=== PATIENT | female | born 1955 | race Caucasian/White ===

== ENCOUNTER 2020-06-04 15:46 | Outpatient (REF) | payer MEDICARE, SELFPAY | END 2020-06-04 15:47 | disposition home or self-care (01) | LOC: HO.LABR 15:46 | PROVIDERS: PCP Internal Medicine Medical Oncology; Visit Provider Internal Medicine | DX: Z20.828 Contact with and (suspected) exposure to other viral communicable diseases (principal) | CPT/HCPCS: 36415; 87635 ==

== ENCOUNTER 2020-06-08 13:02 | Outpatient (REF) | payer MEDICARE, SELFPAY ==
--- NOTE | 2020-06-08 | US_ITS ---
EXAMINATION: MM DIAGNOSTIC DIGITAL BREAST TOMOSYNTHESIS, BILATERAL US DIAGNOSTIC ULTRASOUND BREAST, RIGHT CLINICAL INFORMATION: Due for yearly. Follow-up probable benign calcifications left breast mid upper outer quadrant. Also follow-up probable benign bilateral nodularity. The lifetime risk of breast cancer based on the Tyrer-Cuzick Model is 4%. COMPARISON: Mammography: 12/08/2019, 06/09/2019, 11/29/2018 (diagnostic, left calcs), 05/25/2018 (screen, bilat nodularity), 01/27/2017; bilateral targeted breast ultrasound 11/29/2018, 06/09/2019, 12/08/2019. TECHNIQUE: Digital breast tomosynthesis is performed in both the craniocaudal and mediolateral oblique views along with computer-aided detection (CAD). Synthesized 2D images are generated from the tomosynthesis. Additional views are obtained: Magnification left CC, magnification left ML, right MLO, rolled right CC x2, spot right CC, spot right ML. Ultrasound right breast is targeted to the anterior to mid outer quadrants using grayscale imaging and color Doppler without and with harmonics. FINDINGS: There are scattered areas of fibroglandular density (ACR BI-RADS breast composition Category b). There is a fibronodular parenchymal pattern with nodularity decreased since 2017. The left breast calcifications mid upper outer quadrant for follow-up are stable from prior diagnostic exams and will be reassessed again at next bilateral annual mammography, due in 12 months. The right breast has new parenchymal asymmetry anterior to mid upper outer quadrant measuring approximately 1.8 x 1.2 cm on CC view and residing just anterior to chronic benign coarse calcifications on both projections. On tomography and additional views, there is mixture of fatty and fibroglandular densities in this area. Patient has remote history of excisional biopsy this area 1994. There is no architectural abnormality or associated calcifications. No skin thickening or retraction. The bilateral axilla are stable. Ultrasound targeted to the outer right breast demonstrates no architectural abnormality or solid mass. There are some small simple cysts, the largest 0.7 x 0.5 cm. No focal duct ectasia. No skin thickening or edema. No ultrasound correlate for the mammographic finding. Results are discussed with the patient at time of visit. The changes lateral right breast are of uncertain significance. The admixture of fat attenuation suggests benign process, possibly fat necrosis. Management options discussed with patient. Patient prefers stereotactic sampling for tissue diagnosis and exclude lobular lesion. Results and recommendation called to esthetician and manager medical spa (Mary) for Dr. Porter on 06/08/2020. IMPRESSION: 1. Right: New parenchymal asymmetry upper outer right breast. 2. Left: Probable benign left breast calcifications stable. Nodularity stable to decreased. ASSESSMENT: BI-RADS 4: Suspicious (subcategory 4A: Low suspicion for malignancy) RECOMMENDATION: 1. Right: Stereotactic biopsy right breast parenchymal asymmetry. 2. Left: Magnification views left breast at next routine mammography to conclude long-term surveillance probable benign calcifications. This patient's information was entered into a reminder system with a target due date for their next mammogram.
== END 2020-06-08 13:03 | disposition home or self-care (01) ==
LOC: HO.MAMMO 13:02
PROVIDERS: PCP Internal Medicine Medical Oncology; Visit Provider Internal Medicine Medical Oncology
DX: R92.2 Inconclusive mammogram (principal)
CPT/HCPCS: 76642; 77062; 77066; 78013

== ENCOUNTER 2020-06-16 07:28 | Outpatient (REF) | payer MEDICARE, SELFPAY ==
--- NOTE | 2020-06-16 | MM_ITS ---
EXAMINATION: STEREOTACTIC TOMOSYNTHESIS-GUIDED VACUUM-ASSISTED BREAST BIOPSY, RIGHT SPECIMEN RADIOGRAPH, RIGHT POST PROCEDURE DIGITAL BREAST TOMOSYNTHESIS, RIGHT CLINICAL INFORMATION: New parenchymal asymmetry upper outer right breast with admixed fatty attenuation. Remote history right breast biopsy near this area approximately 1994. COMPARISON: Mammography 06/08/2020, targeted right breast ultrasound 06/08/2020. TECHNIQUE/PROCEDURE: Informed consent was obtained from the patient after discussion of the benefits, risks, and alternatives to biopsy today. Patient appeared to understand. Gave opportunity for questions. Patient signed consent form. BIOPSY TABLE: HeTexted Prone Biopsy System. LESION: Parenchymal asymmetry upper outer right breast. Differential considerations include focal fibrosis, fat necrosis, PASH, hamartoma, lobular neoplasia, other. LOCAL ANESTHESIA: 7 mL 1% lidocaine; 16 mL 1% lidocaine with epinephrine. DERMATOTOMY: Single skin jim dermatotomy performed. NEEDLE: SOAK ([employer])iva 9-gauge vacuum assisted core biopsy device. APPROACH: craniocaudal. TARGETING: Digital breast tomosynthesis used for targeting. CORES: 12. CLIP: [employer] T-shaped marker. SPECIMEN RADIOGRAPH: Specimen radiograph is taken in separate room using digital mammography. There are scattered fibroglandular densities confirm within the excised cores. POST PROCEDURE UNILATERAL DIGITAL BREAST TOMOSYNTHESIS, RIGHT: The post biopsy mammogram is performed in separate room using separate digital breast tomosynthesis equipment from the biopsy procedure. CC and ML views are obtained. Synthesized 2-D images are obtained from the tomography. There are scattered areas of fibroglandular density (breast composition category: b). The clip marker is in position corresponding to the area of recent described asymmetry. No gross hematoma. The patient tolerated the procedure well. No immediate complications. Home instructions reviewed with the patient. Final pathology results are pending. IMPRESSION: 1. Digital tomosynthesis-guided core biopsy right breast with clip placement. 2. Specimen radiograph taken and post procedure mammogram. There is satisfactory positioning of the biopsy clip. 3. Final pathology results pending. An addendum report will be issued.
[2020-06-16 08:06] LABS: MANUAL DIFF FLAG NO
[2020-06-16 08:13] LABS: Basophils Percent Auto 0.3 % (0-2); Eosinophils Absolute Auto 0.2 X10*3/uL (0.0-0.4); Eosinophils Percent Auto 1.8 % (0-4); Hemoglobin 12.1 g/dl (12.0-16.0); Imm Gran Abs Auto 0.04 X10*3/uL (0.00-0.03); Imm Gran Pct Auto 0.4 % (0.0-0.4); Lymphocytes Absolute Auto 1.9 X10*3/uL (1.2-4.9); Lymphocytes Percent Auto 20.3 % (20-40); Mean Corpuscular Volume 90.3 fL (80-98); Mean Platelet Volume 9.4 fL (9.4-12.3); Monocytes Absolute Auto 0.6 X10*3/uL (0.1-1.2); Monocytes Percent Auto 6.1 % (2-11); Neutrophils Absolute Auto 6.5 X10*3/uL (2.0-8.3); Neutrophils Percent Auto 71.1 % (45-73); Platelet Count 286 X10*3/uL (160-400); Red Blood Count 4.32 X10*6/uL (4.20-5.50); Red Cell Distribution Width 15.1 % (11.0-16.0); White Blood Count 9.1 X10*3/uL (4.8-10.8)
[2020-06-16 08:37] LABS: Alanine Aminotransferase 88 U/L (0-31); Albumin Level 3.9 g/dL (3.5-5.0); Alkaline Phosphatase 93 U/L (39-117); Anion Gap 13 (12-20); Aspartate Amino Transferase 67 U/L (5-31); Bilirubin Total 0.5 mg/dL (0.0-1.0); Blood Urea Nitrogen 17 mg/dL (9-16); Calcium 9.1 mg/dL (8.4-10.2); Carbon Dioxide 26 mmol/L (22-29); Chloride 104 mmol/L (96-108); Estimated Glomerular Filt Rate 48; Glucose Fasting 149 mg/dL (60-99); Potassium 4.3 mmol/l (3.3-5.1); Sodium 139 mmol/L (135-145); Total Protein 7.5 g/dL (6.5-8.0)
[2020-06-16 08:48] LABS: Estimated Average Glucose 160 mg/dL; Hemoglobin A1c % 7.2 %
== END 2020-06-16 07:29 | disposition home or self-care (01) ==
LOC: HO.MAMMO 07:28
PROVIDERS: PCP Internal Medicine Medical Oncology; Visit Provider Surgery
DX: R92.8 Other abnormal and inconclusive findings on diagnostic imaging of breast (principal); N60.91 Unspecified benign mammary dysplasia of right breast; E78.5 Hyperlipidemia, unspecified; E66.01 Morbid (severe) obesity due to excess calories; R73.03 Prediabetes
CPT/HCPCS: 19081; 19283; 36415; 80053; 83036; 85025; 88305; 88341; 88342; 99203; A4648

== ENCOUNTER → 2020-06-22 10:56 | Outpatient (BNVA) | payer MEDICARE, SELFPAY | PROVIDERS: PCP Internal Medicine Medical Oncology; Visit Provider Surgery | DX: N60.91 Unspecified benign mammary dysplasia of right breast (principal); N64.89 Other specified disorders of breast; Z98.890 Other specified postprocedural states | CPT/HCPCS: 99213 ==

== ENCOUNTER 2020-07-05 06:52 | Day surgery (SDC) | payer MEDICARE, SELFPAY ==
[2020-06-28 20:48] VITALS: BMI 39.8
--- NOTE | 2020-07-02 11:15 | HO.ANESPROP2 ---
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) Snoring Urinary tract infection Family History Family History Mother History of lung cancer Sister History of colon cancer History of liver cancer Surgical History Surgical History H/O right breast biopsy History of appendectomy History of hand surgery History of total hysterectomy (~12/2019) Hx of cholecystectomy Social History Social History Alcohol intake: current Alcohol intake frequency: holidays/special occasions only Smoking Status: Former smoker Tobacco Type: Cigarette Smoked in Last 30 Days: No Smoking Quit Date: 1999 Use of substances other than those prescribed or required for medical reasons: No Advance Directives: No Advance Directives Information Provided: No Advance Directives on File: No Recently lost weight without trying: No Meds Allergies Allergy/AdvReac Type Severity Reaction Status Date / Time codeine [Codeine] Allergy Mild Rash Verified 06/28/20 20:53 Home Medications Medication Instructions Recorded Confirmed Type citalopram 20 mg tablet 20 mg PO DAILY 06/16/20 06/28/20 History levothyroxine 100 mcg tablet 100 mcg PO DAILY 06/16/20 06/28/20 History nitrofurantoin macrocrystal 50 mg 50 mg PO DAILY 06/16/20 06/28/20 History capsule omeprazole 40 mg capsule,delayed 40 mg PO QAM 06/16/20 07/05/20 History release triamterene 75 1 tab PO DAILY 06/16/20 06/28/20 History mg-hydrochlorothiazide 50 mg tablet topiramate 25 mg PO DAILY 06/28/20 06/28/20 History Exam Exam Date and Time: July 02, 2020 1115 Height,Weight and Vital Signs: Height 5 ft Weight 92.533 kg Pertinent Lab Results Pertinent Lab Results: Laboratory Tests 06/16/20 06/16/20 07:36 07:36 WBC 9.1 Hgb 12.1 Hct 39.0 Plt Count 286 Sodium 139 Potassium 4.3 Chloride 104 Carbon Dioxide 26 BUN 17 H Creatinine 1.14 Assessment and Plan Assessment Anesthesia Assessment: Chart Reviewed Documented by User: Colleen Jamison 07/05/20 09:35 PMFSH Past Medical History Medical History (Updated 07/05/20 @ 09:31 by Colleen Jamison) Back pain Colonoscopy planned (2015) Complication of urinary electronic stimulator device (~11/2019) Depression GERD (gastroesophageal reflux disease) Hypertension Hypothyroid Increased BMI Pre-diabetes 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) Snoring Urinary tract infection Family History Family History Mother History of lung cancer Sister History of colon cancer History of liver cancer Family history of problems with anesthesia: No Surgical History Surgical History H/O right breast biopsy History of appendectomy History of hand surgery History of total hysterectomy (~12/2019) Hx of cholecystectomy History of Problems with Anesthesia: No Social History Social History Alcohol intake: current Alcohol intake frequency: holidays/special occasions only Smoking Status: Former smoker Tobacco Type: Cigarette Smoked in Last 30 Days: No Smoking Quit Date: 1999 Use of substances other than those prescribed or required for medical reasons: No Advance Directives: No Advance Directives Information Provided: No Advance Directives on File: No Recently lost weight without trying: No Meds Allergies Allergy/AdvReac Type Severity Reaction Status Date / Time codeine [Codeine] Allergy Mild Rash Verified 06/28/20 20:53 Home Medications Medication Instructions Recorded Confirmed Type citalopram 20 mg tablet 20 mg PO DAILY 06/16/20 06/28/20 History levothyroxine 100 mcg tablet 100 mcg PO DAILY 06/16/20 06/28/20 History nitrofurantoin macrocrystal 50 mg 50 mg PO DAILY 06/16/20 06/28/20 History capsule omeprazole 40 mg capsule,delayed 40 mg PO QAM 06/16/20 07/05/20 History release triamterene 75 1 tab PO DAILY 06/16/20 06/28/20 History mg-hydrochlorothiazide 50 mg tablet topiramate 25 mg PO DAILY 06/28/20 06/28/20 History Exam Height,Weight and Vital Signs: Vital Signs Temp Pulse Resp BP Pulse Ox 07/05/20 07:25 97.3 F 85 16 134/65 97 Airway Mallampati Class: II TM Dist: >3cm Neck ROM: Full Denture: Upper and Lower Heart: RRR Lungs: CTAB Assessment and Plan Assessment Anesthesia Assessment: Anesthesia Plan Discussed and Chart Reviewed Final Anesthetic Review NPO: Yes ASA Class: III Final Preanesthetic Review: No Changes in Pt Med Stat, Meds/Allgs Chart Reviewed, Consent Obtained/Reviewed and Anes Risks/Benef Reviewed Patient Risk: Intermediate Procedure Risk: Low Anesthetic Plan Anesthetic Plan: GA Disposition: Standard PACU
[2020-07-05] VITALS (8 sets, daily range): BP systolic 100–134; BP diastolic 45–69; PULSE 64–85; RESP 16–18; TEMP 36.3–36.7; O2SAT 96–98
[2020-07-05 07:27] LABS: Glucose, Whole Blood 149 mg/dL (60-115)
--- NOTE | 2020-07-05 07:28 | PC.NURSE ---
PATIENT IS ALLERGIC TO AMOXICILLIN BUT HAS HAD CEFAZOLIN LAST YEAR FOR HER RIGHT HIP. VERIFIED IN COMPUTER. CALLED PHARMACY WELL.
--- NOTE | 2020-07-05 07:53 | MM_ITS ---
EXAMINATION: MM MAMMOGRAM GUIDED NEEDLE LOCALIZATION BREAST, RIGHT MM NEEDLE LOCALIZATION SPECIMEN FROM THE RIGHT BREAST CLINICAL INFORMATION: Recent stereotactic biopsy showing stromal fibrosis, PASH, and focal ADH. COMPARISON: Mammography 06/08/2020, 06/16/2020, ultrasound right breast 06/08/2020 TECHNIQUE NEEDLE LOC: Proper informed consent is obtained from the patient after discussion of the procedure, potential risks and complications, and alternatives including declining the procedure today. Patient was given an opportunity for questions. The patient appeared to understand. The patient consented to the procedure and signed the consent form. GUIDANCE: Digital mammography. APPROACH: Lateral Medial. TARGET: T shaped biopsy clip marker. ANESTHESIA: lidocaine 1%: 6 mL. LOCALIZATION MARKER: [place] [employer]. 5 cm length. The skin is prepped and local anesthesia administered. The needle is positioned and position assessed with mammography. The wire is hooked into position. Makoti needle protector placed. The patient tolerated the procedure well and had no immediate complication. TECHNIQUE SPECIMEN RADIOGRAPH: Imaging of the excised specimen is performed using digital mammography in 1 view. FINDINGS SPECIMEN RADIOGRAPH: The specimen shows the needle and hookwire are delivered intact. The biopsy clip marker is identified in the specimen along with some benign coarse calcifications. Results were called to Dr. Israel Jones in the operating room at the time of imaging. MM/MM needle loc RT IMPRESSION: 1. Status post right breast needle localization with wire hooked into position. 2. Post operative specimen radiograph obtained.
[2020-07-05] MEDS: ceFAZolin Sodium/Dextrose,Iso 2 GM/50 ML PIGGYBACK IV (07:57)
--- NOTE | 2020-07-05 09:17 | MHC.SHP ---
Pre-Procedural Eval Section A The patient is an INPATIENT: No Changes since office visit: Yes Patient answered all questions; No Cold of Flu in the past 2 weeks, No New Medical Problems and No Changes in Medication The History & Physical has been completed within 30 days and I have reviewed it.: Yes Section B Chief Complaint: Pseudoangiomatous stormal hyperplasia of breast Allergies: Allergies Allergy/AdvReac Type Severity Reaction Status Date / Time codeine [Codeine] Allergy Mild Rash Verified 06/28/20 20:53 Plan Diagnosis/Plan: Unchanged Patient has been examined and remains a candidate for the planned procedure
[2020-07-05] MEDS: Lactated Ringers 1,000 ML 100 ML IVCONT (09:29)
--- NOTE | 2020-07-05 09:39 | PM.OP ---
Brief Operative Note Date of procedure: 07/05/20 Pre-op diagnosis: Focal Atypical ductal hyperplasia, PASH Post-op diagnosis: same Procedure: Right breast lumpectomy with needle localization Implants: none Surgeon: Israel Jones MD Anesthesia: GLMA Estimated blood loss (mL): 5 Pathology: other (right breast lump) Condition: stable Disposition: PACU
--- NOTE | 2020-07-05 10:33 | W.PM.OPN ---
Operative Note Operative Note Narrative: Date of procedure: 07/05/20 Pre-op diagnosis: Focal Atypical ductal hyperplasia, PASH Post-op diagnosis: same Procedure: Right breast lumpectomy with needle localization Indications for procedure: 64-year-old female with a recently identified density in the right breast the mid portion, status post core biopsy the revealing focal atypical ductal hyperplasia and PASH presenting today for needle localized lumpectomy right breast. Operative findings : Patient found to have area of marking clip and localizing needle within the specimen x-ray. Procedure details: Patient was brought to the OR placed in a supine position. After administering general anesthesia the patient's right breast was prepped with ChloraPrep and draped in a sterile fashion. A surgical time-out was called and the consent confirmed. Patient received preoperative antibiotics and Venodyne boots were in place. Local anesthesia consisting of 0.75% Sensorcaine with epinephrine was infiltrated in a curvilinear fashion adjacent to the localizing needle. Incision was then made with scalpel carried out through subcutaneous tissue. Superior and inferior skin flaps were then created. Sharp dissection was then used to excise a core of tissue surrounding the localizing needle extending down below the tip. The specimen was marked with a long suture the lateral margin a short suture at the superior margin and loop suture at the deep margin. Specimens sent to pathology for x-ray of the specimen which confirmed the localizing clip within the specimen. It was then sent to pathology for gross examination. Hollows of the breast excision was irrigated with saline solution and suctioned dry. Wounds were checked for hemostasis. Deep breast tissue was closed using interrupted 3-0 Polysorb sutures. Dermis was reapproximated using interrupted 3-0 Polysorb sutures. Skin was then closed using a running subcuticular 4-0 Polysorb suture. Steri-Strips 2 x 2 gauze and Tegaderm were then applied. The patient tolerated the procedure well. Sponge, instrument, and needle counts reported as correct. The patient was transferred to PACU in stable condition. Implants: none Surgeon: Israel Jones MD Anesthesia: GLMA Estimated blood loss (mL): 5 Pathology: other (right breast lump) Condition: stable Disposition: PACU
[2020-07-05] MEDS: oxyCODONE HCl Immed Release 5 MG TABLET 10 MG PO (11:14)
== END 2020-07-05 13:00 | disposition home or self-care (01) ==
PROVIDERS: PCP Internal Medicine Medical Oncology; Visit Provider Surgery
PROC: (CPT 19301; principal; 2020-07-05 09:00)
DX: D24.1 Benign neoplasm of right breast (principal); N60.91 Unspecified benign mammary dysplasia of right breast; N62 Hypertrophy of breast; I10 Essential (primary) hypertension; R73.03 Prediabetes; Z79.899 Other long term (current) drug therapy; Z90.710 Acquired absence of both cervix and uterus; Z90.49 Acquired absence of other specified parts of digestive tract; Z87.891 Personal history of nicotine dependence
CPT/HCPCS: 19301; 19281; 82947; 88307; 88329; A4648; J0131; J0690; J1100; J2250; J2405; J3010

== ENCOUNTER 2020-07-12 06:59 | Outpatient (REF) | payer MEDICARE, SELFPAY ==
[2020-07-12 08:49] LABS: MANUAL DIFF FLAG NO
[2020-07-12 08:53] LABS: Basophils Percent Auto 0.3 % (0-2); Eosinophils Absolute Auto 0.3 X10*3/uL (0.0-0.4); Eosinophils Percent Auto 3.8 % (0-4); Hemoglobin 11.9 g/dl (12.0-16.0); Imm Gran Abs Auto 0.04 X10*3/uL (0.00-0.03); Imm Gran Pct Auto 0.4 % (0.0-0.4); Lymphocytes Absolute Auto 1.7 X10*3/uL (1.2-4.9); Lymphocytes Percent Auto 18.6 % (20-40); Mean Corpuscular HGB Conc 30.5 g/dl (31.0-35.0); Mean Corpuscular Hemoglobin 27.7 pg (27.0-33.0); Mean Corpuscular Volume 90.9 fL (80-98); Mean Platelet Volume 10.1 fL (9.4-12.3); Monocytes Absolute Auto 0.5 X10*3/uL (0.1-1.2); Monocytes Percent Auto 5.9 % (2-11); Neutrophils Absolute Auto 6.4 X10*3/uL (2.0-8.3); Platelet Count 283 X10*3/uL (160-400); Red Blood Count 4.29 X10*6/uL (4.20-5.50); Red Cell Distribution Width 14.9 % (11.0-16.0)
[2020-07-12 09:07] LABS: Estimated Average Glucose 166 mg/dL; Hemoglobin A1c % 7.4 %
[2020-07-12 09:43] LABS: Alanine Aminotransferase 106 U/L (0-31); Albumin Level 3.8 g/dL (3.5-5.0); Alkaline Phosphatase 90 U/L (39-117); Anion Gap 13 (12-20); Aspartate Amino Transferase 89 U/L (5-31); Bilirubin Total 0.4 mg/dL (0.0-1.0); Blood Urea Nitrogen 23 mg/dL (9-16); Calcium 9.2 mg/dL (8.4-10.2); Carbon Dioxide 25 mmol/L (22-29); Chloride 106 mmol/L (96-108); Estimated Glomerular Filt Rate 45; Glucose Fasting 137 mg/dL (60-99); Potassium 3.8 mmol/l (3.3-5.1); Sodium 140 mmol/L (135-145); Total Protein 7.5 g/dL (6.5-8.0)
== END 2020-07-12 07:00 | disposition home or self-care (01) ==
LOC: HO.LAB 06:59
PROVIDERS: Visit Provider Internal Medicine Medical Oncology
DX: E78.5 Hyperlipidemia, unspecified (principal); E66.01 Morbid (severe) obesity due to excess calories
CPT/HCPCS: 36415; 80053; 83036; 85025

== ENCOUNTER → 2020-07-13 09:41 | Outpatient (BNVA) | payer MEDICARE, SELFPAY | PROVIDERS: PCP Internal Medicine Medical Oncology; Visit Provider Surgery | DX: N60.91 Unspecified benign mammary dysplasia of right breast (principal); N64.89 Other specified disorders of breast; Z98.890 Other specified postprocedural states | CPT/HCPCS: 99212 ==

== ENCOUNTER → 2020-08-12 15:11 | Outpatient (BNVA) | payer MEDICARE, SELFPAY | PROVIDERS: PCP Internal Medicine Medical Oncology; Visit Provider Internal Medicine | DX: J84.9 Interstitial pulmonary disease, unspecified (principal); R05 Cough; E66.9 Obesity, unspecified | CPT/HCPCS: 99202 ==

== ENCOUNTER 2020-08-16 08:56 | Outpatient (REF) | payer MEDICARE, SELFPAY ==
--- NOTE | 2020-08-16 14:52 | PFT_ITS ---
FLOWS: FEV1 97% of predicted at 1.95 L. FVC 86% of predicted at 2.26 L. FEV1 to FVC ratio of 0.86. No bronchodilator response. LUNG VOLUMES: Total lung capacity 95% of predicted at 4.26 L. Residual volume 95% of predicted at 1.84 L. Slow vital capacity 95% of predicted at 2.42 L. Expiratory reserve volume 55% of predicted at 0.33 L. Diffusion capacity is moderately decreased, diffusion capacity adjust to being mildly decreased after correction for alveolar ventilation. IMPRESSION: No obstructive or restrictive ventilatory defect. Decreased expiratory reserve volume suggests extrathoracic restriction likely secondary to abdominal obesity. Isolated defect in diffusion capacity suggests underlying pulmonary parenchymal disease. Clinical correlation is advised. MD EULOGIO Del Castillo/MODL / [id number]
== END 2020-08-16 08:57 | disposition home or self-care (01) ==
LOC: HO.RESP 08:56
PROVIDERS: PCP Internal Medicine Medical Oncology; Visit Provider Internal Medicine
DX: J84.9 Interstitial pulmonary disease, unspecified (principal); R05 Cough
CPT/HCPCS: 94060; 94727; 94729

== ENCOUNTER → 2020-09-07 10:06 | Outpatient (BNVA) | payer MEDICARE, SELFPAY | PROVIDERS: PCP Internal Medicine Medical Oncology; Visit Provider Internal Medicine | DX: J84.9 Interstitial pulmonary disease, unspecified (principal); E66.9 Obesity, unspecified; R05 Cough | CPT/HCPCS: 99212 ==

== ENCOUNTER 2020-10-06 | Outpatient (REF) | payer MEDICARE, SELFPAY | END 2020-10-06 00:01 | disposition home or self-care (01) | LOC: HO.VC | PROVIDERS: Visit Provider Internal Medicine | DX: Z23 Encounter for immunization (principal) | CPT/HCPCS: 0011A ==

== ENCOUNTER 2020-10-12 07:05 | Outpatient (REF) | payer MEDICARE, SELFPAY ==
[2020-10-12 07:47] LABS: MANUAL DIFF FLAG NO
[2020-10-12 07:58] LABS: Basophils Percent Auto 0.5 % (0-2); Eosinophils Absolute Auto 0.2 X10*3/uL (0.0-0.4); Eosinophils Percent Auto 2.6 % (0-4); Hematocrit 38.9 % (37-47); Imm Gran Abs Auto 0.02 X10*3/uL (0.00-0.03); Imm Gran Pct Auto 0.3 % (0.0-0.4); Lymphocytes Absolute Auto 2.1 X10*3/uL (1.2-4.9); Lymphocytes Percent Auto 26.5 % (20-40); Mean Corpuscular HGB Conc 30.8 g/dl (31.0-35.0); Mean Corpuscular Hemoglobin 28.1 pg (27.0-33.0); Mean Corpuscular Volume 91.1 fL (80-98); Mean Platelet Volume 9.9 fL (9.4-12.3); Monocytes Absolute Auto 0.6 X10*3/uL (0.1-1.2); Monocytes Percent Auto 7.9 % (2-11); Neutrophils Percent Auto 62.2 % (45-73); Platelet Count 280 X10*3/uL (160-400); Red Blood Count 4.27 X10*6/uL (4.20-5.50); Red Cell Distribution Width 14.5 % (11.0-16.0)
[2020-10-12 08:24] LABS: Alanine Aminotransferase 41 U/L (0-31); Alkaline Phosphatase 79 U/L (39-117); Anion Gap 14 (12-20); Aspartate Amino Transferase 38 U/L (5-31); Bilirubin Total 0.5 mg/dL (0.0-1.0); Blood Urea Nitrogen 24 mg/dL (9-16); Calcium 9.2 mg/dL (8.4-10.2); Carbon Dioxide 26 mmol/L (22-29); Chloride 105 mmol/L (96-108); Cholesterol 102 mg/dL; Estimated Glomerular Filt Rate 37; Glucose Fasting 134 mg/dL (60-99); HDL Cholesterol 34 mg/dL; LDL Cholesterol Calculated 40 mg/dl; Sodium 141 mmol/L (135-145); Total Protein 7.7 g/dL (6.5-8.0); Triglycerides 142 mg/dL
== END 2020-10-12 07:06 | disposition home or self-care (01) ==
LOC: HO.LAB 07:05
PROVIDERS: Visit Provider Internal Medicine Medical Oncology
DX: E66.01 Morbid (severe) obesity due to excess calories (principal); E78.5 Hyperlipidemia, unspecified
CPT/HCPCS: 36415; 80053; 80061; 85025

== ENCOUNTER 2020-11-02 | Outpatient (REF) | payer MEDICARE, SELFPAY | END 2020-11-02 00:01 | disposition home or self-care (01) | LOC: HO.VC | PROVIDERS: Visit Provider Internal Medicine | DX: Z23 Encounter for immunization (principal) | CPT/HCPCS: 0012A ==

== ENCOUNTER 2021-01-10 08:01 | Outpatient (REF) | payer MEDICARE, SELFPAY ==
[2021-01-10 09:10] LABS: MANUAL DIFF FLAG NO
[2021-01-10 09:16] LABS: Basophils Percent Auto 0.4 % (0-2); Eosinophils Absolute Auto 0.2 X10*3/uL (0.0-0.4); Eosinophils Percent Auto 2.1 % (0-4); Hematocrit 40.7 % (37-47); Hemoglobin 12.7 g/dl (12.0-16.0); Imm Gran Abs Auto 0.04 X10*3/uL (0.00-0.03); Imm Gran Pct Auto 0.4 % (0.0-0.4); Lymphocytes Absolute Auto 2.2 X10*3/uL (1.2-4.9); Lymphocytes Percent Auto 22.3 % (20-40); Mean Corpuscular HGB Conc 31.2 g/dl (31.0-35.0); Mean Corpuscular Hemoglobin 27.8 pg (27.0-33.0); Mean Corpuscular Volume 89.1 fL (80-98); Mean Platelet Volume 10.1 fL (9.4-12.3); Monocytes Absolute Auto 0.6 X10*3/uL (0.1-1.2); Monocytes Percent Auto 5.7 % (2-11); Neutrophils Absolute Auto 6.7 X10*3/uL (2.0-8.3); Neutrophils Percent Auto 69.1 % (45-73); Platelet Count 297 X10*3/uL (160-400); Red Blood Count 4.57 X10*6/uL (4.20-5.50); Red Cell Distribution Width 13.8 % (11.0-16.0); White Blood Count 9.7 X10*3/uL (4.8-10.8)
[2021-01-10 09:40] LABS: Alanine Aminotransferase 20 U/L (0-31); Albumin Level 4.2 g/dL (3.5-5.0); Alkaline Phosphatase 93 U/L (39-117); Anion Gap 13 (12-20); Aspartate Amino Transferase 18 U/L (5-31); Bilirubin Total 0.6 mg/dL (0.0-1.0); Blood Urea Nitrogen 23 mg/dL (9-16); Carbon Dioxide 28 mmol/L (22-29); Chloride 103 mmol/L (96-108); Cholesterol 104 mg/dL; Estimated Glomerular Filt Rate 36; Glucose Fasting 134 mg/dL (60-99); HDL Cholesterol 40 mg/dL; LDL Cholesterol Calculated 43 mg/dl; Sodium 140 mmol/L (135-145); Total Protein 7.6 g/dL (6.5-8.0); Triglycerides 106 mg/dL
[2021-01-10 10:02] LABS: Free T4 (Free Thyroxine) 1.16 ng/dL (0.71-1.85); Thyroid Stimulating Hormone 0.05 uIU/mL (0.32-4.0)
== END 2021-01-10 08:02 | disposition home or self-care (01) ==
LOC: HO.LAB 08:01
PROVIDERS: PCP Internal Medicine Medical Oncology; Visit Provider Internal Medicine Medical Oncology
DX: E78.5 Hyperlipidemia, unspecified (principal); E03.9 Hypothyroidism, unspecified; E66.09 Other obesity due to excess calories
CPT/HCPCS: 36415; 80053; 80061; 84439; 84443; 85025

== ENCOUNTER 2021-01-17 12:17 | Outpatient (REF) | payer MEDICARE, SELFPAY ==
--- NOTE | ~2021-01-17 | MM_ITS ---
EXAMINATION: MM DIAGNOSTIC DIGITAL BREAST TOMOSYNTHESIS, RIGHT CLINICAL INFORMATION: Short interval six-month follow-up right lumpectomy. Right stereotactic biopsy 06/16/2020 (focal ADH, fibrocystic change, PASH). Subsequent right excisional biopsy 07/05/2020 (focal flat epithelial atypia, not seen at examination margin; and, small intraductal papilloma). The lifetime risk of breast cancer based on the Tyrer-Cuzick Model is 22%. COMPARISON: Mammography: 07/05/2020, 06/16/2020, 07/09/2020, 12/08/2019, 06/09/2019 TECHNIQUE: Digital breast tomosynthesis is performed in both the craniocaudal and mediolateral oblique views along with computer-aided detection (CAD). Synthesized 2D images are generated from the tomosynthesis. Images are obtained with scar markers. FINDINGS: There are scattered areas of fibroglandular density (ACR BI-RADS breast composition Category b). There are minor postsurgical changes. No interval mass or architectural abnormality. Nodularity posterior 9:00 position decreased from 2019. No developing density. No abnormal calcifications. Axillary nodes and skin contours are unremarkable. Results are provided to the patient at time of visit by the technologist. MM/MM tomosynthesis diagnostic RT IMPRESSION: No mammographic evidence of malignancy. ASSESSMENT: BI-RADS 2: Benign RECOMMENDATION: 1. Routine annual mammography screening. 2. The lifetime risk of breast cancer based on the Tyrer-Cuzick Model is 22%. Additional annual adjunct screening with breast MRI may be of benefit in women with a risk score of 20% or greater. This patient's information was entered into a reminder system with a target due date for their next mammogram.
== END 2021-01-17 12:18 | disposition home or self-care (01) ==
LOC: HO.MAMMO 12:17
PROVIDERS: PCP Internal Medicine Medical Oncology; Visit Provider Surgery
DX: N60.91 Unspecified benign mammary dysplasia of right breast (principal); Z98.890 Other specified postprocedural states
CPT/HCPCS: 77061; 77065

== ENCOUNTER → 2021-03-15 14:18 | Outpatient (BNVA) | payer MEDICARE, SELFPAY | PROVIDERS: PCP Internal Medicine Medical Oncology; Visit Provider Internal Medicine | DX: J84.9 Interstitial pulmonary disease, unspecified (principal); R05 Cough; E66.9 Obesity, unspecified; R73.03 Prediabetes; Z68.34 Body mass index [BMI] 34.0-34.9, adult; Z88.6 Allergy status to analgesic agent; Z79.84 Long term (current) use of oral hypoglycemic drugs; Z79.899 Other long term (current) drug therapy; Z87.891 Personal history of nicotine dependence | CPT/HCPCS: 99212 ==

== ENCOUNTER 2021-05-13 07:32 | Outpatient (REF) | payer MEDICARE, SELFPAY ==
[2021-05-13 08:04] LABS: MANUAL DIFF FLAG NO
[2021-05-13 08:06] LABS: Basophils Percent Auto 0.3 % (0-2); Eosinophils Absolute Auto 0.2 X10*3/uL (0.0-0.4); Eosinophils Percent Auto 2.2 % (0-4); Hematocrit 37.2 % (37-47); Hemoglobin 11.5 g/dl (12.0-16.0); Imm Gran Abs Auto 0.05 X10*3/uL (0.00-0.03); Imm Gran Pct Auto 0.5 % (0.0-0.4); Lymphocytes Absolute Auto 1.5 X10*3/uL (1.2-4.9); Lymphocytes Percent Auto 14.7 % (20-40); Mean Corpuscular HGB Conc 30.9 g/dl (31.0-35.0); Mean Corpuscular Hemoglobin 27.8 pg (27.0-33.0); Mean Corpuscular Volume 90.1 fL (80-98); Mean Platelet Volume 9.5 fL (9.4-12.3); Monocytes Absolute Auto 0.6 X10*3/uL (0.1-1.2); Monocytes Percent Auto 5.4 % (2-11); Neutrophils Percent Auto 76.9 % (45-73); Platelet Count 260 X10*3/uL (160-400); Red Blood Count 4.13 X10*6/uL (4.20-5.50); Red Cell Distribution Width 15.2 % (11.0-16.0); White Blood Count 10.5 X10*3/uL (4.8-10.8)
[2021-05-13 08:29] LABS: Estimated Average Glucose 117 mg/dL; Hemoglobin A1c % 5.7 %
[2021-05-13 08:43] LABS: Alanine Aminotransferase 17 U/L (0-31); Albumin Level 3.9 g/dL (3.5-5.0); Alkaline Phosphatase 83 U/L (39-117); Anion Gap 12 (12-20); Aspartate Amino Transferase 18 U/L (5-31); Bilirubin Total 0.5 mg/dL (0.0-1.0); Blood Urea Nitrogen 23 mg/dL (9-16); Calcium 9.8 mg/dL (8.4-10.2); Carbon Dioxide 26 mmol/L (22-29); Chloride 110 mmol/L (96-108); Cholesterol 131 mg/dL; Estimated Glomerular Filt Rate 33; Glucose Fasting 126 mg/dL (60-99); HDL Cholesterol 48 mg/dL; LDL Cholesterol Calculated 62 mg/dl; Potassium 4.7 mmol/L (3.3-5.1); Sodium 143 mmol/L (135-145); Total Protein 7.1 g/dL (6.5-8.0); Triglycerides 108 mg/dL
[2021-05-13 09:04] LABS: Free T4 (Free Thyroxine) 0.87 ng/dL (0.71-1.85)
== END 2021-05-13 07:33 | disposition home or self-care (01) ==
LOC: HO.LAB 07:32
PROVIDERS: PCP Internal Medicine Medical Oncology; Visit Provider Internal Medicine Medical Oncology
DX: E78.5 Hyperlipidemia, unspecified (principal); K63.5 Polyp of colon; E03.9 Hypothyroidism, unspecified; J84.9 Interstitial pulmonary disease, unspecified; E11.9 Type 2 diabetes mellitus without complications
CPT/HCPCS: 36415; 80053; 80061; 83036; 84439; 84443; 85025

== ENCOUNTER 2021-05-20 11:09 | Outpatient (REF) | payer MEDICARE, SELFPAY ==
--- NOTE | ~2021-05-20 | XR_ITS ---
EXAMINATION: XR PELVIS XR SACRUM/COCCYX CLINICAL INFORMATION: Pain following fall. COMPARISON: CT abdomen/pelvis dated 10/22/2015. TECHNIQUE: AP view the pelvis. AP and lateral views of the sacrum and coccyx. FINDINGS: Pelvis: No acute fracture or dislocation. Right and left hip joint space narrowing with marginal osteophytes. No osseous erosion. Accessory ossicle versus unfused osteophyte at the right hip, unchanged. Sacrum/Coccyx: No acute fracture or subluxation. Loss of intervertebral disc height with endplate osteophytes within the visualized lower lumbar spine, most severe at L5-S1, progressed when compared to the prior CT. No lytic or blastic osseous lesion. No abnormal soft tissue calcification. XR/XR pelvis 1-2V IMPRESSION: PELVIS: Mild right and left hip osteoarthritis, slightly progressed. SACRUM/COCCYX: No acute osseous abnormality. Prominent degenerative disc disease within the lower lumbar spine, most severe at L5-S1 which has progressed when compared to the prior CT from 2015.
--- NOTE | ~2021-05-20 | XR_ITS ---
EXAMINATION: XR PELVIS XR SACRUM/COCCYX CLINICAL INFORMATION: Pain following fall. COMPARISON: CT abdomen/pelvis dated 10/22/2015. TECHNIQUE: AP view the pelvis. AP and lateral views of the sacrum and coccyx. FINDINGS: Pelvis: No acute fracture or dislocation. Right and left hip joint space narrowing with marginal osteophytes. No osseous erosion. Accessory ossicle versus unfused osteophyte at the right hip, unchanged. Sacrum/Coccyx: No acute fracture or subluxation. Loss of intervertebral disc height with endplate osteophytes within the visualized lower lumbar spine, most severe at L5-S1, progressed when compared to the prior CT. No lytic or blastic osseous lesion. No abnormal soft tissue calcification. XR/XR sacrum coccyx min 2V IMPRESSION: PELVIS: Mild right and left hip osteoarthritis, slightly progressed. SACRUM/COCCYX: No acute osseous abnormality. Prominent degenerative disc disease within the lower lumbar spine, most severe at L5-S1 which has progressed when compared to the prior CT from 2015.
== END 2021-05-20 11:10 | disposition home or self-care (01) ==
LOC: HO.XRAY 11:09
PROVIDERS: PCP Internal Medicine Medical Oncology; Visit Provider Internal Medicine Medical Oncology
DX: Z91.81 History of falling (principal)
CPT/HCPCS: 72170; 72220

== ENCOUNTER → 2021-05-25 13:09 | Outpatient (BNVA) | payer OTHER, SELFPAY | PROVIDERS: PCP Internal Medicine Medical Oncology; Visit Provider Physician Assistant | DX: S05.01XA Injury of conjunctiva and corneal abrasion without foreign body, right eye, initial encounter (principal); X58.XXXA Exposure to other specified factors, initial encounter | CPT/HCPCS: 99203 ==

== ENCOUNTER → 2021-05-27 13:53 | Outpatient (BNVA) | payer OTHER, SELFPAY | PROVIDERS: PCP Internal Medicine Medical Oncology; Visit Provider Physician Assistant | DX: S05.01XA Injury of conjunctiva and corneal abrasion without foreign body, right eye, initial encounter (principal); X58.XXXA Exposure to other specified factors, initial encounter | CPT/HCPCS: 99213 ==

== ENCOUNTER 2021-06-08 09:47 | Day surgery (SDC) | payer OTHER, SELFPAY ==
--- NOTE | 2021-06-07 08:59 | P.CONAN_ITS ---
Documented by User: Archana Gutierrez NP 06/07/21 09:01 HPI - Anesthesia Eval Consult details Narrative: 65yo F for Upper Endoscopy and Colonoscopy PMFSH Active Problems Active Problems: All Active Problems (Updated 06/02/21 @ 16:18 by Ely Younger, SANG) Atypical ductal hyperplasia of right breast (Acute 06/22/20) Obesity (Acute) Interstitial lung disease (Acute) Cough (Acute) Pseudoangiomatous stromal hyperplasia of breast (Acute 06/22/20) Past Medical History Medical History Abnormal mammogram of right breast Back pain Complication of urinary electronic stimulator device Cough Depression GERD (gastroesophageal reflux disease) Hypertension Hypothyroid Increased BMI Interstitial lung disease Obesity Pre-diabetes 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) Snoring Urinary tract infection Family History Family History Mother History of lung cancer Sister History of colon cancer History of liver cancer Family history of problems with anesthesia: No Surgical History Surgical History H/O right breast biopsy History of appendectomy History of hand surgery History of lumpectomy of right breast History of total hysterectomy Hx of cholecystectomy Hx of colonoscopy History of Problems with Anesthesia: No Social History Social History Alcohol intake: current Alcohol intake frequency: holidays/special occasions only Patient Tobacco Use Status: Former Tobacco user Years Smoked: 52 Use of substances other than those prescribed or required for medical reasons: No Have you been hit, kicked, punched, or otherwise hurt by someone within the past year? If so, by whom?: No Are you DNR?: No Advance Directives: No Advance Directives Information Provided: Yes Advance Directives on File: No Recently lost weight without trying: No Nutrition Risks: No Nutritional Risk Patient : No Meds Allergies Allergy/AdvReac Type Severity Reaction Status Date / Time codeine [Codeine] Allergy Mild Rash Verified 03/15/21 14:57 Home Medications Medication Instructions Recorded Confirmed Last Taken Type citalopram 20 mg tablet 20 mg PO DAILY 06/16/20 06/02/21 07/05/20 06:15 History levothyroxine 100 mcg tablet 100 mcg PO DAILY 06/16/20 06/02/21 07/05/20 06:15 History triamterene 75 1 tab PO DAILY 06/16/20 06/02/21 Unknown History mg-hydrochlorothiazide 50 mg tablet omeprazole 40 mg capsule,delayed 20 mg PO BID cap 08/12/20 06/02/21 Unknown History release atorvastatin 10 mg tablet 10 mg PO DAILY 09/07/20 06/02/21 Unknown History flu vacc [id number](65yr up)-PF 240 ml IM 09/07/20 Unknown History mcg/0.7 mL intramuscular syringe metformin 500 mg tablet 500 mg PO DAILY 09/07/20 06/02/21 Unknown History topiramate 25 mg capsule,extended 50 mg PO DAILY cap 09/07/20 06/02/21 Unknown History release 24 hr Exam Exam Date and Time: June 07, 2021 0859 Pertinent Lab Results Pertinent Lab Results: Laboratory Tests 05/13/21 05/13/21 07:45 07:45 WBC 10.5 Hgb 11.5 L Hct 37.2 Plt Count 260 Sodium 143 Potassium 4.7 Chloride 110 H Carbon Dioxide 26 BUN 23 H Creatinine 1.56 H Assessment and Plan Assessment Anesthesia Assessment: Chart Reviewed Final Anesthetic Review Family History of Problems with Anesthesia: No History of Problems with Anesthesia: No Documented by User: Colleen Jamison MD 06/08/21 10:45 [facility] Past Medical History Medical History Abnormal mammogram of right breast Back pain Complication of urinary electronic stimulator device Cough Depression GERD (gastroesophageal reflux disease) Hypertension Hypothyroid Increased BMI Interstitial lung disease Obesity Pre-diabetes 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) Snoring Urinary tract infection Family History Family History Mother History of lung cancer Sister History of colon cancer History of liver cancer Surgical History Surgical History H/O right breast biopsy History of appendectomy History of hand surgery History of lumpectomy of right breast History of total hysterectomy Hx of cholecystectomy Hx of colonoscopy Social History Social History Alcohol intake: current Alcohol intake frequency: holidays/special occasions only Patient Tobacco Use Status: Former Tobacco user Years Smoked: 52 Use of substances other than those prescribed or required for medical reasons: No Have you been hit, kicked, punched, or otherwise hurt by someone within the past year? If so, by whom?: No Are you DNR?: No Advance Directives: No Advance Directives Information Provided: Yes Advance Directives on File: No Recently lost weight without trying: No Nutrition Risks: No Nutritional Risk Patient : No Meds Allergies Allergy/AdvReac Type Severity Reaction Status Date / Time codeine [Codeine] Allergy Mild Rash Verified 03/15/21 14:57 Home Medications Medication Instructions Recorded Confirmed Last Taken Type citalopram 20 mg tablet 20 mg PO DAILY 06/16/20 06/02/21 07/05/20 06:15 History levothyroxine 100 mcg tablet 100 mcg PO DAILY 06/16/20 06/02/21 07/05/20 06:15 History triamterene 75 1 tab PO DAILY 06/16/20 06/02/21 Unknown History mg-hydrochlorothiazide 50 mg tablet omeprazole 40 mg capsule,delayed 20 mg PO BID cap 08/12/20 06/02/21 Unknown History release atorvastatin 10 mg tablet 10 mg PO DAILY 09/07/20 06/02/21 Unknown History flu vacc [id number](65yr up)-PF 240 ml IM 09/07/20 Unknown History mcg/0.7 mL intramuscular syringe metformin 500 mg tablet 500 mg PO DAILY 09/07/20 06/02/21 Unknown History topiramate 25 mg capsule,extended 50 mg PO DAILY cap 09/07/20 06/02/21 Unknown History release 24 hr Exam Height,Weight and Vital Signs: Height 5 ft Weight 83.915 kg Vital Signs Temp Pulse Resp BP Pulse Ox 06/08/21 09:52 97 F 91 18 120/65 97 Pertinent Lab Results Pertinent Lab Results: Laboratory Tests 05/13/21 05/13/21 07:45 07:45 WBC 10.5 Hgb 11.5 L Hct 37.2 Plt Count 260 Sodium 143 Potassium 4.7 Chloride 110 H Carbon Dioxide 26 BUN 23 H Creatinine 1.56 H Lab Results 06/08/21 Range/Units 09:58 POC Glucose 119 H (60-115) mg/dL Airway Mallampati Class: II TM Dist: >3cm Neck ROM: Full Denture: Upper and Lower Heart: RRR Lungs: CTAB Assessment and Plan Assessment Anesthesia Assessment: Anesthesia Plan Discussed Final Anesthetic Review NPO: Yes ASA Class: III Final Preanesthetic Review: No Changes in Pt Med Stat, Meds/Allgs Chart Reviewed, Consent Obtained/Reviewed and Anes Risks/Benef Reviewed Patient Risk: Intermediate Procedure Risk: Low Assessment/Block/Sedation in SS: Assess/Block/Sedation-SS Anesthetic Plan Anesthetic Plan: MAC: Disposition: Standard PACU
[2021-06-08 06:53] VITALS: BMI 36.1
[2021-06-08 09:52] VITALS: BP 120/65; PULSE 91; RESP 18; TEMP 36.1; O2SAT 97
[2021-06-08 10:01] LABS: Glucose, Whole Blood 119 mg/dL (60-115)
[2021-06-08] MEDS: Lactated Ringers 1,000 ML 100 ML IVCONT (10:14)
[2021-06-08 12:20] VITALS: BP 114/55; PULSE 73; RESP 16; TEMP 36.1; O2SAT 97
--- NOTE | 2021-06-08 12:22 | P.BOP_ITS ---
Brief Operative Note Date of Service: 06/08/21 Pre-op diagnosis: GERD, Screening Post-op diagnosis: other (Hiatal hernia, Diverticulosis) Procedure: EGD, Colonoscopy to the cecum Surgeon: Christopher Flood Anesthesia: MAC Was an Bottom Liner used for this Procedure?: No Estimated blood loss (mL): 0 Pathology: none sent Condition: stable Disposition: PACU
[2021-06-08 12:43] VITALS: BP 113/33; PULSE 60; RESP 16; TEMP 36.1; O2SAT 96
[2021-06-08] MEDS: Acetaminophen 325 MG TABLET 650 MG PO (13:02)
--- NOTE | 2021-06-08 19:12 | OP_ITS ---
SURGEON: Christopher Flood MD INDICATIONS: The patient presents for evaluation of gastroesophageal reflux, family history of colon cancer, and colorectal cancer screening. Full consent has been obtained from her for this, including risks of bleeding and perforation. PREOPERATIVE DIAGNOSIS: POSTOPERATIVE DIAGNOSIS: PROCEDURE PERFORMED: Esophagogastroduodenoscopy and colonoscopy to cecum. ESTIMATED BLOOD LOSS: COMPLICATIONS: ANESTHESIA: Monitored anesthesia care. ASSISTANTS: SPECIMENS: PREOPERATIVE DIAGNOSES: Colorectal cancer screening, family history of colon cancer, gastroesophageal reflux. POSTOPERATIVE DIAGNOSES: Colorectal cancer screening, family history of colon cancer, gastroesophageal reflux, small hiatal hernia, diverticulosis, internal hemorrhoids. DESCRIPTION OF PROCEDURE: The patient was placed in the left lateral decubitus position. The Olympus video gastroscope was passed in the posterior oropharynx and upper esophagus under direct vision. The scope was passed slowly into the distal esophagus. The gastroesophageal junction appeared normal at 36 cm. There was no sign of any esophagitis nor Mayfield's esophagus. The scope entered into the stomach. There was a small hiatal hernia. The scope was advanced to pylorus and the duodenum was cannulated to the descending portion. The duodenum including the bulb appeared normal without mass or ulceration. The scope was withdrawn back into the stomach. The gastric antrum and body appeared normal with good peristalsis. The scope was retroflexed visualizing the proximal stomach carefully, which appeared normal, without any sign of mass or ulceration. The scope was straightened out and withdrawn back into the esophagus. The esophageal mucosa appeared normal. The scope was withdrawn from the patient. She was turned around for colonoscopy. The digital rectal exam revealed no abnormalities. The Olympus video pediatric colonoscope was entered into the rectum and advanced easily to the cecum. Once in the cecum, I did identify normal-appearing cecal pouch with appendiceal orifice and a normal-appearing ileocecal valve. The entire cecum and ileocecal valve appeared normal. The scope was slowly withdrawn assessing all mucosal surfaces carefully. Preparation was excellent. I did not visualize any sign of polyps, colitis, nor angiodysplasia. There was a mild amount of sigmoid diverticulosis. In the rectum, scope was retroflexed visualizing internal hemorrhoids, but no other pathology. The rectal mucosa appeared normal. The scope was straightened out and withdrawn from the patient. She tolerated the procedure well and was returned to the recovery area in stable condition. IMPRESSION: 1. Small hiatal hernia, otherwise normal upper endoscopy. 2. Diverticulosis. 3. Internal hemorrhoids. PLAN: The patient will continue her omeprazole for symptomatic relief of reflux. I would recommend a repeat colonoscopy in 5 years for further screening given the family history of colon cancer in her sister in her 40s. She will otherwise see me on a p.r.n. basis. MD DINA Erickson/HE / [phone]
== END 2021-06-08 13:36 | disposition home or self-care (01) ==
PROVIDERS: PCP Internal Medicine Medical Oncology; Visit Provider Internal Medicine
PROC: (CPT 45378; principal; 2021-06-08 11:00)
DX: Z12.11 Encounter for screening for malignant neoplasm of colon (principal); Z80.0 Family history of malignant neoplasm of digestive organs; K57.30 Diverticulosis of large intestine without perforation or abscess without bleeding; K64.8 Other hemorrhoids; K21.9 Gastro-esophageal reflux disease without esophagitis; K44.9 Diaphragmatic hernia without obstruction or gangrene; E11.9 Type 2 diabetes mellitus without complications; Z79.84 Long term (current) use of oral hypoglycemic drugs; Z79.899 Other long term (current) drug therapy; Z87.891 Personal history of nicotine dependence
CPT/HCPCS: 45378; 43235; 82947; J3010

== ENCOUNTER 2021-06-10 09:51 | Outpatient (REF) | payer MEDICARE, SELFPAY ==
--- NOTE | ~2021-06-10 | MM_ITS ---
EXAMINATION: MM DIAGNOSTIC DIGITAL BREAST TOMOSYNTHESIS, BILATERAL CLINICAL INFORMATION: History right focal ADH with fibrocystic change and PASH on stereo biopsy 06/16/2020. Right excisional biopsy 07/05/2020 (focal flat epithelial atypia, not seen at examination margin; and, small intraductal papilloma). Due for yearly. Also follow-up probable benign left calcifications mid upper outer quadrant. The lifetime risk of breast cancer based on the Tyrer-Cuzick Model is 22%. COMPARISON: Right mammography 01/17/2021, needle localization right 07/05/2020, stereotactic right06/16/2020; bilateral mammography 06/08/2020, 12/08/2019, 06/09/2019, 11/29/2018 (BI-RADS 3 for left calcifications), 05/25/2018, 01/27/2017, 12/24/2015. TECHNIQUE: Digital breast tomosynthesis is performed in both the craniocaudal and mediolateral oblique views along with computer-aided detection (CAD). Synthesized 2D images are generated from the tomosynthesis. Additional views are obtained: Magnification left CC x2, magnification left ML x2. Patient imaged while radiologist at procedure at hospital location. FINDINGS: There are scattered areas of fibroglandular density (ACR BI-RADS breast composition Category b). Left breast parenchymal pattern is similar to prior studies. There is no developing density or interval mass or architectural abnormality. The calcifications for follow-up central mid upper outer quadrant are decreased since 2019 and are benign. There are no increasing calcifications or pleomorphic types. The axilla and skin contours are unremarkable. Right breast has subtle irregular developing focal asymmetric density posterior 1:00 position approximately 11 cm from nipple measuring under 1 cm. This represents change from prior exams. The right CC view also demonstrates a 6 mm smooth macrolobulated asymmetric density posterior 4:30 o'clock position approximately 9 cm from nipple. This resides close to the inframammary fold include be related to dermal lesion. No abnormal right breast calcifications. Right axillary nodes and skin contours are stable. MM/MM tomosynthesis diagnostic BI IMPRESSION: 1. Right: Irregular focal asymmetric density posterior 1:00 position under 1 cm. Macrolobulated nodule near inframammary fold 4:30 o'clock position, possibly dermal. 2. Left: No mammographic evidence of malignancy. Left breast calcifications for follow-up decreased in now considered to be benign. ASSESSMENT: BI-RADS 0: Incomplete - Need Additional Imaging Evaluation RECOMMENDATION: 1. Additional imaging right breast: Spot CC and spot MLO for lesion posterior 1:00 position. Assess for dermal lesion and obtain images with dermal marker if applicable for palpable lesion near inframammary fold. Otherwise Spot CC and spot ML views for other finding. 2. Targeted ultrasound if warranted after review of the additional views. 2. The lifetime risk of breast cancer based on the Tyrer-Cuzick Model is 22%. Additional annual adjunct screening with breast MRI may be of benefit in women with a risk score of 20% or greater. This patient's information was entered into a reminder system with a target due date for their next mammogram.
== END 2021-06-10 09:52 | disposition home or self-care (01) ==
LOC: HO.MAMMO 09:51
PROVIDERS: Visit Provider Internal Medicine Medical Oncology
DX: R92.1 Mammographic calcification found on diagnostic imaging of breast (principal)
CPT/HCPCS: 77062; 77066

== ENCOUNTER 2021-06-17 08:46 | Outpatient (REF) | payer MEDICARE, SELFPAY ==
--- NOTE | ~2021-06-17 | MM_ITS ---
EXAMINATION: MM DIAGNOSTIC DIGITAL BREAST TOMOSYNTHESIS, RIGHT US DIAGNOSTIC ULTRASOUND BREAST, RIGHT CLINICAL INFORMATION: Recall from screening for 2 findings, irregular asymmetric density posterior 1:00 position and macrolobulated nodule posterior 4:30 o'clock position. History focal right ADH with fibrocystic change and PASH on stereo biopsy 06/16/2020. Right excisional biopsy 07/05/2020 (focal flat epithelial atypia, not seen at examination margin; and, small intraductal papilloma). COMPARISON: Mammography: 06/10/2021 TECHNIQUE: Digital breast tomosynthesis is performed. 2D images are generated from the tomosynthesis. The following views are obtained: Spot CC, standard CC with dermal marker, spot MLO x2. Ultrasound right breast is targeted to the posterior upper breast and posterior inferior medial breast. Additional imaging right axilla also performed. Grayscale imaging and color Doppler are performed without and with harmonics. FINDINGS: There are scattered areas of fibroglandular density (ACR BI-RADS breast composition Category b). The additional views confirm subtle irregular focal asymmetric density posterior 1:00 position. There is also a macrolobulated nodule posterior inferior medial breast as noted on recent screening. A dermal lesion is present in the inferomedial right breast but not corresponding to either finding. Ultrasound demonstrates focal 0.4 cm hypoechoic lesion with ill-defined margins and posterior shadowing posterior 1:00 position 9 cm from nipple. This is believed to correspond to the finding on mammography posterior 1:00 position. Ultrasound inferior medial right breast demonstrates a macrolobulated somewhat irregular nearly anechoic lesion 4:00 position 8 cm from nipple but without increased through-transmission of sound. There is no posterior shadowing. No associated color flow. This likely corresponds to the nodule on mammography in this area. Additional ultrasound right axilla demonstrates no lymphadenopathy. Results are discussed with the patient at time of visit. Ultrasound-guided biopsy of both findings posterior 1:00 position and posterior 4:00 position are recommended. Results are called to medical director/head team physician (Hailee) for Dr. Porter on 06/17/2021. MM/MM tomosynthesis added views R IMPRESSION: 1. Small irregular focal asymmetric density posterior 1:00 position with probable ultrasound correlate. 2. Small small macrolobulated nodule posterior 4:00 position with probable ultrasound correlate. 3. No gross lymphadenopathy right axilla on ultrasound. ASSESSMENT: BI-RADS 4: Suspicious RECOMMENDATION: Ultrasound-guided core biopsy (2 sites), posterior 1:00 position and posterior 4:00 position. This patient's information was entered into a reminder system with a target due date for their next mammogram.
== END 2021-06-17 08:47 | disposition home or self-care (01) ==
LOC: HO.MAMMO 08:46
PROVIDERS: Visit Provider Internal Medicine Medical Oncology
DX: R92.2 Inconclusive mammogram (principal)
CPT/HCPCS: 76642; 77061; 77065

== ENCOUNTER 2021-06-23 10:51 | Outpatient (REF) | payer MEDICARE, SELFPAY ==
--- NOTE | ~2021-06-23 | US_ITS ---
EXAMINATION: US VENOUS WITH DOPPLER UPPER EXTREMITY, RIGHT CLINICAL INFORMATION: Right arm pain COMPARISON: None TECHNIQUE: Ultrasound of the upper extremity is performed using compression sonography and color and pulse Doppler flow with assessment of augmentation of flow. There is also imaging and Doppler assessment of the jugular and subclavian veins. Spectral analysis with color-flow imaging is performed. FINDINGS: Respiratory variation, normal compression, and augmented flow are noted throughout the upper extremity including the axillary, brachial, cubital, and radial and ulnar veins. There is normal flow in the internal jugular and subclavian veins. There is no visible deep or superficial thrombophlebitis. If the patient's symptoms progress, a followup ultrasound in 5 -7 days might be of value to exclude proximal propagation from a nonvisualized distal arm vein. US/US venous duplex UE RT IMPRESSION: No DVT demonstrated in the right upper extremity.
== END 2021-06-23 10:52 | disposition home or self-care (01) ==
LOC: HO.US 10:51
PROVIDERS: PCP Internal Medicine Medical Oncology; Visit Provider Internal Medicine Medical Oncology
DX: M79.601 Pain in right arm (principal); I82.621 Acute embolism and thrombosis of deep veins of right upper extremity
CPT/HCPCS: 93971

== ENCOUNTER 2021-06-30 09:33 | Outpatient (REF) | payer MEDICARE, SELFPAY ==
--- NOTE | ~2021-06-30 | MM_ITS ---
EXAMINATION: ULTRASOUND GUIDED CORE BIOPSY BREAST (TWO SITES), RIGHT POST PROCEDURE DIGITAL MAMMOGRAM, RIGHT CLINICAL INFORMATION: Irregular asymmetric density posterior 1:00 position with shadowing on ultrasound. Also nodule posterior 4:00 o'clock position possibly apocrine metaplasia/microcysts. Prior history focal right ADH with fibrocystic change in past (stereotactic biopsy 06/16/2020). Right excisional biopsy 07/05/2020 (focal flat epithelial atypia, not seen at examination margin; and, small intraductal papilloma). COMPARISON: Mammography 06/17/2021, 06/10/2021, targeted right breast ultrasound 06/17/2021. FINDINGS: Proper informed consent is obtained from the patient after discussion of the procedure, potential risks and complications, and alternatives. Patient was given an opportunity for questions. The patient appeared to understand. The patient consented to the procedure and signed the consent form. SPECIMEN A: LOCATION: Posterior 1:00 position. GUIDANCE: Ultrasound-guided; aseptic technique. LESION: Irregular hypoechoic lesion with ill-defined margins and posterior shadowing, approximately 0.4 cm.. APPROACH: Oblique mediolateral. ANESTHESIA: 15 mL carbonated 1% lidocaine. DERMATOTOMY: Single skin jim dermatotomy performed. NEEDLE: 14-gauge Achieve core biopsy device with 13.5-gauge co-axial guide needle. CORES: 6. CLIP: HydroMARK; shape: butterfly. SPECIMEN B: New anesthesia and biopsy supplies are used. LOCATION: Posterior 4:00 o'clock. GUIDANCE: Ultrasound-guided; aseptic technique. LESION: Grouped microcyst or cyst with apocrine metaplasia under 1 cm. APPROACH: Medial lateral. ANESTHESIA: 8 mL carbonated 1% lidocaine. DERMATOTOMY: A new skin jim dermatotomy is performed to allow for the second site of biopsy. . NEEDLE: 14-gauge Achieve core biopsy device with 13.5-gauge co-axial guide needle. CORES: 4. CLIP: HydroMARK; shape: open coil. The nodule is not clearly seen posterior sampling and clip placed in the vicinity of biopsy site. POST PROCEDURE DIGITAL MAMMOGRAM: The post biopsy mammogram is performed in separate room using separate digital mammography equipment from the biopsy procedure. CC x2 and ML views are obtained. There are scattered areas of fibroglandular density (breast composition category: b). The 2 biopsy clip markers are in position. No gross hematoma. The patient tolerated the procedure well. No immediate complications. Home instructions reviewed with the patient. Final pathology results are pending. MM/MM diagnostic mammo unilat RT IMPRESSION: 1. Status post ultrasound-guided core biopsy right breast, 2 specimens. 2. Clips placed: HydroMARK; shape: butterfly (posterior 1:00) and HydroMARK; shape: open coil (posterior 4:00). 3. Pathology pending. An addendum report will be issued.
[2021-06-30] MEDS: Lidocaine HCl 1 % 20 ML VIAL SUBCUT (12:10)
[2021-06-30] MEDS: Sodium Bicarbonate 8.4% 50 MEQ/50 ML VIAL SUBCUT (12:11)
== END 2021-06-30 09:34 | disposition home or self-care (01) ==
LOC: HO.MAMMO 09:33
PROVIDERS: PCP Internal Medicine Medical Oncology; Visit Provider Surgery
DX: R92.8 Other abnormal and inconclusive findings on diagnostic imaging of breast (principal)
CPT/HCPCS: 19083; 77065; 88305; 88342; 88360; 99212; A4648

== ENCOUNTER → 2021-07-07 15:29 | Outpatient (BNVA) | payer MEDICARE, SELFPAY | PROVIDERS: PCP Internal Medicine Medical Oncology; Visit Provider Surgery | DX: C50.911 Malignant neoplasm of unspecified site of right female breast (principal) | CPT/HCPCS: 99212 ==

== ENCOUNTER → 2021-07-13 13:59 | Outpatient (BNV) | payer MEDICARE, SELFPAY | PROVIDERS: Visit Provider Internal Medicine | DX: C50.911 Malignant neoplasm of unspecified site of right female breast (principal); Z79.811 Long term (current) use of aromatase inhibitors; Z92.3 Personal history of irradiation | CPT/HCPCS: 99204; 99213; 99214; G2211 ==

== ENCOUNTER 2021-07-19 06:48 | Day surgery (SDC) | payer MEDICARE, SELFPAY ==
[2021-07-13 15:42] VITALS: BMI 37.0
--- NOTE | 2021-07-18 10:18 | HO.ANESPROP2 ---
Documented by User: Archana Gutierrez NP 07/18/21 10:21 HPI - Anesthesia Eval Consult details Narrative: 65yo F for Right [place]z Node Biopsy, Breast Biopsy Needle Localization, Breast Lumpectomy s/p breast bx, needle loc 07/2020 with GA-LMA 4 PMFSH Active Problems Active Problems: All Active Problems (Updated 07/13/21 @ 14:29 by Delphine Allen MD) Invasive ductal carcinoma of right breast (Acute) Abnormal mammogram of right breast (Acute) Atypical ductal hyperplasia of right breast (Acute 06/22/20) Obesity (Acute) Interstitial lung disease (Acute) Cough (Acute) Pseudoangiomatous stromal hyperplasia of breast (Acute 06/22/20) Past Medical History Medical History Abnormal mammogram of right breast Back pain Complication of urinary electronic stimulator device Cough Depression GERD (gastroesophageal reflux disease) Hypertension Hypothyroid Increased BMI Interstitial lung disease Invasive ductal carcinoma of right breast Obesity Pre-diabetes 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) Snoring Urinary tract infection Family History Family History Mother History of lung cancer CHF (congestive heart failure) Sister History of colon cancer History of liver cancer Maternal Aunt Breast cancer Family/Other Breast cancer Father Heart attack Family history of problems with anesthesia: No Surgical History Surgical History H/O right breast biopsy History of appendectomy History of hand surgery History of lumpectomy of right breast History of total hysterectomy Hx of cholecystectomy Hx of colonoscopy History of Problems with Anesthesia: No Social History Social History Household Members: Spouse Housing: House Are you a primary acute care clinical nurse specialist to a significant other at home: No (PT does take care of her sister.) Do you presently have visiting nurse or other home services: No Alcohol intake: current Alcohol intake frequency: does not drink Patient Tobacco Use Status: Former Tobacco user Quit Date: 1999 Tobacco use type: Cigarette Cigarette Packs Per Day: 2 Years Smoked: 52 Are you DNR?: No Advance Directives: No Advance Directives Information Provided: Yes Advance Directives on File: No Meds Allergies Allergy/AdvReac Type Severity Reaction Status Date / Time codeine [Codeine] Allergy Mild Rash, Verified 07/19/21 06:58 nausea Home Medications Medication Instructions Recorded Confirmed Last Taken Type citalopram 20 mg tablet 20 mg PO DAILY 06/16/20 07/13/21 07/19/21 06:20 History levothyroxine 100 mcg tablet 100 mcg PO DAILY 06/16/20 07/13/21 07/19/21 06:20 History triamterene 75 1 tab PO DAILY 06/16/20 07/13/21 Unknown History mg-hydrochlorothiazide 50 mg tablet atorvastatin 10 mg tablet 10 mg PO DAILY 09/07/20 07/13/21 Unknown History metformin 500 mg tablet 500 mg PO DAILY 09/07/20 07/13/21 Unknown History multivit with 1 tab PO DAILY 07/13/21 07/13/21 Unknown History lnjlrbvm-uchq-JV-lutein 8 mg iron-400 mcg-300 mcg tablet (Centrum Silver Women) omeprazole 20 mg capsule,delayed 1 cap PO BID 07/13/21 07/13/21 07/19/21 06:20 History release Exam Exam Date and Time: July 18, 2021 1018 Height,Weight and Vital Signs: Height 5 ft Weight 86.183 kg Pertinent Lab Results Pertinent Lab Results: Laboratory Tests 05/13/21 05/13/21 07:45 07:45 WBC 10.5 Hgb 11.5 L Hct 37.2 Plt Count 260 Sodium 143 Potassium 4.7 Chloride 110 H Carbon Dioxide 26 BUN 23 H Creatinine 1.56 H Assessment and Plan Assessment Anesthesia Assessment: Chart Reviewed Final Anesthetic Review Family History of Problems with Anesthesia: No History of Problems with Anesthesia: No Documented by User: Kathy Guerrero MD 07/19/21 11:56 [facility] Past Medical History Medical History Abnormal mammogram of right breast Back pain Complication of urinary electronic stimulator device Cough Depression GERD (gastroesophageal reflux disease) Hypertension Hypothyroid Increased BMI Interstitial lung disease Invasive ductal carcinoma of right breast Obesity Pre-diabetes 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) Snoring Urinary tract infection Family History Family History Mother History of lung cancer CHF (congestive heart failure) Sister History of colon cancer History of liver cancer Maternal Aunt Breast cancer Family/Other Breast cancer Father Heart attack Surgical History Surgical History H/O right breast biopsy History of appendectomy History of hand surgery History of lumpectomy of right breast History of total hysterectomy Hx of cholecystectomy Hx of colonoscopy Social History Social History Household Members: Spouse Housing: House Are you a primary acute care clinical nurse specialist to a significant other at home: No (PT does take care of her sister.) Do you presently have visiting nurse or other home services: No Alcohol intake: current Alcohol intake frequency: does not drink Patient Tobacco Use Status: Former Tobacco user Quit Date: 1999 Tobacco use type: Cigarette Cigarette Packs Per Day: 2 Years Smoked: 52 Are you DNR?: No Advance Directives: No Advance Directives Information Provided: Yes Advance Directives on File: No Meds Allergies Allergy/AdvReac Type Severity Reaction Status Date / Time codeine [Codeine] Allergy Mild Rash, Verified 07/19/21 06:58 nausea Home Medications Medication Instructions Recorded Confirmed Last Taken Type citalopram 20 mg tablet 20 mg PO DAILY 06/16/20 07/13/21 07/19/21 06:20 History levothyroxine 100 mcg tablet 100 mcg PO DAILY 06/16/20 07/13/21 07/19/21 06:20 History triamterene 75 1 tab PO DAILY 06/16/20 07/13/21 Unknown History mg-hydrochlorothiazide 50 mg tablet atorvastatin 10 mg tablet 10 mg PO DAILY 09/07/20 07/13/21 Unknown History metformin 500 mg tablet 500 mg PO DAILY 09/07/20 07/13/21 Unknown History multivit with 1 tab PO DAILY 07/13/21 07/13/21 Unknown History rwgnuenv-urtc-VC-lutein 8 mg iron-400 mcg-300 mcg tablet (Centrum Silver Women) omeprazole 20 mg capsule,delayed 1 cap PO BID 07/13/21 07/13/2107/19/21 06:20 History release Exam Airway Mallampati Class: II (Edentulous) TM Dist: >3cm Neck ROM: Full Denture: Upper and Lower Loose/Missing/Broken Teeth: Yes, Upper and Lower Heart: RRR Lungs: CTA Assessment and Plan Assessment Anesthesia Assessment: Anesthesia Plan Discussed Final Anesthetic Review NPO: Yes ASA Class: III Final Preanesthetic Review: Meds/Allgs Chart Reviewed, Consent Obtained/Reviewed and Anes Risks/Benef Reviewed Patient Risk: Intermediate Procedure Risk: Low Anesthetic Plan Anesthetic Plan: GA Disposition: Standard PACU
[2021-07-19] VITALS (14 sets, daily range): BP systolic 128–155; BP diastolic 49–77; PULSE 66–79; RESP 16–18; TEMP 36.6–36.7; O2SAT 95–99
--- NOTE | ~2021-07-19 | NM_ITS ---
EXAMINATION: NM LYMPH SCINTIGRAPHY CLINICAL INFORMATION: Right breast invasive ductal carcinoma. COMPARISON: None TECHNIQUE: Following explaining right breast lymphoscintigraphy procedure, benefits and risk, a written consent was obtained. 4% lidocaine was applied along the right breast areola approximately half an hour prior to the procedure. The area around the right breast areola was then cleaned in an aseptic manner. 0.5 mCi of 99m technetium tilmanocept divided in 4 equal doses was injected in 4 quadrants around the right breast areola. Imaging was obtained approximately 30 minutes later. Patient tolerated procedure extremely well. FINDINGS: On imaging, there is symmetric activity seen in the 4 quadrants around the right breast areola. There is a solitary sentinel node seen in the right anterior axilla. There are smaller areas of activity in the right axilla, as well, likely smaller lymph nodes. NM/NM sentinel node w imaging IMPRESSION: Right breast lymphoscintigraphy reveals a solitary sentinel node with dominant activity. There are other areas of decreased activity in the right axilla, likely smaller lymph nodes.
--- NOTE | ~2021-07-19 | US_ITS ---
EXAMINATION: US ULTRASOUND-GUIDED NEEDLE LOCALIZATION BREAST (TWO SITES), RIGHT MM DIGITAL MAMMOGRAPHY BREAST POST LOCALIZATION, RIGHT NEEDLE LOCALIZATION SPECIMEN RADIOGRAPH FROM THE RIGHT BREAST CLINICAL INFORMATION: Recent diagnosis invasive ductal cancer posterior 1:00 right breast. Also recent biopsy posterior 4:00 right breast with benign tissue and extravasated mucin. Excision recommended. COMPARISON: Mammography 06/10/2021, 06/17/2021, 06/30/2021, ultrasound right breast 06/17/2021, ultrasound-guided biopsies right breast 06/30/2021. TECHNIQUE NEEDLE LOC: Proper informed consent is obtained from the patient after discussion of the procedure, potential risks and complications, and alternatives including declining the procedure today. Patient was given an opportunity for questions. The patient appeared to understand. The patient consented to the procedure and signed the consent form. INITIAL LOCALIZATION: GUIDANCE: Real time ultrasound guidance APPROACH: Medial Lateral TARGET: HydroMARK Butterfly shaped clip marker ANESTHESIA: 8 cc carbonated lidocaine 1% LOCALIZATION MARKER: [place] MammaLok 7.5 cm length. The skin is prepped for both locations and sterile drapes placed. Local anesthesia administered. The needle is positioned and position assessed with real time ultrasound. The wire is hooked into position. SECOND LOCALIZATION: GUIDANCE: Real time ultrasound guidance APPROACH: Medial Lateral TARGET: HydroMARK Open coil shaped clip marker ANESTHESIA: Fresh syringe and needle using 5 cc carbonated lidocaine 1% LOCALIZATION MARKER: [place] MammaLok 7.5 cm length The needle is positioned and position assessed with real time ultrasound. The wire is hooked into position. POSTPROCEDURE UNILATERAL DIGITAL MAMMOGRAM: Mammography is performed using digital mammography in a single CC view. There are scattered areas of fibroglandular density (ACR BI-RADS breast composition Category b). The localization needles are in position. No gross hematoma. [place] needle protectors placed for each localization needle. The patient tolerated the two procedures well and had no immediate complication. Procedure findings discussed with surgeon prior to surgery. Following the procedure, 1% lidocaine ointment was administered to the left areola and covered with Tegaderm in anticipation of nuclear lymphoscintigraphy injection for sentinel lymph node mapping comment to be described in a separate report. TECHNIQUE SPECIMEN RADIOGRAPH (Lesion at 1:00 - IDC): Single radiograph of the excised breast tissue is performed. FINDINGS SPECIMEN RADIOGRAPH: The specimen shows the needle and hookwire are delivered intact. The HydroMARK butterfly shaped biopsy clip marker is identified in the specimen adjacent to the localization needle. Results were called to Dr. Terrell Ty in the operating room at the time of imaging. TECHNIQUE SPECIMEN RADIOGRAPH (4:00 - Benign with mucin): 4 radiographs of the excised breast tissue is performed. FINDINGS SPECIMEN RADIOGRAPH: The specimen shows the needle and hookwire are delivered intact. The localization needle extends beyond the specimen. The open coil biopsy clip marker is not demonstrated. Results were called to Dr. Terrell Ty in the operating room at the time of imaging. US/US breast needle loc RT IMPRESSION: Status post ultrasound-guided right breast needle localization, 2 separate lesions, with wires hooked into position. Postoperative specimen radiographs obtained.
--- NOTE | ~2021-07-19 | US_ITS ---
EXAMINATION: US ULTRASOUND-GUIDED NEEDLE LOCALIZATION BREAST (TWO SITES), RIGHT MM DIGITAL MAMMOGRAPHY BREAST POST LOCALIZATION, RIGHT NEEDLE LOCALIZATION SPECIMEN RADIOGRAPH FROM THE RIGHT BREAST CLINICAL INFORMATION: Recent diagnosis invasive ductal cancer posterior 1:00 right breast. Also recent biopsy posterior 4:00 right breast with benign tissue and extravasated mucin. Excision recommended. COMPARISON: Mammography 06/10/2021, 06/17/2021, 06/30/2021, ultrasound right breast 06/17/2021, ultrasound-guided biopsies right breast 06/30/2021. TECHNIQUE NEEDLE LOC: Proper informed consent is obtained from the patient after discussion of the procedure, potential risks and complications, and alternatives including declining the procedure today. Patient was given an opportunity for questions. The patient appeared to understand. The patient consented to the procedure and signed the consent form. INITIAL LOCALIZATION: GUIDANCE: Real time ultrasound guidance APPROACH: Medial Lateral TARGET: HydroMARK Butterfly shaped clip marker ANESTHESIA: 8 cc carbonated lidocaine 1% LOCALIZATION MARKER: [place] MammaLok 7.5 cm length. The skin is prepped for both locations and sterile drapes placed. Local anesthesia administered. The needle is positioned and position assessed with real time ultrasound. The wire is hooked into position. SECOND LOCALIZATION: GUIDANCE: Real time ultrasound guidance APPROACH: Medial Lateral TARGET: HydroMARK Open coil shaped clip marker ANESTHESIA: Fresh syringe and needle using 5 cc carbonated lidocaine 1% LOCALIZATION MARKER: [place] MammaLok 7.5 cm length The needle is positioned and position assessed with real time ultrasound. The wire is hooked into position. POSTPROCEDURE UNILATERAL DIGITAL MAMMOGRAM: Mammography is performed using digital mammography in a single CC view. There are scattered areas of fibroglandular density (ACR BI-RADS breast composition Category b). The localization needles are in position. No gross hematoma. [place] needle protectors placed for each localization needle. The patient tolerated the two procedures well and had no immediate complication. Procedure findings discussed with surgeon prior to surgery. Following the procedure, 1% lidocaine ointment was administered to the left areola and covered with Tegaderm in anticipation of nuclear lymphoscintigraphy injection for sentinel lymph node mapping comment to be described in a separate report. TECHNIQUE SPECIMEN RADIOGRAPH (Lesion at 1:00 - IDC): Single radiograph of the excised breast tissue is performed. FINDINGS SPECIMEN RADIOGRAPH: The specimen shows the needle and hookwire are delivered intact. The HydroMARK butterfly shaped biopsy clip marker is identified in the specimen adjacent to the localization needle. Results were called to Dr. Terrell Ty in the operating room at the time of imaging. TECHNIQUE SPECIMEN RADIOGRAPH (4:00 - Benign with mucin): 4 radiographs of the excised breast tissue is performed. FINDINGS SPECIMEN RADIOGRAPH: The specimen shows the needle and hookwire are delivered intact. The localization needle extends beyond the specimen. The open coil biopsy clip marker is not demonstrated. Results were called to Dr. Terrell Ty in the operating room at the time of imaging. US/US breast needle loc ea add IMPRESSION: Status post ultrasound-guided right breast needle localization, 2 separate lesions, with wires hooked into position. Postoperative specimen radiographs obtained.
[2021-07-19 07:14] LABS: Glucose, Whole Blood 114 mg/dL (60-115)
--- NOTE | 2021-07-19 10:34 | MHC.SHP ---
Pre-Procedural Eval Section A Date of Service: 07/19/21 Section B Chief Complaint: Invasive ductal carcinoma of right breast Allergies: Allergies Allergy/AdvReac Type Severity Reaction Status Date / Time codeine [Codeine] Allergy Mild Rash, Verified 07/19/21 06:58 nausea Plan I have reviewed the history and physical and performed a pertinent physical examination on my patient. No changes have occurred unless specified.
[2021-07-19] MEDS: Lidocaine HCl 1 % 20 ML VIAL SUBCUT (10:50)
[2021-07-19] MEDS: Sodium Bicarbonate 8.4% 50 MEQ/50 ML VIAL SUBCUT (10:52)
[2021-07-19] MEDS: Lactated Ringers 1,000 ML 100 ML IVCONT (10:53)
--- NOTE | 2021-07-19 12:53 | P.OP_ITS ---
Operative Note Operative Note Date of Service: 07/19/21 Narrative: Preop diagnosis: Invasive ductal carcinoma right breast, with a 2nd lesion on the right breast, benign on biopsy but with extravasated mucin Postop diagnosis: The same Procedure: Lumpectomy, with needle localization x2 on the right breast, with sentinel node biopsy Surgeon: Terrell Ty MD Publications Sales Representative: AUBRIE Lee The patient is a 65-year-old female who had a recent biopsy of 2 areas of the right breast for an abnormal mammogram. There was a lesion at the 1 o'clock position which was an invasive ductal carcinoma. There was a 2nd lesion at the 4 o'clock position which was benign breast tissue but there was note of extravasated mucin so excision was also recommended for this area. I explained to her the technique of lumpectomy with needle localization and sentinel node biopsy for the invasive adenocarcinoma. Also, I explained to her that it was recommended to excise the area of the lesion as well at the 4 o'clock position even if this was benign. She was aware of the risks, benefits, and alternatives, including mastectomy. She had given consent She was brought to the operating room and placed supine on the table under general anesthesia via laryngeal mask airway. She had undergone needle localization earlier. The 2 needles were seen coming from medial aspect of the right breast, going laterally. One was at the 1 o'clock position misty a 2nd one was at the 4 o'clock position. I reviewed films for needle localization with the radiologist Dr. Khan. She had also undergone scintigraphy as well and the films which showed predominant lymph node in the axilla. The right breast and axilla wereprepped and draped in the usual sterile fashion. A surgical site much was done. The patient received cefazolin 2 g IV preoperatively. Since the lesion the 4 o'clock position was benign, may decided to do this lumpectomy 1st. I infiltrated the planned line incision. I made the incision using blade 15 and this was tangential to the localizing needle. This was carried down through the full-thickness skin and subcutaneous fat. I then used a curved Cortez to divide breast tissue surrounding this needle. I followed the needle distally, with care being taken so as to make sure that we had wide margins around the needle. It was noted however that the needle was actually flopping around as soon as we made the incision even before we had started to divide the breast tissue. However, I followed the direction the needle based on the needle localizing images. I continued to dissect distally surrounding the approximate area of the lesion based on the mammogram. We continued to attempt to keep this needle in place during the dissection. I therefore continued to dissect more distal to the needle to make sure that we had adequate margins. I even went past the nipple line laterally to do this. We continued to dissect sharply until we were able to deliver this lumpectomy specimen. The superior and medial margins were marked with the stitch. was sent for immediate re-ray and immediate gross. We then proceeded to do the lumpectomy for the lesion position which was an invasive ductal carcinoma on biopsy. I made a transverse incision tangential to the entry point of the needle using blade 15. I carried down this incision through the full-thickness skin subcutaneous fat with electrocautery. I then used the curved Cortez to divide breast tissue surrounding the needle with care being taken so as to make sure that we were including wide margins of breast around this. We retracted the specimen with an Allis clamp as we dissected more distally towards the tip of the needle. We continued to dissect circumferentially all the way past the palpable part of the needle tip. This was then sent as a specimen. The superior and medial margins of the specimen was marked with a stitch as well. I observed for hemostasis. I cauterized oozing areas. Once hemostasis was observed, I proceeded to apply gauze packing into both lumpectomy sites. I covered this with Tegaderm We then proceeded to do the sentinel node biopsy. We had changed gloves and setup for this. I used the probe to localize the maximal counts in the axilla. I made the incision using blade 15. After marking this area. I carried down this incision with electrocautery through the full-thickness skin and subcutaneous fat. I then proceeded to divide across the fascia with Metzenbaum scissors. I bluntly dissected with my fingertips and periodically checked with the nuclear probe to identify him elevated counts in the axilla. I continued follow this orientation. I was able to identify count with 1106 and a lymph node was seen in this area. This was sharply dissected using electrocautery as well as Metzenbaum scissors. I cauterized oozing areas from the biopsy site. This lymph node was sent as sentinel node 1. I continued to scan the axilla for other elevated counts. There was another area just under the pectoralis with a count of 197. I was able to visualize the lymph node and this was grasped with an Allis clamp. This was excised and sent as specimen as sentinel 2. I repeatedly scanned the rest of the axilla for other elevated counts. Despite this, we could not identify any additional lymph node so we proceeded to make sure that we had good hemostasis. We irrigated copiously. We closed the subcutaneous layer with Dexon 3-0 interrupted sutures and skin closure was achieved with Dexon 4-0 subcuticular running stitch. We then received phone calls from both the radiologist and the pathologist. The biopsy clip could not be seen with the specimen at the 4 o'clock position which was a benign lesion. On the 2nd specimen which was the lesion at the 1 o'clock position which was an invasive cancer, the clip was in position and the margins appeared to be close anteriorly. I therefore decided to excise more margins anteriorly from the lumpectomy site at the 1 o'clock position. This was done using Cortez scissors and this was sent as additional margins I also re-examined the initial lumpectomy site at the 4 o'clock position. We went sometime looking for any clip that may have fallen in the field. Despite this were unable to see any evidence of a clip. Furthermore, I could visualize that the lumpectomy extended way past the length of the localizing needle. It was possible that he may have suctioned out the biopsy clip. Since this was jean marie ign on biopsy, we will probably plan on repeating her mammogram within 6 months for this. After ensuring hemostasis in both him back to ky sites, proceeded to reapposed the subcutaneous layer. Skin closure was achieved on both incisions using Dexon 4-0 subcuticular stitch. All incisions were infiltrated with Marcaine 0.5% for postop analgesia. Steri-Strips and dressings were applied. The procedure was then completed. The patient tolerated procedure well. There were no complications noted. Initial and final counts of sponges and instruments were correct. Estimated blood loss was about 75 cc. The patient was extubated without difficulty and transferred to recovery room with stable vital signs.
[2021-07-19] MEDS: oxyCODONE HCl Immed Release 5 MG TABLET 10 MG PO (13:23)
[2021-07-19] MEDS: fentaNYL citrate/PF 100 MCG/2 ML VIAL 50 MCG IVPUSH (13:23)
[2021-07-19] MEDS: fentaNYL citrate/PF 100 MCG/2 ML VIAL 25 MCG IVPUSH ×2 (13:58→14:10)
== END 2021-07-19 15:29 | disposition home or self-care (01) ==
PROVIDERS: PCP Internal Medicine Medical Oncology; Visit Provider Surgery
PROC: (CPT 19301; principal; 2021-07-19 11:00)
PROC: (CPT 19301; 2021-07-19 11:00)
PROC: (CPT 19301; 2021-07-19 11:00)
DX: C50.211 Malignant neoplasm of upper-inner quadrant of right female breast (principal); Z17.0 Estrogen receptor positive status [ER+]; I10 Essential (primary) hypertension; J84.9 Interstitial pulmonary disease, unspecified; Z87.891 Personal history of nicotine dependence; E03.9 Hypothyroidism, unspecified; R73.03 Prediabetes; E66.9 Obesity, unspecified; Z68.37 Body mass index [BMI] 37.0-37.9, adult; Z79.84 Long term (current) use of oral hypoglycemic drugs; Z79.899 Other long term (current) drug therapy; Z88.8 Allergy status to other drugs, medicaments and biological substances; Z90.49 Acquired absence of other specified parts of digestive tract
CPT/HCPCS: 19301; 38525; 19285; 19286; 77065; 78195; 82947; 88307; 88329; 88341; 88342; 88360; A4648; A9520; J0690; J1100; J2405; J3010

== ENCOUNTER → 2021-08-01 11:05 | Outpatient (BNVA) | payer MEDICARE, SELFPAY | PROVIDERS: PCP Internal Medicine Medical Oncology; Visit Provider Surgery | DX: C50.911 Malignant neoplasm of unspecified site of right female breast (principal) | CPT/HCPCS: 99212 ==

== ENCOUNTER → 2021-09-26 13:09 | Outpatient (BNVA) | payer MEDICARE, SELFPAY | PROVIDERS: PCP Internal Medicine Medical Oncology; Visit Provider Surgery | DX: Z48.3 Aftercare following surgery for neoplasm (principal); C50.911 Malignant neoplasm of unspecified site of right female breast | CPT/HCPCS: 99212 ==

== ENCOUNTER 2021-11-17 08:54 | Outpatient (REF) | payer MEDICARE, SELFPAY ==
--- NOTE | ~2021-11-17 | MM_ITS ---
EXAMINATION: BONE DENSITOMETRY CLINICAL INDICATION: Postmenopausal bone loss. COMPARISON: Previous BD dated 04/08/2019 and baseline BD dated 07/04/2007. TECHNIQUE: Using a Icarus DXA System (software version: 13.1) manufactured by [employer], dual-energy x-ray absorptiometry was performed of the lumbar spine and left hip. The images are of good technical quality. Summary results are attached. FINDINGS: AP SPINE L1-L3 (excluding L4): The data of L1-L4 has been changed to exclude the L4 vertebral body, because degenerative changes at this level may cause overestimation of lumbar spine density. Current: BMD 1.227 g/cm2, Z-score 1.3, T-score 0.5, normal, 0.3% decrease from previous, 5.8% increase from baseline (<5% change is not significant). Prior: BMD 1.231 g/cm2. Baseline: BMD 1.160 g/cm2. LEFT FEMUR, NECK: Current: BMD 0.760 g/cm2, Z-score -1.0, T-score -2.0, osteopenia. Prior: BMD 0.907 g/cm2. Baseline: BMD 0.836 g/cm2. LEFT FEMUR, TOTAL: Current: BMD 0.881 g/cm2, Z-score -0.3, T-score -1.0, normal, 5.3% decrease from previous, 0.0% change from baseline (<5% change is not significant). Prior: BMD 0.930 g/cm2. Baseline: BMD 0.881 g/cm2. IDENTIFIED RISK FACTORS: Menopause, hysterectomy, history of fracture (adult), bilateral oophorectomy. HISTORY OF FRACTURE: Ankle. MEDICATIONS: Multivitamin, aromatase inhibitor. MM/XR DEXA axial skeleton IMPRESSION: 1. DIAGNOSIS: Osteopenia based on the lowest T-score value of -2.0 in the femoral neck applying World Health Organization criteria. 2. 10-YEAR FRACTURE RISK PREDICTION, FRAX: Major osteoporotic fracture (clinical spine, forearm, hip or shoulder) 16.6%. Hip fracture 2.7%. 3. Treatment Recommendations: NOF guidelines recommend consideration for treatment in postmenopausal women and men age 50 and older presenting with the following: -A hip or vertebral (clinical or morphometric) fracture. -T-score less than or equal to -2.5 at the femoral neck or spine after appropriate evaluation to exclude secondary causes. -Low bone mass at the hip or spine and a 10-year fracture probability by FRAX of greater than or equal to 3% for hip fracture or greater than or equal to 20% for major osteoporotic fracture based on the [place] adapted WHO algorithm. 4. Other Recommendations: All treatment decisions require clinical judgment and consideration of individual patient factors, including patient preferences, comorbidities, previous drug use, risk factors not captured in the FRAX model (e.g. frailty, falls, vitamin D deficiency, increased bone turnover, interval significant decline in bone density) and possible under or overestimation of fracture risk by FRAX. Additional medical evaluation for secondary cause of low bone mineral density may be appropriate. FUTURE SCAN RECOMMENDATION: People with diagnosed cases of osteoporosis or at high risk for fracture should have regular bone mineral density tests. For patients eligible for Medicare, routine testing is allowed once every 2 years. The testing frequency can be increased to one year for patients who have rapidly progressing disease, those who are receiving or discontinuing medical therapy to restore bone mass, or have additional risk factors.
== END 2021-11-17 08:55 | disposition home or self-care (01) ==
LOC: HO.MAMMO 08:54
PROVIDERS: Visit Provider Internal Medicine
DX: M81.8 Other osteoporosis without current pathological fracture (principal)
CPT/HCPCS: 77080

== ENCOUNTER 2021-12-24 08:25 | Outpatient (REF) | payer MEDICARE, SELFPAY ==
--- NOTE | ~2021-12-24 | XR_ITS ---
EXAMINATION: XR SHOULDER, RIGHT CLINICAL INFORMATION: Right shoulder pain COMPARISON: None TECHNIQUE: AP external rotation, Grashey, scapular Y, and axillary views of the right shoulder. FINDINGS: The bones and soft tissues are normal. No fracture. Glenohumeral and acromioclavicular alignment is anatomic with normal joint space. No abnormal soft tissue calcifications. XR/XR shoulder RT min 2V IMPRESSION: There is no visible acute fracture, dislocation or subluxation. No bony erosive changes.
== END 2021-12-24 08:26 | disposition home or self-care (01) ==
LOC: HO.XRAY 08:25
PROVIDERS: PCP Internal Medicine Medical Oncology; Visit Provider Internal Medicine Medical Oncology
DX: M25.511 Pain in right shoulder (principal)
CPT/HCPCS: 73030

== ENCOUNTER 2022-01-24 16:13 | Outpatient (REF) | payer MEDICARE, SELFPAY ==
[2022-01-24 16:27] LABS: MANUAL DIFF FLAG NO
[2022-01-24 17:44] LABS: Basophils Percent Auto 0.5 % (0-2); Eosinophils Absolute Auto 0.2 X10*3/uL (0.0-0.4); Eosinophils Percent Auto 2.1 % (0-4); Hematocrit 36.4 % (37.0-47.0); Hemoglobin 11.4 g/dl (12.0-16.0); Imm Gran Abs Auto 0.03 X10*3/uL (0.00-0.03); Imm Gran Pct Auto 0.4 % (0.0-0.4); Lymphocytes Absolute Auto 1.5 X10*3/uL (1.2-4.9); Lymphocytes Percent Auto 19.2 % (20-40); Mean Corpuscular HGB Conc 31.3 g/dl (31.0-35.0); Mean Corpuscular Hemoglobin 27.5 pg (27.0-33.0); Mean Corpuscular Volume 87.7 fL (80.0-98.0); Mean Platelet Volume 9.7 fL (9.4-12.3); Monocytes Absolute Auto 0.5 X10*3/uL (0.1-1.2); Neutrophils Absolute Auto 5.5 x10*3/uL (2.0-8.3); Neutrophils Percent Auto 70.8 % (45-73); Platelet Count 321 X10*3/uL (160-400); Red Blood Count 4.15 X10*6/uL (4.20-5.50); Red Cell Distribution Width 14.9 % (11.0-16.0); White Blood Count 7.7 X10*3/uL (4.8-10.8)
[2022-01-24 18:07] LABS: Alanine Aminotransferase 22 U/L (0-31); Albumin Level 4.2 g/dL (3.5-5.0); Alkaline Phosphatase 80 U/L (39-117); Anion Gap 14 (12-20); Aspartate Amino Transferase 18 U/L (5-31); Bilirubin Total 0.4 mg/dL (0.0-1.0); Blood Urea Nitrogen 21 mg/dL (9-16); Calcium 9.8 mg/dL (8.4-10.2); Carbon Dioxide 27 mmol/L (22-29); Chloride 104 mmol/L (96-108); Estimated Glomerular Filt Rate 38; Glucose Random 164 mg/dL (60-115); Lactate Dehydrogenase 263 U/L (122-220); Potassium 4.1 mmol/L (3.3-5.1); Sodium 141 mmol/L (135-145); Total Protein 7.1 g/dL (6.5-8.0)
[2022-01-24 18:21] LABS: Erythrocyte Sedimentation Rate 62 MM/HR (0-20)
[2022-01-26 08:57] LABS: CA 27.29 15 U/mL (<38)
== END 2022-01-24 16:14 | disposition home or self-care (01) ==
LOC: HO.LAB 16:13
PROVIDERS: PCP Internal Medicine Medical Oncology; Visit Provider Internal Medicine Medical Oncology
DX: E78.5 Hyperlipidemia, unspecified (principal); N60.99 Unspecified benign mammary dysplasia of unspecified breast; E03.9 Hypothyroidism, unspecified; E66.9 Obesity, unspecified; E11.9 Type 2 diabetes mellitus without complications
CPT/HCPCS: 36415; 80053; 82550; 83615; 85025; 85652; 86300

== ENCOUNTER → 2022-02-22 15:03 | Outpatient (BNVA) | payer MEDICARE, SELFPAY | PROVIDERS: PCP Internal Medicine Medical Oncology; Visit Provider Surgery | DX: C50.911 Malignant neoplasm of unspecified site of right female breast (principal); Z92.3 Personal history of irradiation | CPT/HCPCS: 99212 ==

== ENCOUNTER 2022-04-06 07:22 | Outpatient (REF) | payer MEDICARE, SELFPAY ==
[2022-04-06 07:45] LABS: MANUAL DIFF FLAG NO
[2022-04-06 08:06] LABS: Basophils Percent Auto 0.6 % (0-2); Eosinophils Absolute Auto 0.2 X10*3/uL (0.0-0.4); Hematocrit 37.8 % (37.0-47.0); Imm Gran Abs Auto 0.03 X10*3/uL (0.00-0.03); Imm Gran Pct Auto 0.4 % (0.0-0.4); Lymphocytes Absolute Auto 1.5 X10*3/uL (1.2-4.9); Lymphocytes Percent Auto 21.1 % (20-40); Mean Corpuscular HGB Conc 31.7 g/dl (31.0-35.0); Mean Corpuscular Volume 88.1 fL (80.0-98.0); Mean Platelet Volume 9.6 fL (9.4-12.3); Monocytes Absolute Auto 0.5 X10*3/uL (0.1-1.2); Monocytes Percent Auto 6.5 % (2-11); Neutrophils Absolute Auto 4.9 x10*3/uL (2.0-8.3); Neutrophils Percent Auto 68.4 % (45-73); Platelet Count 299 X10*3/uL (160-400); Red Blood Count 4.29 X10*6/uL (4.20-5.50); Red Cell Distribution Width 15.3 % (11.0-16.0); White Blood Count 7.2 X10*3/uL (4.8-10.8)
[2022-04-06 08:32] LABS: Alanine Aminotransferase 22 U/L (0-31); Albumin Level 4.3 g/dL (3.5-5.0); Alkaline Phosphatase 81 U/L (39-117); Anion Gap 15 (12-20); Aspartate Amino Transferase 23 U/L (5-31); Bilirubin Total 0.4 mg/dL (0.0-1.0); Blood Urea Nitrogen 24 mg/dL (9-16); Carbon Dioxide 26 mmol/L (22-29); Chloride 105 mmol/L (96-108); Cholesterol 132 mg/dL; Estimated Glomerular Filt Rate 40; Glucose Random 146 mg/dL (60-115); HDL Cholesterol 44 mg/dL; LDL Cholesterol Calculated 59 mg/dl; Potassium 4.2 mmol/L (3.3-5.1); Sodium 142 mmol/L (135-145); Total Protein 7.1 g/dL (6.5-8.0); Triglycerides 147 mg/dL
[2022-04-06 08:56] LABS: Free T4 (Free Thyroxine) 0.89 ng/dL (0.71-1.85); Thyroid Stimulating Hormone 2.73 uIU/mL (0.32-4.0)
== END 2022-04-06 07:23 | disposition home or self-care (01) ==
LOC: HO.LAB 07:22
PROVIDERS: PCP Internal Medicine Medical Oncology; Visit Provider Internal Medicine Medical Oncology
DX: E78.5 Hyperlipidemia, unspecified (principal); E03.9 Hypothyroidism, unspecified; E66.09 Other obesity due to excess calories; E11.9 Type 2 diabetes mellitus without complications
CPT/HCPCS: 36415; 80053; 80061; 84439; 84443; 85025

== ENCOUNTER 2022-04-19 14:00 | Outpatient (RCR) | payer MEDICARE, SELFPAY | END 2022-05-10 14:20 | disposition home or self-care (01) | LOC: HO.PT 14:00 | PROVIDERS: PCP Internal Medicine Medical Oncology; Visit Provider Internal Medicine Medical Oncology | DX: R07.89 Other chest pain (principal) | CPT/HCPCS: 97110; 97162 ==

== ENCOUNTER 2022-05-22 11:15 | Outpatient (REF) | payer MEDICARE, SELFPAY ==
--- NOTE | ~2022-05-22 | XR_ITS ---
EXAMINATION: XR CHEST CLINICAL INFORMATION: Shortness of breath COMPARISON: None TECHNIQUE: 2 views of the chest were obtained. FINDINGS: No significant abnormality is noted involving the heart, lungs, mediastinum, bony thorax or soft tissues. XR/XR chest 2V IMPRESSION: Unremarkable chest exam
[2022-05-22 11:27] LABS: MANUAL DIFF FLAG NO
[2022-05-22 11:45] LABS: Basophils Percent Auto 0.5 % (0-2); Eosinophils Absolute Auto 0.3 X10*3/uL (0.0-0.4); Eosinophils Percent Auto 3.1 % (0-4); Hematocrit 38.4 % (37.0-47.0); Hemoglobin 12.1 g/dl (12.0-16.0); Imm Gran Abs Auto 0.03 X10*3/uL (0.00-0.03); Imm Gran Pct Auto 0.4 % (0.0-0.4); Lymphocytes Absolute Auto 1.7 X10*3/uL (1.2-4.9); Lymphocytes Percent Auto 21.5 % (20-40); Mean Corpuscular HGB Conc 31.5 g/dl (31.0-35.0); Mean Corpuscular Hemoglobin 27.4 pg (27.0-33.0); Mean Corpuscular Volume 86.9 fL (80.0-98.0); Mean Platelet Volume 9.4 fL (9.4-12.3); Monocytes Absolute Auto 0.5 X10*3/uL (0.1-1.2); Neutrophils Absolute Auto 5.5 x10*3/uL (2.0-8.3); Neutrophils Percent Auto 68.5 % (45-73); Platelet Count 278 X10*3/uL (160-400); Red Blood Count 4.42 X10*6/uL (4.20-5.50); Red Cell Distribution Width 14.8 % (11.0-16.0)
[2022-05-22 12:08] LABS: B Type Natriuretic Peptide 34 pg/mL (<100)
[2022-05-22 12:15] LABS: Alanine Aminotransferase 26 U/L (0-31); Albumin Level 4.3 g/dL (3.5-5.0); Alkaline Phosphatase 88 U/L (39-117); Anion Gap 15 (12-20); Aspartate Amino Transferase 21 U/L (5-31); Bilirubin Total 0.5 mg/dL (0.0-1.0); Blood Urea Nitrogen 18 mg/dL (9-16); Carbon Dioxide 28 mmol/L (22-29); Chloride 102 mmol/L (96-108); Estimated Glomerular Filt Rate 45; Glucose Random 126 mg/dL (60-115); Potassium 4.5 mmol/L (3.3-5.1); Sodium 140 mmol/L (135-145); Total Protein 7.1 g/dL (6.5-8.0)
[2022-05-22 12:39] LABS: Erythrocyte Sedimentation Rate 42 MM/HR (0-20)
== END 2022-05-22 11:16 | disposition home or self-care (01) ==
LOC: HO.XRAY 11:15
PROVIDERS: PCP Internal Medicine Medical Oncology; Visit Provider Internal Medicine Medical Oncology
DX: Z00.00 Encounter for general adult medical examination without abnormal findings (principal); R06.02 Shortness of breath
CPT/HCPCS: 36415; 71046; 80053; 83880; 85025; 85652

== ENCOUNTER → 2022-05-24 08:16 | Outpatient (REF) | payer MEDICARE, SELFPAY ==
--- NOTE | 2022-05-24 08:18 | CA_ITS ---
Transthoracic Echocardiogram Patient (Last, First, Middle): Laura Nieves M Gender: Female Date of : 1955 Age: 66 Procedure Date: 05/24/2022 Procedure Type: Transthoracic Echocardiogram Location: OP Height: 152.4 cm Weight: 92.99 kg BSA: 1.89 m2 Heart Rate: 66 bpm BP: 132 / 63 mmHg Hadoop Architect: SB Referring MD: Christopher Porter MD Symptoms: SOB Study Quality: Adequate ECG Rhythm: Sinus Conclusions: - The left ventricular systolic function is normal. The calculated ejection fraction is 67% by biplane method. - No obvious valvular pathology seen on this study. Findings Left Ventricle Normal left ventricular cavity size. The left ventricular systolic function is normal. The calculated ejection fraction is 67% by biplane method. There is no evidence of regional wall motion abnormalities. E/E prime ratio is between 8 and 15 consistent with indeterminate filling pressures. Evidence suggests grade I (mild) diastolic dysfunction. Normal left ventricular peak global longitudinal strain at -19.3%. Right Ventricle Normal right ventricular cavity size and systolic function. Atria Both atria are normal in size. Aortic Valve There is a normal trileaflet aortic valve. There is no aortic valve stenosis. There is no aortic valve regurgitation. Mitral Valve The mitral valve appears normal. There is trace mitral valve regurgitation. There is no mitral valve stenosis. Pulmonic Valve The pulmonic valve is likely normal. Tricuspid Valve There is mild tricuspid valve regurgitation. There is no evidence of pulmonary hypertension. Great Vessels The asc aorta is normal in size. Venous The inferior vena cava is normal in size and collapses greater than 50% with inspiration. Pericardium/Pleural There is a trivial pericardial effusion. Prior Study Comparison No prior study available for comparison. Recommendations, Care & Conclusions No obvious valvular pathology seen on this study. Measurements 2D Linear Measurements IVSd: 0.81 0.6-0.9/0.6-1.0 cm LVIDd: 4.56 3.9-5.3/4.2-5.9 cm LVIDd Index: 2.41 2.4-3.2/2.2-3.1 cm/m2 LVIDs: 2.82 2.0-3.6 cm LVPWd: 0.92 0.7-1.1 cm LA Diam: 3.40 2.7-3.8/3.0-4.0 cm LAIDs Index: 1.80 1.5-2.3 cm/m2 LV Mass: 159.95 67-162/88-224 g LV Mass Index: 84.63 43-95/49-115 g/m2 LVOT Diam: 1.80 3.0+(-)1.3 cm 2D Systolic Function EF 4C: 64.20 >55% EF 2C: 70.70 >55% EF BiP: 67.10 >55% Mitral Valve MV Pk E: 1.04 MV PK A: 0.81 MV Decel Time: 184.00 E/A: 1.30 E'Lateral: 7.94 E'Medial: 6.64 E/E' Med: 15.70 E/E' Lat: 13.10 PHT: 54.00 MVA PHT: 4.07 Decel Schoolcraft: 5.66 Aortic Valve AoV Pk Alvin: 1.97 AoV Mn Alvin: 1.23 AoV VTI: 0.40 AoV Pk Grad: 16.00 Aov Mn Grad: 7.00 SALLIE Cont.VTI: 1.72 LVOT LVOT Pk Alvin: 1.35 LVOT Mn Alvin: 0.84 LVOT VTI: 0.27 LVOT Pk Grad: 7.00 LVOT Mn Grad: 3.00 LVOT Diam: 1.80 LVOT Area: 2.54 Diastolic Function MV Pk E: 1.04 MV Pk A: 0.81 E/A: 1.30 E'Medial: 6.64 E/E' Med: 15.70 E' Laterial: 7.94 E/E' Lat: 13.10 Right Ventricle TAPSE (mm): 24.40 TVS' Alvin: 9.00 Tricuspid Valve TR Pk Alvin: 2.42 TR Pk Grad: 23.00 RA Press: 3.00 RVSP: 26.00 Great Vessels Aorta Sinus of Valsalva: 2.40 2.0-3.5 cm Ao Asc: 2.50 2.1-3.4 cm Pulmonary Veins Pulm Vein S/D 1.30 Pulmonary Valve PV Pk Alvin: 1.13 Peak PV Grad: 5.00 Updated in Other Vendor System with Status of Final Damian Martínez MD electronically signed on 05/25/2022 10:35:39 AM with status of Final
== END ==
LOC: HO.CARD 08:16
PROVIDERS: PCP Internal Medicine Medical Oncology; Visit Provider Internal Medicine Medical Oncology
DX: R06.02 Shortness of breath (principal)
CPT/HCPCS: 93306

== ENCOUNTER → 2022-05-30 10:21 | Outpatient (REF) | payer MEDICARE, SELFPAY ==
--- NOTE | 2022-05-30 10:35 | CA_ITS ---
Acquisition Time: 2022-05-30 10:51:54 Total Exercise Time: 00:05:01 Test Indications: SOB Medications: Protocol: MARTIN Max HR: 139 BPM 91% of Pred: 152 BPM Max BP: 160/070 mmHG Max Work Load: 7.0 METS Exercise stress test with exercise 5 min 1 sec of martin protocol, achieving 91% MPHR, with moderate sob and fatigue and request to stop, no chest discomfort, without arrythmia, with normotensive response to exercise, without EKG changes meeting criteria for ischemia. In recovery her breathing normalized. Test reviewed with Dr Paiz. Referred By: Christopher Porter Overread By: JANET JHA
== END ==
LOC: HO.CARD 10:21
PROVIDERS: PCP Internal Medicine Medical Oncology; Visit Provider Internal Medicine Medical Oncology
DX: R06.02 Shortness of breath (principal); R06.09 Other forms of dyspnea; U09.9 Post COVID-19 condition, unspecified
CPT/HCPCS: 93017; 99212

== ENCOUNTER 2022-06-08 08:20 | Outpatient (REF) | payer MEDICARE, SELFPAY ==
--- NOTE | ~2022-06-08 | CT_ITS ---
EXAMINATION: CT CHEST WITHOUT CONTRAST CLINICAL INFORMATION: Dyspnea. COMPARISON: None TECHNIQUE: Multidetector volumetric CT imaging of the chest was done. Axial MIP volume rendering provided. Sagittal and coronal reformatted images were obtained. This CT examination was performed using dose optimization techniques as appropriate, variously including the following: *Automated exposure control *Adjustment of mA and/or kV according to patient size (this includes techniques or standardized protocols for targeted exams where dose is matched to indication/reason for exam; i.e. extremities or head) *Use of iterative reconstruction technique DLP: 187 mGy-cm FINDINGS: INCIDENT COORDINATOR: Unremarkable training and development director exam. LUNGS: The lungs are well expanded but clear. Left lun mm nodule upper lobe axial image 34/6, 3 mm nodule lung apex image 28/6 and band-like atelectasis in the lingula. Right lun mm nodule right upper lobe laterally axial image 40/6, plate-like atelectasis right middle lobe, 3 mm nodule lateral to the right middle lobe atelectasis, axial image 102/6. MEDIASTINUM: The thyroid lobes are small but symmetrical. Central trachea and the bronchi appear widely patent. There are small shotty lymph nodes in the mediastinum. The heart size and the great vessels are normal caliber. No pericardial effusion seen. CORONARY ARTERY CALCIFICATION: None visualized on this study. PLEURA: There is no pleural effusion. No pleural mass or thickening. AXILLA: Small shotty lymph nodes are seen in bilateral axilla. There is a scar seen in the right anterior chest wall. Otherwise rest of the chest wall is unremarkable. There is mild skin thickening of the right anterior breast with right breast dense soft tissue. UPPER ABDOMEN: Visualized liver, spleen, pancreas and bilateral adrenal glands are unremarkable. The gallbladder has been surgically removed. OSSEOUS STRUCTURES: No aggressive lytic or sclerotic process seen. CT/CT chest wo IV con IMPRESSION: Scattered pulmonary nodules nonsuspicious. Dense atelectatic changes in the lingula and right middle lobe. No acute cardiopulmonary process seen. Fleischner guidelines were followed.
== END 2022-06-08 08:21 | disposition home or self-care (01) ==
LOC: HO.CT 08:20
PROVIDERS: Visit Provider Hospitalist
DX: J84.9 Interstitial pulmonary disease, unspecified (principal); R06.09 Other forms of dyspnea; U09.9 Post COVID-19 condition, unspecified; R05.9 Cough, unspecified
CPT/HCPCS: 71250

== ENCOUNTER 2022-06-29 10:55 | Outpatient (REF) | payer MEDICARE, SELFPAY | END 2022-06-29 10:56 | disposition home or self-care (01) | LOC: HO.RESP 10:55 | PROVIDERS: PCP Internal Medicine Medical Oncology; Visit Provider Internal Medicine | DX: J84.9 Interstitial pulmonary disease, unspecified (principal); R05.9 Cough, unspecified; R06.09 Other forms of dyspnea; U09.9 Post COVID-19 condition, unspecified | CPT/HCPCS: 94060; 94727; 94729 ==

== ENCOUNTER 2022-06-30 13:55 | Outpatient (REF) | payer MEDICARE, SELFPAY ==
--- NOTE | ~2022-06-30 | MM_ITS ---
EXAMINATION: MM DIAGNOSTIC DIGITAL BREAST TOMOSYNTHESIS, BILATERAL CLINICAL INFORMATION: Status post right lumpectomy and radiation therapy ending October 2021. COMPARISON: Mammography: 07/19/2021 and studies dating back to 12/24/2015. TECHNIQUE: Digital breast tomosynthesis is performed in both the craniocaudal and mediolateral oblique views along with computer-aided detection (CAD). Synthesized 2D images are generated from the tomosynthesis. Additional spot magnification views performed of each breast. FINDINGS: There are scattered areas of fibroglandular density (ACR BI-RADS breast composition Category b). Postsurgical and radiation change is seen within the right breast. There are some small developing calcifications about the surgical sites likely related to dystrophic calcifications. Six-month follow-up spot magnification views of the right breast recommended. No new abnormal mass or region of architectural distortion is seen within the left breast. There are a few loosely grouped and scattered calcifications present with a grouping being seen about the deep lateral aspect for which spot magnification views in 6 months is recommended. Results are provided to the patient at time of visit by the technologist. MM/MM tomosynthesis diagnostic BI IMPRESSION: Status post right breast lumpectomy with probable developing dystrophic calcifications. Loosely grouped calcifications about the deep lateral aspect of the left breast for which 6 month follow-up study is recommended. ASSESSMENT: BI-RADS 3: Probably Benign RECOMMENDATION: Diagnostic mammography in 6 months. This patient's information was entered into a reminder system with a target due date for their next mammogram.
== END 2022-06-30 13:56 | disposition home or self-care (01) ==
LOC: HO.MAMMO 13:55
PROVIDERS: PCP Internal Medicine Medical Oncology; Visit Provider Internal Medicine Medical Oncology
DX: Z98.890 Other specified postprocedural states (principal); Z85.3 Personal history of malignant neoplasm of breast
CPT/HCPCS: 77062; 77066

== ENCOUNTER → 2022-07-13 13:55 | Outpatient (BNVA) | payer MEDICARE, SELFPAY | PROVIDERS: PCP Internal Medicine Medical Oncology; Visit Provider Internal Medicine | DX: J84.9 Interstitial pulmonary disease, unspecified (principal); R05.9 Cough, unspecified; R06.09 Other forms of dyspnea; U09.9 Post COVID-19 condition, unspecified | CPT/HCPCS: 99212 ==

== ENCOUNTER → 2022-10-12 14:05 | Outpatient (BNVA) | payer MEDICARE, SELFPAY | PROVIDERS: PCP Internal Medicine Medical Oncology; Visit Provider Internal Medicine | DX: J84.9 Interstitial pulmonary disease, unspecified (principal); R05.9 Cough, unspecified; R06.09 Other forms of dyspnea; E66.9 Obesity, unspecified; Z68.39 Body mass index [BMI] 39.0-39.9, adult | CPT/HCPCS: 99212 ==

== ENCOUNTER 2022-12-07 07:54 | Outpatient (REF) | payer MEDICARE, SELFPAY ==
[2022-12-07 08:05] LABS: MANUAL DIFF FLAG NO
[2022-12-07 08:24] LABS: Basophils Percent Auto 0.3 % (0-2); Eosinophils Absolute Auto 0.1 X10*3/uL (0.0-0.4); Hematocrit 38.7 % (37.0-47.0); Hemoglobin 12.3 g/dl (12.0-16.0); Imm Gran Abs Auto 0.14 X10*3/uL (0.00-0.03); Lymphocytes Percent Auto 28.8 % (20-40); Mean Corpuscular HGB Conc 31.8 g/dl (31.0-35.0); Mean Platelet Volume 10.1 fL (9.4-12.3); Monocytes Absolute Auto 0.7 X10*3/uL (0.1-1.2); Monocytes Percent Auto 5.3 % (2-11); Neutrophils Absolute Auto 8.8 x10*3/uL (2.0-8.3); Neutrophils Percent Auto 63.6 % (45-73); Platelet Count 318 X10*3/uL (160-400); Red Cell Distribution Width 15.4 % (11.0-16.0); White Blood Count 13.9 X10*3/uL (4.8-10.8)
[2022-12-07 08:50] LABS: Alanine Aminotransferase 21 U/L (0-31); Albumin Level 4.1 g/dL (3.5-5.0); Alkaline Phosphatase 78 U/L (39-117); Anion Gap 17 (12-20); Aspartate Amino Transferase 17 U/L (5-31); Bilirubin Total 0.5 mg/dL (0.0-1.0); Blood Urea Nitrogen 32 mg/dL (9-16); Calcium 9.7 mg/dL (8.4-10.2); Carbon Dioxide 25 mmol/L (22-29); Chloride 105 mmol/L (96-108); Cholesterol 135 mg/dL; Estimated Glomerular Filt Rate 37; Glucose Random 98 mg/dL (60-115); HDL Cholesterol 58 mg/dL; LDL Cholesterol Calculated 50 mg/dl; Potassium 4.6 mmol/L (3.3-5.1); Sodium 142 mmol/L (135-145); Total Protein 6.8 g/dL (6.5-8.0); Triglycerides 139 mg/dL
[2022-12-07 08:51] LABS: Creatinine Urine 86.72 mg/dL; Microalbum/Creatinine Ratio Ur 6.9 ug/mg cr
[2022-12-07 09:38] LABS: Estimated Average Glucose 146 mg/dL; Hemoglobin A1c % 6.7 %
== END 2022-12-07 07:55 | disposition home or self-care (01) ==
LOC: HO.LAB 07:54
PROVIDERS: PCP Internal Medicine Medical Oncology; Visit Provider Internal Medicine Medical Oncology
DX: E78.5 Hyperlipidemia, unspecified (principal); E11.9 Type 2 diabetes mellitus without complications; E66.9 Obesity, unspecified
CPT/HCPCS: 36415; 80053; 80061; 82043; 83036; 85025

== ENCOUNTER 2022-12-19 15:58 | Outpatient (REF) | payer MEDICARE, SELFPAY ==
--- NOTE | ~2022-12-19 | XR_ITS ---
EXAMINATION: XR SHOULDER, RIGHT CLINICAL INFORMATION: Right shoulder pain COMPARISON: None available. TECHNIQUE: AP external rotation, Grashey, scapular Y, and axillary views of the right shoulder. FINDINGS: There is mild loss of glenohumeral and AC joint space with periarticular spurring. No fracture, dislocation or subluxation seen. No bony erosive changes. The soft tissues are normal. XR/XR shoulder RT min 2V IMPRESSION: Mild degenerative changes right shoulder joint. No visible acute fracture or dislocation seen.
== END 2022-12-19 15:59 | disposition home or self-care (01) ==
LOC: HO.XRAY 15:58
PROVIDERS: PCP Internal Medicine Medical Oncology; Visit Provider Internal Medicine Medical Oncology
DX: M25.511 Pain in right shoulder (principal)
CPT/HCPCS: 73030

== ENCOUNTER 2022-12-29 13:17 | Outpatient (REF) | payer MEDICARE, SELFPAY ==
--- NOTE | ~2022-12-29 | MM_ITS ---
EXAMINATION: MM DIAGNOSTIC DIGITAL BREAST TOMOSYNTHESIS, BILATERAL CLINICAL INFORMATION: History of right breast cancer in 2020. Six-month follow-up bilateral breast calcifications. COMPARISON: Mammography: 06/30/2022 and studies dating back to 12/2015. TECHNIQUE: Digital breast tomosynthesis is performed in both the craniocaudal and mediolateral oblique views along with computer-aided detection (CAD). Synthesized 2D images are generated from the tomosynthesis. Additional bilateral spot medication views in craniocaudal and 90 degree mediolateral views performed. Left breast exaggerated craniocaudal view was also performed. FINDINGS: There are scattered areas of fibroglandular density (ACR BI-RADS breast composition Category b). Post-surgical change is again seen within the right breast as well as skin thickening likely related to radiation therapy. There are some stable calcifications present. No new abnormal dominant mass or more suspicious grouping of calcifications is seen within the right breast. No new abnormal dominant mass is seen within the left breast. The grouping of calcifications about the inferior lateral aspect deep left breast are similar to study of 06/30/2022 with some loosely grouped rounded calcifications without linear or branching forms. Recommend 6 month follow-up left breast mammogram with spot magnification views. Results are provided to the patient at time of visit by the technologist. MM/MM tomosynthesis diagnostic BI IMPRESSION: Left breast calcifications for six-month follow up as described. ASSESSMENT: BI-RADS 3: Probably Benign. RECOMMENDATION: Diagnostic mammography in 6 months. This patient's information was entered into a reminder system with a target due date for their next mammogram.
== END 2022-12-29 13:18 | disposition home or self-care (01) ==
LOC: HO.MAMMO 13:17
PROVIDERS: PCP Internal Medicine Medical Oncology; Visit Provider Internal Medicine Medical Oncology
DX: R92.1 Mammographic calcification found on diagnostic imaging of breast (principal)
CPT/HCPCS: 77062; 77066

== ENCOUNTER → 2023-02-09 10:51 | Outpatient (BNVA) | payer MEDICARE, SELFPAY | PROVIDERS: PCP Internal Medicine Medical Oncology; Referring Provider Internal Medicine Medical Oncology; Visit Provider Physician Assistant Surgical ==

== ENCOUNTER 2023-04-12 14:10 | Outpatient (AMB) | payer MEDICARE, SELFPAY ==
[2023-04-12 14:14] VITALS: BP 128/72; PULSE 75; O2SAT 97; BMI 37.9
--- NOTE | 2023-04-12 14:14 | A.OFFVIS_ITS ---
Intake Vital Signs 04/12/23 14:14 Height 5 ft Weight 194 lb 0.108 oz BMI 37.9 BP 128/72 Blood Pressure Location Lt brachial Position Sitting Pulse 75 Pulse Source Pulse Oximeter Pulse Oximetry (%) 97 Oxygen Delivery Method Room Air Intake Visit Reasons: COPD Intake Note: Pt reports having breathing problems and that in the middle of the night she s ometimes feels like she has mucus stuck in her throat and cannot always bring it up. When she is able to cough it up it is clear. Allergies codeine [Codeine] Allergy (Mild, Verified 04/12/23 14:47) Rash, nausea Medication List - Last Reconciled 04/12/23 by Letitia Gonzalez MD albuterol sulfate 90 mcg/actuation (ProAir HFA) 2 puffs inhalation Q4-6H PRN 30 days anastrozole 1 mg PO DAILY atorvastatin 10 mg PO DAILY citalopram 20 mg PO DAILY levothyroxine 100 mcg PO DAILY lisinopril 10 mg PO DAILY metformin 500 mg PO DAILY sunhizxw-sjw-fyce-FA-vit K-lut 8 mg iron-400 mcg-50 mcg (Centrum Silver Women) 1 tab PO DAILY omeprazole 1 cap PO BID Do you need a note to return to daycare/school/sports/work: No HPI COPD HPI Details KATHY IS 67 YEARS OLD FEMALE GROSSLY OBESE, COMES FOR FOLLOW-UP AFTER 6 MONTHS. SHE HAD EARLY INTERSTITIAL LUNG DISEASE DUE TO MACRODANTIN AND IT HAD RESOLVED AFTER SHE STOPPED TAKING MACRODANTIN. SHE WAS LEFT WITH INTERMITTENT COUGH WHICH WAS FELT TO BE DUE TO REACTIVE AIRWAYS. SHE WAS ADVISED TO USE ALBUTEROL 1 OR 2 PUFFS ONLY P.R.N.. IN THE LAST 6 MONTHS SHE IS DOING WELL, NO SUSTAINED BOUTS OF COUGH., . AND NO SIGNIFICANT SHORTNESS OF BREATH SHE DESCRIBES THAT SOMETIME SHE FEELS THAT SOME MUCUS IS STOCK DEEP IN HER THROAT, AND. HAS HARD TIME TO COUGH IT UP FINALLY SHE DOES BRING SMALL AMOUNT OF MUCUS UP AND FEELS BETTER. THIS HAPPENS MORE IN THE EARLY HOURS OF THE DAY. SHE IS A GOOD CANDIDATE FOR SLEEP APNEA BUT DENIES ANY EXTRA SNORING OR FREQUENT AWAKENING. SHE REMAINS, OVERWEIGHT BUT IN THE LAST FEW MONTHS HAS LOST ABOUT 8 LB OF WEIGHT. SHE STILL SMOKES BUT ONLY 1 OR 2 CIGARETTES A DAY . 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) Snoring Urinary tract infection Surgical History H/O right breast biopsy History of appendectomy History of hand surgery History of lumpectomy of right breast History of total hysterectomy Hx of cholecystectomy Hx of colonoscopy Family History Mother History of lung cancer CHF (congestive heart failure) Sister History of colon cancer History of liver cancer Maternal Aunt Breast cancer Family/Other Breast cancer Father Heart attack Social History Household Members: Spouse Housing: House Are you a primary healthcare architect to a significant other at home: Yes (PT does take care of her sister.) Do you presently have visiting nurse or other home services: No Alcohol intake: current Alcohol intake frequency: does not drink Patient Tobacco Use Status: Former Tobacco user Quit Date: 1999 Tobacco use type: Cigarette Cigarette Packs Per Day: 2 Years Smoked: 52 service: No Current occupational status: employed Female Reproductive History Menstrual Age of Menarche: 11 Review of Systems Const All systems reviewed & are unremarkable except as noted in HPI and below Eyes Reports no additional complaints ENT Reports no additional complaints Card Denies chest pain at rest, Denies irregular heart rhythm, Denies leg edema and Reports dyspnea on exertion (Mild) Resp Reports cough, Reports dyspnea on exertion (Mild) and Denies wheezing GI Reports no additional complaints Reports no additional complaints Musc Reports no additional complaints Skin/Breast Reports system reviewed and no additional complaints, except as documented Neuro Reports no additional complaints Psych Reports no additional complaints Endo Reports no additional complaints Aller/Immun Denies wheezing Physical Exam Vital Signs: Last Vital Signs Pulse 75 04/12/23 14:14 BP 128/72 04/12/23 14:14 Pulse Ox 97 04/12/23 14:14 Oxygen Delivery Method Room Air 04/12/23 14:14 BMI result Body Mass Index 37.9 Const General: healthy appearing, comfortable, no acute distress, alert and awake Orientation/consciousness: patient oriented x3 HEENT Head: Yes normal to inspection General nose exam: No nasal polyps present and No nasal discharge present Face and sinus: Yes sinuses nontender Mouth: oropharynx normal Throat: Yes posterior oropharynx normal Eyes General: appearance normal, both eyes and all related structures Neck Neck: Yes normal visual inspection, Yes no lymphadenopathy, Yes trachea midline and Yes no JVD Thyroid: Thyroid normal Chest Chest palpation & inspection: normal inspection of the chest, normal palpation of entire chest wall and no tenderness Resp Auscultation: clear to auscultation bilaterally, no crackles and no wheezes Cardio Palpation: normal PMI Rate: regular rate Rhythm: regular rhythm Heart sounds: no gallops and no murmurs GI Palpation (GI): Soft to palpation, nontender, No hepatosplenomegaly present and no masses Auscultation: normal bowel sounds Back/Spine/Pelvis Thoracic/Lumbar Spine: thoracic and lumbar spine normal to inspection Skin General skin exam: no rashes or lesions noted Neuro General: patient oriented x3 and no focal motor deficits Cranial nerves: Yes CN's II-XII intact bilaterally Extrem General: Yes normal to inspection, Yes no clubbing, cyanosis or edema and Yes no calf tenderness Psych Appearance: grossly normal and well kempt Speech and movement: Normal speech and movement present Assessment & Plan Assessment & Plan (1) Obesity: Comment: PATIENT IS AT THE VERGE OF MORBID OBESITY. ADVISED TO LOOSE WT . ALERTED THAT SHE MAY DEVELOP OBSTRUCTIVE SLEEP APNEA IF THE WEIGHT REMAINS UP. HAS LOST ABOUT 8 LB OF WEIGHT IN THE LAST FEW MONTHS, AND REMAINS MOTIVATED TO LOSE MORE WEIGHT. Code(s): E66.9 - Obesity, unspecified (2) Interstitial lung disease: Comment: SHE DID HAVE EVIDENCE OF EARLY ONSET OF INTERSTITIAL LUNG DISEASE IN THE LOWER LOBES, AN EARLY MANIFESTATION OF MACRODANTIN CAUSED INTERSTITIAL LUNG DISEASE. MUCH IMPROVED SINCE STOPPING OF MACRODANTIN . AT PRESENT DOES NOT SEEM TO HAVE ANY RESIDUAL PROCESS OF INTERSTITIAL LUNG DISEASE. BUT BECAUSE OF HER OBESITY SHE MAY HAVE MILD RESTRICTIVE LUNG DISEASE . Code(s): J84.9 - Interstitial pulmonary disease, unspecified (3) Cough: Comment: POST COVID COUGH REACTIVE AIRWAYS , ALMOST RESOLVED. NOW SHE GETS COUGH WHEN SHE INHALES COLD AIR. ADVISED TO AVOID EXPOSURE TO THE COLD AIR. ALSO HAS EPISODES OF MUCUS STICKING IN THE THROAT, TX : MAY USE ALBUTEROL 2 PUFFS Q 4-6 HOURS ONLY P.R.N. FOR SUSTAINED COUGH OR WHEEZING. ON WAKING UP IN THE MORNING SHE SHOULD THE RINSE HER MOUTH AND NOSE, AND DO STEAM INHALATION. Code(s): R05 - Cough (4) Dyspnea on exertion: Comment: SHE GETS SHORT OF BREATH ON WALKING AROUND DUE TO COMBINATION OF FACTORS, INCLUDING OBESITY, MILD REACTIVE AIRWAYS, AND SOME DECONDITIONING. IT HAS GRADUALLY IMPROVED IN THE LAST 6 MONTHS. ADVISE THAT HAS SHE LOSES MORE WEIGHT HER DYSPNEA ON EXERTION WOULD PROBABLY GO AWAY COMPLETELY. Code(s): R06.09 - Other forms of dyspnea Medications: Discontinued anastrozole 1 mg PO DAILY 30 tabs 6RF Coding Level of Care Code Est Pt Level 3 (00988) Diagnoses Obesity E66.9 Interstitial lung disease J84.9 Cough R05 Dyspnea on exertion R06.09
== END 2023-04-12 14:49 | disposition home or self-care (01) ==
PROVIDERS: PCP Internal Medicine Medical Oncology; Visit Provider Internal Medicine
DX: E66.9 Obesity, unspecified (principal); J84.9 Interstitial pulmonary disease, unspecified; R05.9 Cough, unspecified; R06.09 Other forms of dyspnea
CPT/HCPCS: 99213

== ENCOUNTER → 2023-04-12 14:10 | Outpatient (BNVA) | payer MEDICARE, SELFPAY | PROVIDERS: PCP Internal Medicine Medical Oncology; Visit Provider Internal Medicine | DX: J84.9 Interstitial pulmonary disease, unspecified (principal); R06.09 Other forms of dyspnea; R05.9 Cough, unspecified; U09.9 Post COVID-19 condition, unspecified; E66.9 Obesity, unspecified; F17.210 Nicotine dependence, cigarettes, uncomplicated; Z68.37 Body mass index [BMI] 37.0-37.9, adult | CPT/HCPCS: 99212 ==

== ENCOUNTER 2023-04-13 07:25 | Outpatient (REF) | payer MEDICARE, SELFPAY ==
[2023-04-13 07:39] LABS: MANUAL DIFF FLAG NO
[2023-04-13 08:14] LABS: Basophils Percent Auto 0.3 % (0-2); Eosinophils Absolute Auto 0.2 X10*3/uL (0.0-0.4); Hematocrit 39.8 % (37.0-47.0); Hemoglobin 12.1 g/dl (12.0-16.0); Imm Gran Abs Auto 0.04 X10*3/uL (0.00-0.03); Imm Gran Pct Auto 0.5 % (0.0-0.4); Lymphocytes Absolute Auto 1.7 X10*3/uL (1.2-4.9); Lymphocytes Percent Auto 21.4 % (20-40); Mean Corpuscular HGB Conc 30.4 g/dl (31.0-35.0); Mean Corpuscular Hemoglobin 27.4 pg (27.0-33.0); Mean Platelet Volume 9.7 fL (9.4-12.3); Monocytes Absolute Auto 0.5 X10*3/uL (0.1-1.2); Monocytes Percent Auto 6.7 % (2-11); Neutrophils Absolute Auto 5.5 x10*3/uL (2.0-8.3); Neutrophils Percent Auto 69.1 % (45-73); Platelet Count 261 X10*3/uL (160-400); Red Blood Count 4.42 X10*6/uL (4.20-5.50); Red Cell Distribution Width 15.2 % (11.0-16.0)
[2023-04-13 08:49] LABS: Alanine Aminotransferase 19 U/L (0-31); Albumin Level 4.1 g/dL (3.5-5.0); Alkaline Phosphatase 73 U/L (39-117); Anion Gap 13 (12-20); Aspartate Amino Transferase 16 U/L (5-31); Bilirubin Total 0.3 mg/dL (0.0-1.0); Blood Urea Nitrogen 18 mg/dL (9-16); Calcium 10.5 mg/dL (8.4-10.2); Carbon Dioxide 27 mmol/L (22-29); Chloride 108 mmol/L (96-108); Cholesterol 117 mg/dL; Estimated Glomerular Filt Rate 40; Glucose Fasting 110 mg/dL (60-99); HDL Cholesterol 50 mg/dL; LDL Cholesterol Calculated 48 mg/dl; Potassium 4.6 mmol/L (3.3-5.1); Sodium 143 mmol/L (135-145); Total Protein 7.2 g/dL (6.5-8.0); Triglycerides 99 mg/dL
[2023-04-13 08:53] LABS: Estimated Average Glucose 123 mg/dL; Hemoglobin A1c % 5.9 %
[2023-04-13 12:20] LABS: Creatinine Urine 110.34 mg/dL; Microalbum/Creatinine Ratio Ur 11.7 ug/mg cr
== END 2023-04-13 07:26 | disposition home or self-care (01) ==
LOC: HO.LAB 07:25
PROVIDERS: PCP Internal Medicine Medical Oncology; Visit Provider Internal Medicine Medical Oncology
DX: M54.16 Radiculopathy, lumbar region (principal); E78.5 Hyperlipidemia, unspecified; E11.9 Type 2 diabetes mellitus without complications
CPT/HCPCS: 36415; 80053; 80061; 82043; 83036; 85025

== ENCOUNTER 2023-07-13 07:42 | Outpatient (REF) | payer MEDICARE, SELFPAY ==
[2023-07-13 08:15] LABS: MANUAL DIFF FLAG NO
[2023-07-13 09:14] LABS: Basophils Percent Auto 0.5 % (0-2); Eosinophils Absolute Auto 0.1 X10*3/uL (0.0-0.4); Eosinophils Percent Auto 1.3 % (0-4); Hematocrit 39.4 % (37.0-47.0); Hemoglobin 12.1 g/dl (12.0-16.0); Imm Gran Abs Auto 0.03 X10*3/uL (0.00-0.03); Imm Gran Pct Auto 0.4 % (0.0-0.4); Lymphocytes Absolute Auto 1.6 X10*3/uL (1.2-4.9); Lymphocytes Percent Auto 21.3 % (20-40); Mean Corpuscular HGB Conc 30.7 g/dl (31.0-35.0); Mean Corpuscular Hemoglobin 27.6 pg (27.0-33.0); Mean Corpuscular Volume 89.7 fL (80.0-98.0); Mean Platelet Volume 9.5 fL (9.4-12.3); Monocytes Absolute Auto 0.6 X10*3/uL (0.1-1.2); Monocytes Percent Auto 7.2 % (2-11); Neutrophils Absolute Auto 5.3 x10*3/uL (2.0-8.3); Neutrophils Percent Auto 69.3 % (45-73); Platelet Count 297 X10*3/uL (160-400); Red Blood Count 4.39 X10*6/uL (4.20-5.50); Red Cell Distribution Width 15.5 % (11.0-16.0); White Blood Count 7.7 X10*3/uL (4.8-10.8)
[2023-07-13 09:25] LABS: Estimated Average Glucose 117 mg/dL; Hemoglobin A1c % 5.7 % (<6.0)
[2023-07-13 10:08] LABS: Alanine Aminotransferase 14 U/L (0-31); Albumin Level 4.1 g/dL (3.5-5.0); Alkaline Phosphatase 70 U/L (39-117); Anion Gap 10 (12-20); Aspartate Amino Transferase 15 U/L (5-31); Bilirubin Total 0.4 mg/dL (0.0-1.0); Blood Urea Nitrogen 17 mg/dL (9-16); Calcium 9.9 mg/dL (8.4-10.2); Carbon Dioxide 28 mmol/L (22-29); Chloride 109 mmol/L (96-108); Cholesterol 155 mg/dL (<200); Estimated Glomerular Filt Rate 48; Glucose Fasting 114 mg/dL (60-99); HDL Cholesterol 51 mg/dL (>40); Potassium 4.4 mmol/L (3.3-5.1); Sodium 143 mmol/L (135-145); Total Protein 7.3 g/dL (6.5-8.0)
[2023-07-13 10:14] LABS: LDL Cholesterol Calculated 76 mg/dL (<100); Triglycerides 144 mg/dL (<150)
== END 2023-07-13 07:43 | disposition home or self-care (01) ==
LOC: HO.LAB 07:42
PROVIDERS: PCP Internal Medicine Medical Oncology; Visit Provider Internal Medicine Medical Oncology
DX: M54.16 Radiculopathy, lumbar region (principal); E78.5 Hyperlipidemia, unspecified; E11.9 Type 2 diabetes mellitus without complications; E66.9 Obesity, unspecified
CPT/HCPCS: 36415; 80053; 80061; 83036; 85025

== ENCOUNTER 2023-08-02 13:49 | Outpatient (REF) | payer MEDICARE, SELFPAY ==
--- NOTE | ~2023-08-02 | MM_ITS ---
EXAMINATION: MM DIAGNOSTIC DIGITAL BREAST TOMOSYNTHESIS, LEFT CLINICAL INFORMATION: 6 month Follow-up left breast calcifications. COMPARISON: Mammography: 12/21/2022, 06/30/2022, TECHNIQUE: Digital breast tomosynthesis is performed in both the craniocaudal and mediolateral oblique views along with computer-aided detection (CAD). Synthesized 2D images are generated from the tomosynthesis. In addition, spot magnification left CC views, and left ML views x3 were also performed. FINDINGS: There are scattered areas of fibroglandular density (ACR BI-RADS breast composition Category b). Loosely grouped punctate rounded calcifications in the inferior lateral left breast, posterior one third, are benign and require no further follow-up. Otherwise, there are are no suspicious masses, suspicious grouped calcifications, or areas of architectural distortion in either breast. The parenchymal pattern is stable from prior exams. MM/MM tomosynthesis diagnostic LT IMPRESSION: No findings suspicious for malignancy in the left breast. Previously investigated loosely grouped punctate calcifications are benign and require no further follow-up. Recommend the patient resume routine screening involving the left breast. ASSESSMENT: BI-RADS BI-RADS 2 - Benign Findings RECOMMENDATION: 1 year F/U Results were provided to the patient at time of visit by the technologist. This patient's information was entered into a reminder system with a target due date for their next mammogram.
== END 2023-08-02 13:50 | disposition home or self-care (01) ==
LOC: HO.MAMMO 13:49
PROVIDERS: PCP Internal Medicine Medical Oncology; Visit Provider Internal Medicine Medical Oncology
DX: R92.1 Mammographic calcification found on diagnostic imaging of breast (principal)
CPT/HCPCS: 77061; 77065

== ENCOUNTER → 2023-08-02 14:00 | Outpatient (BNV) | payer MEDICARE, SELFPAY | PROVIDERS: PCP Internal Medicine Medical Oncology; Visit Provider Radiology Diagnostic Radiology | DX: R92.1 Mammographic calcification found on diagnostic imaging of breast (principal) | CPT/HCPCS: 77061; 77065; G0279 ==

== ENCOUNTER 2023-08-04 22:12 | Emergency (ER) | payer MEDICARE, SELFPAY ==
[2023-08-04 22:21] VITALS: BP 144/70; PULSE 76; RESP 20; TEMP 37; O2SAT 96; BMI 37.7
--- NOTE | 2023-08-04 22:24 | ED_ITS ---
HPI - General Adult General Chief complaint: Allergic Reaction Stated complaint: allergic reaction, facial swelling Time Seen by Provider: 08/04/23 22:19 History of Present Illness HPI narrative: Patient is a 67-year-old female who presents to the emergency room for swelling of the upper lip this started around 04:00 o'clock this afternoon. She has never had this before. She is on lisinopril. She has been on lisinopril for several years. She has a history of interstitial lung disease. She has had cough for the last few days but no definite fever. No signs of tongue swelling or difficulty swallowing Related Data Home Medications Medication Instructions Recorded Confirmed citalopram 20 mg tablet 20 mg PO DAILY 06/16/20 03/14/23 levothyroxine 100 mcg tablet 100 mcg PO DAILY 06/16/20 03/14/23 atorvastatin 10 mg tablet 10 mg PO DAILY 09/07/20 03/14/23 metformin 500 mg tablet 500 mg PO DAILY 09/07/20 03/14/23 [id number]-[id number] 8 mg-folic 400 1 tab PO DAILY 07/13/21 03/14/23 mcg-K 50 mcg-lutein 300 mcg tablet ([facility]) omeprazole 20 mg capsule,delayed 1 cap PO BID 07/13/21 03/14/23 release lisinopril 10 mg tablet 10 mg PO DAILY 03/14/23 03/14/23 Previous Rx's Medication Instructions Recorded albuterol sulfate 90 mcg/actuation 2 puff inhalation Q4-6H PRN 05/30/22 aerosol inhaler (ProAir HFA) shortness of breath or wheezing 30 days #8.5 grams anastrozole 1 mg tablet 1 mg PO DAILY #30 tabs 03/14/23 Allergies Allergy/AdvReac Type Severity Reaction Status Date / Time codeine [Codeine] Allergy Mild Rash, Verified 08/04/23 22:21 nausea PMFSH Past Medical History Medical History Abnormal mammogram of right breast Back pain Complication of urinary electronic stimulator device Cough Depression Dyspnea on exertion GERD (gastroesophageal reflux disease) Hypertension Hypothyroid Increased BMI Interstitial lung disease Invasive ductal carcinoma of right breast Obesity Post covid-19 condition, unspecified Post-COVID chronic dyspnea Pre-diabetes 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) Snoring Urinary tract infection Surgical History H/O right breast biopsy History of appendectomy History of hand surgery History of lumpectomy of right breast History of total hysterectomy Hx of cholecystectomy Hx of colonoscopy Family History Family History Mother History of lung cancer CHF (congestive heart failure) Sister History of colon cancer History of liver cancer Maternal Aunt Breast cancer Family/Other Breast cancer Father Heart attack Social History Social History Household Members: Spouse Housing: House Are you a primary healthcare insurance sales agent to a significant other at home: Yes (PT does take care of her sister.) Do you presently have visiting nurse or other home services: No Alcohol intake: current Alcohol intake frequency: does not drink Patient Tobacco Use Status: Former Tobacco user Quit Date: 1999 Tobacco use type: Cigarette Cigarette Packs Per Day: 2 Years Smoked: 52 Advance Directives: No Advance Directives Information Provided: No service: No Current occupational status: employed Physical Exam ED Vital Signs: Vital Signs - 24 hr 08/04/23 22:21 08/04/23 23:59 Temperature 98.6 F 98.4 F Pulse Rate 76 65 Respiratory Rate 20 17 Blood Pressure 144/70 H 124/46 L Pulse Oximetry 96 96 Oxygen Delivery Method Room Air Room Air BMI result Body Mass Index 37.7 Const Other: The patient is awake and alert. She has the appearance of a somewhat chronically ill 67-year-old. However she does not appear acutely ill although she has a swollen upper lip. HENMT Other: The upper lip is swollen in a manner consistent with angioedema. No erythema. No other abnormalities to the head or the face. No intraoral swelling. Eyes Other: Pupils are round equal, conjunctivae are clear, eyelids are nonswollen. Neck Other: No JVD. The neck is benign. No neck swelling. Resp Other: Lungs are clear bilaterally. Cardio Other: Regular rate and rhythm with no murmur Skin Other: Aside from the swelling of the upper lip and the skin just above the upper lip the skin is unremarkable. Neuro Other: The patient is awake, alert, appropriate. Speech is clear. Face is symmetrical. Moving her extremities symmetrically. Grossly neurologically intact. Extrem Other: No peripheral edema Medications Administered Discontinued Medications Generic Name Dose Route Start Last Admin Trade Name Lilibeth PRN Reason Stop Dose Admin Famotidine 20 mg 08/04/23 22:25 08/04/23 22:27 Famotidine/Pf 20 Mg/2 Ml Vial IVPUSH 08/04/23 22:26 20 mg ONCE ONE Administration Methylprednisolone Sodium Succinate 125 mg 08/04/23 22:45 08/04/23 22:30 Methylprednisolone Sod Succ 125 Mg/2 Ml Vial IV 08/04/23 22:46 125 mg ONCE ONE Administration Medical Decision Making Medical Decision Making [facility] Narrative: Patient presents with relatively acute upper lip swelling. She is on lisinopril. The appearance of the swollen lip is suggestive of angioedema. 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 She was given a dose of IV methylprednisolone and famotidine. She was observed for several hours during which time she felt better. I think she may be discharged to home with her . She is advised to never use lisinopril again. She should contact her regular doctor on Sunday. Should return if worse. Discharge Plan Discharge Clinical Impression: Angioedema of lips Patient Disposition: Home, Self-Care Instructions: Angioedema (ED) Additional Instructions: Your swollen lip is most likely result of your use of the blood pressure medicine lisinopril. Lisinopril can occasionally cause lip swelling like this. Unfortunately once a person experiences lip swelling on lisinopril they have to stop lisinopril altogether and for ever. Therefore do not take anymore lisinopril. I think your swelling will get better over the next day or two. Please contact your regular doctors office on Sunday to discuss this and to plan on getting a new medication for blood pressure control. Return to the emergency room if you are significantly worse. Prescriptions: No Action Centrum Silver Women 8 mg iron-400 mcg-300 mcg Tablet 1 tab PO DAILY lisinopril 10 mg Tablet 10 mg PO DAILY anastrozole 1 mg Tablet 1 mg PO DAILY Qty: 30 6RF omeprazole 20 mg capsule,delayed release(DR/EC) 1 cap PO BID citalopram 20 mg tablet 20 mg PO DAILY levothyroxine 100 mcg tablet 100 mcg PO DAILY atorvastatin 10 mg tablet 10 mg PO DAILY metformin 500 mg tablet 500 mg PO DAILY albuterol sulfate [ProAir HFA] 90 mcg/actuation HFA aerosol inhaler 2 puff inhalation Q4-6H PRN (Reason: shortness of breath or wheezing) 30 Days Qty: 8.5 2RF Referrals: Christopher Porter MD [Primary Care Provider] - (Follow-up for angioedema secondary to lisinopril) Interventions: ED Discharge Assessment Last Done: 08/05/23 01:13 Discharge Date/Time: 08/05/23 01:22
[2023-08-04] MEDS: Famotidine/PF 20 MG/2 ML VIAL IVPUSH (22:27)
[2023-08-04] MEDS: methylPREDNISolone Sod Succ 125 MG/2 ML VIAL IV (22:30)
[2023-08-04 23:59] VITALS: BP 124/46; PULSE 65; RESP 17; TEMP 36.9; O2SAT 96
--- NOTE | 2023-08-05 01:13 | PC.NURSE ---
Pt ca&ox4, no signs of distress. Pts at bedside. Pt denies pain. Plan of care ongoing.
== END 2023-08-05 01:22 | disposition home or self-care (01) ==
PROVIDERS: Emergency Provider Emergency Medicine; PCP Internal Medicine Medical Oncology
DX: T78.3XXA Angioneurotic edema, initial encounter (principal); T78.40XA Allergy, unspecified, initial encounter; X58.XXXA Exposure to other specified factors, initial encounter; I10 Essential (primary) hypertension; R73.03 Prediabetes; E66.9 Obesity, unspecified; Z68.37 Body mass index [BMI] 37.0-37.9, adult; Z87.891 Personal history of nicotine dependence; Z79.02 Long term (current) use of antithrombotics/antiplatelets; Z79.84 Long term (current) use of oral hypoglycemic drugs; Z79.899 Other long term (current) drug therapy
CPT/HCPCS: 96374; 96375; 99284; J2930

== ENCOUNTER 2023-10-18 14:17 | Outpatient (AMB) | payer MEDICARE, SELFPAY ==
--- NOTE | 2023-10-18 14:23 | MHC.OFFVIS ---
Intake Vital Signs 10/18/23 14:24 Height 5 ft Weight 195 lb 1.745 oz BMI 38.1 BP 130/70 Blood Pressure Location Lt brachial Position Sitting Pulse 75 Pulse Source Pulse Oximeter Pulse Oximetry (%) 98 Oxygen Delivery Method Room Air Intake Visit Reasons: COPD Intake Note: pt is here for follow up and feel okay no issues going on. Family Practice Nurse Practitioner Required: No Allergies codeine [Codeine] Allergy (Mild, Verified 10/18/23 14:34) Rash, nausea Medication List - Last Reconciled 10/18/23 by Letitia Gonzalez MD albuterol sulfate 90 mcg/actuation (ProAir HFA) 2 puffs inhalation Q4-6H PRN 30 days anastrozole 1 mg PO DAILY atorvastatin 10 mg PO DAILY calcium carbonate-vitamin D3 600 mg-5 mcg (200 unit) 1 tab PO DAILY citalopram 20 mg PO DAILY levothyroxine 100 mcg PO DAILY metformin 500 mg PO DAILY ndyjecal-jjy-gnbd-FA-vit K-lut 8 mg iron-400 mcg-50 mcg (Centrum Silver Women) 1 tab PO DAILY omeprazole 1 cap PO BID valsartan 40 mg PO DAILY Do you need a note to return to daycare/school/sports/work: No HPI COPD HPI Details KATHY IS 68 YEA RS OLD FEMALE WHO HAD EARLY INTERSTI TIAL LUNG DISEASE DUE TO MACRODANTIN AND IT RESOLVED AFTER SHE STOPPED TAKING MACRODANTI N. SHE WAS LEFT WITH INTERMITTENT COUGH WHICH WAS F ELT TO BE DUE TO R EACTIVE AIRWAYS. S HE WAS ADVISED TO USE ALBUTEROL 1 OR 2 PUFFS ONLY P.R. N.. SLOWLY ON GRA DUALLY EVEN HER CO UGH IS NOT BOTHERI NG, EXCEPT WHEN SH E SMOKES CIGARETTE . SHE IS STILL SM OKING 1-2 CIGARETT ES A DAY, SHE RCIHIE ES ANY WHEEZING OR SHORTNESS OF [place] TH . SHE HARDLY NE EDS TO USE ALBUTER OL . PER HER P HYSICAL FEATURES, SHE IS A HIGH RISK CASE FOR SLEEP AP PAIGE ,BUT DENIES MADERA VING ANY SYMPTOMS OF INDER. SHE REMAIN S, OVERWEIGHT , BU T SHE TRIES TO RES TRICT CALORIES INT CORTEZ. 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) GERD (gastroesophageal reflux disease) Urinary tract infection Hypothyroid Pre-diabetes Hypertension Abnormal mammogram of right breast Surgical History Hx of colonoscopy History of lumpectomy of right breast History of hand surgery Hx of cholecystectomy History of appendectomy H/O right breast biopsy History of total hysterectomy Family History Mother History of lung cancer CHF (congestive heart failure) Sister History of colon cancer History of liver cancer Maternal Aunt Breast cancer Family/Other Breast cancer Father Heart attack Social History Household Members: Spouse Housing: House Are you a primary md do resident urgent care to a significant other at home: Yes (PT does take care of her sister.) Do you presently have visiting nurse or other home services: No Alcohol intake: current Alcohol intake frequency: does not drink Patient Tobacco Use Status: Former Tobacco user Quit Date: 1999 Tobacco use type: Cigarette Cigarette Packs Per Day: 2 Years Smoked: 52 service: No Current occupational status: employed Female Reproductive History Menstrual Age of Menarche: 11 Review of Systems Const All systems reviewed & are unremarkable except as noted in HPI and below Eyes Reports no additional complaints ENT Reports no additional complaints Card Denies chest pain at rest, Denies irregular heart rhythm, Denies leg edema and Reports dyspnea on exertion (Mild) Resp Reports cough, Reports dyspnea on exertion (Mild) and Denies wheezing GI Reports no additional complaints Reports no additional complaints Musc Reports no additional complaints Skin/Breast Reports system reviewed and no additional complaints, except as documented Neuro Reports no additional complaints Psych Reports no additional complaints Endo Reports no additional complaints Aller/Immun Denies wheezing Physical Exam Vital Signs: Last Vital Signs Pulse 75 10/18/23 14:24 BP 130/70 10/18/23 14:24 Pulse Ox 98 10/18/23 14:24 Oxygen Delivery Method Room Air 10/18/23 14:24 BMI result Body Mass Index 38.1 Const General: healthy appearing, comfortable, no acute distress, alert and awake Orientation/consciousness: patient oriented x3 HEENT Head: Yes normal to inspection General nose exam: No nasal polyps present and No nasal discharge present Face and sinus: Yes sinuses nontender Mouth: oropharynx normal Throat: Yes posterior oropharynx normal Eyes General: appearance normal, both eyes and all related structures Neck Neck: Yes normal visual inspection, Yes no lymphadenopathy, Yes trachea midline and Yes no JVD Thyroid: Thyroid normal Chest Chest palpation & inspection: normal inspection of the chest, normal palpation of entire chest wall and no tenderness Resp Auscultation: clear to auscultation bilaterally, no crackles and no wheezes Cardio Palpation: normal PMI Rate: regular rate Rhythm: regular rhythm Heart sounds: no gallops and no murmurs GI Palpation (GI): Soft to palpation, nontender, No hepatosplenomegaly present and no masses Auscultation: normal bowel sounds Back/Spine/Pelvis Thoracic/Lumbar Spine: thoracic and lumbar spine normal to inspection Skin General skin exam: no rashes or lesions noted Neuro General: patient oriented x3 and no focal motor deficits Cranial nerves: Yes CN's II-XII intact bilaterally Extrem General: Yes normal to inspection, Yes no clubbing, cyanosis or edema and Yes no calf tenderness Psych Appearance: grossly normal and well kempt Speech and movement: Normal speech and movement present Assessment & Plan Assessment & Plan (1) Interstitial lung disease: Comment: SHE DID HAVE EVIDENCE OF EARLY ONSET OF INTERSTITIAL LUNG DISEASE IN THE LOWER LOBES, AN EARLY MANIFESTATION OF MACRODANTIN CAUSED INTERSTITIAL LUNG DISEASE, WHICH RESOLVED AFTER STOPPING MACRODANTIN. AT PRESENT DOES NOT SEEM TO HAVE ANY RESIDUAL PROCESS OF INTERSTITIAL LUNG DISEASE. BUT BECAUSE OF HER OBESITY SHE MAY HAVE MILD RESTRICTIVE LUNG DISEASE . Code(s): J84.9 - Interstitial pulmonary disease, unspecified Plan: NO TREATMENT NEEDED (2) Cough: Comment: POST COVID COUGH REACTIVE AIRWAYS , NOW RESOLVED COMPLETELY . SHE DOES HAVE HISTORY OF COUGH ON INHALING COLD AIR. Code(s): R05 - Cough Plan: MAY USE ALBUTEROL 2 PUFFS Q 4-6 HOURS ONLY P.R.N. FOR SUSTAINED COUGH OR WHEEZING. ON WAKING UP IN THE MORNING SHE SHOULD RINSE HER MOUTH AND NOSE, AND DO STEAM INHALATION. (3) Obesity: Comment: PATIENT IS AT THE VERGE OF MORBID OBESITY. ADVISED TO LOOSE WT . ALERTED THAT SHE MAY DEVELOP OBSTRUCTIVE SLEEP APNEA IF THE WEIGHT REMAINS UP. Code(s): E66.9 - Obesity, unspecified Plan: DISCUSSED ABOUT REDUCING THE DIET TO ESPECIALLY CARBS AND DO SOME WALKING EVERY DAY. Coding Level of Care Code Est Pt Level 3 (82801) Diagnoses Interstitial lung disease J84.9 Cough R05 Obesity E66.9
[2023-10-18 14:24] VITALS: BP 130/70; PULSE 75; O2SAT 98; BMI 38.1
== END 2023-10-18 14:53 | disposition home or self-care (01) ==
PROVIDERS: PCP Internal Medicine Medical Oncology; Visit Provider Internal Medicine
DX: J84.9 Interstitial pulmonary disease, unspecified (principal); R05.9 Cough, unspecified; E66.9 Obesity, unspecified
CPT/HCPCS: 99213

== ENCOUNTER → 2023-10-18 14:17 | Outpatient (BNVA) | payer MEDICARE, SELFPAY | PROVIDERS: PCP Internal Medicine Medical Oncology; Visit Provider Internal Medicine | DX: J84.9 Interstitial pulmonary disease, unspecified (principal); R05.9 Cough, unspecified; E66.9 Obesity, unspecified; Z68.38 Body mass index [BMI] 38.0-38.9, adult | CPT/HCPCS: 99212 ==

== ENCOUNTER 2023-11-12 07:46 | Outpatient (REF) | payer MEDICARE, SELFPAY ==
[2023-11-12 08:10] LABS: MANUAL DIFF FLAG NO
[2023-11-12 08:37] LABS: Basophils Percent Auto 0.4 % (0-2); Eosinophils Absolute Auto 0.2 X10*3/uL (0.0-0.4); Eosinophils Percent Auto 2.3 % (0-4); Hemoglobin 12.1 g/dl (12.0-16.0); Imm Gran Abs Auto 0.03 X10*3/uL (0.00-0.03); Imm Gran Pct Auto 0.4 % (0.0-0.4); Lymphocytes Absolute Auto 1.7 X10*3/uL (1.2-4.9); Lymphocytes Percent Auto 20.6 % (20-40); Mean Corpuscular Hemoglobin 27.6 pg (27.0-33.0); Mean Corpuscular Volume 88.8 fL (80.0-98.0); Mean Platelet Volume 9.5 fL (9.4-12.3); Monocytes Absolute Auto 0.5 X10*3/uL (0.1-1.2); Monocytes Percent Auto 5.8 % (2-11); Neutrophils Absolute Auto 5.8 x10*3/uL (2.0-8.3); Neutrophils Percent Auto 70.5 % (45-73); Platelet Count 288 X10*3/uL (160-400); Red Blood Count 4.39 X10*6/uL (4.20-5.50); Red Cell Distribution Width 15.2 % (11.0-16.0); White Blood Count 8.2 X10*3/uL (4.8-10.8)
[2023-11-12 09:12] LABS: Alanine Aminotransferase 13 U/L (0-31); Alkaline Phosphatase 80 U/L (39-117); Anion Gap 12 (12-20); Aspartate Amino Transferase 14 U/L (5-31); Bilirubin Total 0.4 mg/dL (0.0-1.0); Blood Urea Nitrogen 18 mg/dL (9-16); Carbon Dioxide 27 mmol/L (22-29); Chloride 109 mmol/L (96-108); Cholesterol 142 mg/dL (<200); Estimated Glomerular Filt Rate 40; Glucose Fasting 139 mg/dL (60-99); HDL Cholesterol 44 mg/dL (>40); LDL Cholesterol Calculated 59 mg/dL (<100); Potassium 4.6 mmol/L (3.3-5.1); Sodium 143 mmol/L (135-145); Total Protein 7.2 g/dL (6.5-8.0); Triglycerides 197 mg/dL (<150)
[2023-11-12 09:18] LABS: Free T4 (Free Thyroxine) 0.94 ng/dL (0.71-1.85); Thyroid Stimulating Hormone 1.26 uIU/mL (0.32-4.0)
== END 2023-11-12 07:47 | disposition home or self-care (01) ==
LOC: HO.LAB 07:46
PROVIDERS: PCP Internal Medicine Medical Oncology; Visit Provider Internal Medicine Medical Oncology
DX: Z00.00 Encounter for general adult medical examination without abnormal findings (principal); E03.9 Hypothyroidism, unspecified; E66.9 Obesity, unspecified
CPT/HCPCS: 36415; 80053; 80061; 84439; 84443; 85025

== ENCOUNTER 2024-01-07 14:17 | Outpatient (REF) | payer MEDICARE, SELFPAY ==
--- NOTE | ~2024-01-07 | MM_ITS ---
EXAMINATION: MM DIAGNOSTIC DIGITAL BREAST TOMOSYNTHESIS, BILATERAL CLINICAL INFORMATION: Year 3 status post right breast medial invasive ductal carcinoma, diagnosed in 2020. Also follow-up right breast lateral lumpectomy site from 2019, with diagnosis of ADH with fibrocystic change in past (stereotactic biopsy 06/16/2020). Right excisional biopsy 07/05/2020 (focal flat epithelial atypia, not seen at examination margin; and, small intraductal papilloma).Patient also due for bilateral screening. COMPARISON: Mammography 08/02/2023, 12/29/2022, 06/22/2022, 06/10/2021, 06/17/2021, 06/30/2021, ultrasound right breast 06/17/2021, ultrasound-guided biopsies right breast 06/30/2021. Stereotactic right breast biopsy 06/16/2020. TECHNIQUE: Digital breast tomosynthesis is performed in both the craniocaudal and mediolateral oblique views along with computer-aided detection (CAD). Synthesized 2D images are generated from the tomosynthesis. In addition to standard views, spot 2-D magnification views of the lumpectomy sites of the right breast were also obtained. FINDINGS: There are scattered areas of fibroglandular density (ACR BI-RADS breast composition Category b). Stable post treatment related scarring in the medial and lateral right breast, with mild trabecular thickening from radiation, improving. There are stable dystrophic calcifications in the lateral lumpectomy scar. There are no developing suspicious calcifications. The medial lumpectomy scar is unchanged. Left breast is stable in appearance with loosely grouped punctate calcifications in the inferior lateral aspect, posterior one third, unchanged. No suspicious masses, suspicious grouped calcifications, or developing areas of architectural distortion in either breast. No axillary abnormalities. MM/MM tomosynthesis diagnostic BI IMPRESSION: -There are no findings suspicious for malignancy in either breast. -There are benign evolving post treatment changes in the medial and lateral right breast. -Recommend the patient return to routine screening mammography in one year. ASSESSMENT: BI-RADS BI-RADS 2 - Benign Findings RECOMMENDATION: 1 year F/U Results were provided to the patient at time of visit by the technologist. This patient's information was entered into a reminder system with a target due date for their next mammogram.
== END 2024-01-07 14:18 | disposition home or self-care (01) ==
LOC: HO.MAMMO 14:17
PROVIDERS: PCP Internal Medicine Medical Oncology; Visit Provider Internal Medicine Medical Oncology
DX: Z85.3 Personal history of malignant neoplasm of breast (principal)
CPT/HCPCS: 77062; 77066

== ENCOUNTER → 2024-01-07 14:30 | Outpatient (BNV) | payer MEDICARE, SELFPAY | PROVIDERS: PCP Internal Medicine Medical Oncology; Visit Provider Radiology Diagnostic Radiology | DX: C50.811 Malignant neoplasm of overlapping sites of right female breast (principal) | CPT/HCPCS: 77066; G0279 ==

== ENCOUNTER 2024-02-22 06:42 | Outpatient (REF) | payer MEDICARE, SELFPAY ==
[2024-02-22 06:59] LABS: MANUAL DIFF FLAG NO
[2024-02-22 07:44] LABS: Basophils Percent Auto 0.4 % (0-2); Eosinophils Absolute Auto 0.4 X10*3/uL (0.0-0.4); Eosinophils Percent Auto 3.7 % (0-4); Hematocrit 35.6 % (37.0-47.0); Hemoglobin 11.1 g/dl (12.0-16.0); Imm Gran Abs Auto 0.04 X10*3/uL (0.00-0.03); Imm Gran Pct Auto 0.4 % (0.0-0.4); Lymphocytes Absolute Auto 1.8 X10*3/uL (1.2-4.9); Lymphocytes Percent Auto 18.4 % (20-40); Mean Corpuscular HGB Conc 31.2 g/dl (31.0-35.0); Mean Corpuscular Hemoglobin 27.1 pg (27.0-33.0); Monocytes Absolute Auto 0.5 X10*3/uL (0.1-1.2); Monocytes Percent Auto 5.6 % (2-11); Neutrophils Percent Auto 71.5 % (45-73); Platelet Count 319 X10*3/uL (160-400); Red Blood Count 4.09 X10*6/uL (4.20-5.50); Red Cell Distribution Width 15.9 % (11.0-16.0); White Blood Count 9.7 X10*3/uL (4.8-10.8)
[2024-02-22 08:30] LABS: Alanine Aminotransferase 15 U/L (0-31); Alkaline Phosphatase 102 U/L (39-117); Anion Gap 14 (12-20); Aspartate Amino Transferase 15 U/L (5-31); Bilirubin Total 0.3 mg/dL (0.0-1.0); Blood Urea Nitrogen 19 mg/dL (9-16); Calcium 10.1 mg/dL (8.4-10.2); Carbon Dioxide 25 mmol/L (22-29); Chloride 108 mmol/L (96-108); Cholesterol 134 mg/dL (<200); Estimated Glomerular Filt Rate 52; Glucose Fasting 132 mg/dL (60-99); HDL Cholesterol 43 mg/dL (>40); LDL Cholesterol Calculated 63 mg/dL (<100); Potassium 4.5 mmol/L (3.3-5.1); Sodium 142 mmol/L (135-145); Total Protein 7.2 g/dL (6.5-8.0); Triglycerides 142 mg/dL (<150)
[2024-02-22 08:50] LABS: Free T4 (Free Thyroxine) 0.83 ng/dL (0.71-1.85); Thyroid Stimulating Hormone 6.84 uIU/mL (0.32-4.0)
== END 2024-02-22 06:43 | disposition home or self-care (01) ==
LOC: HO.LAB 06:42
PROVIDERS: PCP Internal Medicine Medical Oncology; Visit Provider Internal Medicine Medical Oncology
DX: C50.911 Malignant neoplasm of unspecified site of right female breast (principal)
CPT/HCPCS: 36415; 80053; 80061; 84439; 84443; 85025

== ENCOUNTER 2024-03-28 13:19 | Outpatient (REF) | payer MEDICARE, SELFPAY ==
--- NOTE | ~2024-03-28 | MM_ITS ---
EXAMINATION: BONE DENSITOMETRY CLINICAL INDICATION: Postmenopausal bone loss. On aromatase inhibitor therapy COMPARISON: Previous BD dated 11/17/2021 and baseline BD dated 07/04/2007. TECHNIQUE: Using a [employer] DXA System (software version: 13.1) manufactured by [employer], dual-energy x-ray absorptiometry was performed of the lumbar spine and left hip. The images are of good technical quality. Summary results are attached. FINDINGS: AP SPINE L1-L2 (excluding L3 and L4): The data of L1-L4 has been changed to exclude the L3 and L4 vertebral bodies, because degenerative sclerosis at these levels may cause overestimation of lumbar spine density. Current: BMD 1.085 g/cm2, Z-score 0.2, T-score -0.7, normal, 7.2% decrease from previous, 2.3% decrease from baseline (<5% change is not significant). Prior: BMD 1.169 g/cm2. Baseline: BMD 1.111 g/cm2. LEFT FEMUR, NECK: Current: BMD 0.847 g/cm2, Z-score -0.2, T-score -1.4, osteopenia. Prior: BMD 0.764 g/cm2. Baseline: BMD 0.836 g/cm2. LEFT FEMUR, TOTAL: Current: BMD 0.917 g/cm2, Z-score 0.2, T-score -0.7, normal, 4.1% increase from previous, 4.1% increase from baseline (<5% change is not significant). Prior: BMD 0.881 g/cm2. Baseline: BMD 0.881 g/cm2. IDENTIFIED RISK FACTORS: Early menopause, hysterectomy, bilateral oophorectomy, secondary osteoporosis. HISTORY OF FRACTURE: None listed. MEDICATIONS: Calcium or multivitamin. Vitamin D, ERT/SERMS. MM/XR DEXA axial skeleton IMPRESSION: 1. DIAGNOSIS: Osteopenia based on the lowest T-score value of -1.4 in the femoral neck applying World Health Organization criteria. 2. 10-YEAR FRACTURE RISK PREDICTION, FRAX: Not performed in this patient on estrogen or bone building treatments. 3. Treatment Recommendations: NOF guidelines recommend consideration for treatment in postmenopausal women and men age 50 and older presenting with the following: -A hip or vertebral (clinical or morphometric) fracture. -T-score less than or equal to -2.5 at the femoral neck or spine after appropriate evaluation to exclude secondary causes. -Low bone mass at the hip or spine and a 10-year fracture probability by FRAX of greater than or equal to 3% for hip fracture or greater than or equal to 20% for major osteoporotic fracture based on the [place] adapted WHO algorithm. 4. Other Recommendations: All treatment decisions require clinical judgment and consideration of individual patient factors, including patient preferences, comorbidities, previous drug use, risk factors not captured in the FRAX model (e.g. frailty, falls, vitamin D deficiency, increased bone turnover, interval significant decline in bone density) and possible under or overestimation of fracture risk by FRAX. Additional medical evaluation for secondary cause of low bone mineral density may be appropriate. FUTURE SCAN RECOMMENDATION: People with diagnosed cases of osteoporosis or at high risk for fracture should have regular bone mineral density tests. For patients eligible for Medicare, routine testing is allowed once every 2 years. The testing frequency can be increased to one year for patients who have rapidly progressing disease, those who are receiving or discontinuing medical therapy to restore bone mass, or have additional risk factors.
== END 2024-03-28 13:20 | disposition home or self-care (01) ==
LOC: HO.MAMMO 13:19
PROVIDERS: PCP Internal Medicine Medical Oncology; Visit Provider Internal Medicine
DX: Z13.820 Encounter for screening for osteoporosis (principal); M85.80 Other specified disorders of bone density and structure, unspecified site; Z78.0 Asymptomatic menopausal state
CPT/HCPCS: 77080

== ENCOUNTER 2024-05-07 16:01 | Outpatient (AMB) | payer MEDICARE, SELFPAY ==
--- NOTE | 2024-05-07 16:03 | AM.OFFWIN_ITS ---
Intake Vital Signs 05/07/24 16:04 Height 5 ft BMI Reason not done Patient refused/unable BP 118/76 Blood Pressure Location Lt radial Position Sitting Pulse 80 Pulse Source Pulse Oximeter Temp 98.5 F Temp Source Oral Pulse Oximetry (%) 98 Oxygen Delivery Method Room Air Intake Visit Reasons: COMMUNITY AMBASSADOR Fall Rt knee injury Intake Note: pt c/o RT knee pain due to fall. Happened this afternoon at home on flat floor Patient Tobacco Use Status: Former Tobacco user Allergies codeine [Codeine] Allergy (Mild, Verified 05/07/24 16:03) Rash, nausea Do you need a note to return to daycare/school/sports/work: No HPI COMMUNITY AMBASSADOR Fall Rt knee injury HPI Details This note is constructed using voice recognition software. While every effort has been made to ensure accuracy, elementary assistant principal errors may have been included. The patient is a 68 year old female who presents to the clinic today with right knee pain after a fall with twisting motion landing on the kneecap. She reports pain to the medial joint line. She denies difficulty with range of motion or strength or ambulation although she is walking slower. She typically uses a cane. 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) GERD (gastroesophageal reflux disease) Urinary tract infection Hypothyroid Pre-diabetes Hypertension Abnormal mammogram of right breast Surgical History (Updated 03/18/24 @ 13:52 by Delphine Allen MD) H/O shoulder surgery Hx of colonoscopy History of lumpectomy of right breast History of hand surgery Hx of cholecystectomy History of appendectomy H/O right breast biopsy History of total hysterectomy Family History Mother History of lung cancer CHF (congestive heart failure) Sister History of colon cancer History of liver cancer Maternal Aunt Breast cancer Family/Other Breast cancer Father Heart attack Social History Household Members: Spouse Housing: House Are you a primary pet care worker to a significant other at home: Yes (PT does take care of her sister.) Do you presently have visiting nurse or other home services: No Alcohol intake: current Alcohol intake frequency: does not drink Patient Tobacco Use Status: Former Tobacco user Tobacco use type: Cigarette Cigarette Packs Per Day: 2 Years Smoked: 52 service: No Current occupational status: employed Female Reproductive History Menstrual Age of Menarche: 11 Review of Systems Const All systems reviewed & are unremarkable except as noted in HPI and below Physical Exam Vital Signs: Last Vital Signs Temp 98.5 F 05/07/24 16:04 Pulse 80 05/07/24 16:04 BP 118/76 05/07/24 16:04 Pulse Ox 98 05/07/24 16:04 Oxygen Delivery Method Room Air 05/07/24 16:04 Const General: cooperative, healthy appearing, comfortable, no acute distress and alert Orientation/consciousness: patient oriented x3 Limitations: no limitations Skin General skin exam: no rashes or lesions noted, elasticity normal and turgor normal Neuro General: patient oriented x3 Extrem Other: Tender along medial joint line of right knee, full range of motion. Intact distal neurovascular exam. No ecchymosis, erythema, warmth, or edema. General: Yes normal to inspection, Yes full ROM, Yes capillary refill normal and Yes normal exam except as noted Psych Appearance: grossly normal Mental Status: mental status grossly normal Speech and movement: Normal speech and movement present Affect: normal affect Assessment & Plan Assessment & Plan (1) Right knee pain: Code(s): M25.561 - Pain in right knee Qualifiers: Chronicity: acute Qualified Code(s): M25.561 - Pain in right knee Plan: X-ray ordered to evaluate for any fracture. We will await radiology input as physical exam does not appear consistent with likely fracture. Mateus wrap provided the patient, she reports that she will apply this when she gets home, and declined prior to x-ray. Advised NSAIDs [id number], ice, rest, compression, elevation. Discussed how this is likely consistent with a strain, and she should follow up if the symptoms persist beyond 1-2 weeks. Plan See above for full details and plan. Orders: Orders XR knee RT 3V Today M25.561 - Pain in right knee Coding Level of Care Code Est Pt Level 4 (85617) Diagnoses Acute pain of right knee M25.561 Chronicity: acute
[2024-05-07 16:04] VITALS: BP 118/76; PULSE 80; TEMP 36.9; O2SAT 98
== END 2024-05-07 16:43 | disposition home or self-care (01) ==
PROVIDERS: PCP Internal Medicine Medical Oncology; Visit Provider Registered Nurse
DX: M25.561 Pain in right knee (principal)
CPT/HCPCS: 99214

== ENCOUNTER 2024-05-07 16:24 | Outpatient (REF) | payer MEDICARE, SELFPAY ==
--- NOTE | ~2024-05-07 | XR_ITS ---
EXAMINATION: XR KNEE, RIGHT CLINICAL INFORMATION: Right knee pain COMPARISON: None available. TECHNIQUE: Four views of the right knee. FINDINGS: Mild degenerative changes are present in the knee with narrowing of the patellofemoral compartment and some posterior patellar osteophytes. There is minimal narrowing of the medial compartment. No chondrocalcinosis, fractures or dislocations. No joint effusion detected. XR/XR knee RT 4V IMPRESSION: Mild bicompartmental degenerative changes. No acute finding. Electronically signed by: George Raymond MD 05/08/2024 08:45 AM EDT
== END 2024-05-07 16:25 | disposition home or self-care (01) ==
LOC: HO.HMGCX 16:24
PROVIDERS: PCP Internal Medicine Medical Oncology; Visit Provider Registered Nurse
DX: M25.561 Pain in right knee (principal)
CPT/HCPCS: 73564

== ENCOUNTER 2024-10-16 07:29 | Outpatient (REF) | payer MEDICARE, SELFPAY ==
--- NOTE | ~2024-10-16 | MM_ITS ---
EXAMINATION: MM SCREENING DIGITAL BREAST TOMOSYNTHESIS, BILATERAL CLINICAL INFORMATION: Screening. Asymptomatic. COMPARISON: Mammography: Comparison is made with available priors TECHNIQUE: Digital breast mammography with tomosynthesis is performed in both the craniocaudal and mediolateral oblique views along with computer-aided detection (CAD). FINDINGS: There are scattered areas of fibroglandular density (ACR BI-RADS breast composition Category b). Post right lumpectomy changes are stable. There are no significant masses, abnormal calcifications, or other abnormalities. MM/MM tomosynthesis screening BI IMPRESSION: No mammographic evidence of malignancy. ASSESSMENT: BI-RADS BI-RADS 2 - Benign Findings RECOMMENDATION: Routine annual mammography screening. 1 year F/U This examination should not preclude the clinical evaluation of a suspicious palpable abnormality. This patient's information was entered into a reminder system with a target due date for their next mammogram. Electronically signed by: Unique Sandra DO 10/24/2024 04:53 PM EST
[2024-10-16 07:46] LABS: MANUAL DIFF FLAG NO
[2024-10-16 08:17] LABS: Basophils Percent Auto 0.3 % (0-2); Eosinophils Absolute Auto 0.1 X10*3/uL (0.0-0.4); Eosinophils Percent Auto 1.5 % (0-4); Hematocrit 39.1 % (37.0-47.0); Imm Gran Abs Auto 0.04 X10*3/uL (0.00-0.03); Imm Gran Pct Auto 0.4 % (0.0-0.4); Lymphocytes Absolute Auto 1.7 X10*3/uL (1.2-4.9); Lymphocytes Percent Auto 17.5 % (20-40); Mean Corpuscular HGB Conc 30.7 g/dl (31.0-35.0); Mean Corpuscular Hemoglobin 27.5 pg (27.0-33.0); Mean Corpuscular Volume 89.7 fL (80.0-98.0); Mean Platelet Volume 9.7 fL (9.4-12.3); Monocytes Absolute Auto 0.5 X10*3/uL (0.1-1.2); Monocytes Percent Auto 4.9 % (2-11); Neutrophils Absolute Auto 7.2 x10*3/uL (2.0-8.3); Neutrophils Percent Auto 75.4 % (45-73); Platelet Count 322 X10*3/uL (160-400); Red Blood Count 4.36 X10*6/uL (4.20-5.50); Red Cell Distribution Width 15.4 % (11.0-16.0); White Blood Count 9.5 X10*3/uL (4.8-10.8)
[2024-10-16 08:27] LABS: Estimated Average Glucose 120 mg/dL; Hemoglobin A1C 126.2648 umol/L; Hemoglobin A1c % 5.8 % (<6.0); Total Hemoglobin (HGBA1C) 3156.7425 umol/L
[2024-10-16 08:39] LABS: Alanine Aminotransferase 14 U/L (0-31); Albumin Level 4.1 g/dL (3.5-5.0); Alkaline Phosphatase 81 U/L (39-117); Anion Gap 13 (12-20); Aspartate Amino Transferase 17 U/L (5-31); Bilirubin Total 0.3 mg/dL (0.0-1.0); Blood Urea Nitrogen 17 mg/dL (9-16); Calcium 10.2 mg/dL (8.4-10.2); Carbon Dioxide 25 mmol/L (22-29); Chloride 108 mmol/L (96-108); Cholesterol 124 mg/dL (<200); Estimated Glomerular Filt Rate 48; Glucose Fasting 121 mg/dL (60-99); HDL Cholesterol 53 mg/dL (>40); LDL Cholesterol Calculated 50 mg/dL (<100); Potassium 4.3 mmol/L (3.3-5.1); Sodium 142 mmol/L (135-145); Total Protein 7.8 g/dL (6.5-8.0); Triglycerides 107 mg/dL (<150)
[2024-10-16 09:38] LABS: Creatinine Urine 237.62 mg/dL; Microalbum/Creatinine Ratio Ur 7.5 ug/mg cr (<30)
== END 2024-10-16 07:30 | disposition home or self-care (01) ==
LOC: HO.MAMMO 07:29
PROVIDERS: PCP Internal Medicine Medical Oncology; Visit Provider Internal Medicine Medical Oncology
DX: Z12.31 Encounter for screening mammogram for malignant neoplasm of breast (principal); M54.16 Radiculopathy, lumbar region; E78.5 Hyperlipidemia, unspecified; E66.9 Obesity, unspecified; E11.9 Type 2 diabetes mellitus without complications
CPT/HCPCS: 36415; 77063; 77067; 80053; 80061; 82043; 82570; 83036; 85025

== ENCOUNTER → 2024-10-16 08:45 | Outpatient (BNV) | payer MEDICARE, SELFPAY | PROVIDERS: PCP Internal Medicine Medical Oncology; Visit Provider Internal Medicine | DX: Z12.31 Encounter for screening mammogram for malignant neoplasm of breast (principal) | CPT/HCPCS: 77063; 77067 ==

== ENCOUNTER 2025-02-12 08:42 | Outpatient (REF) | payer MEDICARE, SELFPAY ==
[2025-02-12 08:52] LABS: MANUAL DIFF FLAG NO
[2025-02-12 09:01] LABS: Basophils Percent Auto 0.6 % (0-2); Eosinophils Absolute Auto 0.2 X10*3/uL (0.0-0.4); Eosinophils Percent Auto 2.5 % (0-4); Hematocrit 35.2 % (37.0-47.0); Imm Gran Abs Auto 0.03 X10*3/uL (0.00-0.03); Imm Gran Pct Auto 0.4 % (0.0-0.4); Lymphocytes Absolute Auto 1.6 X10*3/uL (1.2-4.9); Lymphocytes Percent Auto 22.8 % (20-40); Mean Corpuscular HGB Conc 31.3 g/dl (31.0-35.0); Mean Corpuscular Hemoglobin 27.6 pg (27.0-33.0); Mean Corpuscular Volume 88.2 fL (80.0-98.0); Mean Platelet Volume 9.1 fL (9.4-12.3); Monocytes Absolute Auto 0.5 X10*3/uL (0.1-1.2); Monocytes Percent Auto 7.4 % (2-11); Neutrophils Absolute Auto 4.5 x10*3/uL (2.0-8.3); Neutrophils Percent Auto 66.3 % (45-73); Platelet Count 277 X10*3/uL (160-400); Red Blood Count 3.99 X10*6/uL (4.20-5.50); Red Cell Distribution Width 15.6 % (11.0-16.0); White Blood Count 6.8 X10*3/uL (4.8-10.8)
--- OUTSIDE RECORDS SUMMARY | 2025-02-12 09:05 | XMS_ITS ---
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 Name Role Phone Christopher Porter Primary Care Provider [phone] Allergies Allergen (clinical drug ingredient) Drug/Non Drug [...] HCl 500 MG TAKE 1 TABLET BY [facility] ONCE DAILY WITH A MEAL Active Valsartan [...] Date Provider Diagnosis Christopher Porter III, MD [address] [place] [address] [place] [address] 12/03/2024 Christopher Porter Lumbar radiculopathy M54.16 ; [...] MO UT ONCE DAILY WITH A MEAL Valsartan 40 MG 1 tablet Orally Once a day 08/06/2023 Next Appt Details Follow Up: As Scheduled, Ragini son: OV Provider Name:Christopher Porter, 02/23/2025 02:30:00 PM, [address] [place] [address] [place], [address], Provider Name:Christopher Porter, 10/26/2025 02:00:00 PM, [address] [place] [address] [place], [address], Progress Notes * Shan NIEVESeDOB:[birth year] (69 yo F)Acc No.[id number]:12/03/2024 Patient:?Laura NIEVES Provider:?Christopher Porter MD :1955???Age:69 Y???Sex:Female D ate:12/03/2024 Phone: Address: [facility] , [place], [id number] Subjective: * Chief Complaints: * ???Right sided sciaticaDiabe tesRight breast cancerObesityHypothyroidismCervical radiculopaathy * HPI: ???:? This telehealth visit took place over 15 min. with the patient at home and me in my office.? She gave consent for billing.? She reports that her right-sided sciatica has begun to get better.? The pain is clearly less but still present.? She has an appointment with rehabilitation medicine tomorrow..? ?She denies any lower extremity muscle weakness.? Her breast self-examination has been unremarkable.? Aside from the pain down her back and flank she feels well.? She has a followup appointment.? We made plans for her to telephone me after she sees the rehabilitation Provider and we will discuss the recommendations. ?Telehealth?Location of provider rendering services:?{...} [address] [facility] [address] ?Location of patient:?address listed in demographics for today's visit ?Patient identification confirmed using:?Name, ?Telehealth method:?Telephone only. Patient not visible to care provider. ?Consent:?Patient verbally consented to treatment, Patient verbally consented to billing insurance company, Patient informed of any privacy concerns related to method of visit ?Total time spent with patient (mins)?15 * ROS:?General/Constitutional:?pain?Right sciatica, otherwise only normal aches and pains.?Chills?denies.?Fatigue?admits.?Fever?denies.?ENT:?Decreased hearing?denies.?Respiratory:?Cough?denies.?Cardiovascular:?Chest pain with exertion?denies.?Dyspnea on exertion?denies.?Shortness of breath?denies.?Gastrointestinal:?Constipation?occasional.?Decreased appetite?denies.?Diarrhea?denies.?Heartburn?denies.?Nausea?denies.?Rectal bleeding?denies.?Vomiting?denies.?Hematology:?bruising?denies.?petechiae?denies.?Swollen glands?none have been noted.?Genitourinary:?Frequent urination?denies.?Musculoskeletal:?Muscle aches?denies.?Painful joints?denies.?Sciatica?affecting the lower right side of the body.?Weakness?denies.?Skin:?Itching?denies.?Rash?denies.?Skin lesion(s)?denies.?Neurologic:?Difficulty speaking?denies.?Dizziness?denies.?Headache?denies.?Low back pain?that is chronic.?Psychiatric:?Depressed mood?which is mild.? * Medical History:? * Surgical History:?right cedric st biopsy 2002colonoscopy [id number], oophorectomy, cyst, Dr. Galo 12/2019right breast lumpectomy 07/24No history * Hospitalization/Major Diagno stic Procedure:?No history * Family History:?Father: dece ased 60 yrs, myocardial infarction, hypertension, diabetes mellitus, diagnosed with HTN, DM.?Mother: 66 yrs, kidney failure, type II diabetes.?Spouse: alive 58 yrs.?2 brother(s) , 3 sister(s) . 2 son(s) , 1 daughter(s) - healthy. .? A sister had colon cancer. She is not aware of any family history of inherited cancer syndromes. She is not aware of any history of mental illness other than a sister's dementia. There is no family history of substance abuse or addiction. The patient has no history of substance abuse or addiction or mental illness other than depression. * Social History:?Tobacco Use:?Tobacco Control (Standard)?Tobacco use:?Former smoker ?How long has it been since you last smoked??Greater than 10 years ?Additional Findings: Tobacco non-user?Ex-cigarette smoker ???She was born in [place]. She has been to [place] for 40 years and has 3 children. 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 * Medications:?TakingOmeprazol e 20 MG Capsule Delayed Release Take 1 [...] reviewed and reconciled with the patient * Allergies:?Codeine Phosphate no[Allergies Verified] Objective: * Vitals:?Ht: 60, Wt:201, BMI: 39.25, Ht-cm: 152.4, Wt-k.17. Assessment: * Assessment: 1.?Lumbar radiculopathy - M5 4.16 (Primary)???Notes :She is beginning to improve and will continue on current medications.? She will see the rehabilitation physician tomorrow.???2.?Depression - F32.9???Notes :Her depression is stable and mild and no change in her regimen is necessary. She is discouraged that she is gaining weight and feels powerless to reverse the process. She wants to continue her antidepressant as she perceives a significant benefit, even if it makes it harder to lose weight.???3.?Former smoker - Z87.891???Notes :She is highly motivated not to smoke. She has a plan for prevention of relapse and maintenance of abstinence in times of stress or illness.???4.?Hypothyroidism - E03.9???Notes :Her thyroid function tests have been adequate. She is compliant with her medication which was continued.???5.?Cervical nerve root impingement - G54.2???Notes :This pain has resolved for the time being. I have advised her against heavy exertion.???6.?Type 2 diabetes mellitus without complication, without long-term current use of insulin - E11.9???Notes :The most recent A1c is 5.7. She is compliant with medications. She is trying to lose weight and consume a diabetic diet. Blood work with a hemogloobin A1c fasting lipids and microalbumin has been ordered.???7.?Obesity - E66.9???Notes :Her weight has been stable at 301 pounds. ?We discussed diet and nutrition. We reviewed her weight loss strategy.??? Plan: * Treatment: 2.?Others? Continue Omeprazole Capsule Delayed Release, 20 MG, Take 1 capsule by mouth twice daily;?Continue Levothyroxine Sodium Tablet, 100 MCG, TAKE 1 TABLET BY MOUTH ONCE DAILY IN THE MORNING ON AN EMPTY STOMACH;?Continue Atorvastatin Calcium Tablet, 10 MG, Take 1 tablet by mouth once daily;?Continue metFORMIN HCl Tablet, 500 MG, TAKE 1 TABLET BY MOUTH ONCE DAILY WITH A MEAL;?Continue Valsartan Tablet, 40 MG, 1 tablet, Orally, Once a day;?Continue predniSONE.?? * Procedure Codes:?58517 SYNCH AUDIO-ONLY EST SF 10 * Preventive Medicine:? ??Counseling:?Care goal follow-up plan:?Counseling for abnormal BMI given?Yes ?Above Normal BMI Follow-up?Dietary management education, guidance, and counseling, Dietary needs education, Exercise promotion: strength training, Exercise promotion: stretching, Feeding regime, Giving encouragement to exercise, Lifestyle education regarding diet, Nutrition / feeding management, Nutrition therapy, Prescribed activity/exercise education, Prescribed diet education, Prescribed dietary intake, Special diet education, Weight monitoring , Intervention, Order not done: Medical or Other reason not done ?Smoking/Tobacco Use?Patient counseled on the dangers of tobacco use and urged to quit.?12/03/2024 * Follow Up:?As Scheduled (Engel[place] son: OV) * Images: * Sign off status: Completed true * Provider:?Christopher Porter MD Date:?10/2024 Generated for Fatou costa/Malik/Reeitting on:?02/12/2025 09:04 AM EDT History and Physical Notes * HPI (History of Present Illness) Category Sub-Category Detail Notes Telehealth Location of [facility] rendering services:: {...} [address] [facility] [address] Location of patient:: address listed in demographics [...]
[2025-02-12 09:27] LABS: Alanine Aminotransferase 16 U/L (0-31); Alkaline Phosphatase 83 U/L (39-117); Anion Gap 10 (12-20); Aspartate Amino Transferase 20 U/L (5-31); Bilirubin Total 0.4 mg/dL (0.0-1.0); Blood Urea Nitrogen 14 mg/dL (9-16); Calcium 9.6 mg/dL (8.4-10.2); Carbon Dioxide 27 mmol/L (22-29); Chloride 109 mmol/L (96-108); Cholesterol 117 mg/dL (<200); Estimated Glomerular Filt Rate 47; Glucose Fasting 129 mg/dL (60-99); HDL Cholesterol 39 mg/dL (>40); LDL Cholesterol Calculated 49 mg/dL (<100); Potassium 4.4 mmol/L (3.3-5.1); Sodium 142 mmol/L (135-145); Total Protein 6.6 g/dL (6.5-8.0); Triglycerides 147 mg/dL (<150)
== END 2025-02-12 08:43 | disposition home or self-care (01) ==
LOC: HO.LAB 08:42
PROVIDERS: PCP Internal Medicine Medical Oncology; Visit Provider Internal Medicine Medical Oncology
DX: E11.9 Type 2 diabetes mellitus without complications (principal); E78.5 Hyperlipidemia, unspecified; F32.9 Major depressive disorder, single episode, unspecified
CPT/HCPCS: 36415; 80053; 80061; 85025

== ENCOUNTER 2025-03-24 15:40 | Outpatient (AMB) | payer MEDICARE, SELFPAY ==
--- OUTSIDE RECORDS SUMMARY | 2025-02-23 10:30 | XMS_ITS ---
Author Organization Christopher Porter III, MD Address [address] [place] [address] [place] [address] Care Team Providers Care Associate Scientist Name Role Phone Christopher Porter Primary Care Provider [phone] Allergies Allergen (clinical drug ingredient) Drug/Non Drug [...] Problem Status W/U Status Risk Notes Problem [id number] Chronic cough (R05.3) Active confirmed She says [...] Date Provider Diagnosis Christopher Porter III, MD [address] [place] [address] [address] [place], [place] [address] 02/23/2025 Christopher Porter Other and unspecifie d [...] HCl 500 MG TAKE 1 TABLET BY [facility] ONCE DAILY WITH A MEAL Valsartan 40 MG 1 tablet Orally Once a day 08/06/2023 Triamterene-HCTZ 75-50 MG TAKE 1 TABLET BY MOUTH IN THE MORNING Atorvastatin Calcium 10 MG Take 1 tablet by mouth once daily Omeprazole 20 MG Take 1 capsule by [facility] twice daily Levothyroxine Sodium 100 MCG TAKE [...] Up: 3 Months, Reason: ov Provider Name:Christopher Porter, 05/27/2025 11:00:00 AM, [address] [facility] [address], [place], [address], Provider Name:Christopher Porter, 10/26/2025 02:00:00 PM, [address] [place] [address] [place], [address], Progress Notes * Shan LOVEeDOB:[birth year] (69 yo F)Acc No.[id number]:02/23/2025 Progress Notes Patient: Laura KWON Provider: Pat Porter MD :1955 A ge:69 Y S ex:Female Date:02/23/2025 Phone: Address:[address] [place] [address] , [facility], [id number] Subjective: * Chief Complaints: * D yspnea on exertionLumbar pain radiating down both legsChronic fatigueConstant chronic cough * HPI: C OVID-19 Screening: S he returns for a scheduled visit for comprehensive medical management. 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 [...] leg pain . She has been to [facility] spine and sports rehabilitation. They would [...] Surgical History: r ight breast biopsy 2002colonoscopy [id number], oophorectomy, cyst, Dr. Galo 12/2019right breast lumpectomy [...] x-cigarette smoker S he was born in [place]. She has been to [place] for 40 years and has 3 children. 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 * Medications: T akingOmeprazole 20 MG [...] 02/23/2025 Generated for Fatou costa/Malik/eTransmitting on: 0 03/24/2025 04:28 PM EDT History and Physical Notes * [...] RECTAL EXAM: not examined PSYCH: alert, oriented, clinical trials data coordinator perative with exam, cognitive function intact, thought process logical, goal directed, speech clear ORAL CAVITY: normal, unremarkable
[2025-03-24 15:56] VITALS: BP 142/67; PULSE 83; O2SAT 94; BMI 39.4
--- NOTE | 2025-03-24 15:56 | A.OFFVIS_ITS ---
Vital Signs 03/24/25 15:56 Height 5 ft Weight 201 lb 11.567 oz BMI 39.4 BP 142/67 H Blood Pressure Location Lt brachial Position Sitting Pulse 83 Pulse Source Pulse Oximeter Pulse Oximetry (%) 94 Oxygen Delivery Method Room Air Intake Visit Reasons: COPD Intake Note: pt is here for follow up and states she does fatigued easy when doing things and has to sit, and she does not sleep very well either. gasping for air at times, states she snores,daytime somnolence. Blurb Writer Required: No Allergies codeine (Codeine) Allergy (Mild, Verified 03/24/25 16:18) Rash, nausea Medication List - Last Reconciled 03/24/25 by Letitia Gonzalez MD albuterol sulfate 90 mcg/actuation (ProAir HFA) 2 puffs inhalation Q4-6H PRN 30 days anastrozole 1 mg PO DAILY atorvastatin 10 mg PO DAILY calcium carbonate-vitamin D3 600 mg-5 mcg (200 unit) 1 tab PO DAILY citalopram 40 mg PO DAILY levothyroxine 100 mcg PO DAILY metformin 500 mg PO DAILY gwezeidi-bcq-amqb-FA-vit K-lut 8 mg iron-400 mcg-50 mcg (Centrum Silver Women) 1 tab PO DAILY naproxen 500 mg PO BID omeprazole 1 cap PO BID valsartan 40 mg PO DAILY Do you need a note to return to daycare/school/sports/work: No HPI HPI COPD: Details: THIS 69 YEARS OLD VERY PLEASANT FEMALE IS HERE FOR FOLLOW-UP AFTER 1 YEAR. SHE HAS BEEN FOLLOWED UP SINCE 2019, WHEN SHE DEVELOPED EARLY INTERSTITIAL LUNG DISEASE SECONDARY TO TAKING MACRODANTIN. MACRODANTIN WAS STOPPED AND SLOWLY AND GRADUALLY HER INTERSTITIAL LUNG DISEASE DISAPPEAR. HER MAIN COMPLAINT WAS COUGH WHICH RESOLVED. SHE HAS BEEN FOLLOWED UP ON A YEARLY BASIS. ALL THESE YEARS SHE HAS BEEN NOTICED TO BE OVERWEIGHT BUT SHE ALWAYS DENIED SYMPTOMS OF SLEEP APNEA. TODAY SHE COMES WITH THE COMPLAINT OF : 1: HAS INCREASED SHORTNESS OF BREATH ON EXERTION AND GETS TIRED VERY EASILY. 2: HAS DIFFICULTY IN GETTING GOOD SLEEP AT NIGHT BECAUSE SHE WAKES UP FREQUENTLY GASPING FOR AIR DURING THE DAYTIME SHE REMAINS TIRED AND SOMEWHAT SLEEPY. SHE KNOWS THAT SHE IS NOT GETTING SUFFICIENT SLEEP AT NIGHT. AND NOW SHE WANTS TO BE CHECKED FOR SLEEP APNEA. 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) GERD (gastroesophageal reflux disease) Urinary tract infection Hypothyroid Pre-diabetes Hypertension Abnormal mammogram of right breast Surgical History H/O shoulder surgery Hx of colonoscopy History of lumpectomy of right breast History of hand surgery Hx of cholecystectomy History of appendectomy H/O right breast biopsy History of total hysterectomy Family History Mother History of lung cancer CHF (congestive heart failure) Sister History of colon cancer History of liver cancer Maternal Aunt Breast cancer Family/Other Breast cancer Father Heart attack Social History Household Members: Spouse Housing: House Are you a primary resident care manager rn to a significant other at home: Yes (PT does take care of her sister.) Do you presently have visiting nurse or other home services: No Alcohol intake: current Alcohol intake frequency: does not drink Patient Tobacco Use Status: Former Tobacco user Tobacco use type: Cigarette Cigarette Packs Per Day: 2 Years Smoked: 52 service: No Current occupational status: employed Female Reproductive History Menstrual Age of Menarche: 11 Review of Systems Const All systems reviewed & are unremarkable except as noted in HPI and below Eyes Reports no additional complaints ENT Reports no additional complaints Card Denies chest pain at rest, Denies irregular heart rhythm, Denies leg edema and Reports dyspnea on exertion (USED TO BE MILD BUT NOW IT IS INCREASED FROM BEFORE.) Resp Reports cough, Reports dyspnea on exertion (USED TO BE MILD BUT NOW IT IS INCREASED FROM BEFORE.) and Denies wheezing GI Reports no additional complaints Reports no additional complaints Musc Reports no additional complaints Skin/Breast Reports system reviewed and no additional complaints, except as documented Neuro Reports no additional complaints Psych Reports no additional complaints Endo Reports no additional complaints Aller/Immun Denies wheezing Physical Exam Vital Signs: Last Vital Signs Pulse 83 03/24/25 15:56 BP 142/67 H 03/24/25 15:56 Pulse Ox 94 03/24/25 15:56 Oxygen Delivery Method Room Air 03/24/25 15:56 BMI result Body Mass Index 39.4 Const General: healthy appearing, comfortable, no acute distress, alert and awake Orientation/consciousness: patient oriented x3 HEENT Head: Yes normal to inspection General nose exam: No nasal polyps present and No nasal discharge present Face and sinus: Yes sinuses nontender Mouth: oropharynx normal Throat: Yes posterior oropharynx normal Eyes General: appearance normal, both eyes and all related structures Neck Neck: Yes normal visual inspection, Yes no lymphadenopathy, Yes trachea midline and Yes no JVD Thyroid: Thyroid normal Chest Chest palpation & inspection: normal inspection of the chest, normal palpation of entire chest wall and no tenderness Resp Auscultation: clear to auscultation bilaterally, no crackles and no wheezes Cardio Palpation: normal PMI Rate: regular rate Rhythm: regular rhythm Heart sounds: no gallops and no murmurs GI Palpation (GI): Soft to palpation, nontender, No hepatosplenomegaly present and no masses Auscultation: normal bowel sounds Back/Spine/Pelvis Thoracic/Lumbar Spine: thoracic and lumbar spine normal to inspection Skin General skin exam: no rashes or lesions noted Neuro General: patient oriented x3 and no focal motor deficits Cranial nerves: Yes CN's II-XII intact bilaterally Extrem General: Yes normal to inspection, Yes no clubbing, cyanosis or edema and Yes no calf tenderness Psych Appearance: grossly normal and well kempt Speech and movement: Normal speech and movement present Assessment & Plan Assessment & Plan (1) Interstitial lung disease: Comment: BACK IN 2019 SHE DID HAVE EVIDENCE OF EARLY ONSET OF INTERSTITIAL LUNG DISEASE IN THE LOWER LOBES, AN EARLY MANIFESTATION OF MACRODANTIN CAUSED INTERSTITIAL LUNG DISEASE, WHICH RESOLVED AFTER STOPPING MACRODANTIN. HAS HAD NO RECURRENCE OF COUGH OR WHEEZING. Code(s): J84.9 - Interstitial pulmonary disease, unspecified Category: Medical Plan: I DO NOT THINK SHE HAS ANY RESIDUAL INTERSTITIAL LUNG DISEASE AT PRESENT, . NO NEED TO DO CT SCAN (2) Dyspnea on exertion: Comment: SHE GETS SHORT OF BREATH ON WALKING AROUND DUE TO COMBINATION OF FACTORS, HER MAIN COMPLAINT IS THAT SHE IS GETTING MORE SHORT OF BREATH ON EXERTION. I THINK THIS COINCIDES WITH WEIGHT GAIN, RESULTING IN RESTRICTIVE LUNG DISEASE. Code(s): R06.09 - Other forms of dyspnea Category: Medical Plan: COMPLETE PULMONARY FUNCTION TEST IS ORDERED (3) Somnolence, daytime: Comment: PATIENT HAS BEEN EXTRA OBESE FOR MANY YEARS BUT NOW LATELY SHE IS HAVING SYMPTOMS OF SLEEP APNEA. SHE WAKES UP MANY TIMES DURING THE NIGHT WITH GASPING LIKE FEELING. SHE COMPLAINS THAT SHE IS NOT GETTING GOOD SLEEP AT ALL. COMPLAINS OF DAYTIME FATIGUE AND SLEEPINESS Code(s): R40.0 - Somnolence Category: Medical Plan: PATIENT NEEDS TO BE EVALUATED FOR SLEEP APNEA AND WILL ORDER A HOME-BASED SLEEP STUDY. SHE IS ALSO IN ADVISE THAT SHE NEEDS TO REDUCE HER WEIGHT BY CUTTING DOWN THE CALORIES INTAKE AND BY BEING MORE ACTIVE. Orders: Orders RT home sleep study Today E66.9 - Obesity, unspecified, R40.0 - Somnolence PFT pulmonary function test Today E66.9 - Obesity, unspecified, R05 - Cough, R06.09 - Other forms of dyspnea Coding Level of Care Code Est Pt Level 3 (76259) Diagnoses Interstitial lung disease J84.9 Dyspnea on exertion R06.09 Somnolence, daytime R40.0
--- OUTSIDE RECORDS SUMMARY | 2025-03-24 16:28 | XMS_ITS | Patient Health Record ---
Author Organization [facility] Address [address] [place] [address] Care Team Providers Care Siebel Administrator Name Role Phone Christopher Porter MD Primary Care Provider Christopher Cat Unavailable [phone] Allergies Allergen (clinical drug ingredient) Drug/Non Drug Allergy documented on EMR Reaction Allergy Type Onset Date Status Codeine Phosphate Unknown Drug Allergy Active Reason For Referral No Information Medications Medication SIG (Take, Route, Frequency, Duration) Notes Start Date End Date Status Citalopram Hydrobromide 20 MG 0.5 tablet Orally Once a day Active Centrum Silver - as directed Orally Active Omeprazole 20 MG 1 capsule Orally Q A M for 30 day(s) 05/24/2016 Active Euthyrox 100 MCG TAKE 1 TABLET BY DAYSI TH ONCE DAILY ON AN EMPTY STOMACH IN THE MORNING Oral for 30 Active Triamterene-HCTZ 75-50 MG TAKE 1 TABLET BY MOUTH ONCE DAILY IN THE MORNING FOR 30 DAYS Oral for 30 Active Atorvastatin Calcium 10 MG TAKE 1 TABLET BY MOUTH ONCE DAILY FOR 30 DAYS Oral for 90 Active metFORMIN HCl 500 MG Oral for 90 Active Immunizations Vaccine Route Administration Date Status Comme nts Influenza Unknown 05/04/2020 Administered Problems Problem Type SNOMED Code ICD Code Onset Dates Problem Status W/U Status Risk Notes Problem [id number] Encounter for screening for malignant neoplasm of colon (Z12.11) Active confirmed Problem Screening for malignant neoplasm of rectum (529282540) Encounter for screening for malignant neoplasm of rectum (Z12.12) Active confirmed Problem 01308347 Abdominal pain, epigastric (R10.13) Active confirmed Problem 922399191 Family history o f colon cancer (Z80.0) Active confirmed Problem Gastroesophageal reflux (K21.9) Active confirmed Problem Diverticulosis of colon (109213983) Diverticulosis of colon (K57.30) Active confirmed Problem 150810964 Gastroesophageal reflux disease, unspecified whether esophagitis present (K21.9) Active confirmed Plan Of Treatment Future Test Test Name Order Date COLONOSCOPY 05/24/2016 UPPER GI ENDOSCOPY 05/10/2021 COLONOSCOPY 05/10/2021 Insurance Providers Payer Name Payer Address Payer Phone Subscriber Number Group Number Insured Name Patient Relationship to Insured Coverage Start Date Coverage End Date [facility] [address] [place] [phone] [id number] KATHY LOVE Self - patient is the insured Medical (General) History Medical History History ICD Code Colonoscopies 12-28-2010 and 2000 were negative except for hyperplastic polyps Denies NC,CVA,Lung disease,renal disease UTI's Depression Hypothyroidism NIDDM Colonoscopy 06/2016 was negative except for a hyperplastic polyp Resolved interstitial lung disease due t o Macrodantin--sees Dr. Gonzalez GERD Surgical History Surgery Date(Month/Year) Cholecystectomy Appendectomy Benign breast cyst Carpal tunnel-right Hand surgery on the left for arthritis TIBURCIO
--- OUTSIDE RECORDS SUMMARY | 2025-03-24 16:28 | XMS_ITS | Patient Health Record ---
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 . . due to cortisone injection patient should have limited standing or walking until 03/25/18 03/20/2018 Active Walking Boot/Pneumatic As directed Wear Daily; Duration: Until further notice Active Work Note . . . pt must wear lora t boot to work until further notice Active AFO-fixed . 1 . Wear daily; Duration: . 06/13/2018 Active Citalopram Hydrobromide 20 MG Oral; Duration: 30 Active Ciprofloxacin HCl 250 MG Oral; Duration: 30 Not-Taking Carisoprodol 350 MG Oral; Duration: 30 Active Premarin 1.25 MG 1 tablet Orally Alireza y for Three Weeks, 1 Week off 01/14/2014 Not-Taking Naproxen 500 MG Oral; Duration: 30 PRN Active AFO-fixed fixed 1 DX: stress fractur e left heel RX: PTB AFO brace with soft heel padding left leg 01/29/2014 Not-Taking Cranberry 500 MG Orally 01/14/2014 Ac tive Ibuprofen 600 600 MG 1 tablet as needed Orally Three times a day; Duration: 30 DAYS 07/18/2017 Active Night Splint AFO - L1930 as directed 03/20/2018 Active Physical Therapy . . . 2-3x/week; Duration: 3-4 weeks 03/20/2018 Active Social History Tobacco Use: Social History Observation Description Date Details (start date - stop date) Former Smoker NA - NA Tobacco Use/Smoking Question Answer Notes Are you a: former smoker When did you start smoking? 1968 When did you stop smoking? 1999 Additional Findings: Tobacco Non-User Current no n-smoker Alcohol Screen Question Answer Notes Did you have a drink containing alcohol in the p ast year? No Points 0 Interpretation Negative Tobacco use other than smoking: Question Answer Notes Are you an other tobacco user? No Problems Problem Type SNOMED Code ICD Code Onset Dates Problem Status W/U Status Risk Notes Problem Localized, primary osteoarthritis of the ankle and/or foot (071038501) Primary osteoarthritis of right foot (M19.071) Active confirmed Plan Of Treatment Pending Test Test Name Order Date X ray : Foot, right 2V 03/20/2018 X ray : Foot, left 3V 04/21/2015 [id number] TENDON SHEATH/LIGAMENT 0 04/21/2015 [id number] TENDON SHEATH/LIGAMENT 0 03/20/2018 Insurance Providers Payer Name Payer Address Payer Phone Subscriber Number Group Number Insured Name Patient Relationship to Insured Coverage Start Date Coverage End Date [employer] [place] [employer] [facility] [address] [place] [address] [id number] Laura Nivees Self - patient is the insured Medical (General) History Medical History History ICD Code Headaches/Migraines Chicken pox Measles Surgical History Surgery Date(Month/Year) hand gall bladder appendectomy carpal tunel 02/08/2015 Hospitalization History Reason Date(Month/Year[place] [facility] [place] chest [place]
== END 2025-03-24 16:20 | disposition home or self-care (01) ==
LOC: HO.HPS 15:41
PROVIDERS: PCP Internal Medicine Medical Oncology; Visit Provider Internal Medicine
DX: J84.9 Interstitial pulmonary disease, unspecified (principal); R06.09 Other forms of dyspnea; R40.0 Somnolence
CPT/HCPCS: 99213

== ENCOUNTER → 2025-03-24 15:40 | Outpatient (BNVA) | payer MEDICARE, SELFPAY | PROVIDERS: PCP Internal Medicine Medical Oncology; Visit Provider Internal Medicine | DX: R40.0 Somnolence (principal); E66.9 Obesity, unspecified; R06.09 Other forms of dyspnea; J84.9 Interstitial pulmonary disease, unspecified | CPT/HCPCS: 99212 ==

== ENCOUNTER 2025-05-29 09:52 | Outpatient (REF) | payer MEDICARE, SELFPAY ==
--- OUTSIDE RECORDS SUMMARY | 2024-12-03 06:30 | XMS_ITS ---
Author Organization Christopher Porter III, MD Address [address] [place] [address] [place] [address] Care Team Providers Care Dance Director Name Role Phone Dr. Christopher Porter III Primary Care Provider Allergies Allergen (clinical drug ingredient) Drug/Non Drug Allergy documented on EMR Reaction Allergy Type Onset Date Status Codeine Phosphate Unknown Drug Allergy Active REASON FOR VISIT Right sided sciatica, Diabetes, Right breast cancer, Obesity, Hypothyroidism, Cervical radiculopaathy Medications Medication SIG (Take, Route, Frequency, Duration) Notes Start Date End Date Status Gabapentin 300 MG 1 capsule Orally thr ees times a day 11/24/2024 Active Omeprazole 20 MG Take 1 capsule by mo uth twice daily Active dexAMETHasone 2 MG 1 tablet Orally twic e a day 11/24/2024 Active Levothyroxine Sodium 100 MCG TAKE 1 TABL ET BY MOUTH ONCE DAILY IN THE MORNING ON AN EMPTY STOMACH Active Atorvastatin Calcium 10 MG Take 1 tablet by mouth once daily Active predniSONE Active Citalopram Hydrobromide 40 MG 1 tablet Orally Once a day Active Triamterene-HCTZ 75-50 MG TAKE 1 TABLET BY MOUTH IN THE MORNING Active Anastrozole 1 MG 1 tablet Orally Once a day Active Lisinopril 10 MG 1 tablet Orally Once a day 02/15/2023 Active metFORMIN HCl 500 MG TAKE 1 TABLET BY [facility] ONCE DAILY WITH A MEAL Active Valsartan 40 MG 1 tablet Orally Once a day 08/06/2023 Active Social History Tobacco Use: Social History Observation Description Date Details (start date - stop date) Former Smoker NA - NA Sex Assigned At : Social History Observation Description Sex Assigned At Female Tobacco Control (Standard) Question Answer Notes Tobacco use: Former smoker How long has it been since you last smoked? Mel[address] ter than 10 years Additional Findings: Tobacco non-user Ex-cigaret te smoker Vital Signs Height 60 in 12/03/2024 Weight 201 lbs 12/03/2024 BMI 39.25 kg/m2 12/03/2024 Encounters Encounter Location Date Provider Diagnosis Christopher Porter III, MD [address] [place] [address] [place] [address] 12/03/2024 Christopher Porter Lumbar radiculopathy M54.16 ; Depression F32.9 ; Former smoker Z87.891 ; Hypothyroidism E03.9 ; Cervical nerve root impingement G54.2 ; Type 2 diabetes mellitus without complication, without long-term current use of insulin E11.9 and Obesity E66.9 Assessments Encounter Date Diagnosis (ICD Code) Assessment Notes Treat ment Notes Treatment Clinical Notes 12/03/2024 Lumbar radiculopathy (ICD-10 - M54.16) She is beginning to improve and will continue on current medications. She will see the rehabilitation physician tomorrow. 12/03/2024 Depression (ICD-10 - F32.9) Her depression is stable and mild and no change in her regimen is necessary. She is discouraged that she is gaining weight and feels powerless to reverse the process. She wants to continue her antidepressant as she perceives a significant benefit, even if it makes it harder to lose weight. 12/03/2024 Former smoker (ICD-10 - Z87.891) She is highly motivated not to smoke. She has a plan for prevention of relapse and maintenance of abstinence in times of stress or illness. 12/03/2024 Hypothyroidism (ICD-10 - E03.9) Her thyroid function tests have been adequate. She is compliant with her medication which was continued. 12/03/2024 Cervical nerve root impingement (ICD-10 - G54.2) This pain has resolved for the time being. I have advised her against heavy exertion. 12/03/2024 Type 2 diabetes mellitus without complication, without long-term current use of insulin (ICD-10 - E11.9) The most recent A1c is 5.7. She is compliant with medications. She is trying to lose weight and consume a diabetic diet. Blood work with a hemogloobin A1c fasting lipids and microalbumin has been ordered. 12/03/2024 Obesity (ICD-10 - E66.9) Her weight has been stable at 301 pounds. We discussed diet and nutrition. We reviewed her weight loss strategy. Plan Of Treatment Medication Medication Name Sig Start Date Stop Date Notes Gabapentin 300 MG 1 capsule Orally thr ees times a day 11/24/2024 Omeprazole 20 MG Take 1 capsule by mo uth twice daily dexAMETHasone 2 MG 1 tablet Orally twice a day 11/24/2024 Levothyroxine Sodium 100 MCG TAKE 1 TABL ET BY MOUTH ONCE DAILY IN THE MORNING ON AN EMPTY STOMACH Atorvastatin Calcium 10 MG Take 1 tablet by mouth once daily predniSONE Citalopram Hydrobromide 40 MG 1 tablet Orally Once a day Triamterene-HCTZ 75-50 MG TAKE 1 TABLET BY MOUTH IN THE MORNING Anastrozole 1 MG 1 tablet Orally Once a day Lisinopril 10 MG 1 tablet Orally Once a day 02/15/2023 metFORMIN HCl 500 MG TAKE 1 TABLET BY MO UTH ONCE DAILY WITH A MEAL Valsartan 40 MG 1 tablet Orally Once a day 08/06/2023 Next Appt Details Follow Up: As Scheduled, Ragini son: OV Provider Name:Christopher Porter , 09/01/2025 02:00:00 PM, [address] [facility] [place], [place], [address], Provider Name:Christopher Porter , 10/26/2025 02:00:00 PM, [address] [facility] [place], [address], Progress Notes * Shan LOVEeDOB:[birth year] (69 yo F)Acc No.[id number]:12/03/2024 Patient: Laura KWON Provider: Pat Porter MD :1955 A ge:69 Y S ex:Female Date:12/03/2024 Phone: Address:[address] [place] [address] , [place], [id number] Subjective: * Chief Complaints: * R ight sided sciaticaDiabetesRight breast cancerObesityHypothyroidismCervical radiculopaathy * HPI: * : This telehealth visit took place over 15 min. with the patient at home and me in my office. She gave consent for billing. She reports that her right-sided sciatica has begun to get better. The pain is clearly less but still present. She has an appointment with rehabilitation medicine tomorrow.. S he denies any lower extremity muscle weakness. Her breast self-examination has been unremarkable. Aside from the pain down her back and flank she feels well. She has a followup appointment. We made plans for her to telephone me after she sees the rehabilitation Provider and we will discuss the recommendations. Telehealth L ocation of provider rendering services: { ...} [address] [facility] [address] L ocation of patient: a ddress listed in demographics for today's visit P atient identification confirmed using: BRIAN Hinkle ame T elehealth method: T elephone only. Patient not visible to care provider. C onsent: P atient verbally consented to treatment, Patient verbally consented to billing insurance company, Patient informed of any privacy concerns related to method of visit T otal time spent with patient (mins) 1 5 * ROS: G eneral/Constitutional: pain R ight sciatica, otherwise only normal aches and pains. C hills d enies. F atigue a dmits. F ever d enies. E NT: Decreased hearing d enies. R espiratory: Cough d enies. C ardiovascular: Chest pain with exertion d enies. D yspnea on exertion?denies. S hortness of breath d enies. G astrointestinal: Constipation o ccasional. D ecreased appetite d enies. D iarrhea d enies. H eartburn d enies. N ausea d enies. R ectal bleeding d enies. V omiting d enies. H ematology: bruising d enies. p etechiae d enies. S wollen glands n one have been noted. G enitourinary: Frequent urination d enies. M usculoskeletal: Muscle aches d enies. P ainful joints d enies. S ciatica a ffecting the lower right side of the body. W eakness d enies. ? S kin: Itching d enies. R elia d enies. S kin lesion(s)?denies. N eurologic: Difficulty speaking d enies. D izziness d enies.?Headache d enies. L ow back pain t hat is chronic. P sychiatric: Depressed mood w hich is mild. * Medical History: * Surgical History: r ight breast biopsy 2002colonoscopy [id number], oophorectomy, cyst, Dr. Galo 12/2019right breast lumpectomy 07/24No history * Hospitalization/Major Diagno stic Procedure: N o history * Family History: F ather: 60 yrs, myocardial infarction, hypertension, diabetes mellitus, diagnosed with HTN, DM. M other: 66 yrs, kidney failure, type II diabetes. S pouse: alive 58 yrs. 2 brother(s) , 3 sister(s) . 2 son(s) , 1 daughter(s) - healthy. . A sister had colon cancer. She is not aware of any family history of inherited cancer syndromes. She is not aware of any history of mental illness other than a sister's dementia. There is no family history of substance abuse or addiction. The patient has no history of substance abuse or addiction or mental illness other than depression. * Social History: T obacco Use: T obacco Control (Standard) T obacco use: F ormer smoker H ow long has it been since you last smoked??Greater than 10 years A dditional Findings: Tobacco non-user E x-cigarette smoker S he was born in [place]. She has been to [place] for 40 years and has 3 children. 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 * Medications: T akingOmeprazole 20 MG Capsule Delayed Release Take 1 capsule by mouth twice daily Levothyroxine Sodium 100 MCG Tablet TAKE 1 TABLET BY MOUTH ONCE DAILY IN THE MORNING ON AN EMPTY STOMACH Atorvastatin Calcium 10 MG Tablet Take 1 tablet by mouth once daily metFORMIN HCl 500 MG Tablet TAKE 1 TABLET BY MOUTH ONCE DAILY WITH A MEAL Valsartan 40 MG Tablet 1 tablet Orally Once a day Triamterene-HCTZ 75-50 MG Tablet TAKE 1 TABLET BY MOUTH IN THE MORNING Anastrozole 1 MG Tablet 1 tablet Orally Once a day Lisinopril 10 MG Tablet 1 tablet Orally Once a day predniSONE Citalopram Hydrobromide 40 MG Tablet 1 tablet Orally Once a day Gabapentin 300 MG Capsule 1 capsule Orally threes times a day dexAMETHasone 2 MG Tablet 1 tablet Orally twice a day Medication List reviewed and reconciled with the patientTaking Omeprazole 20 MG Capsule Delayed Release Take 1 capsule by mouth twice daily Taking Levothyroxine Sodium 100 MCG Tablet TAKE 1 TABLET BY MOUTH ONCE DAILY IN THE MORNING ON AN EMPTY STOMACH Taking Atorvastatin Calcium 10 MG Tablet Take 1 tablet by mouth once daily Taking metFORMIN HCl 500 MG Tablet TAKE 1 TABLET BY MOUTH ONCE DAILY WITH A MEAL Taking Valsartan 40 MG Tablet 1 tablet Orally Once a day Taking Triamterene-HCTZ 75-50 MG Tablet TAKE 1 TABLET BY MOUTH IN THE MORNING Taking Anastrozole 1 MG Tablet 1 tablet Orally Once a day Taking Lisinopril 10 MG Tablet 1 tablet Orally Once a day Taking predniSONE Taking Citalopram Hydrobromide 40 MG Tablet 1 tablet Orally Once a day Taking Gabapentin 300 MG Capsule 1 capsule Orally threes times a day Taking dexAMETHasone 2 MG Tablet 1 tablet Orally twice a day Medication List reviewed and reconciled with the patient * Allergies: C bruce Corral[Allergies Verified] Objective: * Vitals: H t: 60, Wt:201, BMI:39.25, Ht-cm: 152.4, Wt-k.17. Assessment: * Assessment: 1. L umbar radiculopathy - M54.16 (Primary) N otes :She is beginning to improve and will continue on current medications. She will see the rehabilitation physician tomorrow. 2 . D epression - F32.9 N otes :Her depression is stable and mild and no change in her regimen is necessary. She is discouraged that she is gaining weight and feels powerless to reverse the process. She wants to continue her antidepressant as she perceives a significant benefit, even if it makes it harder to lose weight. 3 . F ormer smoker - Z87.891 N otes :She is highly motivated not to smoke. She has a plan for prevention of relapse and maintenance of abstinence in times of stress or illness. 4 . H ypothyroidism - E03.9 N otes :Her thyroid function tests have been adequate. She is compliant with her medication which was continued. 5 . C ervical nerve root impingement - G54.2 N otes :This pain has resolved for the time being. I have advised her against heavy exertion. 6 . T ype 2 diabetes mellitus without complication, without long-term current use of insulin - E11.9 N otes :The most recent A1c is 5.7. She is compliant with medications. She is trying to lose weight and consume a diabetic diet. Blood work with a hemogloobin A1c fasting lipids and microalbumin has been ordered. 7 . O besity - E66.9 N otes :Her weight has been stable at 301 pounds. W steff discussed diet and nutrition. We reviewed her weight loss strategy. Plan: * Treatment: 2. O thers Continue Omeprazole Capsule Delayed Release, 20 MG, Take 1 capsule by mouth twice daily; C ontinue Levothyroxine Sodium Tablet, 100 MCG, TAKE 1 TABLET BY MOUTH ONCE DAILY IN THE MORNING ON AN EMPTY STOMACH; C ontinue Atorvastatin Calcium Tablet, 10 MG, Take 1 tablet by mouth once daily;?Continue metFORMIN HCl Tablet, 500 MG, TAKE 1 TABLET BY MOUTH ONCE DAILY WITH A MEAL; C ontinue Valsartan Tablet, 40 MG, 1 tablet, Orally, Once a day; C ontinue predniSONE. * Procedure Codes: 9 8012 SYNCH AUDIO-ONLY EST SF 10 * Preventive Medicine: Counseling: C are goal follow-up plan: Counseling for abnormal BMI given Y es Above Normal BMI Follow-up D ietary management education, guidance, and counseling, Dietary needs education, Exercise promotion: strength training, Exercise promotion: stretching, Feeding regime, Giving encouragement to exercise, Lifestyle education regarding diet, Nutrition / feeding management, Nutrition therapy, Prescribed activity/exercise education, Prescribed diet education, Prescribed dietary intake, Special diet education, Weight monitoring , Intervention, Order not done: Medical or Other reason not done S moking/Tobacco Use Patient counseled on the dangers of tobacco use and urged to quit. 0 12/03/2024 * Follow Up: A s Scheduled (Reason: OV) * Images: * Sign off status: Completed true * Provider: Pat Porter MD Date: 0 12/03/2024 Generated for Fatou costa/Malik/eTransmitting on: 0 05/29/2025 10:58 AM EDT History and Physical Notes * HPI (History of Present Illness) Category Sub-Category Detail Notes Telehealth Location of [facility] rendering services:: {...} [address] [place] [address] [place] [id number] Location of patient:: address listed in demographics for today's visit Patient identification confirmed using:: Name, Telehealth method:: Telephone only. Nicolle ent not visible to care provider. Consent:: Patient verbally c onsented to treatment, Patient verbally consented to billing insurance company, Patient informed of any privacy concerns related to method of visit Total time spent with patient (mins): 15
--- OUTSIDE RECORDS SUMMARY | 2025-01-19 10:00 | XMS_ITS ---
Author Organization Christopher Porter III, MD Address [address] [place] [address] [place] [address] Care Team Providers Care Technical Producer Name Role Phone Dr. Christopher Porter III [...] Date Provider Diagnosis Christopher Porter III, MD [address] [place] [address] [place] [address] 01/19/2025 Christopher Porter Other and unspecifie d [...] pending. She is being treated by her advanced clinical specialist for interstitial lung disease. 01/19/2025 Malignant [...] a referral to the weight-loss clinic at [facility]. 01/19/2025 Osteopenia, unspecified location (ICD-10 - [...] Omeprazole 20 MG Take 1 capsule by [facility] twice daily dexAMETHasone 2 MG 1 [...] HCl 500 MG TAKE 1 TABLET BY [facility] ONCE DAILY WITH A MEAL Next Appt Details Follow Up: As Scheduled, Ragini son: OV Provider Name:Christopher Porter , 09/01/2025 02:00:00 PM, [address] [place] [address] [address], [place], [phone], Provider Name:Christopher Schwartz German , 10/26/2025 02:00:00 PM, [address] [place] [address] [address], [place], [address], Progress Notes * IVANShaneDOB:[birth year] (69 yo F)Acc No.[id number]:01/19/2025 Progress Notes Patient: Laura KWON Provider: Pat Porter MD :1955 A ge:69 Y S ex:Female Date:01/19/2025 Phone: Address:[address] [place] [address] , [place], [phone] Subjective: * Chief Complaints: * D epressionCervical [...] Surgical History: r ight breast biopsy 2002colonoscopy [id number], oophorectomy, cyst, Dr. Galo 12/2019right breast lumpectomy [...] x-cigarette smoker S he was born in [place]. She has been to [place] for 40 years and has 3 children. 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 * Medications: T akingOmeprazole 20 MG [...] pending. She is being treated by her advanced clinical specialist for interstitial lung disease. 5 . [...] a referral to the weight-loss clinic at [facility]. 7 . O steopenia, unspecified location [...] 01/19/2025 Generated for Fatou costa/Malik/Zo on: 0 05/29/2025 10:58 AM EDT History and Physical Notes * Examination [...]
--- OUTSIDE RECORDS SUMMARY | 2025-02-23 10:30 | XMS_ITS ---
Author Organization Christopher Porter III, MD Address [address] [place] [address] [place] [address] Care Team Providers Care Cargo And Container Inspector Name Role Phone Dr. Christopher Porter III [...] Problem Status W/U Status Risk Notes Problem [id number] Chronic cough (R05.3) Active confirmed She says [...] Date Provider Diagnosis Christopher Porter III, MD [address] [place] [address] [address] [place], [place] [address] 02/23/2025 Christopher Porter Other and unspecifie d [...] 500 MG TAKE 1 TABLET BY [facility] ONCE DAILY WITH A MEAL Valsartan 40 MG 1 tablet Orally Once a day 08/06/2023 Triamterene-HCTZ 75-50 MG TAKE 1 TABLET BY MOUTH IN THE MORNING Atorvastatin Calcium 10 MG Take 1 tablet by mouth once daily Omeprazole 20 MG Take 1 capsule by [facility] twice daily Levothyroxine Sodium 100 MCG TAKE [...] Provider Name:Christopher Porter , 09/01/2025 02:00:00 PM, [address] [place] [address] [address], [place], [address], Provider Name:Christopher Porter , 10/26/2025 02:00:00 PM, [address] [place] [address] [address], [place], [address], Progress Notes * IVAN, CharleneDOB:[birth year] (69 yo F)Acc No.[id number]:02/23/2025 Progress Notes Patient: Laura KWON Provider: Pat Porter MD :1955 A ge:69 Y S ex:Female Date:02/23/2025 Phone: Address:[address] [place] [address] , [facility], [phone] Subjective: * Chief Complaints: * D yspnea on exertionLumbar pain radiating down both legsChronic fatigueConstant chronic cough * HPI: C OVID-19 Screening: S he returns for a scheduled visit for comprehensive medical management. 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 [...] leg pain . She has been to [facility] spine and sports rehabilitation. They would [...] Surgical History: r ight breast biopsy 2002colonoscopy [id number], oophorectomy, cyst, Dr. Galo 12/2019right breast lumpectomy [...] x-cigarette smoker S he was born in [place]. She has been to [place] for 40 years and has 3 children. 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 * Medications: T akingOmeprazole 20 MG [...] 02/23/2025 Generated for Fatou costa/Malik/eTransmitting on: 0 05/29/2025 [...] RECTAL EXAM: not examined PSYCH: alert, oriented, optometric coordinator perative with exam, cognitive function intact, thought process logical, goal directed, speech clear ORAL CAVITY: normal, unremarkable
--- OUTSIDE RECORDS SUMMARY | 2025-03-04 09:48 | XMS_ITS ---
Author Organization Christopher Porter III, MD Address [address] [place] [address] [place] [address] Care Team Providers Care Brine Maker Name Role Phone Dr. Christopher Porter III [...] AM > I called Dr Golden office [phone] spoke to Dori mixon patient appt on 03/24/2025 at 3:45pm . information called and mailed to patient . Referral Priority Routine Referral Appointment Date 03/24/2025 REASON FOR VISIT Zepbound denial from [facility] Social History Sex Assigned At : Social History Observation Description Sex Assigned At Female Encounters Encounter Location Date Provider Diagnosis Christopher Porter III, MD [address] [place] [address] [place] [address] 03/04/2025 Christopher Porter Plan Of Treatment Referrals Referral Date Details 03/04/2025 03/04/2025, evaluate for home sleep study obesity /daytime somnolence snoring/fatigue needs sleep study showing sleep apnea to qualify for GLP-1, ANDRAE GOLDEN Next Appt Details Provider Name:Christopher Porter , 09/01/2025 02:00:00 PM, [address] [place] [address] [place], [address], Provider Name:Christopher Porter , 10/26/2025 02:00:00 PM, [address] [place] [address] [address], [place], [address], Progress Notes * IVANJaxOB:[birth year] (69 yo F)Acc No.[id number]:03/04/2025 Patient: Laura KWON :1955 A ge:69 Y S ex:Female Phone: Address:[address] [place] [address] , [place] [address] Subjective: * Chief Complaints: * Z epbound denial from [facility] * Medical History: * Surgical History: * Hospitalization/Major Diagno stic Procedure: * Medications: Objective: * Vitals: * Physical Examination: Assessment: Plan: * Treatment: * Procedure Codes: * * Date: Consultation Request Notes Referral Date Referring Provider Referred Provider Not es 03/04/2025 Christopher Porter MOHAMMAD evaluate fo r home sleep study obesity /daytime somnolence snoring/fatigue needs sleep study showing sleep apnea to qualify for GLP-1
--- OUTSIDE RECORDS SUMMARY | 2025-05-27 07:00 | XMS_ITS ---
Author Organization Christopher Porter III, MD Address [address] [place] [address] [place] [address] Care Team Providers Care Classroom Instructional Aide Name Role Phone Dr. Christopher Porter III [...] Provider Speciality Internal M edicine Referred Provider [place], [facility] ([place]) Referred Provider Specialty Orthopedic S urgery Referral Priority Routine REASON FOR VISIT Hyperlipidemia, [...] Active dexAMETHasone 2 MG 1 tablet Orally tw a day 11/24/2024 Active Social History Tobacco [...] Date Provider Diagnosis Christopher Porter III, MD [address] [place] [address] [place] [address] 05/27/2025 Christopher Porter Other and unspecifie d [...] 20 MG Take 1 capsule by mo ut twice daily predniSONE Lisinopril 10 MG 1 [...] 40 MG TAKE 1 TABLET BY DAYSI ONCE DAILY Atorvastatin Calcium 10 MG TAKE [...] Treat Right hip Pain, [facility] Appt Details Follow Up: 3 Months, Reason: OV Provider Name:Christopher Porter , 09/01/2025 02:00:00 PM, [address] [place] [address] [address], [place], [address], Provider Name:Christopher Porter , 10/26/2025 02:00:00 PM, [address] [place] [address] [address], [place], [phone], Progress Notes * Jax LOVEOB:[birth year] (69 yo F)Acc No.[id number]:05/27/2025 Progress Notes Patient: Lupe Laura WHALEY Provider: Pat Porter MD :1955 A ge:69 Y S ex:Female Date:05/27/2025 Phone: Address:[address] [place], [place] [address] , [place], [id number] Subjective: * Chief Complaints: * H yperlipidemiaDepressionCervical radiculopathyHypothyroidismBilateral sciaticaDiabetesCarcinoma of the right breast * HPI: C OVID-19 Screening: She returns for a scheduled medical management. She says she is feeling terrible. She continues to have back pain despite treatment at [facility] spine [facility]. She has [...] Surgical History: r ight breast biopsy 2002colonoscopy [id number], oophorectomy, cyst, Dr. Galo 12/2019right breast lumpectomy [...] x-cigarette smoker S he was born in [place]. She has been to [place] for 40 years and has 3 children. 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 * Medications: T akingOmeprazole 20 MG [...] 0 05/27/2025 Generated for Fatou costa/Malik/Reeitting on: 0 05/29/2025 10:59 AM EDT History and Physical Notes * [...] Provider Not hola 05/27/2025 Christopher Porter Ort [facility] ([place]) Evaluate and Treat Right hip Pain
--- NOTE | 2025-05-29 09:57 | PFT_ITS ---
Flows: FEV1: 92 % of predicted at 1.74 L FVC: 90 % of predicted at 2.17 L FEV1/FVC: 80 % Bronchodilator response: Present in small to medium airways only Volumes: Total lung capacity: 82 % of predicted at 3.53 L Residual volume: 73 % of predicted at 1.25 L Slow vital capacity: 89 % of predicted at 2.28 L Expiratory reserve volume: 53 % of predicted at 0.31 L Diffusion capacity: Moderately decreased, adjusts to being mildly decreased after correction for alveolar ventilation. Impression: No obstructive or restrictive ventilatory defect. Bronchodilator response is present in small to medium airways only. Decreased expiratory reserve volume suggests extrathoracic restriction likely secondary to abdominal obesity. Decreased diffusion capacity suggests emphysema. MTDD
[2025-05-29 10:41] VITALS: PULSE 83; O2SAT 95
--- OUTSIDE RECORDS SUMMARY | 2025-05-29 10:58 | XMS_ITS | Patient Health Record ---
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) Active confirmed Plan Of Treatment Pending Test Test Name Order Date X ray : Foot, right 2V 03/20/2018 X ray : Foot, left 3V 04/21/2015 [id number] TENDON SHEATH/LIGAMENT 0 04/21/2015 [id number] TENDON SHEATH/LIGAMENT 0 03/20/2018 Insurance Providers Payer Name Payer Address Payer Phone Subscriber Number Group Number Insured Name Patient Relationship to Insured Coverage Start Date Coverage End Date [employer] [place] [employer] [address] [facility] [address] [place] [address] [id number] [place] Nieves Self - patient is the insured Medical (General) History Medical History History ICD Code Headaches/Migraines Chicken pox Measles Surgical History Surgery Date(Month/Year) hand gall bladder appendectomy carpal tunel 02/08/2015 Hospitalization History Reason Date(Month/Year) [facility] for chest pains 05/2017
--- OUTSIDE RECORDS SUMMARY | 2025-05-29 10:59 | XMS_ITS | Patient Health Record ---
Author Organization [facility] Address [address] [place] [address] Care Team Providers Care Laundry Machine Mechanic Name Role Phone Christopher Porter MD Primary Care Provider Christopher Cat Unavailable [phone] Allergies Allergen (clinical drug ingredient) Drug/Non Drug [...] Problem Status W/U Status Risk Notes Problem 071369618 Encounter for screening for malignant neoplasm of colon (Z12.11) Active confirmed Problem Screening for malignant neoplasm of rectum (983077006) Encounter for screening for malignant neoplasm of rectum (Z12.12) Active confirmed Problem 97360352 Abdominal pain, epigastric (R10.13) Active confirmed Problem 374212678 Family history o f colon cancer (Z80.0) Active confirmed Problem Esophageal reflux finding (365121562) Gastroesophageal reflux (K21.9) Active confirmed Problem Diverticulosis of colon (735183045) Diverticulosis of colon (K57.30) Active confirmed Problem 553339468 Gastroesophageal reflux disease, unspecified whether esophagitis present (K21.9) Active confirmed Plan Of Treatment Future Test Test Name Order Date COLONOSCOPY 05/24/2016 UPPER GI ENDOSCOPY 05/10/2021 COLONOSCOPY 05/10/2021 Insurance Providers Payer Name Payer Address Payer Phone Subscriber Number Group Number Insured Name Patient Relationship to Insured Coverage Start Date Coverage End Date [facility] [address] [place] [address] [phone] [id number] KATHY LOVE Self - patient is the insured Medical (General) History Medical History History ICD Code Colonoscopies 12-28-2010 and 2000 were negative except for hyperplastic polyps Denies PR,CVA,Lung disease,renal disease UTI's Depression Hypothyroidism NIDDM Colonoscopy 06/2016 was negative except for a hyperplastic polyp Resolved interstitial lung disease due t o Macrodantin--sees Dr. Gonzalez GERD Surgical History Surgery Date(Month/Year) Cholecystectomy Appendectomy Benign breast cyst Carpal tunnel-right Hand surgery on the left for arthritis TIBURCIO
--- OUTSIDE RECORDS SUMMARY | 2025-05-29 10:59 | XMS_ITS | Patient Health Record ---
Author Organization Christopher Porter III, MD Address [address] [place] [address] [place] [address] Care Team Providers Care Supervisor Photostat Name Role Phone Dr. Christopher Porter III Primary Care Provider Allergies Allergen (clinical drug ingredient) Drug/Non Drug Allergy documented on EMR Reaction Allergy Type Onset Date Status Codeine Phosphate Unknown Drug Allergy Active Results Component Value Reference Range Notes URINE DIP STICK Reviewed date:10/24/2024 04:00:06 PM Interpretation: Performing Lab: Notes/Report: SG 1.015 1.005 - 1.025 pH 6.0 5.0 - 9.0 ARNOLDO 70 Negative - NIT Negative Negative - PRO 15 Negative - Trace GLU Negative Negative - KET Negative Negative - UBG 0.2 0.1 - 1.8 GREGORY Negative 0.2 - 1.3 BLD Negative Negative - Menstrating No Complete Blood Count Auto Di ff Reviewed date:10/24/2024 02:15:19 PM Interpretation: Performing Lab:[facility], [address] [place] [phone] Notes/Report: White Blood Count 9.5 4.8-10.8 X10*3/uL Red Blood Count 4.36 4.20-5.50 X10*6/uL Hemoglobin 12.0 12.0-16.0 g/dl Hematocrit 39.1 37.0-47.0 % Mean Corpuscular Volume 89.7 80.0-98.0 fL Mean Corpuscular Hemoglobin 27.5 27.0-33.0 pg Mean Corpuscular HGB Conc 30.7 31.0-35.0 g/dl Red Cell Distribution Width 15.4 11.0-16.0 % Platelet Count 322 160-400 X10*3/uL Mean Platelet Volume 9.7 9.4-12.3 fL Neutrophils Percent Auto 75.4 45-73 % Imm Gran Pct Auto 0.4 0.0-0.4 % Lymphocytes Percent Auto 17.5 20-40 % Monocytes Percent Auto 4.9 2-11 % Eosinophils Percent Auto 1.5 0-4 % Basophils Percent Auto 0.3 0-2 % NRBC Pct Auto 0.0 0.0-0.2 /100WBC Neutrophils Absolute Auto 7.2 2.0-8.3 x10*3/u L Imm Gran Abs Auto 0.04 0.00-0.03 X10*3/uL Lymphocytes Absolute Auto 1.7 1.2-4.9 X10*3/u L Monocytes Absolute Auto 0.5 0.1-1.2 X10*3/uL Eosinophils Absolute Auto 0.1 0.0-0.4 X10*3/u L Basophils Absolute Auto 0.0 0.0-0.2 X10*3/uL NRBC Abs Auto 0.000 0.0-0.012 X10*3/uL Microalbumin, Random Reviewed date:10/24/2024 02:15:19 PM Interpretation: Performing Lab:[facility], [address] [place] [phone] Notes/Report: Creatinine Urine 237.62 Microalbumin Urine 18.0 Microalbum/Creatinine Ratio Ur 7.5 <30 ug/mg cr Albumin/Creatinine Ratio Reference Ranges: Normal: < 30 ug/mg creatinine Microalbuminuria: 30 - 300 ug/mg creatinine Clinical Albuminuria: > 300 ug/mg creatinine MM tomosynthesis screening B I Reviewed date:10/26/2024 09:09:04 AM Interpretation: Performing Lab: Notes/Report: [facility] [address] [place] [address] Mammography Report Signed Patient: Laura Love MR#: [id number] : 1955 Acct:[id number] Age/Sex: 69 / F ADM Date: 10/16/24 Loc: HO.MAMMO Attending Dr: Christopher Porter MD Ordering Physician: Christopher Porter MD Results: 2Benign Findings Date of Service: 10/16/24 Follow Up: 1 Year From [facility] Mammogram Procedure(s): MM tomosynthesis screening BI Accession Number(s): [id number] cc: Christopher Porter MD EXAMINATION: MM SCREENING DIGITAL BREAST TOMOSYNTHESIS, BILATERAL CLINICAL INFORMATION: Screening. Asymptomatic. COMPARISON: Mammography: Comparison is made with available priors TECHNIQUE: Digital breast mammography with tomosynthesis is performed in both the craniocaudal and mediolateral oblique views along with computer-aided detection (CAD). FINDINGS: There are scattered areas of fibroglandular density (ACR BI-RADS breast composition Category b). Post right lumpectomy changes are stable. There are no significant masses, abnormal calcifications, or other abnormalities. MM/MM tomosynthesis screening BI IMPRESSION: No mammographic evidence of malignancy. ASSESSMENT: BI-RADS BI-RADS 2 - Benign Findings RECOMMENDATION: Routine annual mammography screening. 1 year F/U This examination should not preclude the clinical evaluation of a suspicious palpable abnormality. This patient's information was entered into a reminder system with a target due date for their next mammogram. Electronically signed by: Unique Sandra DO 10/24/2024 04:53 PM EST Dictated By: Unique Sandra DO Signed By: <Electronically signed by Unique Sandra DO in OV> 10/24/24 1653 DD/ 0840 TD/TT: 10/16/24 09 Carrier Driver: [facility] [address] [place] [address] Mammography Report Signed Patient: Laura Love MR#: [id number] : 1955 Acct:[id number] Age/Sex: 69 / F ADM Date: 10/16/24 Loc: HO.MAMMO Attending Dr: Christopher Porter MD Ordering Physician: Christopher Porter MD Results: 2Benign Findings Date of Service: 10/16/24 Follow Up: 1 Year From Orig ina Mammogram Procedure(s): MM tomosynthesis screening BI Accession Number(s): [id number] cc: Christopher Porter MD EXAMINATION: MM SCREENING DIGITAL BREAST TOMOSYNTHESIS, BILATERAL CLINICAL INFORMATION: Screening. Asymptomatic. COMPARISON: Mammography: Compari son is made with available priors TECHNIQUE: Digital breast mammography with tomosynthesis is performed in both the craniocaudal and mediolateral oblique views along with computer-aided detection (CAD). FINDINGS: There are scattered areas of fibroglandular density (ACR BI-RADS breast composition Category b). Post right lumpectom y changes are stable. There are no significant masses, abnormal calcifications, or other abnormalities. MM/MM tomosynthesis screening BI IMPRESSION: No mammographic evidence of malignancy. ASSESSMENT: BI-RADS BI-RADS 2 - Benign Findings RECOMMENDATION: Routine annual mammography screening. 1 year F/U This examination sang uld not preclude the clinical evaluation of a suspicious palpable abnormality. This patient's information was entered into a reminder system with a target due date for their next mammogram. Electronically ricci d by: Unique Sandra DO 10/24/2024 04:53 PM EST Dictated By: Unique Sandra DO Signed By: <Electronically signed by Unique Sandra DO in OV> 10/24/24 1653 DD/ 0840 TD/TT: 10/16/24899 Carrier Driver: Diabetic Eye Exam Reviewed date:10/29/2024 04:30:34 PM Interpretation:undefined Performing Lab: Notes/Report: undefined Complete Blood Count Auto Di ff Reviewed date:02/18/2025 02:00:50 PM Interpretation: Performing Lab:[facility], [address] [place] [phone] Notes/Report: White Blood Count 6.8 4.8-10.8 X10*3/uL Red Blood Count 3.99 4.20-5.50 X10*6/uL Hemoglobin 11.0 12.0-16.0 g/dl Hematocrit 35.2 37.0-47.0 % Mean Corpuscular Volume 88.2 80.0-98.0 fL Mean Corpuscular Hemoglobin 27.6 27.0-33.0 pg Mean Corpuscular HGB Conc 31.3 31.0-35.0 g/dl Red Cell Distribution Width 15.6 11.0-16.0 % Platelet Count 277 160-400 X10*3/uL Mean Platelet Volume 9.1 9.4-12.3 fL Neutrophils Percent Auto 66.3 45-73 % Imm Gran Pct Auto 0.4 0.0-0.4 % Lymphocytes Percent Auto 22.8 20-40 % Monocytes Percent Auto 7.4 2-11 % Eosinophils Percent Auto 2.5 0-4 % Basophils Percent Auto 0.6 0-2 % NRBC Pct Auto 0.0 0.0-0.2 /100WBC Neutrophils Absolute Auto 4.5 2.0-8.3 x10*3/u L Imm Gran Abs Auto 0.03 0.00-0.03 X10*3/uL Lymphocytes Absolute Auto 1.6 1.2-4.9 X10*3/u L Monocytes Absolute Auto 0.5 0.1-1.2 X10*3/uL Eosinophils Absolute Auto 0.2 0.0-0.4 X10*3/u L Basophils Absolute Auto 0.0 0.0-0.2 X10*3/uL NRBC Abs Auto 0.000 0.0-0.012 X10*3/uL Comprehensive [place]. Panel Fa st Reviewed date:02/18/2025 02:00:50 PM Interpretation: Performing Lab:[facility], [address] [place] [phone] Notes/Report: Sodium 142 135-145 mmol/L Potassium 4.4 3.3-5.1 mmol/L Chloride 109 96-108 mmol/L Carbon Dioxide 27 22-29 mmol/L Anion Gap 10 12-20 Blood Urea Nitrogen 14 9-16 mg/dL Creatinine 1.14 0.5-1.4 mg/dL Estimated Glomerular Filt Rate 47 Chronic Kidney Disease: Estimated GFR < 60 mL/min/1.73m2 Severe Kidney Disease: Estimated GFR < 15 mL/min/1.73m2 Glucose Fasting 129 60-99 mg/dL A fasting glucose of 126 mg/dl or greater on more than one occasion is considered diagnostic of diabetes. Calcium 9.6 8.4-10.2 mg/dL Bilirubin Total 0.4 0.0-1.0 mg/dL Aspartate Amino Transferase 20 5-31 U/L Alanine Aminotransferase 16 0-31 U/L Total Protein 6.6 6.5-8.0 g/dL Albumin Level 4.0 3.5-5.0 g/dL Alkaline Phosphatase 83 39-117 U/L Lipid Panel Reviewed date:02/18/2025 02:00:50 PM Interpretation: Performing Lab:[facility], [address] [place] [phone] Notes/Report: Triglycerides 147 <150 mg/dL Desirable Triglyceride: less than 150 mg/dL Borderline High Triglyceride 150-199 mg/dL High Triglyceride: 200-499 mg/dL Very High Triglyceride: greater than or equal to 5OO mg/dL Cholesterol 117 <200 mg/dL Desirable Cholesterol: less than 200 mg/dL Borderline High Cholesterol: 200-239 mg/dL High Cholesterol: greater than 239 mg/dL LDL Cholesterol Calculated 49 <100 mg/dL Desirable LDL: less than 100 mg/dL Near Optimal/Above Optimal LDL: 110-129 mg/dL Borderline High LDL: 130-159 mg/dL High LDL: 160-189 mg/dL Very High LDL: greater than or equal to 190 mg/dL HDL Cholesterol 39 >40 mg/dL Desirable HDL: greater than 40 mg/dL Note: This HDL assay may give artificially low results in patients with liver disease. Reason For Referral Reason Evaluate and Treat ? Injections and/or Physical Therapy Diagnosis 1 Right sided sciatica (M54.31) Diagnosis 2 Back pain (M54.9) Referral Organization Christopher Porter III, MD Referring Provider First Name Christopher Referring Provider Last Name German Referring Provider Speciality Internal M edicine Referred Provider [facility] Referred Provider Specialty Physical Med icine General Notes Maria T Link 12/01/2024 09:28:03 AM > Referral and progress note faxed Referral Priority Routine Referral Appointment Date 12/04/2024 Reason evaluate for home sl eep study obesity /daytime somnolence snoring/fatigue needs sleep study showing sleep apnea to qualify for GLP-1 Diagnosis 1 Former smoker (Z87.8 91) Diagnosis 2 Interstitial lung di sease (J84.9) Referral Organization Christopher Porter III, MD Referring Provider First Name Christopher Referring Provider Last Name Porter Referring Provider Speciality Internal M edicine Referred Provider ANDRAE GOLDEN Referred Provider Specialty Pulmonary Di seases General Notes Vangie Rosenberg CMA 03/05 10:08:14 AM > I called Dr Golden office [phone] spoke to Dori mixon patient appt on 03/24/2025 at 3:45pm . information called and mailed to patient . Referral Priority Routine Referral Appointment Date 03/24/2025 Reason Evaluate and Treat Right hip Pain Diagnosis 1 Right hip pain (M25. 551) Referral Organization Christopher Porter III, MD Referring Provider First Name Christopher Referring Provider Last Name German Referring Provider Speciality Internal M edicine Referred Provider [facility] Referred Provider Specialty Orthopedic S urgery Referral Priority Routine Medications Medication SIG (Take, Route, Frequency, Duration) Notes Start Date End Date Status Levothyroxine Sodium 100 MCG TAKE 1 TABLET BY MOUTH ONCE DAILY every MORNING ON AN EMPTY STOMACH Orally Once a day Active Gabapentin 300 MG 1 capsule Orally thr ees times a day 11/24/2024 Active Citalopram Hydrobromide 40 MG 1 tablet Orally Once a day Active dexAMETHasone 2 MG 1 tablet Orally twic e a day 11/24/2024 Active Zepbound 2.5 MG/0.5ML 0.5 mL Subcutaneou s weekly 02/23/2025 Active Omeprazole 20 MG Take 1 capsule by mo ut twice daily Active metFORMIN HCl 500 MG TAKE 1 TABLET BY MO UTH ONCE DAILY WITH A MEAL Active Valsartan 40 MG TAKE 1 TABLET BY DAYSI TH ONCE DAILY Active Atorvastatin Calcium 10 MG TAKE 1 TABLET BY MOUTH ONCE DAILY Active predniSONE Active Lisinopril 10 MG 1 tablet Orally Once a day 02/15/2023 Active Anastrozole 1 MG 1 tablet Orally Once a day Active Triamterene-HCTZ 75-50 MG TAKE 1 TABLET BY MOUTH IN THE MORNING Active Immunizations Vaccine Route Administration Date Status Comme nts Influenza IM Intramuscular 06/17/2015 Administered COVID- 19 Vaccine Unknown 11/02/2020 Administered COVID- 19 Vaccine Unknown 07/08/2021 Administered COVID- 19 Vaccine Unknown 10/06/2020 Administered Influenza High Dose Quadrivalent Unknown 05/30/2023 Administered Influenza Vaccine Afluria IM Intramuscular 05/28/2024 Admi nistered Flu-IIv4pf Unknown 05/23/2017 Administered Flu-IIv4pf Unknown 05/20/2018 Administered Influenza-iiv4 p-free high dose Unknown 05/24/2021 Administered Influenza-iiv4 p-free high dose Unknown 04/26/2020 Administered Fluzone High-Dose (HD-IIV3) Unknown 05/14/2019 Administered Influenza-iiv4 p-free high dose Unknown 06/22/2022 Administered Social History Tobacco Use: Social History Observation Description Date Details (start date - stop date) Former Smoker NA - NA Sex Assigned At : Social History Observation Description Sex Assigned At Female Tobacco Control (Standard) Question Answer Notes Tobacco use: Former smoker How long has it been since you last smoked? Grea ter than 10 years Additional Findings: Tobacco non-user Ex-cigaret te smoker AUDIT-C (Standard) Question Answer Notes Did you have a drink containing alcohol in the p ast year? No Points 0 Interpretation Negative Problems Problem Type SNOMED Code ICD Code Onset Dates Problem Status W/U Status Risk Notes Problem 2133047 Former smoker (Z87.891) Active confirmed She is highly motivated not to smoke. She has a plan for prevention of relapse and maintenance of abstinence in times of stress or illness. Problem 47824187 Hypothyroidism (E03.9) Active confirmed His thyroid function tests have been at their target. Comprehensive blood work with a fasting lipid profile and thyroid functions have been ordered Problem 56317121 Depression (F32.9) Active confirmed Her depression is stable and mild and no change in her regimen is necessary. She is discouraged that she is gaining weight and feels powerless to reverse the process. She wants to continue her antidepressant as she perceives a significant benefit, even if it makes it harder to lose weight. Problem 012220890 Lumbar radiculopathy (M54.16) Active confirmed She is beginning to improve and will continue on current medications. She will see the rehabilitation physician tomorrow. 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 She was no sign of disease recurrence or new primary today. Problem 233925033 Obesity (BMI 30-39.9) (E66.9) Active confirmed Is +5 pound s through diet. We reviewed her diet and her weight loss strategy and her nutrition. We made a plan to continue weight loss that her rate of one half of a pound per week. Problem 20940162 Other and unspecified hyperlipidemia (E78.5) Active confirmed Her lipids have been well controlled. Comprehensive blood work has been ordered prior to the next visit which will include a fasting lipid profile. Problem 08026101 Right sided sciatica (M54.31) Active confirmed She does not wish to have another injection. We will continue therapy this time with heat and rest and dexamethasone. Problem Benign mammary dysplasia (99665236) Atypical ductal hyperplasia, breast (N60.99) Active confirmed An annual mammogram has been scheduled. Problem 80489299 Cervical nerve root impingement (G54.2) Active confirmed This pain has resolved for the time being. I have advised her against heavy exertion. Problem 240712703 Panic attacks (F41.0) Active confirmed She has occasional panic attacks but they do not last long. They have improved substantially over previous years. Problem 958388903 Hyperplastic colon polyp (K63.5) Active confirmed She will undergo colonoscopy at regular intervals. Problem 184174999 Interstitial lung disease (J84.9) Active confirmed She recently saw pulmonary. A CT scan of the chest was done and reportedly negative. Pulmonary function test are pending. She is being treated by her patient accounts specialist for interstitial lung disease. Problem 11552780 Left sided sciatica (M54.32) Active confirmed The sciatica has completely resolved and is no longer troubling her. Problem Type II diabetes mellitus without complication (541837365) Type 2 diabetes mellitus without complication, without long-term current use of insulin (E11.9) Active confirmed He appears t o be stable. Her medications were continued. No change in her regimen was needed. Problem 057748465 Osteopenia, unspecified location (M85.80) Active confirmed She will continue on calcium carbonate and vitamin D. She has stopped the letrozole. If she begins anastrozole. She will need frequent bone density determinations and possibly alendronate. Problem 19922563 Chronic cough (R05.3) Active confirmed She says she has been coughing for a month often bringing up greenish yellowish are brown phlegm. I have ordered a chest x-ray to further evaluate this complaint. Her oxygen saturation today was 98%. Vital Signs Heart Rate 81 /min 05/27/2025 Temperature 97.2 degrees Fahrenheit 05/27/2025 Respiratory Rate 16 /min 01/19/2025 Oximetry 98 % 02/23/2025 Blood pressure diastolic 79 mm Hg 05/27/2025 Height 60 in 05/27/2025 Blood pressure systolic 135 mm Hg 05/27/2025 Weight 199 lbs 05/27/2025 BMI 38.86 kg/m2 05/27/2025 Encounters Encounter Location Date Provider Diagnosis Christopher Porter III, MD [address] [place] [address] [place] [address] 10/24/2024 Christopher Porter Lumbar radiculopathy M54.16 ; Malignant neoplasm of upper-inner quadrant of right female breast C50.211 ; Other and unspecified hyperlipidemia E78.5 ; Depression F32.9 ; Former smoker Z87.891 ; Type 2 diabetes mellitus without complication, without long-term current use of insulin E11.9 ; Interstitial lung disease J84.9 ; Right sided sciatica M54.31 ; Left sided sciatica M54.32 ; Atypical ductal hyperplasia, breast N60.99 ; Hypothyroidism E03.9 and Obesity E66.9 Christopher Porter III, MD [address] [place] [address] [place] [address] 11/24/2024 Christopher Porter Lumbar radiculopathy M54.16 ; Right sided sciatica M54.31 ; Other and unspecified hyperlipidemia E78.5 ; Depression F32.9 ; Former smoker Z87.891 and Atypical ductal hyperplasia, breast N60.99 Christopher Porter III, MD [address] [place] [address] [place] [address] 11/27/2024 Christopher Porter Lumbar radiculopathy M54.16 ; Other and unspecified hyperlipidemia E78.5 ; Depression F32.9 ; Former smoker Z87.891 ; Panic attacks F41.0 ; Hypothyroidism E03.9 ; Cervical nerve root impingement G54.2 ; Type 2 diabetes mellitus without complication, without long-term current use of insulin E11.9 and Malignant neoplasm of upper-inner quadrant of right female breast C50.211 Christopher Porter III, MD [address] [place] [address] [place] [address] 12/03/2024 Christopher Porter Lumbar radiculopathy M54.16 ; Depression F32.9 ; Former smoker Z87.891 ; Hypothyroidism E03.9 ; Cervical nerve root impingement G54.2 ; Type 2 diabetes mellitus without complication, without long-term current use of insulin E11.9 and Obesity E66.9 Christopher Porter III, MD [address] [place] [address] [place] [address] 01/19/2025 Christopher Kamara and unspecifie d hyperlipidemia E78.5 ; Hypothyroidism E03.9 ; Right sided sciatica M54.31 ; Interstitial lung disease J84.9 ; Malignant neoplasm of upper-inner quadrant of right female breast C50.211 ; Obesity (BMI 30-39.9) E66.9 ; Osteopenia, unspecified location M85.80 ; Lumbar radiculopathy M54.16 and Former smoker Z87.891 Christopher Porter III, MD [address] [place] [address] [place] [address] 02/23/2025 Christopher Porter Other and unspecifie d hyperlipidemia E78.5 ; Chronic cough R05.3 ; Former smoker Z87.891 ; Depression F32.9 ; Hypothyroidism E03.9 ; Atypical ductal hyperplasia, breast N60.99 ; Type 2 diabetes mellitus without complication, without long-term current use of insulin E11.9 ; Obesity E66.9 ; Lumbar radiculopathy M54.16 and Osteopenia, unspecified location M85.80 Christopher Porter III, MD [address] [place] [address] [place] [address] 05/27/2025 Christopher Kamara and unspecifie d hyperlipidemia E78.5 ; Type 2 diabetes mellitus without complication, without long-term current use of insulin E11.9 ; Hypothyroidism E03.9 ; Obesity (BMI 30-39.9) E66.9 ; Depression F32.9 ; Former smoker Z87.891 ; Cervical nerve root impingement G54.2 ; Lumbar radiculopathy M54.16 and Chronic cough R05.3 Christopher Porter III, MD [address] [place] [address] [place] [address] 03/04/2025 Christopher Porter III, MD [address] [place] [address] [place] [address] 08/13/2024 Christopher Porter III, MD [address] [place] [address] [place] [address] 08/13/2024 Christopher Porter Assessments Encounter Date Diagnosis (ICD Code) Assessment Notes Treat ment Notes Treatment Clinical Notes 10/24/2024 Lumbar radiculopathy (ICD-10 - M54.16) Her low back pain has been mild lately. She will continue to avoid heavy lifting and exertion for another week. 10/24/2024 Malignant neoplasm of upper-inner quadrant of right female breast (ICD-10 - C50.211) She was continued on the anastrozole. She was no sign of disease recurrence or new primary today. 11/24/2024 Lumbar radiculopathy (ICD-10 - M54.16) She has a history of exacerbations of lumbar spine pain and lumbar radiculopathy. Her pain today is localized to the sciatic nerve and is best described as right sciatica. She is going to rest and put heat on the area and take dexamethasone 2 mg twice a day. Short-term follow-up was arranged. She will notify me once his she has any muscle weakness increase in symptoms. 11/24/2024 Right sided sciatica (ICD-10 - M54.31) She does not wish to have another injection. We will continue therapy this time with heat and rest and dexamethasone. 11/27/2024 Lumbar radiculopathy (ICD-10 - M54.16) She has a history of exacerbations of lumbar spine pain and lumbar radiculopathy. Her pain today is localized to the sciatic nerve and is best described as right sciatica. She is going to rest and put heat on the area and take dexamethasone 2 mg twice a day. Short-term follow-up was arranged. She will notify me once his she has any muscle weakness increase in symptoms. 11/27/2024 Other and unspecified hyperlipidemia (ICD-10 - E78.5) Her lipids have been well controlled. No change in her medication was made. Conference of blood work with a fasting lipid profile was ordered. 12/03/2024 Depression (ICD-10 - F32.9) Her depression is stable and mild and no change in her regimen is necessary. She is discouraged that she is gaining weight and feels powerless to reverse the process. She wants to continue her antidepressant as she perceives a significant benefit, even if it makes it harder to lose weight. 12/03/2024 Lumbar radiculopathy (ICD-10 - M54.16) She is beginning to improve and will continue on current medications. She will see the rehabilitation physician tomorrow. 01/19/2025 Hypothyroidism (ICD-10 - E03.9) Her thyroid function tests have been adequate. She is compliant with her medication which was continued. 01/19/2025 Other and unspecified hyperlipidemia (ICD-10 - E78.5) Her lipids have been well controlled. No change in her medication was made. Conference of blood work with a fasting lipid profile was ordered. 02/23/2025 Other and unspecified hyperlipidemia (ICD-10 - [...] complaint. Her oxygen saturation today was 98%. 05/27/2025 Other and unspecified hyperlipidemia (ICD-10 - [...] No change in her regimen was needed. 10/24/2024 Other and unspecified hyperlipidemia (ICD-10 - E78.5) Her lipids have been well controlled. No change in her medication was made. Conference of blood work with a fasting lipid profile was ordered. 11/24/2024 Other and unspecified hyperlipidemia (ICD-10 - E78.5) Her lipids have been well controlled. No change in her medication was made. Conference of blood work with a fasting lipid profile was ordered. 11/27/2024 Depression (ICD-10 - F32.9) Her depression is [...] abstinence in times of stress or illness. 01/19/2025 Right sided sciatica (ICD-10 - M54.31) She does not wish to have another injection. We will continue therapy this time with heat and rest and dexamethasone. 02/23/2025 Former smoker (ICD-10 - Z87.891) She is highly motivated not to smoke. She has a plan for prevention of relapse and maintenance of abstinence in times of stress or illness. 05/27/2025 Hypothyroidism (ICD-10 - E03.9) His thyroid function tests have been at their target. Comprehensive blood work with a fasting lipid profile and thyroid functions have been ordered 10/24/2024 Depression (ICD-10 - F32.9) Her depression is stable and mild and no change in her regimen is necessary. She is discouraged that she is gaining weight and feels powerless to reverse the process. She wants to continue her antidepressant as she perceives a significant benefit, even if it makes it harder to lose weight. 11/24/2024 Depression (ICD-10 - F32.9) Her depression is stable and mild and no change in her regimen is necessary. She is discouraged that she is gaining weight and feels powerless to reverse the process. She wants to continue her antidepressant as she perceives a significant benefit, even if it makes it harder to lose weight. 11/27/2024 Former smoker (ICD-10 - Z87.891) She is highly motivated not to smoke. She has a plan for prevention of relapse and maintenance of abstinence in times of stress or illness. 12/03/2024 Hypothyroidism (ICD-10 - E03.9) Her thyroid function tests have been adequate. She is compliant with her medication which was continued. 01/19/2025 Interstitial lung disease (ICD-10 - J84.9) She recently saw pulmonary. A CT scan of the chest was done and reportedly negative. Pulmonary function test are pending. She is being treated by her patient accounts specialist for interstitial lung disease. 02/23/2025 Depression (ICD-10 - F32.9) Her depression is stable and mild and no change in her regimen is necessary. She is discouraged that she is gaining weight and feels powerless to reverse the process. She wants to continue her antidepressant as she perceives a significant benefit, even if it makes it harder to lose weight. 05/27/2025 Obesity (BMI 30-39.9) (ICD-10 - E66.9) Is +5 pounds through diet. We reviewed her diet and her weight loss strategy and her nutrition. We made a plan to continue weight loss that her rate of one half of a pound per week. 10/24/2024 Former smoker (ICD-10 - Z87.891) She is highly motivated not to smoke. She has a plan for prevention of relapse and maintenance of abstinence in times of stress or illness. 11/24/2024 Former smoker (ICD-10 - Z87.891) She is highly motivated not to smoke. She has a plan for prevention of relapse and maintenance of abstinence in times of stress or illness. 11/27/2024 Panic attacks (ICD-10 - F41.0) She has occasional panic attacks but they do not last long. They have improved substantially over previous years. 12/03/2024 Cervical nerve root impingement (ICD-10 - G54.2) This pain has resolved for the time being. I have advised her against heavy exertion. 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 She was no sign of disease recurrence or new primary today. 02/23/2025 Hypothyroidism (ICD-10 - E03.9) Her thyroid function tests have been adequate. She is compliant with her medication which was continued.Thyroid function tests have been ordered prior to her next visit. 05/27/2025 Depression (ICD-10 - F32.9) Her depression is stable and mild and no change in her regimen is necessary. She is discouraged that she is gaining weight and feels powerless to reverse the process. She wants to continue her antidepressant as she perceives a significant benefit, even if it makes it harder to lose weight. 10/24/2024 Type 2 diabetes mellitus without complication, without long-term current use of insulin (ICD-10 - E11.9) The most recent A1c is 5.7. She is compliant with medications. She is trying to lose weight and consume a diabetic diet. Blood work with a hemogloobin A1c fasting lipids and microalbumin has been ordered. 11/24/2024 Atypical ductal hyperplasia, breast (ICD-10 - N60.99) An annual mammogram has been scheduled. 11/27/2024 Hypothyroidism (ICD-10 - E03.9) Her thyroid function tests have been adequate. She is compliant with her medication which was continued. 12/03/2024 Type 2 diabetes mellitus without complication, without long-term current use of insulin (ICD-10 - E11.9) The most recent A1c is 5.7. She is compliant with medications. She is trying to lose weight and consume a diabetic diet. Blood work with a hemogloobin A1c fasting lipids and microalbumin has been ordered. 01/19/2025 Obesity (BMI 30-39.9) (ICD-10 - E66.9) [...] a referral to the weight-loss clinic at [facility]. 02/23/2025 Atypical ductal hyperplasia, breast (ICD-10 - N60.99) An annual mammogram has been scheduled. 05/27/2025 Former smoker (ICD-10 - Z87.891) She is highly motivated not to smoke. She has a plan for prevention of relapse and maintenance of abstinence in times of stress or illness. 10/24/2024 Interstitial lung disease (ICD-10 - J84.9) She recently saw pulmonary. A CT scan of the chest was done and reportedly negative. Pulmonary function test are pending. She is being treated by her patient accounts specialist for interstitial lung disease. 11/27/2024 Cervical nerve root impingement (ICD-10 - G54.2) This pain has resolved for the time being. I have advised her against heavy exertion. 12/03/2024 Obesity (ICD-10 - E66.9) Her weight has been stable at 301 pounds. We discussed diet and nutrition. We reviewed her weight loss strategy. 01/19/2025 Osteopenia, unspecified location (ICD-10 - M85.80) She will continue on calcium carbonate and vitamin D. She has stopped the letrozole. If she begins anastrozole. She will need frequent bone density determinations and possibly alendronate. 02/23/2025 Type 2 diabetes mellitus without complication, without long-term current use of insulin (ICD-10 - E11.9) The most recent A1c is 5.7. She is compliant with medications. She is trying to lose weight and consume a diabetic diet. Blood work with a hemogloobin A1c fasting lipids and microalbumin has been ordered. 05/27/2025 Cervical nerve root impingement (ICD-10 - G54.2) This pain has resolved for the time being. I have advised her against heavy exertion. 10/24/2024 Right sided sciatica (ICD-10 - M54.31) She is going back for another injection. We will continue current therapy this time. 11/27/2024 Type 2 diabetes mellitus without complication, without long-term current use of insulin (ICD-10 - E11.9) The most recent A1c is 5.7. She is compliant with medications. She is trying to lose weight and consume a diabetic diet. Blood work with a hemogloobin A1c fasting lipids and microalbumin has been ordered. 01/19/2025 Lumbar radiculopathy (ICD-10 - M54.16) She is beginning to improve and will continue on current medications. She will see the rehabilitation physician tomorrow. 02/23/2025 Obesity (ICD-10 - E66.9) Her weight has been stable at 301 pounds. We discussed diet and nutrition. We reviewed her weight loss strategy. 05/27/2025 Lumbar radiculopathy (ICD-10 - M54.16) She is beginning to improve and will continue on current medications. She will see the rehabilitation physician tomorrow. 10/24/2024 Left sided sciatica (ICD-10 - M54.32) The sciatica has completely resolved and is no longer troubling her. 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 She was no sign of disease recurrence or new primary today. 01/19/2025 Former smoker (ICD-10 - Z87.891) She is highly motivated not to smoke. She has a plan for prevention of relapse and maintenance of abstinence in times of stress or illness. 02/23/2025 Lumbar radiculopathy (ICD-10 - M54.16) She [...] complaint. Her oxygen saturation today was 98%. 10/24/2024 Atypical ductal hyperplasia, breast (ICD-10 - N60.99) An annual mammogram has been scheduled. 02/23/2025 Osteopenia, unspecified location (ICD-10 - M85.80) She will continue on calcium carbonate and vitamin D. She has stopped the letrozole. If she begins anastrozole. She will need frequent bone density determinations and possibly alendronate. 10/24/2024 Hypothyroidism (ICD-10 - E03.9) Her thyroid function tests have been adequate. She is compliant with her medication which was continued. 10/24/2024 Obesity (ICD-10 - E66.9) Her body mass index is 38. She has lost 2 pounds. We discussed diet and nutrition. We reviewed her weight loss strategy. Plan Of Treatment Pending Test Test Name Order Date PROFILE, FASTING (COMPREHENSIVE METABOLI C) 05/27/2025 PROFILE, FASTING (COMPREHENSIVE METABOLI C) 10/24/2024 PROFILE, FASTING (COMPREHENSIVE METABOLI C) 05/28/2024 TSH (THYROID STIMULATING HORMONE) 2024 TSH (THYROID STIMULATING HORMONE) 2024 BRAIN NATRIURETIC PEPTIDE (BNP) 02/24/20 25 CBC w DIFF 05/27/2025 XR CHEST 2 VIEW PA & LAT 02/23/2025 XR CHEST 2 VIEW PA & LAT 05/22/2022 XR SACRUM &/OR COCCYX 05/20/2021 XR SHOULDER RT 2 VIEWS 12/23/2021 US ARM RT VENOUS DOPPLER 06/22/2021 Echocardiogram 05/22/2022 Stress Test 05/22/2022 [facility]) 06/04/20 19 US BREAST LEFT ([facility]) 02/01/20 17 US BREAST LEFT ([facility]) 08/02/20 17 US BREAST LEFT ([facility]) 08/02/20 17 US BREAST LEFT ([facility]) 11/26/19 19 US BREAST RIGHT ([facility]) 019 US BREAST RIGHT ([facility]) 019 CBC WITH AUTO DIFF 10/24/2024 CBC WITH AUTO DIFF 05/28/2024 Lipid Panel 05/27/2025 Lipid Panel 10/24/2024 Lipid Panel 05/28/2024 Free T4 (Free Thyroxine) 02/23/2025 Free T4 (Free Thyroxine) 05/27/2025 Microalbumin, Random 05/28/2024 Microalbumin, Random 02/23/2025 MM tomosynthesis diagnostic BI 4 Hemoglobin A1c 05/28/2024 Hemoglobin A1c 02/23/2025 Next Appt Details Provider Name:Christopher Porter , 09/01/2025 02:00:00 PM, [address] [place] [address] [address], [place], [address], Provider Name:Christopher Efren German , 10/26/2025 02:00:00 PM, [address] [place] [address] [address], [place], [address], Insurance Providers Payer Name Payer Address Payer Phone Subscriber Number Group Number Insured Name Patient Relationship to Insured Coverage Start Date Coverage End Date [facility] [address] [facility] [facility] [place] [phone] [id number] Laura Love Self - patient is the insured MEDICARE NGS [address] [place] [address] [id number] Laura Love Self - patient is the insured Medical (General) History Medical History History ICD Code atypical hyperplasia right breast 2001 recurrent pyelonephritis depression anxiety Panic attacks klebsiella urosepsis hyperplastic colonic polyp 2010 [id number] stage IA er+pr+her- invasive ductal right breast cancer June 2021 hypothyroid bilateral ovarian cysts, hysterectomy in December 2019 diabetes hyperlipidemia Surgical History Surgery Date(Month/Year) injections in her back right breast lumpectomy 07/24 hysterectomy, oophorectomy, cyst, Dr. Saini ddad 12/2019 colonoscopy right breast biopsy 2001 Hospitalization History Reason Date(Month/Year) No history
== END 2025-05-29 09:53 | disposition home or self-care (01) ==
LOC: HO.RESP 09:52
PROVIDERS: PCP Internal Medicine Medical Oncology; Visit Provider Internal Medicine
DX: R06.09 Other forms of dyspnea (principal); R05.9 Cough, unspecified; E66.9 Obesity, unspecified
CPT/HCPCS: 94010; 94640; 94727; 94729

== ENCOUNTER → 2025-05-29 09:57 | Outpatient (BNV) | payer MEDICARE, SELFPAY | PROVIDERS: PCP Internal Medicine Medical Oncology; Visit Provider Internal Medicine Pulmonary Disease | DX: E66.9 Obesity, unspecified (principal); Z68.41 Body mass index [BMI] 40.0-44.9, adult | CPT/HCPCS: 94060; 94727; 94729 ==

== ENCOUNTER → 2025-06-02 13:04 | Outpatient (REF) | payer MEDICARE, SELFPAY ==
--- OUTSIDE RECORDS SUMMARY | 2025-01-19 10:00 | XMS_ITS ---
Author Organization Christopher Porter III, MD Address [address] [place] [address] [place] [address] Care Team Providers Care Paralegal Instructor Name Role Phone Dr. Christopher Porter III [...] Date Provider Diagnosis Christopher Porter III, MD [address] [place] [address] [place] [address] 01/19/2025 Christopher Porter Other and unspecifie d [...] pending. She is being treated by her construction specialist for interstitial lung disease. 01/19/2025 Malignant [...] a referral to the weight-loss clinic at [facility]. 01/19/2025 Osteopenia, unspecified location (ICD-10 - [...] Omeprazole 20 MG Take 1 capsule by [facility] twice daily dexAMETHasone 2 MG 1 tablet [...] HCl 500 MG TAKE 1 TABLET BY [facility] ONCE DAILY WITH A MEAL Next Appt Details Follow Up: As Scheduled, Ragini son: OV Provider Name:Christopher Porter , 09/01/2025 02:00:00 PM, [address] [place] [address] [address], [place], [address], Provider Name:Christopher Schwartz German , 10/26/2025 02:00:00 PM, [address] [place] [address] [address], [place], [phone], Progress Notes * IVANShaneDOB:[birth year] (69 yo F)Acc No.[id number]:01/19/2025 Progress Notes Patient: Laura KWON Provider: Pat Porter MD :1955 A ge:69 Y S ex:Female Date:01/19/2025 Phone: Address:[address] [place] [address] , [place], [id number] Subjective: * Chief Complaints: * D epressionCervical [...] Surgical History: r ight breast biopsy 2002colonoscopy [id number], oophorectomy, cyst, Dr. Galo 12/2019right breast lumpectomy [...] x-cigarette smoker S he was born in [place]. She has been to [place] for 40 years and has 3 children. 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 * Medications: T akingOmeprazole 20 MG [...] pending. She is being treated by her construction specialist for interstitial lung disease. 5 . [...] a referral to the weight-loss clinic at [facility]. 7 . O steopenia, unspecified location [...] 0 01/19/2025 Generated for Fatou costa/Malik/Zo on: 0 06/02/2025 02:17 PM EDT History and Physical Notes * Examination Category [...]
--- OUTSIDE RECORDS SUMMARY | 2025-02-23 10:30 | XMS_ITS ---
Author Organization Christopher Porter III, MD Address [address] [place] [address] [place] [address] Care Team Providers Care Steel Loader Name Role Phone Dr. Christopher Porter III [...] Problem Status W/U Status Risk Notes Problem [id number] Chronic cough (R05.3) Active confirmed She says [...] Date Provider Diagnosis Christopher Porter III, MD [address] [place] [address] [address] [place], [place] [address] 02/23/2025 Christopher Porter Other and unspecifie d [...] HCl 500 MG TAKE 1 TABLET BY [facility] ONCE DAILY WITH A MEAL Valsartan 40 MG 1 tablet Orally Once a day 08/06/2023 Triamterene-HCTZ 75-50 MG TAKE 1 TABLET BY MOUTH IN THE MORNING Atorvastatin Calcium 10 MG Take 1 tablet by mouth once daily Omeprazole 20 MG Take 1 capsule by [facility] twice daily Levothyroxine Sodium 100 MCG TAKE [...] Provider Name:Christopher Porter , 09/01/2025 02:00:00 PM, [address] [place] [address] [address], [place], [address], Provider Name:Christopher Porter , 10/26/2025 02:00:00 PM, [address] [place] [address] [address], [place], [address], Progress Notes * IVAN, CharleneDOB:[birth year] (69 yo F)Acc No.[id number]:02/23/2025 Progress Notes Patient: Laura KWON Provider: Pat Porter MD :1955 A ge:69 Y S ex:Female Date:02/23/2025 Phone: Address:[address] [place] [address] , [facility], [id number] Subjective: * Chief Complaints: * D yspnea on exertionLumbar pain radiating down both legsChronic fatigueConstant chronic cough * HPI: C OVID-19 Screening: S he returns for a scheduled visit for comprehensive medical management. 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 [...] leg pain . She has been to [facility] spine and sports rehabilitation. They would like [...] Surgical History: r ight breast biopsy 2002colonoscopy [id number], oophorectomy, cyst, Dr. Galo 12/2019right breast lumpectomy [...] x-cigarette smoker S he was born in [place]. She has been to [place] for 40 years and has 3 children. 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 * Medications: T akingOmeprazole 20 MG [...] 0 02/23/2025 Generated for Fatou costa/Malik/eTransmitting on: 0 06/02/2025 02:17 PM EDT History [...] RECTAL EXAM: not examined PSYCH: alert, oriented, metal control coordinator perative with exam, cognitive function intact, thought process logical, goal directed, speech clear ORAL CAVITY: normal, unremarkable
--- OUTSIDE RECORDS SUMMARY | 2025-03-04 09:48 | XMS_ITS ---
Author Organization Christopher Porter III, MD Address [address] [place] [address] [place] [address] Care Team Providers Care Patient Relations Liaison Name Role Phone Dr. Christopher Porter III Primary Care Provider [phone] Reason For Referral Reason evaluate for home [...] AM > I called Dr Golden office [phone] spoke to Dori mixon patient appt on 03/24/2025 at 3:45pm . information called and mailed to patient . Referral Priority Routine Referral Appointment Date 03/24/2025 REASON FOR VISIT Zepbound denial from [facility] Social History Sex Assigned At : Social History Observation Description Sex Assigned At Female Encounters Encounter Location Date Provider Diagnosis Christopher Porter III, MD [address] [place] [address] [place] [address] 03/04/2025 Christopher Porter Plan Of Treatment Referrals Referral Date Details 03/04/2025 03/04/2025, evaluate for home sleep study obesity /daytime somnolence snoring/fatigue needs sleep study showing sleep apnea to qualify for GLP-1, ANDRAE GOLDEN Next Appt Details Provider Name:Christopher Porter , 09/01/2025 02:00:00 PM, [address] [place] [address] [place], [address], Provider Name:Christopher Porter , 10/26/2025 02:00:00 PM, [address] [place] [address] [address], [place], [address], Progress Notes * IVANJaxOB:[birth year] (69 yo F)Acc No.[id number]:03/04/2025 Patient: Laura KWON :1955 A ge:69 Y S ex:Female Phone: Address:[address] [place] [address] , [place] [address] Subjective: * Chief Complaints: * Z epbound [...]
--- OUTSIDE RECORDS SUMMARY | 2025-05-27 07:00 | XMS_ITS ---
Author Organization Christopher Porter III, MD Address [address] [place] [address] [place] [address] Care Team Providers Care Editor Dictionary Name Role Phone Dr. Christopher Porter III [...] Provider Speciality Internal M edicine Referred Provider [place] ([place]) Referred Provider Specialty Orthopedic S urgery General [...] Date Provider Diagnosis Christopher Porter III, MD [address] [place] [address] DR [place], [place] [id number] 05/27/2025 Christopher Porter Other and unspecifie d [...] Treat Right hip Pain, [facility] Appt Details Follow Up: 3 Months, Reason: OV Provider Name:Christopher Porter , 09/01/2025 02:00:00 PM, [address] [place] [address] [place], [phone], Provider Name:Christopher Porter , 10/26/2025 02:00:00 PM, [address] [place] [address] [place], [phone], Progress Notes * Jax NIEVESOB:[birth year] (69 yo F)Acc No.[id number]:05/27/2025 Progress Notes Patient: [place] KWON Provider: Pat Porter MD :1955 A ge:69 Y S ex:Female Date:05/27/2025 Phone: Address:[address] [place] [address] , [place], [phone] Subjective: * Chief Complaints: * H yperlipidemiaDepressionCervical radiculopathyHypothyroidismBilateral sciaticaDiabetesCarcinoma of the right breast * HPI: C OVID-19 Screening: She returns for a scheduled medical management. She says she is feeling terrible. She continues to have back pain despite treatment at [facility]. She has pain in [...] Surgical History: r ight breast biopsy 2002colonoscopy [id number], oophorectomy, cyst, Dr. Galo 12/2019right breast lumpectomy [...] x-cigarette smoker S he was born in [place]. She has been to [place] for 40 years and has 3 children. 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 * Medications: T akingOmeprazole 20 MG [...] MEAL. & #160; Referral To:[facility] Reason:Evaluate and Treat Right [...] 0 05/27/2025 Generated for Fatou costa/Malik/Reeitting on: 06/02/2025 02:18 PM EDT History and Physical Notes * [...] Provider Not hola 05/27/2025 Christopher Porter Ort [facility] ([place]) Evaluate and Treat Right hip Pain
--- OUTSIDE RECORDS SUMMARY | 2025-06-01 12:24 | XMS_ITS ---
Author Organization Christopher Porter III, MD Address [address] [place] [address] [place] [address] Care Team Providers Care Educational Consultant Name Role Phone Dr. Christopher Porter III Primary Care Provider [phone] REASON FOR VISIT message Social History Sex Assigned At : Social History Observation Description Sex Assigned At Female Encounters Encounter Location Date Provider Diagnosis Christopher Porter III, MD [address] [place] [address] [place] [address] 06/01/2025 Christopher Porter UTI (urinary tract infection) N39.0 Assessments Encounter Date Diagnosis (ICD Code) Assessment Notes Treatment Notes Treatment Clinical Notes 06/01/2025 UTI (urinary tract infection) (ICD-10 - N39.0) Plan Of Treatment Pending Test Test Name Order Date URINALYSIS (UA) 06/01/2025 Urine Culture 06/01/2025 Next Appt Details Provider Name:Christopher Porter , 09/01/2025 02:00:00 PM, [address] [facility] [address], [place], [address], Provider Name:Christopher Porter , 10/26/2025 02:00:00 PM, [address] [place] [address] [address], [place], [address], Progress Notes * Jax NIEVESOB:[birth year] (69 yo F)Acc No.[id number]:06/01/2025 Patient: Laura KWON :1955 A ge:69 Y S ex:Female Phone: Address:[address] [place] [address] , [place] [address] Subjective: * Chief Complaints: * M essage * Medical History: * Surgical History: * Hospitalization/Major Diagno stic Procedure: * Medications: Objective: * Vitals: * Physical Examination: Assessment: * Assessment: 1. U TI (urinary tract infection) - N39.0 Plan: * Treatment: * Procedure Codes: * true * Date: Generated for Fatou costa/Malik/Reeitting on: 06/02/2025 02:17 PM EDT
--- OUTSIDE RECORDS SUMMARY | 2025-06-02 14:17 | XMS_ITS | Patient Health Record ---
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) Active confirmed Plan Of Treatment Pending Test Test Name Order Date X ray : Foot, right 2V 03/20/2018 X ray : Foot, left 3V 04/21/2015 [id number] TENDON SHEATH/LIGAMENT 0 04/21/2015 [id number] TENDON SHEATH/LIGAMENT 0 03/20/2018 Insurance Providers Payer Name Payer Address Payer Phone Subscriber Number Group Number Insured Name Patient Relationship to Insured Coverage Start Date Coverage End Date [employer] [place] [employer]vant[employer] [address] [facility] [address] [place] [address] [id number] Laura Nieves Self - patient is the insured Medical (General) History Medical History History ICD Code Headaches/Migraines Chicken pox Measles Surgical History Surgery Date(Month/Year) hand gall bladder appendectomy carpal tunel 02/08/2015 Hospitalization History Reason Date(Month/Year) [facility] [place] for chest pains 05/2017
--- OUTSIDE RECORDS SUMMARY | 2025-06-02 14:17 | XMS_ITS | Patient Health Record ---
Author Organization [facility] Address [address] [place] [address] Care Team Providers Care High Pressure Boiler Operator Name Role Phone Christopher Porter MD Primary Care Provider Christopher Cat Unavailable [phone] Allergies Allergen (clinical drug ingredient) Drug/Non Drug [...] Problem Status W/U Status Risk Notes Problem [id number] Encounter for screening for malignant neoplasm of colon (Z12.11) Active confirmed Problem Screening for malignant neoplasm of rectum (759925814) Encounter for screening for malignant neoplasm of rectum (Z12.12) Active confirmed Problem 56808203 Abdominal pain, epigastric (R10.13) Active confirmed Problem 418734555 Family history o f colon cancer (Z80.0) Active confirmed Problem Esophageal reflux finding (412308554) Gastroesophageal reflux (K21.9) Active confirmed Problem Diverticulosis of colon (558715357) Diverticulosis of colon (K57.30) Active confirmed Problem 467897930 Gastroesophageal reflux disease, unspecified whether esophagitis present (K21.9) Active confirmed Plan Of Treatment Future Test Test Name Order Date COLONOSCOPY 05/24/2016 UPPER GI ENDOSCOPY 05/10/2021 COLONOSCOPY 05/10/2021 Insurance Providers Payer Name Payer Address Payer Phone Subscriber Number Group Number Insured Name Patient Relationship to Insured Coverage Start Date Coverage End Date [facility] [address] [place] [phone] [id number] KATHY LOVE Self - patient is the insured Medical (General) History Medical History History ICD Code Colonoscopies 12-28-2010 and 2000 were negative except for hyperplastic polyps Denies GA,CVA,Lung disease,renal disease UTI's Depression Hypothyroidism NIDDM Colonoscopy 06/2016 was negative except for a hyperplastic polyp Resolved interstitial lung disease due t o Macrodantin--sees Dr. Gonzalez GERD Surgical History Surgery Date(Month/Year) Cholecystectomy Appendectomy Benign breast cyst Carpal tunnel-right Hand surgery on the left for arthritis [facility]
--- OUTSIDE RECORDS SUMMARY | 2025-06-02 14:18 | XMS_ITS | Patient Health Record ---
Author Organization Christopher Porter III, MD Address [address] [place] [address] [place] [address] Care Team Providers Care Heel Nailing Machine Operator Name Role Phone Dr. Christopher [...] ff Reviewed date:10/24/2024 02:15:19 PM Interpretation: Performing Lab:[facility], [address] [place] [address] Notes/Report: White Blood Count 9.5 4.8-10.8 X10*3/uL [...] Random Reviewed date:10/24/2024 02:15:19 PM Interpretation: Performing Lab:[facility], [address] [place] [phone] Notes/Report: Creatinine Urine 237.62 Microalbumin Urine 18.0 Microalbum/Creatinine Ratio Ur 7.5 <30 ug/mg cr Albumin/Creatinine Ratio Reference Ranges: Normal: < 30 ug/mg creatinine Microalbuminuria: 30 - 300 ug/mg creatinine Clinical Albuminuria: > 300 ug/mg creatinine MM tomosynthesis screening B I Reviewed date:10/26/2024 09:09:04 AM Interpretation: Performing Lab: Notes/Report: [facility] [address] [place] [address] Mammography Report Signed Patient: Laura Love MR#: [id number] : 1955 Acct:[id number] Age/Sex: 69 / F ADM Date: 10/16/24 Loc: HO.MAMMO Attending Dr: Christopher Porter MD Ordering Physician: Christopher Porter MD Results: 2Benign Findings Date of Service: 10/16/24 Follow Up: 1 Year From [facility] Mammogram Procedure(s): MM tomosynthesis screening BI Accession Number(s): [id number] cc: Christopher Porter MD EXAMINATION: MM SCREENING [...] 10/24/24 1653 DD/ 0840 TD/TT: 10/16/24 09 Arborist Climber: [facility] [address] [place] [address] Mammography Report Signed Patient: Laura Love MR#: [id number] : 1955 Acct:[id number] Age/Sex: 69 / F ADM Date: 10/16/24 Loc: HO.MAMMO Attending Dr: Christopher Porter MD Ordering Physician: Christopher Porter MD Results: 2Benign Findings Date of Service: 10/16/24 Follow Up: 1 Year From Orig ina Mammogram Procedure(s): MM tomosynthesis screening BI Accession Number(s): [id number] cc: Christopher Porter MD EXAMINATION: MM SCREENING [...] DO 10/24/2024 04:53 PM EST Dictated By: Unqiue Sandra DO Signed By: <Electronically signed by Unique Sandra DO in OV> 10/24/24 1653 DD/ 0840 TD/TT: 10/16/24899 Arborist Climber: Diabetic Eye Exam Reviewed date:10/29/2024 04:30:34 PM Interpretation:undefined Performing Lab: Notes/Report: undefined Complete Blood Count Auto Di ff Reviewed date:02/18/2025 02:00:50 PM Interpretation: Performing Lab:[facility], [address] [place] [phone] Notes/Report: White Blood Count 6.8 4.8-10.8 X10*3/uL [...] NRBC Abs Auto 0.000 0.0-0.012 X10*3/uL Comprehensive [place]. Panel Fa st Reviewed date:02/18/2025 02:00:50 PM Interpretation: Performing Lab:[facility], [address] [place] [address] Notes/Report: Sodium 142 135-145 mmol/L Potassium 4.4 [...] Panel Reviewed date:02/18/2025 02:00:50 PM Interpretation: Performing Lab:[facility], [address] [place] [phone] Notes/Report: Triglycerides 147 <150 mg/dL Desirable Triglyceride: [...] Provider Speciality Internal M edicine Referred Provider [facility] Referred Provider Specialty Physical Med icijoann General Notes DMaria T 12/01/2024 09:28:03 AM > Referral and progress [...] AM > I called Dr Golden office [phone] spoke to Dori mixon patient appt on 03/24/2025 at 3:45pm . information called and mailed to patient . Referral Priority Routine Referral Appointment Date 03/24/2025 Reason Evaluate and Treat Right hip Pain Diagnosis 1 Right hip pain (M25. 551) Referral Organization Christopher Porter III, MD Referring Provider First Name Christopher Referring Provider Last Name German Referring Provider Speciality Internal M edicine Referred Provider [place] Referred Provider Specialty [facility] General Notes DMaria T 05/29/2025 03:14:01 PM > referral and progress note faxed. Referral Priority Routine Medications Medication SIG (Take, [...] Active dexAMETHasone 2 MG 1 tablet Orally a day 11/24/2024 Active Zepbound 2.5 MG/0.5ML 0.5 mL Subcutaneou s weekly 02/23/2025 Active Omeprazole 20 MG Take 1 capsule by mo uth twice daily Active metFORMIN HCl 500 MG TAKE 1 TABLET BY MO UTH ONCE DAILY WITH A MEAL Active Valsartan 40 MG TAKE 1 TABLET BY DAYSI ONCE DAILY Active Atorvastatin Calcium 10 MG [...] Problem Status W/U Status Risk Notes Problem 3891007 Former smoker (Z87.891) Active confirmed She is highly motivated not to smoke. She has a plan for prevention of relapse and maintenance of abstinence in times of stress or illness. Problem 18760973 Hypothyroidism (E03.9) Active confirmed His thyroid function tests have been at their target. Comprehensive blood work with a fasting lipid profile and thyroid functions have been ordered Problem 56959627 Depression (F32.9) Active confirmed Her depression is stable and mild and no change in her regimen is necessary. She is discouraged that she is gaining weight and feels powerless to reverse the process. She wants to continue her antidepressant as she perceives a significant benefit, even if it makes it harder to lose weight. Problem 109136758 Lumbar radiculopathy (M54.16) Active confirmed She is beginning to improve and will continue on current medications. She will see the rehabilitation physician tomorrow. 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 She was no sign of disease recurrence or new primary today. Problem 707735859 Obesity (BMI 30-39.9) (E66.9) Active confirmed Is +5 pound s through diet. We reviewed her diet and her weight loss strategy and her nutrition. We made a plan to continue weight loss that her rate of one half of a pound per week. Problem 52522189 Other and unspecified hyperlipidemia (E78.5) Active confirmed Her lipids have been well controlled. Comprehensive blood work has been ordered prior to the next visit which will include a fasting lipid profile. Problem 22103390 Right sided sciatica (M54.31) Active confirmed She does not wish to have another injection. We will continue therapy this time with heat and rest and dexamethasone. 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 Problem 68569235 Cervical nerve root impingement (G54.2) Active confirmed This pain has resolved for the time being. I have advised her against heavy exertion. Problem 140589089 Panic attacks (F41.0) Active confirmed She has occasional panic attacks but they do not last long. They have improved substantially over previous years. Problem 726845452 Hyperplastic colon polyp (K63.5) Active confirmed She will undergo colonoscopy at regular intervals. Problem 616593863 Interstitial lung disease (J84.9) Active confirmed She recently saw pulmonary. A CT scan of the chest was done and reportedly negative. Pulmonary function test are pending. She is being treated by her clinical pharmacy specialist for interstitial lung disease. Problem 38062388 Left sided sciatica (M54.32) Active confirmed The sciatica has completely resolved and is no longer troubling her. Problem Type II diabetes mellitus without complication (154425196) Type 2 diabetes mellitus without complication, without long-term current use of insulin (E11.9) Active confirmed He appears t o be stable. Her medications were continued. No change in her regimen was needed. Problem 622726094 Osteopenia, unspecified location (M85.80) Active confirmed She will continue on calcium carbonate and vitamin D. She has stopped the letrozole. If she begins anastrozole. She will need frequent bone density determinations and possibly alendronate. Problem 45273425 Chronic cough (R05.3) Active confirmed She says [...] Date Provider Diagnosis Christopher Porter III, MD [address] [place] [address] [place] [address] 10/24/2024 Christopher Porter Lumbar radiculopathy M54.16 ; [...] and Obesity E66.9 Christopher Porter III, MD [address] [place] [address] [place] [address] 11/24/2024 Christopher Porter Lumbar radiculopathy M54.16 ; Right sided sciatica M54.31 ; Other and unspecified hyperlipidemia E78.5 ; Depression F32.9 ; Former smoker Z87.891 and Atypical ductal hyperplasia, breast N60.99 Christopher Porter III, MD [address] [place] [address] [place] [address] 11/27/2024 Christopher Porter Lumbar radiculopathy M54.16 ; Other and unspecified hyperlipidemia E78.5 ; Depression F32.9 ; Former smoker Z87.891 ; Panic attacks F41.0 ; Hypothyroidism E03.9 ; Cervical nerve root impingement G54.2 ; Type 2 diabetes mellitus without complication, without long-term current use of insulin E11.9 and Malignant neoplasm of upper-inner quadrant of right female breast C50.211 Christopher Porter III, MD [address] [place] [address] [place] [phone] 12/03/2024 Christopher Porter Lumbar radiculopathy M54.16 ; Depression F32.9 ; Former smoker Z87.891 ; Hypothyroidism E03.9 ; Cervical nerve root impingement G54.2 ; Type 2 diabetes mellitus without complication, without long-term current use of insulin E11.9 and Obesity E66.9 Christopher Porter III, MD [address] [place] [address] [place] [id number] 01/19/2025 Christopher Porter Other and unspecifie d hyperlipidemia E78.5 ; Hypothyroidism E03.9 ; Right sided sciatica M54.31 ; Interstitial lung disease J84.9 ; Malignant neoplasm of upper-inner quadrant of right female breast C50.211 ; Obesity (BMI 30-39.9) E66.9 ; Osteopenia, unspecified location M85.80 ; Lumbar radiculopathy M54.16 and Former smoker Z87.891 Christopher Porter III, MD [address] [place] [address] [place] [address] 02/23/2025 Christopher Porter Other and unspecifie d hyperlipidemia E78.5 ; Chronic cough R05.3 ; Former smoker Z87.891 ; Depression F32.9 ; Hypothyroidism E03.9 ; Atypical ductal hyperplasia, breast N60.99 ; Type 2 diabetes mellitus without complication, without long-term current use of insulin E11.9 ; Obesity E66.9 ; Lumbar radiculopathy M54.16 and Osteopenia, unspecified location M85.80 Christopher Porter III, MD [address] [place] [address] [place] [id number] 05/27/2025 Christopher Porter Other and unspecifie d hyperlipidemia E78.5 ; Type 2 diabetes mellitus without complication, without long-term current use of insulin E11.9 ; Hypothyroidism E03.9 ; Obesity (BMI 30-39.9) E66.9 ; Depression F32.9 ; Former smoker Z87.891 ; Cervical nerve root impingement G54.2 ; Lumbar radiculopathy M54.16 and Chronic cough R05.3 Christopher Porter III, MD [address] [place] [address] [place] [id number] 03/04/2025 Christopher Porter III, MD [address] [place] [address] [place] [address] 08/13/2024 Christopher Porter III, MD [address] [place] [address] [place] [address] 08/13/2024 Christopher Porter III, MD [address] [place] [address] [place] [address] 06/01/2025 Christopher Porter UTI (urinary tract infection) [...] No change in her regimen was needed. 06/01/2025 UTI (urinary tract infection) (ICD-10 - N39.0) 10/24/2024 Other and unspecified hyperlipidemia (ICD-10 - [...] pending. She is being treated by her clinical pharmacy specialist for interstitial lung disease. 02/23/2025 Depression [...] a referral to the [facility] clinic at [facility]. 02/23/2025 Atypical ductal hyperplasia, breast (ICD-10 - [...] pending. She is being treated by her clinical pharmacy specialist for interstitial lung disease. 11/27/2024 Cervical [...] (BNP) 02/24/20 25 CBC w DIFF 05/27/2025 URINALYSIS (UA) 06/01/2025 XR CHEST 2 VIEW PA & LAT 05/22/2022 XR CHEST 2 VIEW PA & LAT 02/23/2025 XR SACRUM &/OR COCCYX 05/20/2021 XR SHOULDER RT 2 VIEWS 12/23/2021 US ARM RT VENOUS DOPPLER 06/22/2021 Echocardiogram 05/22/2022 Stress Test 05/22/2022 [facility] 06/04[facility]20 [facility] 02/01/20 17 [facility] 08/02/20 17 [facility] 08/02/20 17 [facility] BRE[facility] 11/26/19 19 US BREAST RIGHT ([facility]) 019 US BREAST RIGHT ([facility]) 019 CBC WITH AUTO DIFF 10/24/2024 CBC WITH AUTO DIFF 05/28/2024 Lipid Panel 05/27/2025 Lipid Panel 10/24/2024 Lipid Panel 05/28/2024 Free T4 (Free Thyroxine) 02/23/2025 Free T4 (Free Thyroxine) 05/27/2025 Microalbumin, Random 05/28/2024 Microalbumin, Random 02/23/2025 Urine Culture 06/01/2025 MM tomosynthesis diagnostic BI Hemoglobin A1c 05/28/2024 Hemoglobin A1c 02/23/2025 Next Appt Details Provider Name:Christopher Porter , 09/01/2025 02:00:00 PM, [address] [facility] [address], [place], [address], Provider Name:Christopher Porter , 10/26/2025 02:00:00 PM, [address] [place] [address] [address], [address], [place], [phone], Insurance Providers Payer Name Payer Address Payer Phone Subscriber Number Group Number Insured Name Patient Relationship to Insured Coverage Start Date Coverage End Date [facility] [address] [facility] [address] [facility] [place] [phone] [id number] Lizbeth MansiLaura Self - patient is the insured MEDICARE NGS [address] [place] [phone] [id number] Shan Lovee Self - patient is the insured Medical (General) History Medical History History ICD Code atypical hyperplasia right breast 2001 recurrent pyelonephritis depression anxiety Panic attacks klebsiella urosepsis hyperplastic colonic polyp 2010 [id number] stage IA er+pr+her- invasive ductal right breast cancer June 2021 hypothyroid bilateral ovarian cysts, hysterectomy in December 2019 diabetes hyperlipidemia Surgical History Surgery Date(Month/Year) injections in her back right breast lumpectomy 07/24 hysterectomy, oophorectomy, cyst, Dr. Saini ddad 12/2019 colonoscopy right breast biopsy 2001 Hospitalization History Reason Date(Month/Year) No history
[2025-06-02 14:34] LABS: Appearance Urine Clear; Glucose Urine UA Negative (Negative); PH 6.5 (5.0-9.0); Specific Gravity - Urine 1.015 (1.005-1.025); UMIC TRIGGER UA YES
== END ==
LOC: HO.SL 13:04
PROVIDERS: Absent Provider Internal Medicine Medical Oncology; PCP Internal Medicine Medical Oncology; Visit Provider Internal Medicine
DX: G47.33 Obstructive sleep apnea (adult) (pediatric) (principal); E66.9 Obesity, unspecified; R40.0 Somnolence; N39.0 Urinary tract infection, site not specified
CPT/HCPCS: 81001; 81003; 87086; 95806

== ENCOUNTER → 2025-06-02 13:24 | Outpatient (BNV) | payer MEDICARE, SELFPAY | PROVIDERS: Absent Provider Internal Medicine Medical Oncology; PCP Internal Medicine Medical Oncology; Visit Provider Internal Medicine | DX: G47.33 Obstructive sleep apnea (adult) (pediatric) (principal) | CPT/HCPCS: 95806 ==

== ENCOUNTER 2025-06-04 11:01 | Outpatient (AMB) | payer MEDICARE, SELFPAY ==
--- OUTSIDE RECORDS SUMMARY | 2025-02-23 10:30 | XMS_ITS ---
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 Christopher Porter III [...] Problem Status W/U Status Risk Notes Problem [id number] Chronic cough (R05.3) Active confirmed She says [...] Date Provider Diagnosis Christopher Porter III, MD [address] [place] [address] [address] [place], [place] [address] 02/23/2025 Christopher Porter Other and unspecifie d [...] HCl 500 MG TAKE 1 TABLET BY [facility] ONCE DAILY WITH A MEAL Valsartan 40 MG 1 tablet Orally Once a day 08/06/2023 Triamterene-HCTZ 75-50 MG TAKE 1 TABLET BY MOUTH IN THE MORNING Atorvastatin Calcium 10 MG Take 1 tablet by mouth once daily Omeprazole 20 MG Take 1 capsule by [facility] twice daily Levothyroxine Sodium 100 MCG TAKE [...] Provider Name:Christopher Porter , 09/01/2025 02:00:00 PM, [address] [place] [address] [address], [place], [address], Provider Name:Christopher Porter , 10/26/2025 02:00:00 PM, [address] [place] [address] [address], [place], [address], Progress Notes * IVAN, CharleneDOB:[birth year] (69 yo F)Acc No.[id number]:02/23/2025 Progress Notes Patient: Laura KWON Provider: Pat Porter MD :1955 A ge:69 Y S ex:Female Date:02/23/2025 Phone: Address:[address] [place] [address] , [facility], [id number] Subjective: * Chief Complaints: * D yspnea on exertionLumbar pain radiating down both legsChronic fatigueConstant chronic cough * HPI: C OVID-19 Screening: S he returns for a scheduled visit for comprehensive medical management. 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 [...] leg pain . She has been to [facility] spine and sports rehabilitation. They would [...] Surgical History: r ight breast biopsy 2002colonoscopy [id number], oophorectomy, cyst, Dr. Galo 12/2019right breast lumpectomy [...] x-cigarette smoker S he was born in [place]. She has been to [place] for 40 years and has 3 children. 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 * Medications: T akingOmeprazole 20 MG [...] 02/23/2025 Generated for Fatou costa/Malik/eTransmitting on: 1 12:54 PM EDT History and Physical Notes * HPI [...] RECTAL EXAM: not examined PSYCH: alert, oriented, human resources benefits coordinator perative with exam, cognitive function intact, thought process logical, goal directed, speech clear ORAL CAVITY: normal, unremarkable
--- OUTSIDE RECORDS SUMMARY | 2025-03-04 09:48 | XMS_ITS ---
Author Organization Christopher Porter III, MD Address [address] [place] [address] [place] [address] Care Team Providers Care Nuclear Fuel Enrichment Technician Name Role Phone Dr. Christopher Porter III [...] Provider Specialty Pulmonary Di seases General Notes Vanige Rosenberg CMA 03/05 10:08:14 AM > I called Dr Golden office [phone] spoke to Dori mixon patient appt on 03/24/2025 at 3:45pm . information called and mailed to patient . Referral Priority Routine Referral Appointment Date 03/24/2025 REASON FOR VISIT Zepbound denial from [facility] Social History Sex Assigned At : Social History Observation Description Sex Assigned At Female Encounters Encounter Location Date Provider Diagnosis Christopher Porter III, MD [address] [place] [address] [place] [address] 03/04/2025 Christopher Porter Plan Of Treatment Referrals Referral Date Details 03/04/2025 03/04/2025, evaluate for home sleep study obesity /daytime somnolence snoring/fatigue needs sleep study showing sleep apnea to qualify for GLP-1, ANDRAE GOLDEN Next Appt Details Provider Name:Christopher Porter , 09/01/2025 02:00:00 PM, [address] [place] [address] [place], [address], Provider Name:Christopher Porter , 10/26/2025 02:00:00 PM, [address] [place] [address] [address], [place], [address], Progress Notes * IVANJaxOB:[birth year] (69 yo F)Acc No.[id number]:03/04/2025 Patient: Laura KWON :1955 A ge:69 Y S ex:Female Phone: Address:[address] [place] [address] , [place] [address] Subjective: * Chief Complaints: * Z epbound [...]
--- OUTSIDE RECORDS SUMMARY | 2025-05-27 07:00 | XMS_ITS ---
Author Organization Christopher Porter III, MD Address [address] [place] [address] [place] [address] Care Team Providers Care Actuarial Clerk Name Role Phone Dr. Christopher Porter III Primary Care Provider [phone] Allergies Allergen (clinical drug ingredient) Drug/Non Drug [...] Provider Speciality Internal M edicine Referred Provider [place], [facility] ([place]) Referred Provider Specialty Orthopedic S urgery General Notes D, Maria T 05/29/2025 03:14:01 PM > referral and progress note faxed. Referral Priority Routine REASON FOR VISIT Hyperlipidemia, [...] Provider Diagnosis Christopher Porter III, MD [address] [place] [address] [address] [place], [place] [phone] 05/27/2025 Christopher Porter Other and unspecifie d [...] 1 capsule by mo uth twice daily predniSONE Lisinopril 10 MG 1 [...] 1 TABLET BY DAYSI TH ONCE DAILY Atorvastatin Calcium 10 MG TAKE [...] Treat Right hip Pain, [facility] Appt Details Follow Up: 3 Months, Reason: OV Provider Name:Christopher Porter , 09/01/2025 02:00:00 PM, [address] [place] [address] [place], [address], Provider Name:Christopher Porter , 10/26/2025 02:00:00 PM, [address] [place] [address] [place], [address], Progress Notes * Jax NIEVESOB:[birth year] (69 yo F)Acc No.[id number]:05/27/2025 Progress Notes Patient: Laura KWON Provider: Pat Porter MD :1955 A ge:69 Y S ex:Female Date:05/27/2025 Phone: Address:[address] [place] [address] , [place], [id number] Subjective: * Chief Complaints: * H yperlipidemiaDepressionCervical radiculopathyHypothyroidismBilateral sciaticaDiabetesCarcinoma of the right breast * HPI: C OVID-19 Screening: She returns for a scheduled medical management. She says she is feeling terrible. She continues to have back pain despite treatment at [facility]. She has pain in [...] Surgical History: r ight breast biopsy 2002colonoscopy [id number], oophorectomy, cyst, Dr. Galo 12/2019right breast lumpectomy [...] x-cigarette smoker S he was born in [place]. She has been to [place] for 40 years and has 3 children. 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 * Medications: T akingOmeprazole 20 MG Capsule [...] MEAL. & #160; Referral To:[facility] Orthopedic Surgery Reason:Evaluate and Treat Right hip [...] 05/27/2025 Generated for Fatou costa/Malik/Reeitting on: 1 12:55 PM EDT History and Physical Notes * [...] Referral Date Referring Provider Referred Provider Not hola 05/27/2025 Christopher Porter Ort [facility] ([place]) Evaluate and Treat Right hip Pain
--- OUTSIDE RECORDS SUMMARY | 2025-06-01 12:24 | XMS_ITS ---
Author Organization Christopher Porter III, MD Address [address] [place] [address] [place] [address] Care Team Providers Care Gang Sawyer Name Role Phone Dr. Christopher Porter III Primary Care Provider [phone] Results Component Value Reference Range Notes Urine Culture (Not yet revie wed by provider) Interpretation: Performing Lab:[facility], [address] [place] [id number] Notes/Report: Urine Culture Report Result Urine Culture > 100,000 cfu/ml Urine Culture Mixed bacterial parker a characteristic of Urine Culture urogenital contamination. REASON FOR VISIT message Social History Sex Assigned At : Social History Observation Description Sex Assigned At Female Encounters Encounter Location Date Provider Diagnosis Christopher Porter III, MD [address] [place] [address] [place] [address] 06/01/2025 Christopher Porter UTI (urinary tract infection) N39.0 Assessments Encounter Date Diagnosis (ICD Code) Assessment Notes Treatment Notes Treatment Clinical Notes 06/01/2025 UTI (urinary tract infection) (ICD-10 - N39.0) Plan Of Treatment Pending Test Test Name Order Date URINALYSIS (UA) 06/01/2025 Urine Culture 06/01/2025 Next Appt Details Provider Name:Christopher Noriegarne , 09/01/2025 02:00:00 PM, [address] [place] [address] [address], [place], [address], Provider Name:Christopher Nguyenne , 10/26/2025 02:00:00 PM, [address] [place] [address] [address], [place], [address], Progress Notes * IVANJaxOB:10/[birth year] (69 yo F)Acc No.[id number]:06/01/2025 Patient: Laura KWON :1955 A ge:69 Y S ex:Female Phone: Address:[address] [place] [address] , [place] [address] Subjective: * Chief Complaints: * M essage * Medical History: * Surgical History: * Hospitalization/Major Diagno stic Procedure: * Medications: Objective: * Vitals: * Physical Examination: Assessment: * Assessment: 1. U TI (urinary tract infection) - N39.0 Plan: * Treatment: * Procedure Codes: * true * Date: Generated for Fatou costa/Malik/eTransmitting on: 12:54 PM EDT
--- OUTSIDE RECORDS SUMMARY | 2025-06-03 07:31 | XMS_ITS ---
Author Organization Christopher Potrer III, MD Address [address] [place] [address] [place] [address] Care Team Providers Care Lpn Private Duty Name Role Phone Dr. Christopher Porter III Primary Care Provider REASON FOR VISIT Urine Culture Results Social History Sex Assigned At : Social History Observation Description Sex Assigned At Female Encounters Encounter Location Date Provider Diagnosis Christopher Porter III, MD [address] [place] [address] [place] [address] 06/03/2025 Christopher Porter Plan Of Treatment Next Appt Details Provider Name:Christopher Porter , 09/01/2025 02:00:00 PM, [address] [place] [address] [place], [address], Provider Name:Christopher Porter , 10/26/2025 02:00:00 PM, [address] [place] [address] , [address], [place], [id number], Progress Notes * Jax NIEVESOB:[birth year] (69 yo F)Acc No.[id number]:06/03/2025 Patient: Laura KWON :1955 A ge:69 Y S ex:Female Phone: Address:[address] [place] [address] , [place] [id number] * * Date:
--- NOTE | 2025-06-04 11:09 | A.OFFVIS_ITS ---
Vital Signs 06/04/25 11:11 Height 5 ft Weight 200 lb 9.93 oz BMI 39.2 BP 130/78 Blood Pressure Location Lt brachial Position Sitting Pulse 75 Pulse Source Pulse Oximeter Pulse Oximetry (%) 96 Oxygen Delivery Method Room Air Intake Visit Reasons: COPD Intake Note: pt is here and feeling well, she is here for pft and sleep study results. Stud Driver Required: No Supervisor Power Reactor: Supervisor Power Reactor offered & declined Allergies codeine (Codeine) Allergy (Mild, Verified 06/04/25 11:28) Rash, nausea Medication List - Last Reconciled 06/04/25 by Letitia Gonazlez MD albuterol sulfate 90 mcg/actuation (ProAir HFA) 2 puffs inhalation Q4-6H PRN 30 days anastrozole 1 mg PO DAILY atorvastatin 10 mg PO DAILY calcium carbonate-vitamin D3 600 mg-5 mcg (200 unit) 1 tab PO DAILY citalopram 40 mg PO DAILY levothyroxine 100 mcg PO DAILY metformin 500 mg PO DAILY fwiptgef-upw-diip-FA-vit K-lut 8 mg iron-400 mcg-50 mcg (Centrum Silver Women) 1 tab PO DAILY naproxen 500 mg PO BID omeprazole 1 cap PO BID valsartan 40 mg PO DAILY Do you need a note to return to daycare/school/sports/work: No HPI HPI COPD: Details: This 69 years old female is here for follow-up after 2 months. She does have mild dyspnea on climbing stairs or walking fast on the level ground, but no attacks. Of wheezing or cough She uses albuterol HFA only once in a while . If she has frequent cough She remains overweight as usual and has not been able to lose much weight. She just had home-based sleep study 2 days ago which will be reviewed. Pulmonary function test performed on 05/29 shows mild small airway obstructive disorder, responding to bronchodilator therapy. 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) GERD (gastroesophageal reflux disease) Urinary tract infection Hypothyroid Pre-diabetes Hypertension Abnormal mammogram of right breast Surgical History H/O shoulder surgery Hx of colonoscopy History of lumpectomy of right breast History of hand surgery Hx of cholecystectomy History of appendectomy H/O right breast biopsy History of total hysterectomy Family History Mother History of lung cancer CHF (congestive heart failure) Sister History of colon cancer History of liver cancer Maternal Aunt Breast cancer Family/Other Breast cancer Father Heart attack Social History Household Members: Spouse Housing: House Are you a primary care management specialist to a significant other at home: Yes (PT does take care of her sister.) Do you presently have visiting nurse or other home services: No Alcohol intake: current Alcohol intake frequency: does not drink Patient Tobacco Use Status: Former Tobacco user Tobacco use type: Cigarette Cigarette Packs Per Day: 2 Years Smoked: 52 service: No Current occupational status: employed Female Reproductive History Menstrual Age of Menarche: 11 Review of Systems Const All systems reviewed & are unremarkable except as noted in HPI and below Eyes Reports no additional complaints ENT Reports no additional complaints Card Denies chest pain at rest, Denies irregular heart rhythm, Denies leg edema and Reports dyspnea on exertion (USED TO BE MILD BUT NOW IT IS INCREASED FROM BEFORE.) Resp Reports cough, Reports dyspnea on exertion (USED TO BE MILD BUT NOW IT IS INCREASED FROM BEFORE.) and Denies wheezing GI Reports no additional complaints Reports no additional complaints Musc Reports no additional complaints Skin/Breast Reports system reviewed and no additional complaints, except as documented Neuro Reports no additional complaints Psych Reports no additional complaints Endo Reports no additional complaints Aller/Immun Denies wheezing Physical Exam Vital Signs: Last Vital Signs Pulse 75 06/04/25 11:11 BP 130/78 06/04/25 11:11 Pulse Ox 96 06/04/25 11:11 Oxygen Delivery Method Room Air 06/04/25 11:11 BMI result Body Mass Index 39.2 Const General: healthy appearing, comfortable, no acute distress, alert and awake Orientation/consciousness: patient oriented x3 HEENT Head: Yes normal to inspection General nose exam: No nasal polyps present and No nasal discharge present Face and sinus: Yes sinuses nontender Mouth: oropharynx normal Throat: Yes posterior oropharynx normal Eyes General: appearance normal, both eyes and all related structures Neck Neck: Yes normal visual inspection, Yes no lymphadenopathy, Yes trachea midline and Yes no JVD Thyroid: Thyroid normal Chest Chest palpation & inspection: normal inspection of the chest, normal palpation of entire chest wall and no tenderness Resp Auscultation: clear to auscultation bilaterally, no crackles and no wheezes Cardio Palpation: normal PMI Rate: regular rate Rhythm: regular rhythm Heart sounds: no gallops and no murmurs GI Palpation (GI): Soft to palpation, nontender, No hepatosplenomegaly present and no masses Auscultation: normal bowel sounds Back/Spine/Pelvis Thoracic/Lumbar Spine: thoracic and lumbar spine normal to inspection Skin General skin exam: no rashes or lesions noted Neuro General: patient oriented x3 and no focal motor deficits Cranial nerves: Yes CN's II-XII intact bilaterally Extrem General: Yes normal to inspection, Yes no clubbing, cyanosis or edema and Yes no calf tenderness Psych Appearance: grossly normal and well kempt Speech and movement: Normal speech and movement present Results Reviewed Results Reviewed: PULMONARY FUNCTION TEST ON 05/29/2025. NO DEFINITE OBSTRUCTIVE OR RESTRICTIVE PULMONARY DISORDER. HOWEVER FEF 25-75 IS 70% WITH 47% IMPROVEMENT AFTER BRONCHODILATOR THERAPY. THIS INDICATES SMALL AIRWAY BRONCHOSPASTIC COMPONENT. HOME-BASED SLEEP STUDY ON 06/02/25 SHOWS THAT SHE HAD MILD INDER WITH TOTAL SLEEP TIME AHI 9.1, AND MOST OF THE SLEEP WAS IN SUPINE POSITION. AVERAGE O2 SAT DURING THE NIGHT 91% AND O2 SAT BELOW 88% FOR 34 MINUTES. Assessment & Plan Assessment & Plan (1) Interstitial lung disease: Comment: BACK IN 2019 SHE DID HAVE EVIDENCE OF EARLY ONSET OF INTERSTITIAL LUNG DISEASE IN THE LOWER LOBES, AN EARLY MANIFESTATION OF MACRODANTIN CAUSED INTERSTITIAL LUNG DISEASE, WHICH RESOLVED AFTER STOPPING MACRODANTIN. HAS HAD NO RECURRENCE OF COUGH OR WHEEZING. Code(s): J84.9 - Interstitial pulmonary disease, unspecified Category: Medical Plan: ILD IS NOT ANY ISSUE AT THIS TIME. PATIENT STILL ADVISED TO KEEP ON DOING DEEP BREATHING. EXERCISES 3 TIMES A DAY (2) Dyspnea on exertion: Comment: SHE GETS SHORT OF BREATH ON WALKING AROUND DUE TO COMBINATION OF FACTORS, HER MAIN COMPLAINT IS THAT SHE IS GETTING MORE SHORT OF BREATH ON EXERTION. I THINK THIS COINCIDES WITH WEIGHT GAIN, MINIMAL DEGREE OF INTERSTITIAL LUNG DISEASE, AND MILD SMALL AIRWAY OBSTRUCTIVE DISORDER. Code(s): R06.09 - Other forms of dyspnea Category: Medical Plan: ADVISE THAT SHE CAN USE ALBUTEROL 2 PUFFS Q 6 HOURS P.R.N. . ADVISED THAT DOING DEEP BREATHING EXERCISES WOULD BE HELPFUL (3) INDER (obstructive sleep apnea): Comment: SHE STILL HAS DIFFICULTY IN GETTING IS SOLID SLEEP AT NIGHT. SHE REMAINS SOMEWHAT TIRED AND SLEEPY DURING THE DAYTIME. SLEEP STUDY SHOWS MILD OBSTRUCTIVE SLEEP APNEA WHICH IS MOSTLY IN SUPINE POSITION. THERE IS ALSO MILD NOCTURNAL HYPOXEMIA. Code(s): G47.33 - Obstructive sleep apnea (adult) (pediatric) Category: Medical Plan: TREATMENT OPTIONS DISCUSSED WITH THE PATIENT, INCLUDING SIGNIFICANT WEIGHT LOSS AND ALSO TRYING TO SLEEP IN LATERAL POSITION. HOWEVER PATIENT WOULD NOT BE ABLE TO LOSE MUCH WEIGHT, AND SHE IS NOT SURE IF SHE CAN AVOID SLEEPING IN SUPINE POSITION. ALSO BECAUSE SHE HAS NOCTURNAL HYPOXEMIA, SHE IS RELATIVELY SYMPTOMATIC. SO SHE HAS DECIDED TO OPT FOR CPAP THERAPY. CPAP THERAPY WITH AUTO PAP MODE, PRESSURE SETTING 6-20 CM WILL BE STARTED. SHE WILL BE MONITORED CLOSELY FOR COMPLIANCE AND BENEFITS. (4) Nocturnal hypoxemia: Comment: DURING THE SLEEP STUDY HER O2 SAT AT NIGHT WAS RELATIVELY IN THE LOW RANGE , AND FOR 34 MINUTES IT WAS BELOW 88%. THIS IS PART OF SLEEP APNEA, AND HOPEFULLY WILL IMPROVE WITH THE USE OF CPAP Code(s): G47.34 - Idiopathic sleep related nonobstructive alveolar hypoventilation Category: Medical Plan: EXPLAINED TO THE PATIENT AND PATIENT IS KEEN TO USE THE CPAP. Medications: Refilled albuterol sulfate 90 mcg/actuation (ProAir HFA) 2 puffs inhalation Q4-6H PRN 8.5 grams 2RF shortness of breath or wheezing 30 days Coding Level of Care Code Est Pt Level 3 (56168) Diagnoses Interstitial lung disease J84.9 Dyspnea on exertion R06.09 INDER (obstructive sleep apnea) G47.33 Nocturnal hypoxemia G47.34
[2025-06-04 11:11] VITALS: BP 130/78; PULSE 75; O2SAT 96; BMI 39.2
--- OUTSIDE RECORDS SUMMARY | 2025-06-04 12:54 | XMS_ITS | Patient Health Record ---
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) Active confirmed Plan Of Treatment Pending Test Test Name Order Date X ray : Foot, right 2V 03/20/2018 X ray : Foot, left 3V 04/21/2015 [id number] TENDON SHEATH/LIGAMENT 0 04/21/2015 [id number] TENDON SHEATH/LIGAMENT 0 03/20/2018 Insurance Providers Payer Name Payer Address Payer Phone Subscriber Number Group Number Insured Name Patient Relationship to Insured Coverage Start Date Coverage End Date [employer] [place] [employer] [address] [facility] [address] [place] [address] [id number] Laura Nieves Self - patient is the insured Medical (General) History Medical History History ICD Code Headaches/Migraines Chicken pox Measles Surgical History Surgery Date(Month/Year) hand gall bladder appendectomy carpal tunel 02/08/2015 Hospitalization History Reason Date(Month/Year) [facility] for chest pains 05/2017
--- OUTSIDE RECORDS SUMMARY | 2025-06-04 12:55 | XMS_ITS | Patient Health Record ---
Author Organization [facility] Address [address] [place] [address] Care Team Providers Care Magnetic Prospector Name Role Phone Christopher Porter MD Primary Care Provider Christopher Cat Unavailable [phone] Allergies Allergen (clinical drug ingredient) Drug/Non Drug [...] Problem Status W/U Status Risk Notes Problem [id number] Encounter for screening for malignant neoplasm of colon (Z12.11) Active confirmed Problem Screening for malignant neoplasm of rectum (625676901) Encounter for screening for malignant neoplasm of rectum (Z12.12) Active confirmed Problem 12059838 Abdominal pain, epigastric (R10.13) Active confirmed Problem 939029759 Family history o f colon cancer (Z80.0) Active confirmed Problem Esophageal reflux finding (189388962) Gastroesophageal reflux (K21.9) Active confirmed Problem Diverticulosis of colon (464770986) Diverticulosis of colon (K57.30) Active confirmed Problem 061696375 Gastroesophageal reflux disease, unspecified whether esophagitis present (K21.9) Active confirmed Plan Of Treatment Future Test Test Name Order Date COLONOSCOPY 05/24/2016 UPPER GI ENDOSCOPY 05/10/2021 COLONOSCOPY 05/10/2021 Insurance Providers Payer Name Payer Address Payer Phone Subscriber Number Group Number Insured Name Patient Relationship to Insured Coverage Start Date Coverage End Date [facility] [address] [place] [phone] [id number] KATHY LOVE Self - patient is the insured Medical (General) History Medical History History ICD Code Colonoscopies 12-28-2010 and 2000 were negative except for hyperplastic polyps Denies [place],CVA,Lung disease,renal disease UTI's Depression Hypothyroidism NIDDM Colonoscopy 06/2016 was negative except for a hyperplastic polyp Resolved interstitial lung disease due t o Macrodantin--sees Dr. Gonzalez GERD Surgical History Surgery Date(Month/Year) Cholecystectomy Appendectomy Benign breast cyst Carpal tunnel-right Hand surgery on the left for arthritis [facility]
--- OUTSIDE RECORDS SUMMARY | 2025-06-04 12:56 | XMS_ITS | Patient Health Record ---
Author Organization Christopher Porter III, MD Address [address] [place] [address] [place] [address] Care Team Providers Care Quality Control Systems Manager Name Role Phone Dr. Christopher Porter III Primary Care Provider [phone] Allergies Allergen (clinical drug ingredient) Drug/Non Drug [...] 1.3 BLD Negative Negative - Menstrating No Urine Culture (Not yet revie wed by provider) Interpretation: Performing Lab:[facility], [address] [place] [phone] Notes/Report: Urine Culture Report Result Urine Culture > 100,000 cfu/ml Urine Culture Mixed bacterial parker a characteristic of Urine Culture urogenital contamination. Complete Blood Count Auto Di ff Reviewed date:10/24/2024 02:15:19 PM Interpretation: Performing Lab:[facility], [address] [place] [phone] Notes/Report: White Blood Count 9.5 4.8-10.8 X10*3/uL [...] Random Reviewed date:10/24/2024 02:15:19 PM Interpretation: Performing Lab:[facility], [address] [facility], [place] [address] Notes/Report: Creatinine Urine 237.62 Microalbumin Urine 18.0 Microalbum/Creatinine Ratio Ur 7.5 <30 ug/mg cr Albumin/Creatinine Ratio Reference Ranges: Normal: < 30 ug/mg creatinine Microalbuminuria: 30 - 300 ug/mg creatinine Clinical Albuminuria: > 300 ug/mg creatinine MM tomosynthesis screening B I Reviewed date:10/26/2024 09:09:04 AM Interpretation: Performing Lab: Notes/Report: [address] [place] [address] Mammography Report Signed Patient: Laura Love MR#: [id number] : 1955 Acct:[id number] Age/Sex: 69 / F ADM Date: 10/16/24 Loc: HO.MAMMO Attending Dr: Christopher Porter MD Ordering Physician: Christopher Porter MD Results: 2Benign Findings Date of Service: 10/16/24 Follow Up: 1 Year From [facility] Mammogram Procedure(s): MM tomosynthesis screening BI Accession Number(s): [id number] cc: Christopher Porter MD EXAMINATION: MM SCREENING [...] Unique Sandra DO 10/24/2024 04:53 PM EST RP Dictated By: Unique Sandra DO Signed By: <Electronically signed by Unique Sandra DO in OV> 10/24/241652 DD/ 0840 TD/TT: 10/16/24 0900 Route Process Administrator: Veronika [facility]'s [address] [place], [place] [address] Mammography Report Signed Patient: Laura Love MR#: [id number] : 1955 Acct:[id number] Age/Sex: 69 / F ADM Date: 10/16/24 Loc: HO.MAMMO Attending Dr: Christopher Porter MD Ordering Physician: Christopher Porter MD Results: 2Benign Findings Date of Service: 10/16/24 Follow Up: 1 Year From [facility] Mammogram Procedure(s): MM tomosynthesis screening BI Accession Number(s): [id number] cc: Christopher Porter MD EXAMINATION: MM SCREENING [...] Unique Sandra DO 10/24/2024 04:53 PM EST RP Dictated By: Unique Sandra DO Signed By: <Electronically signed by Unique Sandra DO in OV> 10/24/241652 DD/ 0840 TD/TT: 10/16/24 0900 Route Process Administrator: Diabetic Eye Exam Reviewed date:10/29/2024 04:30:34 PM Interpretation:undefined Performing Lab: Notes/Report: undefined Complete Blood Count Auto Di ff Reviewed date:02/18/2025 02:00:50 PM Interpretation: Performing Lab:[facility], [address] [place] [phone] Notes/Report: White Blood Count 6.8 4.8-10.8 X10*3/uL [...] NRBC Abs Auto 0.000 0.0-0.012 X10*3/uL Comprehensive [place]. Panel Fa st Reviewed date:02/18/2025 02:00:50 PM Interpretation: Performing Lab:[facility], [address] [place] [phone] Notes/Report: Sodium 142 135-145 mmol/L Potassium 4.4 [...] Panel Reviewed date:02/18/2025 02:00:50 PM Interpretation: Performing Lab:[facility], [address] [place] [phone] Notes/Report: Triglycerides 147 <150 mg/dL Desirable Triglyceride: [...] low results in patients with liver disease. Urinalysis and Microscopic ( Not yet reviewed by provider) Interpretation: Performing Lab:[facility], [address] [place] [phone] Notes/Report: Color Urine Yellow Appearance Urine Clear PH 6.5 5.0-9.0 Glucose Urine UA Negative Negative mg/dL Urine Blood Negative Negative Specific [place] - Urine 1.015 1.005-1.025 Urine Protein Negative Neg-Trace mg/dL Urine Ketones Negative Negative mg/dL Nitrite Urine Positive Negative Leukocyte Esterase Urine Moderate (2+) Negative RBC Urine 0-2 0-2 /HPF WBC Urine 21-50 0-5 /HPF Squamous Epithelial Cell Urine 0-2 0-2 /HPF Bacteria Urine 4+ None Seen Hyaline Casts Urine 0-2 0-2 /LPF Urinalysis (Not yet reviewed by provider) Interpretation: Performing Lab:[facility], [address] [place] [phone] Notes/Report: Color Urine Yellow Appearance Urine Clear PH 6.5 5.0-9.0 Glucose Urine UA Negative Negative mg/dL Urine Blood Negative Negative Specific [place] - Urine 1.015 1.005-1.025 Urine Protein Negative Neg-Trace mg/dL Urine Ketones Negative Negative mg/dL Nitrite Urine Positive Negative Leukocyte Esterase Urine Moderate (2+) Negative Reason For Referral Reason Evaluate and Treat ? Injections and/or Physical Therapy Diagnosis 1 Right sided sciatica (M54.31) Diagnosis 2 Back pain (M54.9) Referral Organization Christopher Porter III, MD Referring Provider First Name Christopher Referring Provider Last Name Porter Referring Provider Speciality Internal edicine Referred Provider [facility] Referred Provider Specialty Physical Med icine General [...] AM > I called Dr Golden office [phone] spoke to Dori mixon patient appt on 03/24/2025 at 3:45pm . information called and mailed to patient . Referral Priority Routine Referral Appointment Date 03/24/2025 Reason Evaluate and Treat Right hip Pain Diagnosis 1 Right hip pain (M25. 551) Referral Organization Christopher Porter III, MD Referring Provider First Name Christopher Referring Provider Last Name German Referring Provider Speciality Internal M edicine Referred Provider [place] Referred Provider Specialty [facility] General Notes DMaria T 05/29/2025 03:14:01 PM [...] Problem Status W/U Status Risk Notes Problem 0908652 Former smoker (Z87.891) Active confirmed She is highly motivated not to smoke. She has a plan for prevention of relapse and maintenance of abstinence in times of stress or illness. Problem 07198590 Hypothyroidism (E03.9) Active confirmed His thyroid function tests have been at their target. Comprehensive blood work with a fasting lipid profile and thyroid functions have been ordered Problem 26071606 Depression (F32.9) Active confirmed Her depression is stable and mild and no change in her regimen is necessary. She is discouraged that she is gaining weight and feels powerless to reverse the process. She wants to continue her antidepressant as she perceives a significant benefit, even if it makes it harder to lose weight. Problem 922109239 Lumbar radiculopathy (M54.16) Active confirmed She is beginning to improve and will continue on current medications. She will see the rehabilitation physician tomorrow. 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 She was no sign of disease recurrence or new primary today. Problem 040956193 Obesity (BMI 30-39.9) (E66.9) Active confirmed Is +5 pound s through diet. We reviewed her diet and her weight loss strategy and her nutrition. We made a plan to continue weight loss that her rate of one half of a pound per week. Problem 08094147 Other and unspecified hyperlipidemia (E78.5) Active confirmed Her lipids have been well controlled. Comprehensive blood work has been ordered prior to the next visit which will include a fasting lipid profile. Problem 51895700 Right sided sciatica (M54.31) Active confirmed She does not wish to have another injection. We will continue therapy this time with heat and rest and dexamethasone. 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 Problem 07372528 Cervical nerve root impingement (G54.2) Active confirmed This pain has resolved for the time being. I have advised her against heavy exertion. Problem 665151849 Panic attacks (F41.0) Active confirmed She has occasional panic attacks but they do not last long. They have improved substantially over previous years. Problem 371362762 Hyperplastic colon polyp (K63.5) Active confirmed She will undergo colonoscopy at regular intervals. Problem 389223826 Interstitial lung disease (J84.9) Active confirmed She recently saw pulmonary. A CT scan of the chest was done and reportedly negative. Pulmonary function test are pending. She is being treated by her visual specialist for interstitial lung disease. Problem 43051935 Left sided sciatica (M54.32) Active confirmed The sciatica has completely resolved and is no longer troubling her. Problem Type II diabetes mellitus without complication (313154512) Type 2 diabetes mellitus without complication, without long-term current use of insulin (E11.9) Active confirmed He appears t o be stable. Her medications were continued. No change in her regimen was needed. Problem 452629376 Osteopenia, unspecified location (M85.80) Active confirmed She will continue on calcium carbonate and vitamin D. She has stopped the letrozole. If she begins anastrozole. She will need frequent bone density determinations and possibly alendronate. Problem 02603879 Chronic cough (R05.3) Active confirmed She says [...] Date Provider Diagnosis Christopher Porter III, MD [address] [place] [address] [place] [address] 10/24/2024 Christopher Porter Lumbar radiculopathy M54.16 ; [...] and Obesity E66.9 Christopher Porter III, MD [address] [place] [address] [place] [address] 11/24/2024 Christopher Porter Lumbar radiculopathy M54.16 ; Right sided sciatica M54.31 ; Other and unspecified hyperlipidemia E78.5 ; Depression F32.9 ; Former smoker Z87.891 and Atypical ductal hyperplasia, breast N60.99 Christopher Porter III, MD [address] [place] [address] [place] [address] 11/27/2024 Christopher Porter Lumbar radiculopathy M54.16 ; Other and unspecified hyperlipidemia E78.5 ; Depression F32.9 ; Former smoker Z87.891 ; Panic attacks F41.0 ; Hypothyroidism E03.9 ; Cervical nerve root impingement G54.2 ; Type 2 diabetes mellitus without complication, without long-term current use of insulin E11.9 and Malignant neoplasm of upper-inner quadrant of right female breast C50.211 Christopher Porter III, MD [address] [place] [address] [place] [address] 12/03/2024 Christopher Porter Lumbar radiculopathy M54.16 ; Depression F32.9 ; Former smoker Z87.891 ; Hypothyroidism E03.9 ; Cervical nerve root impingement G54.2 ; Type 2 diabetes mellitus without complication, without long-term current use of insulin E11.9 and Obesity E66.9 Christopher Porter III, MD [address] [place] [address] [place] [address] 01/19/2025 Christopher Kamara and unspecifie d hyperlipidemia E78.5 ; Hypothyroidism E03.9 ; Right sided sciatica M54.31 ; Interstitial lung disease J84.9 ; Malignant neoplasm of upper-inner quadrant of right female breast C50.211 ; Obesity (BMI 30-39.9) E66.9 ; Osteopenia, unspecified location M85.80 ; Lumbar radiculopathy M54.16 and Former smoker Z87.891 Christopher Porter III, MD [address] [place] [address] [place] [address] 02/23/2025 Christopher Kamara and unspecifie d hyperlipidemia E78.5 ; Chronic cough R05.3 ; Former smoker Z87.891 ; Depression F32.9 ; Hypothyroidism E03.9 ; Atypical ductal hyperplasia, breast N60.99 ; Type 2 diabetes mellitus without complication, without long-term current use of insulin E11.9 ; Obesity E66.9 ; Lumbar radiculopathy M54.16 and Osteopenia, unspecified location M85.80 Christopher Porter III, MD [address] [place] [address] [place] [address] 05/27/2025 Christopher Kamara and unspecifie d hyperlipidemia E78.5 ; Type 2 diabetes mellitus without complication, without long-term current use of insulin E11.9 ; Hypothyroidism E03.9 ; Obesity (BMI 30-39.9) E66.9 ; Depression F32.9 ; Former smoker Z87.891 ; Cervical nerve root impingement G54.2 ; Lumbar radiculopathy M54.16 and Chronic cough R05.3 Christopher Porter III, MD [address] [place] [address] [place] [address] 03/04/2025 Christopher Porter III, MD [address] [place] [address] [place] [address] 06/03/2025 Christopher Porter III, MD [address] [place] [address] [address] [place] [address] 08/13/2024 Christopher Porter III, MD [address] [place] [address] [address] [place], [place] [address] 08/13/2024 Christopher Porter III, MD [address] [place] [address] [address] [place] [address] 06/01/2025 Christopher Porter UTI (urinary tract infection) [...] pending. She is being treated by her visual specialist for interstitial lung disease. 02/23/2025 Depression [...] a referral to the weight-loss clinic at [facility]. 02/23/2025 Atypical ductal hyperplasia, breast (ICD-10 [...] pending. She is being treated by her visual specialist for interstitial lung disease. 11/27/2024 Cervical [...] HORMONE) 2024 BRAIN NATRIURETIC PEPTIDE (BNP) 02/24/20 CBC w DIFF 05/27/2025 URINALYSIS (UA) 06/01/2025 XR CHEST 2 VIEW PA & LAT 05/22/2022 XR CHEST 2 VIEW PA & LAT 02/23/2025 XR SACRUM &/OR COCCYX 05/20/2021 XR SHOULDER RT 2 VIEWS 12/23/2021 US ARM RT VENOUS DOPPLER 06/22/2021 Echocardiogram 05/22/2022 Stress Test 05/22/2022 US BREAST LEFT ([facility] [place]) 06/04/20 19 US BREAST LEFT [facility] 02/01/20 17 US BREAST LEFT ([facility]) 08/02/20 17 US BREAST LEFT ([facility]) 08/02/20 17 US BREAST LEFT ([facility]) 11/26/19 19 US BREAST RIGHT ([facility]) 019 US BREAST RIGHT ([facility]) 019 CBC WITH AUTO DIFF 10/24/2024 CBC WITH AUTO DIFF 05/28/2024 Urinalysis and Microscopic 06/02/2025 Urinalysis 06/02/2025 Lipid Panel 05/27/2025 Lipid Panel 10/24/2024 Lipid Panel 05/28/2024 Free T4 (Free Thyroxine) 02/23/2025 Free T4 (Free Thyroxine) 05/27/2025 Microalbumin, Random 05/28/2024 Microalbumin, Random 02/23/2025 Urine Culture 06/01/2025 MM tomosynthesis diagnostic BI Hemoglobin A1c 05/28/2024 Hemoglobin A1c 02/23/2025 Next Appt Details Provider Name:Christopher Porter , 09/01/2025 02:00:00 PM, [address] [place] [address] [address], [place], [address], Provider Name:Christopher Porter , 10/26/2025 02:00:00 PM, [facility] [address], [place], [address], Insurance Providers Payer Name Payer Address Payer Phone Subscriber Number Group Number Insured Name Patient Relationship to Insured Coverage Start Date Coverage End Date [facility] [address] [facility] [address] [facility] [place] [phone] [id number] Laura Love Self - patient is the insured MEDICARE NGS [address] [place] [phone] [id number] Laura Love Self - patient is the insured Medical (General) History Medical History History ICD Code atypical hyperplasia right breast 2001 recurrent pyelonephritis depression anxiety Panic attacks klebsiella urosepsis hyperplastic colonic polyp 2010 [id number] stage [place] er+pr+her- invasive ductal right breast cancer June 2021 hypothyroid bilateral ovarian cysts, hysterectomy in December 2019 diabetes hyperlipidemia Surgical History Surgery Date(Month/Year) injections in her back right breast lumpectomy 07/24 hysterectomy, oophorectomy, cyst, Dr. Saini ddad 12/2019 colonoscopy right breast biopsy 2001 Hospitalization History Reason Date(Month/Year) No history
== END 2025-06-04 11:30 | disposition home or self-care (01) ==
LOC: HO.HPS 11:01
PROVIDERS: PCP Internal Medicine Medical Oncology; Visit Provider Internal Medicine
DX: J84.9 Interstitial pulmonary disease, unspecified (principal); R06.09 Other forms of dyspnea; G47.33 Obstructive sleep apnea (adult) (pediatric); G47.34 Idiopathic sleep related nonobstructive alveolar hypoventilation
CPT/HCPCS: 99213

== ENCOUNTER → 2025-06-04 11:01 | Outpatient (BNVA) | payer MEDICARE, SELFPAY | PROVIDERS: PCP Internal Medicine Medical Oncology; Visit Provider Internal Medicine | DX: J84.9 Interstitial pulmonary disease, unspecified (principal); R06.09 Other forms of dyspnea; G47.33 Obstructive sleep apnea (adult) (pediatric); G47.34 Idiopathic sleep related nonobstructive alveolar hypoventilation; Z79.899 Other long term (current) drug therapy | CPT/HCPCS: 99212 ==

== ENCOUNTER 2025-07-22 14:20 | Outpatient (AMB) | payer MEDICARE, SELFPAY ==
--- OUTSIDE RECORDS SUMMARY | 2025-01-19 09:00 | XMS_ITS ---
Author Organization Christopher Porter III, MD Address [address] [place] [address] [place] [address] Care Team Providers Care Bar Host/Hostess Name Role Phone Dr. Christopher Porter III Primary Care Provider Allergies Allergen (clinical drug ingredient) Drug/Non Drug Allergy documented on EMR Reaction Allergy Type Onset Date Status Codeine Phosphate Unknown Drug Allergy Active REASON FOR VISIT Depression, Cervical radiculopathy, Hypothyroid, Diabetes, Right breast cancer, Obesity, Osteopenia, Lumbar radiculopathy with spinal stenosis Medications Medication SIG (Take, Route, Frequency, Duration) Notes Start Date End Date Status Citalopram Hydrobromide 40 MG 1 tablet Orally Once a day Active Gabapentin 300 MG 1 capsule Orally thr ees times a day 11/24/2024 Active Omeprazole 20 MG Take 1 capsule by mo uth twice daily Active dexAMETHasone 2 MG 1 tablet Orally twic e a day 11/24/2024 Active Levothyroxine Sodium 100 MCG TAKE 1 TABL ET BY MOUTH ONCE DAILY IN THE MORNING ON AN EMPTY STOMACH Active Valsartan 40 MG 1 tablet Orally Once a day 08/06/2023 Active Triamterene-HCTZ 75-50 MG TAKE 1 TABLET BY MOUTH IN THE MORNING Active Anastrozole 1 MG 1 tablet Orally Once a day Active Lisinopril 10 MG 1 tablet Orally Once a day 02/15/2023 Active predniSONE Active Atorvastatin Calcium 10 MG Take 1 tablet by mouth once daily Active metFORMIN HCl 500 MG TAKE 1 TABLET BY MO UT ONCE DAILY WITH A MEAL Active Social History Tobacco Use: Social History Observation Description Date Details (start date - stop date) Former Smoker NA - NA Sex Assigned At : Social History Observation Description Sex Assigned At Female Tobacco Control (Standard) Question Answer Notes Tobacco use: Former smoker How long has it been since you last smoked? Grea ter than 10 years Additional Findings: Tobacco non-user Ex-cigaret te smoker Vital Signs Temperature 98 degrees Fahrenheit 01/19/2025 Heart Rate 75 /min 01/19/2025 Respiratory Rate 16 /min 01/19/2025 Height 60 in 01/19/2025 Weight 205 lbs 01/19/2025 BMI 40.03 kg/m2 01/19/2025 Oximetry 97 % 01/19/2025 Encounters Encounter Location Date Provider Diagnosis Christopher Porter III, MD [address] [place] [address] [place] [address] 01/19/2025 Christopher Porter Other and unspecifie d hyperlipidemia E78.5 ; Hypothyroidism E03.9 ; Right sided sciatica M54.31 ; Interstitial lung disease J84.9 ; Malignant neoplasm of upper-inner quadrant of right female breast C50.211 ; Obesity (BMI 30-39.9) E66.9 ; Osteopenia, unspecified location M85.80 ; Lumbar radiculopathy M54.16 and Former smoker Z87.891 Assessments Encounter Date Diagnosis (ICD Code) Assessment Notes Treat ment Notes Treatment Clinical Notes 01/19/2025 Other and unspecified hyperlipidemia (ICD-10 - E78.5) Her lipids have been well controlled. No change in her medication was made. Conference of blood work with a fasting lipid profile was ordered. 01/19/2025 Hypothyroidism (ICD-10 - E03.9) Her thyroid function tests have been adequate. She is compliant with her medication which was continued. 01/19/2025 Right sided sciatica (ICD-10 - M54.31) She does not wish to have another injection. We will continue therapy this time with heat and rest and dexamethasone. 01/19/2025 Interstitial lung disease (ICD-10 - J84.9) She recently saw pulmonary. A CT scan of the chest was done and reportedly negative. Pulmonary function test are pending. She is being treated by her hearing instrument specialist for interstitial lung disease. 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 She was no sign of disease recurrence or new primary today. 01/19/2025 Obesity (BMI 30-39.9) (ICD-10 - E66.9) She has gained 9 pounds since her last visit. We reviewed her weight loss strategy. We reviewed her diet and nutrition. We made a plan to lose weight at a rate of one half of a pound per week through a diet restricted in fat calories and sodium.She agreed to a referral to the weight-loss clinic at [facility]. 01/19/2025 Osteopenia, unspecified location (ICD-10 - M85.80) She will continue on calcium carbonate and vitamin D. She has stopped the letrozole. If she begins anastrozole. She will need frequent bone density determinations and possibly alendronate. 01/19/2025 Lumbar radiculopathy (ICD-10 - M54.16) She is beginning to improve and will continue on current medications. She will see the rehabilitation physician tomorrow. 01/19/2025 Former smoker (ICD-10 - Z87.891) She is highly motivated not to smoke. She has a plan for prevention of relapse and maintenance of abstinence in times of stress or illness. Plan Of Treatment Medication Medication Name Sig Start Date Stop Date Notes Citalopram Hydrobromide 40 MG 1 tablet Orally Once a day Gabapentin 300 MG 1 capsule Orally thr ees times a day 11/24/2024 Omeprazole 20 MG Take 1 capsule by [facility] twice daily dexAMETHasone 2 MG 1 tablet Orally twice a day 11/24/2024 Levothyroxine Sodium 100 MCG TAKE 1 TABL ET BY MOUTH ONCE DAILY IN THE MORNING ON AN EMPTY STOMACH Valsartan 40 MG 1 tablet Orally Once a day 08/06/2023 Triamterene-HCTZ 75-50 MG TAKE 1 TABLET BY MOUTH IN THE MORNING Anastrozole 1 MG 1 tablet Orally Once a day Lisinopril 10 MG 1 tablet Orally Once a day 02/15/2023 predniSONE Atorvastatin Calcium 10 MG Take 1 tablet by mouth once daily metFORMIN HCl 500 MG TAKE 1 TABLET BY [facility] ONCE DAILY WITH A MEAL Next Appt Details Follow Up: As Scheduled, Ragini son: OV Provider Name:Christopher Porter , 09/01/2025 02:00:00 PM, [address] [place] [address] [address], [place], [address], Provider Name:Christopher Schwartz German , 10/26/2025 02:00:00 PM, [address] [place] [address] [address], [place], [address], Progress Notes * IVANShaneDOB:[birth year] (69 yo F)Acc No.[id number]:01/19/2025 Progress Notes Patient: Laura KWON Provider: Pat Porter MD :1955 A ge:69 Y S ex:Female Date:01/19/2025 Phone: Address:[address] [place] [address] , [place], [id number] Subjective: * Chief Complaints: * D epressionCervical radiculopathyHypothyroidDiabetesRight breast cancerObesityOsteopeniaLumbar radiculopathy with spinal stenosis * HPI: v : S he returns for management of numerous medical issues. She has been free of urosepsis and urinary tract infections. Her lumbar radiculopathy has been making it very hard to walk. She has been having significant trouble climbing stairs and doing prolonged ambulation. She removed in to her son's home recently and lives with him and her . She has beeen examining her breast and 5 pound. No new abnormalities.Her cervical radiculopathy is present and moderate. She has been compliant with all of her medications. On examination today, she came to the office walking with difficulty using a cane. * ROS: G eneral/Constitutional: pain N adrián and low back with walking. C hills d enies. F atigue a dmits. F ever d enies. E NT: Decreased hearing d enies. R espiratory: Cough d enies. C ardiovascular: Chest pain with exertion d enies. D yspnea on exertion?denies. S hortness of breath w ith exertion. G astrointestinal: Constipation o ccasional. D ecreased appetite d enies. D iarrhea d enies. H eartburn d enies. N ausea d enies. R ectal bleeding d enies. V omiting d enies. H ematology: bruising d enies. p etechiae d enies. S wollen glands n one have been noted. G enitourinary: Frequent urination a t night. M usculoskeletal: Muscle aches d enies. P ainful joints d enies. S ciatica d enies. W eakness t hat is generalized. S kin: Itching d enies. R elia d enies. S kin lesion(s)?denies. N eurologic: Difficulty speaking d enies. D izziness d enies.?Headache d enies. L ow back pain d enies. P sychiatric: Depressed mood d enies. * Medical History: * Surgical History: r ight breast biopsy 2002colonoscopy [id number], oophorectomy, cyst, Dr. Galo 12/2019right breast lumpectomy 07/24injections in her back * Hospitalization/Major Diagno stic Procedure: N o history * Family History: F ather: 60 yrs, myocardial infarction, hypertension, diabetes mellitus, diagnosed with DM, HTN. M other: 66 yrs, kidney failure, type [...] x-cigarette smoker S he was born in [place]. She has been to [place] for 40 years and has 3 children. 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 * Medications: T akingOmeprazole 20 MG [...] Tablet 1 tablet Orally twice a day Taking Omeprazole 20 MG Capsule Delayed Release Take [...] Tablet 1 tablet Orally twice a day * Allergies: C odeine Phosphate Objective: * Vitals: H t: 60, Wt:205, BMI:40.03, HR:75, RR:16, Temp:98, Oxygen sat %:97, Ht-cm: 152.4, Wt-k.99. * Examination: G eneral Examination: GENERAL APPEARANCE: p jesse, well nourished, well developed, in no acute distress, calm and relaxed, morbidly obese, woman. HEAD: a traumatic, normocephalic. EYES: e collin, perrla, anicteric, conjugate. EARS: n ormal. NOSE: s eptum intact. ORAL CAVITY: n ormal, unremarkable. NECK/THYROID: n o jugular venous distention, no carotid bruit, thyroid normal. LYMPH NODES: n o enlarged lymph nodes,spleen normal. SKIN: n o suspicious lesions, anicteric. HEART: n o clicks, gallops, murmurs, or rubs, regular rhythm, S1, S2 normal, no s3, or vascular bruits. LUNGS: c lear to auscultation . BREASTS: N ot examined. ABDOMEN: b owel sounds normal, no ascites, no organomegaly, no mass. RECTAL EXAM: n ot examined. MUSCULOSKELETAL: e xtremities unremarkable, no clubbing, cyanosis or edema, Decreased range of motion of neck and lumbar spine, pain to range of motion of neck and lumbar spine. PERIPHERAL PULSES: n ormal. NEUROLOGIC: a lert and oriented, cranial nerves 2-12 grossly intact, deep tendon reflexes 2+ symmetrical, motor strength normal upper and lower extremities, sensory exam intact, Gait is halting and unsteady and slow, uses cane. PSYCH: a lert, oriented, thought process logical, goal directed, speech clear, good eye contact, cooperative with exam, cognitive function intact. ? Assessment: * Assessment: 1. O ther and unspecified hyperlipidemia - E78.5 (Primary) N otes :Her lipids have been well controlled. No change in her medication was made. Conference of blood work with a fasting lipid profile was ordered. 2 . H ypothyroidism - E03.9 N otes :Her thyroid function tests have been adequate. She is compliant with her medication which was continued. 3 . R ight sided sciatica - M54.31 N otes :She does not wish to have another injection. We will continue therapy this time with heat and rest and dexamethasone. 4 . I nterstitial lung disease - J84.9 N otes :She recently saw pulmonary. A CT scan of the chest was done and reportedly negative. Pulmonary function test are pending. She is being treated by her hearing instrument specialist for interstitial lung disease. 5 . M alignant neoplasm of upper-inner quadrant of right female breast - C50.211 N otes :She was continued on the anastrozole. She was no sign of disease recurrence or new primary today. 6 . O besity (BMI 30-39.9) - E66.9 N otes :She has gained 9 pounds since her last visit. We reviewed her weight loss strategy. We reviewed her diet and nutrition. We made a plan to lose weight at a rate of one half of a pound per week through a diet restricted in fat calories and sodium.She agreed to a referral to the weight-loss clinic at [facility]. 7 . O steopenia, unspecified location - M85.80 N otes :She will continue on calcium carbonate and vitamin D. She has stopped the letrozole. If she begins anastrozole. She will need frequent bone density determinations and possibly alendronate. 8 . L umbar radiculopathy - M54.16 N otes :She is beginning to improve and will continue on current medications. She will see the rehabilitation physician tomorrow. 9 . F ormer smoker - Z87.891 N otes :She is highly motivated not to smoke. She has a plan for prevention of relapse and maintenance of abstinence in times of stress or illness. Plan: * Treatment: * Procedure Codes: 9 4760 MEASURE BLOOD OXYGEN LEVEL * Preventive Medicine: Counseling: C are goal follow-up plan: Counseling for abnormal BMI given Y es Above Normal BMI Follow-up D ietary management education, guidance, and counseling, Dietary needs education S moking/Tobacco Use Patient counseled on the dangers of tobacco use and urged to quit. 0 01/19/2025 DM Care Plan: P atient Lifestyle Goals P atient wants to be able to manage diabetes without too much effort. T reatment Goals B lood Sugars less than < 115, HbA1C < 7.0. B arriers n o barriers. S elf-Managment Goals W ork on weight loss, with a goal of losing 1 lb per week, Increase exercise to 3 times a week for 30 mins. * Follow Up: A s Scheduled (Reason: OV) * Images: * Sign off status: Completed true * Provider: Pat Porter MD Date: 0 01/19/2025 Generated for Fatou costa/Malik/Zo on: 09/22/2024 02:50 AM EST History and Physical Notes * Examination Category Sub-Category Detail Notes General Examination GENERAL APPEARANCE: pleasant , well nourished, well developed, in no acute distress, calm and relaxed, morbidly obese, woman HEAD: atraumatic, normocep halic EYES: eomi, perrla, anicte santosh, conjugate EARS: normal NOSE: septum intact NECK/THYROID: no jugular venous di stention, no carotid bruit, thyroid normal HEART: no clicks, gallops, murmurs, or rubs, regular rhythm, S1, S2 normal, no s3, or vascular bruits LUNGS: clear to auscultatio n ABDOMEN: bowel sounds normal, no ascites, no organomegaly, no mass NEUROLOGIC: alert and oriented, cranial nerves 2-12 grossly intact, deep tendon reflexes 2+ symmetrical, motor strength normal upper and lower extremities, sensory exam intact, Gait is halting and unsteady and slow, uses cane SKIN: no suspicious lesion s, anicteric PERIPHERAL PULSES: normal BREASTS: Not examined MUSCULOSKELETAL: extremities unremark able, no clubbing, cyanosis or edema, Decreased range of motion of neck and lumbar spine, pain to range of motion of neck and lumbar spine LYMPH NODES: no enlarged lymph no gayle,spleen normal RECTAL EXAM: not examined PSYCH: alert, oriented, tho ught process logical, goal directed, speech clear, good eye contact, cooperative with exam, cognitive function intact ORAL CAVITY: normal, unremarkable
--- OUTSIDE RECORDS SUMMARY | 2025-02-23 09:30 | XMS_ITS ---
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 Christopher Porter III Primary Care Provider [phone] Allergies Allergen (clinical drug ingredient) Drug/Non Drug Allergy documented on EMR Reaction Allergy Type Onset Date Status Codeine Phosphate Unknown Drug Allergy Active REASON FOR VISIT Dyspnea on exertion, Lumbar pain radiating down both legs, Chronic fatigue, Constant chronic cough Medications Medication SIG (Take, Route, Frequency, Duration) Notes Start Date End Date Status Gabapentin 300 MG 1 capsule Orally thr ees times a day 11/24/2024 Active dexAMETHasone 2 MG 1 tablet Orally twic e a day 11/24/2024 Active Zepbound 2.5 MG/0.5ML 0.5 mL Subcutaneou s weekly for 28 days 02/23/2025 01/25/2026 Active predniSONE Active Citalopram Hydrobromide 40 MG 1 tablet Orally Once a day Active Anastrozole 1 MG 1 tablet Orally Once a day Active Lisinopril 10 MG 1 tablet Orally Once a day 02/15/2023 Active metFORMIN HCl 500 MG TAKE 1 TABLET BY MO UTH ONCE DAILY WITH A MEAL Active Valsartan 40 MG 1 tablet Orally Once a day 08/06/2023 Active Triamterene-HCTZ 75-50 MG TAKE 1 TABLET BY MOUTH IN THE MORNING Active Atorvastatin Calcium 10 MG Take 1 tablet by mouth once daily Active Omeprazole 20 MG Take 1 capsule by mo uth twice daily Active Levothyroxine Sodium 100 MCG TAKE 1 TABLET BY MOUTH ONCE DAILY IN THE MORNING ON AN EMPTY STOMACH Active Social History Tobacco Use: Social History Observation Description Date Details (start date - stop date) Former Smoker NA - NA Sex Assigned At : Social History Observation Description Sex Assigned At Female Tobacco Control (Standard) Question Answer Notes Tobacco use: Former smoker How long has it been since you last smoked? Elizabeth ter than 10 years Additional Findings: Tobacco non-user Ex-cigaret te smoker Problems Problem Type SNOMED Code ICD Code Onset Dates Problem Status W/U Status Risk Notes Problem [id number] Chronic cough (R05.3) Active confirmed She says she has been coughing for a month often bringing up greenish yellowish are brown phlegm. I have ordered a chest x-ray to further evaluate this complaint. Her oxygen saturation today was 98%. Vital Signs Temperature 97.7 degrees Fahrenheit 02/24/20 25 Blood pressure systolic 120 mm Hg 02/24/20 25 Blood pressure diastolic 78 mm Hg 025 Heart Rate 89 /min 02/23/2025 Height 60 in 02/23/2025 Weight 204 lbs 02/23/2025 BMI 39.84 kg/m2 02/23/2025 Oximetry 98 % 02/23/2025 Encounters Encounter Location Date Provider Diagnosis Christopher Porter III, MD [address] [place] [address] [address] [place], [place] [id number] 02/23/2025 Christopher Porter Other and unspecifie d hyperlipidemia E78.5 ; Chronic cough R05.3 ; Former smoker Z87.891 ; Depression F32.9 ; Hypothyroidism E03.9 ; Atypical ductal hyperplasia, breast N60.99 ; Type 2 diabetes mellitus without complication, without long-term current use of insulin E11.9 ; Obesity E66.9 ; Lumbar radiculopathy M54.16 and Osteopenia, unspecified location M85.80 Assessments Encounter Date Diagnosis (ICD Code) Assessment Notes Treat ment Notes Treatment Clinical Notes 02/23/2025 Other and unspecified hyperlipidemia (ICD-10 - E78.5) Her lipids have been well controlled. No change in her medication was made. Conference of blood work with a fasting lipid profile was ordered. 02/23/2025 Chronic cough (ICD-10 - R05.3) She says she has been coughing for a month often bringing up greenish yellowish are brown phlegm. I have ordered a chest x-ray to further evaluate this complaint. Her oxygen saturation today was 98%. 02/23/2025 Former smoker (ICD-10 - Z87.891) She is highly motivated not to smoke. She has a plan for prevention of relapse and maintenance of abstinence in times of stress or illness. 02/23/2025 Depression (ICD-10 - F32.9) Her depression is stable and mild and no change in her regimen is necessary. She is discouraged that she is gaining weight and feels powerless to reverse the process. She wants to continue her antidepressant as she perceives a significant benefit, even if it makes it harder to lose weight. 02/23/2025 Hypothyroidism (ICD-10 - E03.9) Her thyroid function tests have been adequate. She is compliant with her medication which was continued.Thyroid function tests have been ordered prior to her next visit. 02/23/2025 Atypical ductal hyperplasia, breast (ICD-10 - N60.99) An annual mammogram has been scheduled. 02/23/2025 Type 2 diabetes mellitus without complication, without long-term current use of insulin (ICD-10 - E11.9) The most recent A1c is 5.7. She is compliant with medications. She is trying to lose weight and consume a diabetic diet. Blood work with a hemogloobin A1c fasting lipids and microalbumin has been ordered. 02/23/2025 Obesity (ICD-10 - E66.9) Her weight has been stable at 301 pounds. We discussed diet and nutrition. We reviewed her weight loss strategy. 02/23/2025 Lumbar radiculopathy (ICD-10 - M54.16) She is beginning to improve and will continue on current medications. She will see the rehabilitation physician tomorrow. 02/23/2025 Osteopenia, unspecified location (ICD-10 - M85.80) She will continue on calcium carbonate and vitamin D. She has stopped the letrozole. If she begins anastrozole. She will need frequent bone density determinations and possibly alendronate. Plan Of Treatment Medication Medication Name Sig Start Date Stop Date Notes Gabapentin 300 MG 1 capsule Orally thr ees times a day 11/24/2024 dexAMETHasone 2 MG 1 tablet Orally twice a day 11/24/2024 Zepbound 2.5 MG/0.5ML 0.5 mL Subcutaneou s weekly for 28 days 02/23/2025 01/25/2026 predniSONE Citalopram Hydrobromide 40 MG 1 tablet Orally Once a day Anastrozole 1 MG 1 tablet Orally Once a day Lisinopril 10 MG 1 tablet Orally Once a day 02/15/2023 metFORMIN HCl 500 MG TAKE 1 TABLET BY [facility] ONCE DAILY WITH A MEAL Valsartan 40 MG 1 tablet Orally Once a day 08/06/2023 Triamterene-HCTZ 75-50 MG TAKE 1 TABLET BY MOUTH IN THE MORNING Atorvastatin Calcium 10 MG Take 1 tablet by mouth once daily Omeprazole 20 MG Take 1 capsule by [facility] twice daily Levothyroxine Sodium 100 MCG TAKE 1 TABL ET BY MOUTH ONCE DAILY IN THE MORNING ON AN EMPTY STOMACH Pending Test Test Name Order Date TSH (THYROID STIMULATING HORMONE) 2024 BRAIN NATRIURETIC PEPTIDE (BNP) 02/24/20 25 XR CHEST 2 VIEW PA & LAT 02/23/2025 Free T4 (Free Thyroxine) 02/23/2025 Microalbumin, Random 02/23/2025 Hemoglobin A1c 02/23/2025 Next Appt Details Follow Up: 3 Months, Reason: ov Provider Name:Christopher Porter , 09/01/2025 02:00:00 PM, [address] [place] [address] [address], [place], [phone], Provider Name:Christopher Porter , 10/26/2025 02:00:00 PM, [address] [place] [address] [address], [place], [phone], Progress Notes * IVAN, CharleneDOB:[birth year] (69 yo F)Acc No.[id number]:02/23/2025 Progress Notes Patient: Laura KWON Provider: Pta Porter MD :1955 A ge:69 Y S ex:Female Date:02/23/2025 Phone: Address:[address] [place] [address] , [facility], [phone] Subjective: * Chief Complaints: * D yspnea on exertionLumbar pain radiating down both legsChronic fatigueConstant chronic cough * HPI: C OVID-19 Screening: S he returns for a scheduled visit for comprehensive medical management. 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 The sister lives with her son, but Laura takes care of her most of the day. She complains about a chronic cough and says she brings up brownish green phlegm from time to time. She denies any recent hemoptysis or fever. She is short of breath with exertion that is sustained. She has sweats at night and leg pain . She has been to [facility]. They would like to do a microinvasive procedure on her degenerative disc. She has not yet decided whether or not to have this done but is apprehensive about side effects. She is interested in using a GLP-1 medication. I have prescribed Wegovy and explained to her the prior approval process. Her neck pain has resolved. Her depression is mild. Questions H ave you had any new onset fever, chills, cough, congestion, sore throat, shortness of breath, muscle aches? N o * ROS: G eneral/Constitutional: pain I ntermittent chronic neck pain, Low back pain with bilateral sciatica. C hills d enies. F atigue a dmits. F ever d enies. ? E NT: Decreased hearing m ild. R espiratory: Cough d enies. C ardiovascular: Chest pain with exertion d enies. D yspnea on exertion?with prolonged activity. S hortness of breath w ith exertion. [...] Muscle aches d enies. P ainful joints C ervical and lumbar spine. S ciatica d enies. W eakness d enies. S kin: Itching d enies. R elia d enies. S kin lesion(s)?denies. N eurologic: Difficulty speaking d enies. D izziness d enies.?Headache d enies. L ow back pain t hat is chronic. P sychiatric: Depressed mood d enies. * Medical History: * Surgical History: r ight breast biopsy 2002colonoscopy [id number], oophorectomy, cyst, Dr. Galo 12/2019right breast lumpectomy [...] x-cigarette smoker S he was born in [place]. She has been to [place] for 40 years and has 3 children. 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 * Medications: T akingOmeprazole 20 MG [...] and reconciled with the patient * Allergies: Lizbeth Corral[Allergies Verified] Objective: * Vitals: H t: 60, Wt:204, BMI:39.84, BP:120/78, HR:89, Temp:97.7, Oxygen sat %:98, Ht-cm: 152.4, Wt-k.53. * P ast Orders: Lab:Complete Blood Count Aut o Diff * Collection Date 02/12/2025 2024 02/22/2024 Collection Time 08:51 AM 07:45 AM 06:57 AM Order Date 02/12/2025 2024 02/22/2024 White Blood Count 6.8 (Ref Range: 4.8-10.8 X10*3/uL) 9.5 (Ref Range: 4.8-10.8 X10*3/uL) 9.7 (Ref Range: 4.8-10.8 X10*3/uL) Red Blood Count 3.99 L (Ref Range: 4.20-5.50 X10*6/uL) 4.36 (Ref Range: 4.20-5.50 X10*6/uL) 4.09 L (Ref Range: 4.20-5.50 X10*6/uL) Hemoglobin 11.0 L (Ref Range: 12.0-16.0 g/dl) 12.0 (Ref Range: 12.0-16.0 g/dl) 11.1 L (Ref Range: 12.0-16.0 g/dl) Hematocrit 35.2 L (Ref Range: 37.0-47.0 %) 39.1 (Ref Range: 37.0-47.0 %) 35.6 L (Ref Range: 37.0-47.0 %) Mean Corpuscular Volume 88.2 (Ref Range: 80.0-98.0 fL) 89.7 (Ref Range: 80.0-98.0 fL) 87.0 (Ref Range: 80.0-98.0 fL) Mean Corpuscular Hemoglobin 27.6 (Ref Range: 27.0-33.0 pg) 27.5 (Ref Range: 27.0-33.0 pg) 27.1 (Ref Range: 27.0-33.0 pg) Mean Corpuscular HGB Conc 31.3 (Ref Range: 31.0-35.0 g/dl) 30.7 L (Ref Range: 31.0-35.0 g/dl) 31.2 (Ref Range: 31.0-35.0 g/dl) Red Cell Distribution Width 15.6 (Ref Range: 11.0-16.0 %) 15.4 (Ref Range: 11.0-16.0 %) 15.9 (Ref Range: 11.0-16.0 %) Platelet Count 277 (Ref Range: 160-400 X10*3/uL) 322 (Ref Range: 160-400 X10*3/uL) 319 (Ref Range: 160-400 X10*3/uL) Mean Platelet Volume 9.1 L (Ref Range: 9.4-12.3 fL) 9.7 (Ref Range: 9.4-12.3 fL) 10.0 (Ref Range: 9.4-12.3 fL) Neutrophils Percent Auto 66.3 (Ref Range: 45-73 %) 75.4 H (Ref Range: 45-73 %) 71.5 (Ref Range: 45-73 %) Imm Gran Pct Auto 0.4 (Ref Range: 0.0-0.4 %) 0.4 (Ref Range: 0.0-0.4 %) 0.4 (Ref Range: 0.0-0.4 %) Lymphocytes Percent Auto 22.8 (Ref Range: 20-40 %) 17.5 L (Ref Range: 20-40 %) 18.4 L (Ref Range: 20-40 %) Monocytes Percent Auto 7.4 (Ref Range: 2-11 %) 4.9 (Ref Range: 2-11 %) 5.6 (Ref Range: 2-11 %) Eosinophils Percent Auto 2.5 (Ref Range: 0-4 %) 1.5 (Ref Range: 0-4 %) 3.7 (Ref Range: 0-4 %) Basophils Percent Auto 0.6 (Ref Range: 0-2 %) 0.3 (Ref Range: 0-2 %) 0.4 (Ref Range: 0-2 %) NRBC Pct Auto 0.0 (Ref Range: 0.0-0.2 /100WBC) 0.0 (Ref Range: 0.0-0.2 /100WBC) 0.0 (Ref Range: 0.0-0.2 /100WBC) Neutrophils Absolute Auto 4.5 (Ref Range: 2.0-8.3 x10*3/uL) 7.2 (Ref Range: 2.0-8.3 x10*3/uL) 7.0 (Ref Range: 2.0-8.3 x10*3/uL) Imm Gran Abs Auto 0.03 (Ref Range: 0.00-0.03 X10*3/uL) 0.04 H (Ref Range: 0.00-0.03 X10*3/uL) 0.04 H (Ref Range: 0.00-0.03 X10*3/uL) Lymphocytes Absolute Auto 1.6 (Ref Range: 1.2-4.9 X10*3/uL) 1.7 (Ref Range: 1.2-4.9 X10*3/uL) 1.8 (Ref Range: 1.2-4.9 X10*3/uL) Monocytes Absolute Auto 0.5 (Ref Range: 0.1-1.2 X10*3/uL) 0.5 (Ref Range: 0.1-1.2 X10*3/uL) 0.5 (Ref Range: 0.1-1.2 X10*3/uL) Eosinophils Absolute Auto 0.2 (Ref Range: 0.0-0.4 X10*3/uL) 0.1 (Ref Range: 0.0-0.4 X10*3/uL) 0.4 (Ref Range: 0.0-0.4 X10*3/uL) Basophils Absolute Auto 0.0 (Ref Range: 0.0-0.2 X10*3/uL) 0.0 (Ref Range: 0.0-0.2 X10*3/uL) 0.0 (Ref Range: 0.0-0.2 X10*3/uL) NRBC Abs Auto 0.000 (Ref Range: 0.0-0.012 X10*3/uL) 0.000 (Ref Range: 0.0-0.012 X10*3/uL) 0.000 (Ref Range: 0.0-0.012 X10*3/uL) * Lab:[facility]. Joe l Fast * Collection Date 02/12/2025 02/22/2024 11/12/2023 Collection Time 08:51 AM 06:57 AM 08:07 AM Order Date 02/12/2025 02/22/2024 11/12/2023 Sodium 142 (Ref Range: 135-145 mmol/L) 142 (Ref Range: 135-145 mmol/L) 143 (Ref Range: 135-145 mmol/L) Bilirubin Total 0.4 (Ref Range: 0.0-1.0 mg/dL) 0.3 (Ref Range: 0.0-1.0 mg/dL) 0.4 (Ref Range: 0.0-1.0 mg/dL) Aspartate Amino Transferase 20 (Ref Range: 5-31 U/L) 15 (Ref Range: 5-31 U/L) 14 (Ref Range: 5-31 U/L) Alanine Aminotransferase 16 (Ref Range: 0-31 U/L) 15 (Ref Range: 0-31 U/L) 13 (Ref Range: 0-31 U/L) Total Protein 6.6 (Ref Range: 6.5-8.0 g/dL) 7.2 (Ref Range: 6.5-8.0 g/dL) 7.2 (Ref Range: 6.5-8.0 g/dL) Albumin Level 4.0 (Ref Range: 3.5-5.0 g/dL) 4.0 (Ref Range: 3.5-5.0 g/dL) 4.0 (Ref Range: 3.5-5.0 g/dL) Alkaline Phosphatase 83 (Ref Range: 39-117 U/L) 102 (Ref Range: 39-117 U/L) 80 (Ref Range: 39-117 U/L) Potassium 4.4 (Ref Range: 3.3-5.1 mmol/L) 4.5 (Ref Range: 3.3-5.1 mmol/L) 4.6 (Ref Range: 3.3-5.1 mmol/L) Chloride 109 H (Ref Range: 96-108 mmol/L) 108 (Ref Range: 96-108 mmol/L) 109 H (Ref Range: 96-108 mmol/L) Carbon Dioxide 27 (Ref Range: 22-29 mmol/L) 25 (Ref Range: 22-29 mmol/L) 27 (Ref Range: 22-29 mmol/L) Anion Gap 10 L (Ref Range: 12-20) 14 (Ref Range: 12-20) 12 (Ref Range: 12-20) Blood Urea Nitrogen 14 (Ref Range: 9-16 mg/dL) 19 H (Ref Range: 9-16 mg/dL) 18 H (Ref Range: 9-16 mg/dL) Creatinine 1.14 (Ref Range: 0.5-1.4 mg/dL) 1.05 (Ref Range: 0.5-1.4 mg/dL) 1.30 (Ref Range: 0.5-1.4 mg/dL) Estimated Glomerular Filt Rate 47 52 40 Glucose Fasting 129 H (Ref Range: 60-99 mg/dL) 132 H (Ref Range: 60-99 mg/dL) 139 H (Ref Range: 60-99 mg/dL) Calcium 9.6 (Ref Range: 8.4-10.2 mg/dL) 10.1 (Ref Range: 8.4-10.2 mg/dL) 10.0 (Ref Range: 8.4-10.2 mg/dL) * Lab:Lipid Panel * Collection Date 02/12/2025 02/22/2024 11/12/2023 Collection Time 08:51 AM 06:57 AM 08:07 AM Order Date 02/12/2025 02/22/2024 11/12/2023 Triglycerides 147 (Ref Range: <150 mg/dL) 142 (Ref Range: <150 mg/dL) 197 H (Ref Range: <150 mg/dL) Cholesterol 117 (Ref Range: <200 mg/dL) 134 (Ref Range: <200 mg/dL) 142 (Ref Range: <200 mg/dL) LDL Cholesterol Calculated 49 (Ref Range: <100 mg/dL) 63 (Ref Range: <100 mg/dL) 59 (Ref Range: <100 mg/dL) HDL Cholesterol 39 L (Ref Range: >40 mg/dL) 43 (Ref Range: >40 mg/dL) 44 (Ref Range: >40 mg/dL) * Examination: G eneral Examination: GENERAL APPEARANCE: p leasant, well nourished, well developed, in no acute distress, calm and relaxed, obese, woman. HEAD: a traumatic, normocephalic. EYES: e collin, perrla, anicteric, conjugate. EARS: n ormal. NOSE: s eptum intact. ORAL CAVITY: n ormal, unremarkable. NECK/THYROID: n o jugular venous distention, no carotid bruit, thyroid normal, Pain with range of motion which is decreased. LYMPH NODES: n o enlarged lymph nodes,spleen normal. SKIN: n o suspicious lesions, anicteric. HEART: n o clicks, gallops, murmurs, or rubs, regular rhythm, S1, S2 normal, no s3, or vascular bruits. LUNGS: , diminished breath sounds throughout, no wheezes, rales, rhonchi, good air movement. BREASTS: , no masses palpable bilaterally. ABDOMEN: b owel sounds normal, no ascites, no organomegaly, no mass, centripital obesity. RECTAL EXAM: n ot examined. MUSCULOSKELETAL: e xtremities unremarkable, no clubbing, cyanosis or edema, Decreased range of motion of neck and lumbar spine with some pain.. PERIPHERAL PULSES: n ormal. NEUROLOGIC: a lert and oriented, cranial nerves 2-12 grossly intact, deep tendon reflexes 2+ symmetrical, motor strength normal upper and lower extremities, sensory exam intact. PSYCH: a lert, oriented, cooperative with exam, cognitive function intact, thought process logical, goal directed, speech clear. Assessment: * Assessment: 1. C hronic cough - R05.3 (Primary) N otes :She says she has been coughing for a month often bringing up greenish yellowish are brown phlegm.? I have ordered a chest x-ray to further evaluate this complaint. Her oxygen saturation today was 98%. 2 . O ther and unspecified hyperlipidemia - E78.5 N otes :Her lipids have been well controlled. No change in her medication was made. Conference of blood work with a fasting lipid profile was ordered. 3 . F ormer smoker - Z87.891 N otes :She is highly motivated not to smoke. She has a plan for prevention of relapse and maintenance of abstinence in times of stress or illness. 4 . D epression - F32.9 N otes :Her depression is stable and mild and no change in her regimen is necessary. She is discouraged that she is gaining weight and feels powerless to reverse the process. She wants to continue her antidepressant as she perceives a significant benefit, even if it makes it harder to lose weight. 5 . H ypothyroidism - E03.9 N otes :Her thyroid function tests have been adequate. She is compliant with her medication which was continued.Thyroid function tests have been ordered prior to her next visit. 6 . A typical ductal hyperplasia, breast - N60.99 N otes :An annual mammogram has been scheduled. 7 . T ype 2 diabetes mellitus without complication, without long-term current use of insulin - E11.9 N otes :The most recent A1c is 5.7. She is compliant with medications. She is trying to lose weight and consume a diabetic diet. Blood work with a hemogloobin A1c fasting lipids and microalbumin has been ordered. 8 . O besity - E66.9 N otes :Her weight has been stable at 301 pounds. We discussed diet and nutrition. We reviewed her weight loss strategy. 9 . L umbar radiculopathy - M54.16 N otes :She is beginning to improve and will continue on current medications. She will see the rehabilitation physician tomorrow. 1 0. O steopenia, unspecified location - M85.80 N otes :She will continue on calcium carbonate and vitamin D. She has stopped the letrozole. If she begins anastrozole. She will need frequent bone density determinations and possibly alendronate. Plan: * Treatment: 2. O ther and unspecified hyperlipidemia Continue Omeprazole Capsule Delayed Release, 20 MG, [...] tablet, Orally, Once a day; C ontinue Triamterene-HCTZ Tablet, 75-50 MG, TAKE 1 TABLET BY MOUTH IN THE MORNING; C ontinue Anastrozole Tablet, 1 MG, 1 tablet, Orally, Once a day; C ontinue Lisinopril Tablet, 10 MG, 1 tablet, Orally, Once a day; C ontinue predniSONE; C ontinue Citalopram Hydrobromide Tablet, 40 MG, 1 tablet, Orally, Once a day; C ontinue Gabapentin Capsule, 300 MG, 1 capsule, Orally, threes times a day; C ontinue dexAMETHasone Tablet, 2 MG, 1 tablet, Orally, twice a day; S tart Zepbound Solution Auto-injector, 2.5 MG/0.5ML, 0.5 mL, Subcutaneous, weekly, 28 days, 4 Applicator, Refills 11. L AB: TSH (THYROID STIMULATING HORMONE) L AB: BRAIN NATRIURETIC PEPTIDE (BNP) L AB: Free T4 (Free Thyroxine) L AB: Microalbumin, Random L AB: Hemoglobin A1c * Procedure Codes: 9 4760 MEASURE BLOOD [...] tobacco use and urged to quit. 0 02/23/2025 DM Care Plan: P atient Lifestyle Goals P atient wants to be able to manage diabetes without too much effort. T reatment Goals H bA1C < 7.0, Blood Sugars less than < 115. B arriers n o barriers. S elf-Managment Goals W ork on weight loss, with a goal of losing 1 lb per week. * Follow Up: 3 Months (Reason: ov) * Images: * Sign off status: Completed true * Provider: Pat Porter MD Date: 0 02/23/2025 Generated for Fatou costa/Malik/eTransmitting on: 1 09/22/2024 02:49 AM EST History and Physical Notes * HPI (History of Present Illness) Category Sub-Category Detail Notes COVID-19 Screening Questions Have you had any new onset fever, chills, cough, congestion, sore throat, shortness of breath, muscle aches?: No Examination Category Sub-Category Detail Notes General Examination GENERAL APPEARANCE: pleasant , well nourished, well developed, in no acute distress, calm and relaxed, obese, woman HEAD: atraumatic, normocep halic EYES: eomi, perrla, anicte santosh, conjugate EARS: normal NOSE: septum intact NECK/THYROID: no jugular venous di stention, no carotid bruit, thyroid normal, Pain with range of motion which is decreased HEART: no clicks, gallops, murmurs, or rubs, regular rhythm, S1, S2 normal, no s3, or vascular bruits LUNGS: , diminished breath sounds throughout, no wheezes, rales, rhonchi, good air movement ABDOMEN: bowel sounds normal, no ascites, no organomegaly, no mass, centripital obesity NEUROLOGIC: alert and oriented, cranial nerves 2-12 grossly intact, deep tendon reflexes 2+ symmetrical, motor strength normal upper and lower extremities, sensory exam intact SKIN: no suspicious lesion s, anicteric PERIPHERAL PULSES: normal BREASTS: , no masses palpable bilaterally MUSCULOSKELETAL: extremities unremark able, no clubbing, cyanosis or edema, Decreased range of motion of neck and lumbar spine with some pain. LYMPH NODES: no enlarged lymph no gayle,spleen normal RECTAL EXAM: not examined PSYCH: alert, oriented, neighborhood coordinator perative with exam, cognitive function intact, thought process logical, goal directed, speech clear ORAL CAVITY: normal, unremarkable
--- OUTSIDE RECORDS SUMMARY | 2025-03-04 08:48 | XMS_ITS ---
Author Organization Christopher Porter III, MD Address [address] [place] [address] [place] [address] Care Team Providers Care Macroeconomics Professor Name Role Phone Dr. Christopher Porter III Primary Care Provider Reason For Referral Reason evaluate for home sl eep study obesity /daytime somnolence snoring/fatigue needs sleep study showing sleep apnea to qualify for GLP-1 Diagnosis 1 Former smoker (Z87.8 91) Diagnosis 2 Interstitial lung di sease (J84.9) Referral Organization Christopher Porter III, MD Referring Provider First Name Christopher Referring Provider Last Name German Referring Provider Speciality Internal M edicine Referred Provider ANDRAE GOLDEN Referred Provider Specialty Pulmonary Di seases General Notes Vangie Rosenberg CMA 03/05 10:08:14 AM > I called Dr Golden office [phone] spoke to Dori mixon patient appt on 03/24/2025 at 3:45pm . information called and mailed to patient . Referral Priority Routine Referral Appointment Date 03/24/2025 REASON FOR VISIT Zepbound denial from [facility] Social History Sex Assigned At : Social History Observation Description Sex Assigned At Female Encounters Encounter Location Date Provider Diagnosis Christopher Porter III, MD [address] [place] [address] [place] [address] 03/04/2025 Christopher Porter Plan Of Treatment Referrals Referral Date Details 03/04/2025 03/04/2025, evaluate for home sleep study obesity /daytime somnolence snoring/fatigue needs sleep study showing sleep apnea to qualify for GLP-1, ANDRAE GOLDEN Next Appt Details Provider Name:Christopher Porter , 09/01/2025 02:00:00 PM, [address] [place] [address] [place], [address], Provider Name:Christopher Porter , 10/26/2025 02:00:00 PM, [address] [place] [address] [address], [place], [address], Progress Notes * IVANJaxOB:[birth year] (69 yo F)Acc No.[id number]:03/04/2025 Patient: Laura KWON :1955 A ge:69 Y S ex:Female Phone: Address:[address] [place] [address] , [facility] [place] [address] Subjective: * Chief Complaints: * Z epbound denial from [facility] * Medical History: * Surgical History: * Hospitalization/Major Diagno stic Procedure: * Medications: Objective: * Vitals: * Physical Examination: Assessment: Plan: * Treatment: * Procedure Codes: * true * Date: Generated for Fatou costa/Malik/eTransmitting on: 09/22/2024 02:50 AM EST Consultation Request Notes Referral Date Referring Provider Referred Provider Not es 03/04/2025 Christopher Porter MOHAMMAD evaluate fo r home sleep study obesity /daytime somnolence snoring/fatigue needs sleep study showing sleep apnea to qualify for GLP-1
--- OUTSIDE RECORDS SUMMARY | 2025-05-27 06:00 | XMS_ITS ---
Author Organization Christopher Porter III, MD Address [address] [place] [address] Care Team Providers Care Assessment Manager Name Role Phone Dr. Christopher Porter III Primary Care Provider Allergies Allergen (clinical drug ingredient) Drug/Non Drug Allergy documented on EMR Reaction Allergy Type Onset Date Status Codeine Phosphate Unknown Drug Allergy Active Reason For Referral Reason Evaluate and Treat Right hip Pain Diagnosis 1 Right hip pain (M25. 551) Referral Organization Christopher Porter III, MD Referring Provider First Name Christopher Referring Provider Last Name German Referring Provider Speciality Internal M edicine Referred Provider [place] ([place]) Referred Provider Specialty Orthopedic S urgery General Notes DMaria T 05/29/2025 03:14:01 PM > referral and progress note faxed., Maria T Link 07/14/2025 02:24:33 PM > Patient is stating she is not having issues with her right hip at this time and would like to close out the referral. Referral Priority Routine REASON FOR VISIT Hyperlipidemia, Depression, Cervical radiculopathy, Hypothyroidism, Bilateral sciatica, Diabetes, Carcinoma of the right breast Medications Medication SIG (Take, Route, Frequency, Duration) Notes Start Date End Date Status Omeprazole 20 MG Take 1 capsule by mo uth twice daily Active predniSONE Active Lisinopril 10 MG 1 tablet Orally Once a day 02/15/2023 Active Anastrozole 1 MG 1 tablet Orally Once a day Active Triamterene-HCTZ 75-50 MG TAKE 1 TABLET BY MOUTH IN THE MORNING Active Levothyroxine Sodium 100 MCG TAKE 1 TABLET BY MOUTH ONCE DAILY every MORNING ON AN EMPTY STOMACH Orally Once a day Active Zepbound 2.5 MG/0.5ML 0.5 mL Subcutaneou s weekly 02/23/2025 Active metFORMIN HCl 500 MG TAKE 1 TABLET BY MO UTH ONCE DAILY WITH A MEAL Active Valsartan 40 MG TAKE 1 TABLET BY DAYSI TH ONCE DAILY Active Atorvastatin Calcium 10 MG TAKE 1 TABLET BY MOUTH ONCE DAILY Active Gabapentin 300 MG 1 capsule Orally thr ees times a day 11/24/2024 Active Citalopram Hydrobromide 40 MG 1 tablet Orally Once a day Active dexAMETHasone 2 MG 1 tablet Orally twic e a day 11/24/2024 Active Social History Tobacco Use: Social History [...] non-user Ex-cigaret te smoker Vital Signs Temperature 97.2 degrees Fahrenheit 05/27/20 25 Blood pressure systolic 135 mm Hg 05/27/20 25 Blood pressure diastolic 79 mm Hg 025 Heart Rate 81 /min 05/27/2025 Height 60 in 05/27/2025 Weight 199 lbs 05/27/2025 BMI 38.86 kg/m2 05/27/2025 Encounters Encounter Location Date Provider Diagnosis Christopher Porter III, MD [address] [place] [address] [place] [address] 05/27/2025 Christopher Porter Other and unspecifie d hyperlipidemia E78.5 ; Type 2 diabetes mellitus without complication, without long-term current use of insulin E11.9 ; Hypothyroidism E03.9 ; Obesity (BMI 30-39.9) E66.9 ; Depression F32.9 ; Former smoker Z87.891 ; Cervical nerve root impingement G54.2 ; Lumbar radiculopathy M54.16 and Chronic cough R05.3 Assessments Encounter Date Diagnosis (ICD Code) Assessment Notes Treat ment Notes Treatment Clinical Notes 05/27/2025 Other and unspecified hyperlipidemia (ICD-10 - E78.5) Her lipids have been well controlled. Comprehensive blood work has been ordered prior to the next visit which will include a fasting lipid profile. 05/27/2025 Type 2 diabetes mellitus without complication, without long-term current use of insulin (ICD-10 - E11.9) He appears to be stable. Her medications were continued. No change in her regimen was needed. 05/27/2025 Hypothyroidism (ICD-10 - E03.9) His thyroid function tests have been at their target. Comprehensive blood work with a fasting lipid profile and thyroid functions have been ordered 05/27/2025 Obesity (BMI 30-39.9) (ICD-10 - E66.9) Is +5 pounds through diet. We reviewed her diet and her weight loss strategy and her nutrition. We made a plan to continue weight loss that her rate of one half of a pound per week. 05/27/2025 Depression (ICD-10 - F32.9) Her depression is stable and mild and no change in her regimen is necessary. She is discouraged that she is gaining weight and feels powerless to reverse the process. She wants to continue her antidepressant as she perceives a significant benefit, even if it makes it harder to lose weight. 05/27/2025 Former smoker (ICD-10 - Z87.891) She is highly motivated not to smoke. She has a plan for prevention of relapse and maintenance of abstinence in times of stress or illness. 05/27/2025 Cervical nerve root impingement (ICD-10 - G54.2) This pain has resolved for the time being. I have advised her against heavy exertion. 05/27/2025 Lumbar radiculopathy (ICD-10 - M54.16) She is beginning to improve and will continue on current medications. She will see the rehabilitation physician tomorrow. 05/27/2025 Chronic cough (ICD-10 - R05.3) She says she has been coughing for a month often bringing up greenish yellowish are brown phlegm. I have ordered a chest x-ray to further evaluate this complaint. Her oxygen saturation today was 98%. Plan Of Treatment Medication Medication Name Sig Start Date Stop Date Notes Omeprazole 20 MG Take 1 capsule by [facility] twice daily predniSONE Lisinopril 10 MG 1 tablet Orally Once a day 02/15/2023 Anastrozole 1 MG 1 tablet Orally Once a day Triamterene-HCTZ 75-50 MG TAKE 1 TABLET BY MOUTH IN THE MORNING Levothyroxine Sodium 100 MCG TAKE 1 TABL ET BY MOUTH ONCE DAILY every MORNING ON AN EMPTY STOMACH Orally Once a day Zepbound 2.5 MG/0.5ML 0.5 mL Subcutaneous weekly metFORMIN HCl 500 MG TAKE 1 TABLET BY [facility] ONCE DAILY WITH A MEAL Valsartan 40 MG [facility] Atorvastatin Calcium 10 MG TAKE 1 TABLET BY MOUTH ONCE DAILY Gabapentin 300 MG 1 capsule Orally thr ees times a day 11/24/2024 Citalopram Hydrobromide 40 MG 1 tablet Orally Once a day dexAMETHasone 2 MG 1 tablet Orally twice a day 11/24/2024 Pending Test Test Name Order Date PROFILE, FASTING (COMPREHENSIVE METABOLI C) 05/27/2025 TSH (THYROID STIMULATING HORMONE) 2024 CBC w DIFF 05/27/2025 Lipid Panel 05/27/2025 Free T4 (Free Thyroxine) 05/27/2025 Referrals Referral Date Details 05/27/2025 05/27/2025, Evaluate and Treat Right hip Pain, [facility] ([facility] Appt Details Follow Up: 3 Months, Reason: OV Provider Name:Christopher Porter , 09/01/2025 02:00:00 PM, [address] [place] [address] [address], [place], [phone], Provider Name:Christopher Porter , 10/26/2025 02:00:00 PM, [address] [place] [address] [place], [address], Progress Notes * Shan LOVEeDOB:[birth year] (69 yo F)Acc No.[id number]:05/27/2025 Progress Notes Patient: Laura KWON Provider: Pat Porter MD :1955 A ge:69 Y S ex:Female Date:05/27/2025 Phone: Address:[address] [place] [address] , [facility], [phone] Subjective: * Chief Complaints: * H yperlipidemiaDepressionCervical radiculopathyHypothyroidismBilateral sciaticaDiabetesCarcinoma of the right breast * HPI: C OVID-19 Screening: She returns for a scheduled medical management. She says she is feeling terrible. She continues to have back pain despite treatment at [facility]. She has pain in her knees and has had injections in both. She sees orthopedic surgery. She has developed a pain in her right groin with walking which is reproduced by manipulating the hip joint. X-rays of the right hip have been ordered to evaluate T arthritis. Her depression is stable.The comprehensive blood work that was ordered will be done within the next few days and reviewed with her by telephone. Questions H ave you had any new onset fever, chills, cough, congestion, sore throat, shortness of breath, muscle aches? N o * ROS: G eneral/Constitutional: pain L ow back and knees. No pain right groin reproduced by walking. C hills d enies. F atigue a dmits. F ever d enies. ? E NT: Decreased hearing d enies. R espiratory: Cough n on-productive. C ardiovascular: Chest pain with exertion d [...] Muscle aches d enies. P ainful joints R ight hip.?Sciatica d enies. W eakness d enies. S kin: Itching d enies. R elia d enies. S kin lesion(s)?denies. N eurologic: Difficulty speaking d enies. D izziness d enies.?Headache d enies. L ow back pain d enies. P sychiatric: Depressed mood w hich is moderate. * Medical History: * Surgical History: r ight breast biopsy 2002colonoscopy [id number], oophorectomy, cyst, Dr. Galo 12/2019right breast lumpectomy [...] x-cigarette smoker S he was born in [place]. She has been to [place] for 40 years and has 3 children. 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 * Medications: T akingOmeprazole 20 MG Capsule Delayed Release Take 1 capsule by mouth twice daily Triamterene-HCTZ 75-50 MG Tablet TAKE 1 TABLET [...] Tablet 1 tablet Orally twice a day Zepbound 2.5 MG/0.5ML Solution Auto-injector 0.5 mL Subcutaneous weekly , stop date 01/25/2026Valsartan 40 MG Tablet TAKE 1 TABLET BY MOUTH ONCE DAILY metFORMIN HCl 500 MG Tablet TAKE 1 TABLET BY MOUTH ONCE DAILY WITH A MEAL Atorvastatin Calcium 10 MG Tablet TAKE 1 TABLET BY MOUTH ONCE DAILY Levothyroxine Sodium 100 MCG Tablet TAKE 1 TABLET BY MOUTH ONCE DAILY every MORNING ON AN EMPTY STOMACH Orally Once a day Medication List reviewed and reconciled with the patientTaking Omeprazole 20 MG Capsule Delayed Release Take 1 capsule by mouth twice daily Taking Triamterene-HCTZ 75-50 MG Tablet TAKE 1 [...] 1 tablet Orally twice a day Taking Zepbound 2.5 MG/0.5ML Solution Auto-injector 0.5 mL Subcutaneous weekly , stop date 01/25/2026Taking Valsartan 40 MG Tablet TAKE 1 TABLET BY MOUTH ONCE DAILY Taking metFORMIN HCl 500 MG Tablet TAKE 1 TABLET BY MOUTH ONCE DAILY WITH A MEAL Taking Atorvastatin Calcium 10 MG Tablet TAKE 1 TABLET BY MOUTH ONCE DAILY Taking Levothyroxine Sodium 100 MCG Tablet TAKE 1 TABLET BY MOUTH ONCE DAILY every MORNING ON AN EMPTY STOMACH Orally Once a day Medication List reviewed and reconciled with the patient * Allergies: Lizbeth Corral[Allergies Verified] Objective: * Vitals: H t: 60, Wt:199, BMI:38.86, BP:135/79, HR:81, Temp:97.2, Ht-cm: 152.4, Wt-k.26. * Examination: G eneral Examination: GENERAL APPEARANCE: p leasant, well nourished, well developed, in no acute distress, calm and relaxed: obese: woman. HEAD: a traumatic, normocephalic. EYES: e [...] LUNGS: c lear to auscultation . BREASTS: n o masses palpable bilaterally. ABDOMEN: b owel sounds normal, no ascites, no organomegaly, no mass: centripital obesity. RECTAL EXAM: n ot examined. MUSCULOSKELETAL: e xtremities unremarkable, no clubbing, cyanosis or edema, Range of motion of the right hip reduce his groin pain. PERIPHERAL PULSES: n ormal. NEUROLOGIC: a lert and oriented, cranial nerves 2-12 grossly intact, deep tendon reflexes 2+ symmetrical, motor strength normal upper and lower extremities, sensory exam intact. PSYCH: a lert, oriented: anxious appearing: mood depressed.? Assessment: * Assessment: 1. T ype 2 diabetes mellitus without complication, without long-term current use of insulin - E11.9 (Primary) N otes :He appears to be stable. Her medications were continued. No change in her regimen was needed. 2 . O ther and unspecified hyperlipidemia - E78.5 N otes :Her lipids have been well controlled. Comprehensive blood work has been ordered prior to the next visit which will include a fasting lipid profile. 3 . H ypothyroidism - E03.9 N otes :His thyroid function tests have been at their target. Comprehensive blood work with a fasting lipid profile and thyroid functions have been ordered 4 . O besity (BMI 30-39.9) - E66.9 N otes :Is +5 pounds through diet. We reviewed her diet and her weight loss strategy and her nutrition. We made a plan to continue weight loss that her rate of one half of a pound per week. 5 . D epression - F32.9 N otes :Her depression is stable and mild and no change in her regimen is necessary. She is discouraged that she is gaining weight and feels powerless to reverse the process. She wants to continue her antidepressant as she perceives a significant benefit, even if it makes it harder to lose weight. 6 . F ormer smoker - Z87.891 N otes :She is highly motivated not to smoke. She has a plan for prevention of relapse and maintenance of abstinence in times of stress or illness. 7 . C ervical nerve root impingement - G54.2 N otes :This pain has resolved for the time being. I have advised her against heavy exertion. 8 . L umbar radiculopathy - M54.16 N otes :She is beginning to improve and will continue on current medications. She will see the rehabilitation physician tomorrow. 9 . C hronic cough - R05.3 N otes :She says she has been coughing for a month often bringing up greenish yellowish are brown phlegm. I have ordered a chest x-ray to further evaluate this complaint. Her oxygen saturation today was 98%. Plan: * Treatment: 2. O ther and unspecified hyperlipidemia Continue Levothyroxine Sodium Tablet, 100 MCG, TAKE 1 TABLET BY MOUTH ONCE DAILY every MORNING ON AN EMPTY STOMACH, Orally, Once a day; C ontinue Omeprazole Capsule Delayed Release, 20 MG, Take 1 capsule by mouth twice daily; C ontinue Triamterene-HCTZ Tablet, 75-50 MG, TAKE [...] MG, 1 tablet, Orally, twice a day; C ontinue Zepbound Solution Auto-injector, 2.5 MG/0.5ML, 0.5 mL, Subcutaneous, weekly. L AB: PROFILE, FASTING (COMPREHENSIVE METABOLIC) L AB: TSH (THYROID STIMULATING HORMONE) L AB: CBC w DIFF L AB: Lipid Panel L AB: Free T4 (Free Thyroxine) 3. H ypothyroidism L AB: PROFILE, FASTING (COMPREHENSIVE METABOLIC) L AB: TSH (THYROID STIMULATING HORMONE) L AB: CBC w DIFF L AB: Lipid Panel L AB: Free T4 (Free Thyroxine) 4. O besity (BMI 30-39.9) L AB: PROFILE, FASTING (COMPREHENSIVE METABOLIC) L AB: TSH (THYROID STIMULATING HORMONE) L AB: CBC w DIFF L AB: Lipid Panel L AB: Free T4 (Free Thyroxine) 5. O thers Continue Atorvastatin Calcium Tablet, 10 MG, TAKE 1 TABLET BY MOUTH ONCE DAILY; C ontinue Valsartan Tablet, 40 MG, TAKE 1 TABLET BY MOUTH ONCE DAILY; C ontinue metFORMIN HCl Tablet, 500 MG, TAKE 1 TABLET BY MOUTH ONCE DAILY WITH A MEAL. & #160; Referral To:[facility] Orthopedic Surgery Reason:Evaluate and Treat Right hip Pain * Procedure Codes: * Preventive Medicine: Counseling: C are goal [...] tobacco use and urged to quit. 0 05/27/2025 DM Care Plan: P atient Lifestyle Goals P atient wants to be able to manage diabetes without too much effort. T reatment Goals B lood Sugars less than < 115, HbA1C < 7.0. B arriers n o barriers. S elf-Managment Goals W ork on weight loss, with a goal of losing 1 lb per week. * Follow Up: 3 Months (Reason: OV) * Images: * Sign off status: Completed true * Provider: Pat Porter MD Date: 0 05/27/2025 Generated for Fatou costa/Malik/Reeitting on: 1 09/22/2024 02:50 AM EST History and Physical Notes * HPI (History of Present Illness) Category Sub-Category Detail Notes COVID-19 Screening Questions Have you had any new onset fever, chills, cough, congestion, sore throat, shortness of breath, muscle aches?: No Examination Category Sub-Category Detail Notes General Examination GENERAL APPEARANCE: pleasant , well nourished, well developed, in no acute distress, calm and relaxed: obese: woman HEAD: atraumatic, normocep halic EYES: eomi, perrla, anicte santosh, conjugate EARS: normal NOSE: septum intact NECK/THYROID: no jugular venous di stention, no carotid bruit, thyroid normal HEART: no clicks, gallops, murmurs, or rubs, regular rhythm, S1, S2 normal, no s3, or vascular bruits LUNGS: clear to auscultatio n ABDOMEN: bowel sounds normal, no ascites, no organomegaly, no mass: centripital obesity NEUROLOGIC: alert and oriented, cranial nerves 2-12 grossly intact, deep tendon reflexes 2+ symmetrical, motor strength normal upper and lower extremities, sensory exam intact SKIN: no suspicious lesion s, anicteric PERIPHERAL PULSES: normal BREASTS: no masses palpable b ilaterally MUSCULOSKELETAL: extremities unremark able, no clubbing, cyanosis or edema, Range of motion of the right hip reduce his groin pain LYMPH NODES: no enlarged lymph no gayle,spleen normal RECTAL EXAM: not examined PSYCH: alert, oriented: anx ious appearing: mood depressed ORAL CAVITY: normal, unremarkable Consultation Request Notes Referral Date Referring Provider Referred Provider Tk simental 05/27/2025 Christopher Porter Ort [facility] ([place]) Evaluate and Treat Right hip Pain
--- OUTSIDE RECORDS SUMMARY | 2025-06-01 11:24 | XMS_ITS ---
Author Organization Christopher Porter III, MD Address [address] [place] [address] [place] [address] Care Team Providers Care Technical Sales Engineer Name Role Phone Dr. Christopher Porter III Primary Care Provider Results Component Value Reference Range Notes Urine Culture Reviewed date:06/13/2025 06:24:44 AM Interpretation: Performing Lab:[facility], [address] [place] [id number] Notes/Report: Urine Culture Report Result Urine Culture > 100,000 cfu/ml Urine Culture Mixed bacterial parker a characteristic of Urine Culture urogenital contamination. REASON FOR VISIT message Social History Sex Assigned At : Social History Observation Description Sex Assigned At Female Encounters Encounter Location Date Provider Diagnosis Christopher Porter III, MD [address] [place] [address] [place] [address] 06/01/2025 Christopher Noriegarne UTI (urinary tract infection) N39.0 Assessments Encounter Date Diagnosis (ICD Code) Assessment Notes Treatment Notes Treatment Clinical Notes 06/01/2025 UTI (urinary tract infection) (ICD-10 - N39.0) Plan Of Treatment Pending Test Test Name Order Date URINALYSIS (UA) 06/01/2025 Next Appt Details Provider Name:Christopher Schwartz German , 09/01/2025 02:00:00 PM, [address] [place] [address] [address], [place], [address], Provider Name:Christopher Noriegarne , 10/26/2025 02:00:00 PM, [address] [place] [address] [address], [place], [address], Progress Notes * Jax NIEVESOB:[birth year] (69 yo F)Acc No.[id number]:06/01/2025 Patient: Laura KWON :1955 A ge:69 Y S ex:Female Phone: Address:[address] [place] [address] , [place] [address] Subjective: * Chief Complaints: * M essage * Medical History: * Surgical History: * Hospitalization/Major Diagno stic Procedure: * Medications: Objective: * Vitals: * Physical Examination: Assessment: * Assessment: 1. U TI (urinary tract infection) - N39.0 Plan: * Treatment: * Procedure Codes: * true * Date: Generated for Fatou costa/Malik/eTransmitting on: 09/22/2024 02:50 AM EST
--- OUTSIDE RECORDS SUMMARY | 2025-06-03 06:31 | XMS_ITS ---
Author Organization Christopher Porter III, MD Address [address] [place] [address] [place] [address] Care Team Providers Care Sheeter Machine Operator Name Role Phone Dr. Christopher Porter III Primary Care Provider REASON FOR VISIT Urine Culture Results Social History Sex Assigned At : Social History Observation Description Sex Assigned At Female Encounters Encounter Location Date Provider Diagnosis Christopher Porter III, MD [address] [place] [address] [place] [address] 06/03/2025 Christopher Porter Plan Of Treatment Next Appt Details Provider Name:Christopher Porter , 09/01/2025 02:00:00 PM, [address] [place] [address] [place], [address], Provider Name:Christopher Porter , 10/26/2025 02:00:00 PM, [address] [place] [address] , [address], [facility], [address], Progress Notes * IVANJaxOB:[birth year] (69 yo F)Acc No.[id number]:06/03/2025 Patient: Laura KWON :1955 A ge:69 Y S ex:Female Phone: Address:[address] [place] [address] , [place] [address] * true * Date: Generated for Fatou costa/Malik/eTransmitting on: 09/22/2024 02:51 AM EST
--- OUTSIDE RECORDS SUMMARY | 2025-06-04 15:05 | XMS_ITS ---
Author Organization Christopher Porter III, MD Address [address] [place] [address] [place] [address] Care Team Providers Care Production Administrator Name Role Phone Dr. Christopher Porter III Primary Care Provider Medications Medication SIG (Take, Route, Frequency, Duration) Notes Start Date End Date Status Ciprofloxacin HCl 500 MG 1 tablet Orally every 12 hrs for 7 days 06/04/2025 06/11/2025 Active Social History Sex Assigned At : Social History Observation Description Sex Assigned At Female Encounters Encounter Location Date Provider Diagnosis Christopher Porter III, MD [address] [place] [address] [place] [address] 06/04/2025 Christopher Porter Plan Of Treatment Medication Medication Name Sig Start Date Stop Date Notes Ciprofloxacin HCl 500 MG 1 tablet Orally every 12 hrs for 7 days 06/04/2025 06/11/2025 Next Appt Details Provider Name:Christopher Porter , 09/01/2025 02:00:00 PM, [address] [facility] [address], [place], [address], Provider Name:Christopher Porter , 10/26/2025 02:00:00 PM, [address] [place] [address] [address], [place], [address], Progress Notes * Jax NIEVESOB:[birth year] (69 yo F)Acc No.[id number]:06/04/2025 Patient: Mansi KWONlene :1955 A ge:69 Y S ex:Female Phone: Address:[address] [place] [address] , [place] [address] * Refills Start Ciprofloxacin HCl Tablet, 500 MG, Orally, 14 Tablet, 1 tablet, every 12 hrs, 7 days, Refills=0 * true * Date: Generated for Fatou costa/Malik/Rafismitting on: 09/22/2024 02:50 AM EST
--- OUTSIDE RECORDS SUMMARY | 2025-06-17 09:16 | XMS_ITS ---
Author Organization Christopher Porter III, MD Address [address] [place] [address] [place] [address] Care Team Providers Care Behavioral Specialist Name Role Phone Dr. Christopher Porter III Primary Care Provider [phone] REASON FOR VISIT Weight loss Rx Medications Medication SIG (Take, Route, Frequency, Duration) Notes Start Date End Date Status Mounjaro 2.5 MG/0.5ML 2.5mg once a week Subcutaneous once a week for 30 days DX: Diabetes E11.9 07/13/2025 01/09/2026 Active Social History Sex Assigned At : Social History Observation Description Sex Assigned At Female Encounters Encounter Location Date Provider Diagnosis Christopher Porter III, MD [address] [place] [address] [place] [address] 06/17/2025 Christopher Porter Other and unspecifie d hyperlipidemia E78.5 Assessments Encounter Date Diagnosis (ICD Code) Assessment Notes Treat ment Notes Treatment Clinical Notes 06/17/2025 Other and unspecifie d hyperlipidemia (ICD-10 - E78.5) Her lipids have been well controlled. Comprehensive blood work has been ordered prior to the next visit which will include a fasting lipid profile. Plan Of Treatment Medication Medication Name Sig Start Date Stop Date Notes Zepbound 2.5 MG/0.5ML 0.5 mL Subcutaneou s weekly 02/23/2025 Mounjaro 2.5 MG/0.5ML 2.5mg once a week Subcutaneous once a week for 30 days 07/13/2025 01/09/2026 DX: Diabetes E11.9 Next Appt Details Provider Name:Chrsitopher Porter , 09/01/2025 02:00:00 PM, [address] [place] [address] [address], [place], [address], Provider Name:Christopher Porter , 10/26/2025 02:00:00 PM, [address] [place] [address] [address], [place], [address], Progress Notes * IVAN, JaxOB:[birth year] (69 yo F)Acc No.[id number]:06/17/2025 Patient: Laura KWON :1955 A ge:69 Y S ex:Female Phone: Address:[address] [place] [address] , [place] [address] * Refills Stop Zepbound Solution Auto-injector, 2.5 MG/0.5ML, Subcutaneous, 0.5 mL, weekly Start Mounjaro Solution Auto-injector, 2.5 MG/0.5ML, Subcutaneous, 2 Milliliter, 2.5mg once a week, once a week, 30 days, Refills=5 * true * Date: Generated for Fatou costa/Malik/Zo on: 09/22/2024 02:50 AM EST
--- OUTSIDE RECORDS SUMMARY | 2025-07-21 08:10 | XMS_ITS ---
Author Organization Christopher Porter III, MD Address [address] [place] [address] [place] [address] Care Team Providers Care Tobacco Sieve Operator Name Role Phone Dr. Christopher Porter III Primary Care Provider REASON FOR VISIT Needs call back from Social History Sex Assigned At : Social History Observation Description Sex Assigned At Female Encounters Encounter Location Date Provider Diagnosis Christopher Porter III, MD [address] [place] [address] [place] [address] 07/21/2025 Christopher Porter Plan Of Treatment Next Appt Details Provider Name:Christopher Porter , 09/01/2025 02:00:00 PM, [address] [place] [address] [place], [address], Provider Name:Christopher Porter , 10/26/2025 02:00:00 PM, [address] [place] [address] , [address], [place], [address], Progress Notes * IVAN, JaxOB:[birth year] (69 yo F)Acc No.[id number]:07/21/2025 Patient: Laura KWON :1955 A ge:69 Y S ex:Female Phone: Address:[address] [place] [address] , [facility] [address] * true * Date: Generated for Fatou costa/Malik/eTransmitting on: 09/22/2024 02:49 AM EST
--- OUTSIDE RECORDS SUMMARY | 2025-07-21 11:07 | XMS_ITS ---
Author Organization Christopher Porter III, MD Address [address] [place] [address] [place] [address] Care Team Providers Care Data Modeling Architect Name Role Phone Dr. Christopher Porter III Primary Care Provider [phone] Medications Medication SIG (Take, Route, Fr equency, Duration) Notes Start Date End Date Status Ondansetron HCl 8 MG 1 Orally 6 for 7 days 025 Active Social History Sex Assigned At : Social History Observation Description Sex Assigned At Female Encounters Encounter Location Date Provider Diagnosis Christopher Porter III, MD [address] [place] [address] [place] [address] 07/21/2025 Christopher Porter Plan Of Treatment Medication Medication Name Sig Start Date Stop Date Notes Ondansetron HCl 8 MG 1 Orally 6 for 7 days 07/21/2025 Next Appt Details Provider Name:Christopher Porter , 09/01/2025 02:00:00 PM, [address] [place] [address] [address], [place], [address], Provider Name:Christopher Porter , 10/26/2025 02:00:00 PM, [address] [place] [address] [address], [place], [address], Progress Notes * Jax NIEVESOB:[birth year] (69 yo F)Acc No.[id number]:07/21/2025 Patient: Mansi KWONlene :1955 A ge:69 Y S ex:Female Phone: Address:[address] [place] [address] , [place] [address] * Refills Start Ondansetron HCl Tablet, 8 MG, Orally, 28, 1, 6, 7 days, Refills=1 * true * Date: Generated for Fatou costa/Malik/Rafismitting on: 09/22/2024 02:49 AM EST
[2025-07-22 14:37] VITALS: BP 112/70; PULSE 86; O2SAT 95; BMI 38.7
--- NOTE | 2025-07-22 14:37 | MHC.OFFVIS ---
Vital Signs 07/22/25 14:37 Height 5 ft Weight 198 lb 6.656 oz BMI 38.7 BP 112/70 Blood Pressure Location Lt brachial Position Sitting Pulse 86 Pulse Source Pulse Oximeter Pulse Oximetry (%) 95 Oxygen Delivery Method Room Air Intake Visit Reasons: COPD Intake Note: pt is here for follow up and states she is still trying to get use of cpap Nursery Nurse Required: No Wet Process Head Miller: Wet Process Head Miller offered & declined Allergies codeine (Codeine) Allergy (Mild, Verified 07/22/25 14:52) Rash, nausea Medication List - Last Reconciled 07/22/25 by Letitia Gonzalez MD albuterol sulfate 90 mcg/actuation (ProAir HFA) 2 puffs inhalation Q4-6H PRN 30 days anastrozole 1 mg PO DAILY atorvastatin 10 mg PO DAILY calcium carbonate-vitamin D3 600 mg-5 mcg (200 unit) 1 tab PO DAILY citalopram 40 mg PO DAILY levothyroxine 100 mcg PO DAILY metformin 500 mg PO DAILY hnwklvkg-tum-hqfk-FA-vit K-lut 8 mg iron-400 mcg-50 mcg (Centrum Silver Women) 1 tab PO DAILY naproxen 500 mg PO BID omeprazole 1 cap PO BID semaglutide (Ozempic) 0.5 mg subcut QWEEK valsartan 40 mg PO DAILY Do you need a note to return to daycare/school/sports/work: No HPI HPI COPD: Details: Laura, 69 years old female, grossly obese, is a case of obstructive sleep apnea. She is new to use of CPAP, has done better than expected and has used most of the nights missed only one night . She say is that she has been sleeping a little better than before, but still getting used to the CPAP ( nasal mask with pressure setting of 6-16 cm ) Breathing has been good and she uses albuterol only as needed. 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) GERD (gastroesophageal reflux disease) Urinary tract infection Hypothyroid Pre-diabetes Hypertension Abnormal mammogram of right breast Surgical History H/O shoulder surgery Hx of colonoscopy History of lumpectomy of right breast History of hand surgery Hx of cholecystectomy History of appendectomy H/O right breast biopsy History of total hysterectomy Family History Mother History of lung cancer CHF (congestive heart failure) Sister History of colon cancer History of liver cancer Maternal Aunt Breast cancer Family/Other Breast cancer Father Heart attack Social History Household Members: Spouse Housing: House Are you a primary healthcare customer service to a significant other at home: Yes (PT does take care of her sister.) Do you presently have visiting nurse or other home services: No Alcohol intake: current Alcohol intake frequency: does not drink Patient Tobacco Use Status: Former Tobacco user Tobacco use type: Cigarette Cigarette Packs Per Day: 2 Years Smoked: 52 service: No Current occupational status: employed Female Reproductive History Menstrual Age of Menarche: 11 Review of Systems Const All systems reviewed & are unremarkable except as noted in HPI and below Eyes Reports no additional complaints ENT Reports no additional complaints Card Denies chest pain at rest, Denies irregular heart rhythm, Denies leg edema and Reports dyspnea on exertion (USED TO BE MILD BUT NOW IT IS INCREASED FROM BEFORE.) Resp Reports cough, Reports dyspnea on exertion (USED TO BE MILD BUT NOW IT IS INCREASED FROM BEFORE.) and Denies wheezing GI Reports no additional complaints Reports no additional complaints Musc Reports no additional complaints Skin/Breast Reports system reviewed and no additional complaints, except as documented Neuro Reports no additional complaints Psych Reports no additional complaints Endo Reports no additional complaints Aller/Immun Denies wheezing Physical Exam Vital Signs: Last Vital Signs Pulse 86 07/22/25 14:37 BP 112/70 07/22/25 14:37 Pulse Ox 95 07/22/25 14:37 Oxygen Delivery Method Room Air 07/22/25 14:37 BMI result Body Mass Index 38.7 Const General: healthy appearing, comfortable, no acute distress, alert and awake Orientation/consciousness: patient oriented x3 HEENT Head: Yes normal to inspection General nose exam: No nasal polyps present and No nasal discharge present Face and sinus: Yes sinuses nontender Mouth: oropharynx normal Throat: Yes posterior oropharynx normal Eyes General: appearance normal, both eyes and all related structures Neck Neck: Yes normal visual inspection, Yes no lymphadenopathy, Yes trachea midline and Yes no JVD Thyroid: Thyroid normal Chest Chest palpation & inspection: normal inspection of the chest, normal palpation of entire chest wall and no tenderness Resp Auscultation: clear to auscultation bilaterally, no crackles and no wheezes Cardio Palpation: normal PMI Rate: regular rate Rhythm: regular rhythm Heart sounds: no gallops and no murmurs GI Palpation (GI): Soft to palpation, nontender, No hepatosplenomegaly present and no masses Auscultation: normal bowel sounds Back/Spine/Pelvis Thoracic/Lumbar Spine: thoracic and lumbar spine normal to inspection Skin General skin exam: no rashes or lesions noted Neuro General: patient oriented x3 and no focal motor deficits Cranial nerves: Yes CN's II-XII intact bilaterally Extrem General: Yes normal to inspection, Yes no clubbing, cyanosis or edema and Yes no calf tenderness Psych Appearance: grossly normal and well kempt Speech and movement: Normal speech and movement present Results Reviewed Results Reviewed: CPAP compliance report for the last 30 nights is reviewed. She has used CPAP for 29/30 nights, 97%. Average usage per night 4 hours. Pressure used mostly 8-9 cm. There is only slight air leak. Residual AHI 1.4 Assessment & Plan Assessment & Plan (1) Obesity: Comment: PATIENT IS AT THE VERGE OF MORBID OBESITY. THIS HAS CAUSED HER TO HAVE OBSTRUCTIVE SLEEP APNEA. Code(s): E66.9 - Obesity, unspecified Category: Medical Plan: EXPLAINED TO THE PATIENT THAT SHE SHOULD TRY TO LOSE WEIGHT. DIET AND ALSO NEED TO DO PHYSICAL EXERCISE DAILY IS EXPLAINED (2) INDER (obstructive sleep apnea): Comment: PATIENT HAD HOME-BASED SLEEP STUDY CONFIRMING THE DIAGNOSIS OF OBSTRUCTIVE SLEEP APNEA WITH SOME NOCTURNAL HYPOXEMIA. SHE HAS BEEN STARTED ON CPAP THERAPY WITH NASAL MASK AND PRESSURE SETTING 6-16 CM. HER COMPLIANCE IS RELATIVELY BETTER THAN EXPECTED BUT NOT OPTIMAL YET. SHE IS FEELING SOMEWHAT BETTER WITH IMPROVED SLEEP. Code(s): G47.33 - Obstructive sleep apnea (adult) (pediatric) Category: Medical Plan: COMMENDED FOR GOOD COMPLIANCE. INCREASE THE USAGE TO MORE THAN 4 HOURS EVERY NIGHT. (3) Interstitial lung disease: Comment: BACK IN 2019 SHE DID HAVE EVIDENCE OF EARLY ONSET OF INTERSTITIAL LUNG DISEASE IN THE LOWER LOBES, AN EARLY MANIFESTATION OF MACRODANTIN CAUSED INTERSTITIAL LUNG DISEASE, WHICH RESOLVED AFTER STOPPING MACRODANTIN. HAS HAD NO RECURRENCE OF COUGH OR WHEEZING. Code(s): J84.9 - Interstitial pulmonary disease, unspecified Category: Medical Plan: NO FURTHER TREATMENT NEEDED FOR THIS ISSUE (4) Cough: Comment: POST COVID COUGH REACTIVE AIRWAYS , NOW RESOLVED COMPLETELY . SHE DOES HAVE HISTORY OF COUGH ON INHALING COLD AIR. Code(s): R05 - Cough Category: Medical Plan: AVOID COLD AIR DURING THE WINTER MONTHS Coding Level of Care Code Est Pt Level 3 (83529) Diagnoses Obesity E66.9 INDER (obstructive sleep apnea) G47.33 Interstitial lung disease J84.9 Cough R05
--- OUTSIDE RECORDS SUMMARY | 2025-07-23 02:49 | XMS_ITS | Patient Health Record ---
Author Organization [facility] Address [address] [place] [address] Care Team Providers Care Duct Cleaner Name Role Phone Christopher Porter MD Primary Care Provider Christopher Cat Unavailable [phone] Allergies Allergen (clinical drug ingredient) Drug/Non Drug Allergy documented on EMR Reaction Allergy Type Onset Date Status Codeine Phosphate Unknown Drug Allergy Active Reason For Referral No Information Medications Medication SIG (Take, Route, Frequency, Duration) Notes Start Date End Date Status Citalopram Hydrobromide 20 MG Tablet 0.5 tablet Orally Once a day Active Centrum Silver - Tablet as directed Orally Active Omeprazole 20 MG Capsule Delayed Release 1 capsule Orally Q AM; Duration: 30 day(s) 05/24/2016 Active Euthyrox 100 MCG Tablet TAKE 1 TABLET BY MOUTH ONCE DAILY ON AN EMPTY STOMACH IN THE MORNING Oral; Duration: 30 Active Triamterene-HCTZ 75-50 MG Tablet TAKE 1 TABLET BY MOUTH ONCE DAILY IN THE MORNING FOR 30 DAYS Oral; Duration: 30 Active Atorvastatin Calcium 10 MG Tablet TAKE 1 TABLET BY MOUTH ONCE DAILY FOR 30 DAYS Oral; Duration: 90 Active metFORMIN HCl 500 MG Tablet Oral; Duration: 90 Active Immunizations Vaccine Route Administration Date Status Comme nts Influenza Unknown 05/04/2020 Administered Social History Social History Additional Details Category Social Info Options Details Miscellaneous: Marital status: 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 alcohol. Nonsmoker; no sig. alcohol. Problems Problem Type SNOMED Code ICD Code Onset Dates Problem Status W/U Status Risk Notes Problem Screening for malignant neoplasm of colon (922839090) Encounter for screening for malignant neoplasm of colon (Z12.11) Active confirmed Problem Screening for malignant neoplasm of rectum (123498031) Encounter for screening for malignant neoplasm of rectum (Z12.12) Active confirmed Problem Epigastric pain (63096276) Abdominal pain, epigastric (R10.13) Active confirmed Problem Family History of Cancer of Colon (Situation) (129169780) Family history of colon cancer (Z80.0) Active confirmed Problem Esophageal reflux finding (905216061) Gastroesophageal reflux (K21.9) Active confirmed Problem Diverticulosis of colon (723679402) Diverticulosis of colon (K57.30) Active confirmed Problem Gastroesophageal reflux disease (874116867) Gastroesophageal reflux disease, unspecified whether esophagitis present (K21.9) Active confirmed Plan Of Treatment Future Test Test Name Order Date COLONOSCOPY 05/24/2016 UPPER GI ENDOSCOPY 05/10/2021 COLONOSCOPY 05/10/2021 Insurance Providers Payer Name Payer Address Payer Phone Subscriber Number Group Number Insured Name Patient Relationship to Insured Coverage Start Date Coverage End Date [facility] [address] [place] [phone] [id number] KATHY LOVE Self - patient is the insured Medical (General) History Medical History History ICD Code Colonoscopies 12-28-2010 and 2000 were negative except for hyperplastic polyps Denies DC,CVA,Lung disease,renal disease UTI's Depression Hypothyroidism NIDDM Colonoscopy 06/2016 was negative except for a hyperplastic polyp Resolved interstitial lung disease due t o Macrodantin--sees Dr. Gonzalez GERD Surgical History Surgery Date(Month/Year) Cholecystectomy Appendectomy Benign breast cyst Carpal tunnel-right Hand surgery on the left for arthritis TIBURCIO
--- OUTSIDE RECORDS SUMMARY | 2025-07-23 02:50 | XMS_ITS | Patient Health Record ---
Author Organization [facility] Address [address] [place] [address] Care Team Providers Care Passenger Brakeman Name Role Phone Christopher Porter MD Primary Care Provider Unavailab Abram Tsang Unavailable [phone] Allergies Allergen (clinical drug ingredient) Drug/Non Drug [...] former smoker When did you start smoking? 1967 When did you stop smoking? 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) Active confirmed Plan Of Treatment Pending Test Test Name Order Date X ray : Foot, right 2V 03/20/2018 X ray : Foot, left 3V 04/21/[id number] TENDON SHEATH/LIGAMENT 0 04/21/[id number] TENDON SHEATH/LIGAMENT 0 03/20/2018 Insurance Providers Payer Name Payer Address Payer Phone Subscriber Number Group Number Insured Name Patient Relationship to Insured Coverage Start Date Coverage End Date [employer] [place] [employer] Ad[employer]age [facility] [address] [place] [address] [id number] Laura Nivees Self - patient is the insured Medical (General) History Medical History History ICD Code Headaches/Migraines Chicken pox Measles Surgical History Surgery Date(Month/Year) hand gall bladder appendectomy carpal tunel 02/08/2015 Hospitalization History Reason Date(Month/Year) C for chest pains 05/2017
--- OUTSIDE RECORDS SUMMARY | 2025-07-23 02:50 | XMS_ITS | Patient Health Record ---
Author Organization Christopher Porter III, MD Address [address] [place] [address] [place] [address] Care Team Providers Care Surgical Supply Assistant Name Role Phone Dr. Christopher Porter III Primary Care Provider [phone] Allergies Allergen (clinical drug ingredient) Drug/Non Drug [...] Negative Negative - Menstrating No Urine Culture Reviewed date:06/13/2025 06:24:44 AM Interpretation: Performing Lab:[facility], [address] [place] [phone] Notes/Report: Urine Culture Report Result Urine Culture > 100,000 cfu/ml Urine Culture Mixed bacterial parker a characteristic of Urine Culture urogenital contamination. Complete Blood Count Auto Di ff Reviewed date:10/24/2024 02:15:19 PM Interpretation: Performing Lab:[facility], [address] [place] [phone] Notes/Report: White Blood Count 9.5 4.8-10.8 X10*3/uL [...] Random Reviewed date:10/24/2024 02:15:19 PM Interpretation: Performing Lab:[facility], [address], [place] [address] Notes/Report: Creatinine Urine 237.62 Microalbumin Urine 18.0 Microalbum/Creatinine Ratio Ur 7.5 <30 ug/mg cr Albumin/Creatinine Ratio Reference Ranges: Normal: < 30 ug/mg creatinine Microalbuminuria: 30 - 300 ug/mg creatinine Clinical Albuminuria: > 300 ug/mg creatinine MM tomosynthesis screening B I Reviewed date:10/26/2024 09:09:04 AM Interpretation: Performing Lab: Notes/Report: [address] [place] [address] Mammography Report Signed Patient: Laura Love MR#: [id number] : 1955 Acct:[id number] Age/Sex: 69 / F ADM Date: 10/16/24 Loc: .MAMMO Attending Dr: Christopher Porter MD Ordering Physician: Christopher Porter MD Results: 2Benign Findings Date of Service: 10/16/24 Follow Up: 1 Year From [facility] Mammogram Procedure(s): MM tomosynthesis screening BI Accession Number(s): [id number] cc: Christopher Porter MD EXAMINATION: MM SCREENING [...] OV> 10/24/24 1653 DD/ 0840 TD/TT: 10/16/24 0900 Insurance Appraiser: Veronika [facility] [address] [place], [place] [address] Mammography Report Signed Patient: Laura Love MR#: [id number] : 1955 Acct:[id number] Age/Sex: 69 / F ADM Date: 10/16/24 Loc: HO.MAMMO Attending Dr: Christopher Porter MD Ordering Physician: Christopher Porter MD Results: 2Benign Findings Date of Service: 10/16/24 Follow Up: 1 Year From [facility] Mammogram Procedure(s): MM tomosynthesis screening BI Accession Number(s): [id number] cc: Christopher Porter MD EXAMINATION: MM SCREENING [...] OV> 10/24/24 1653 DD/ 0840 TD/TT: 10/16/24 0900 Insurance Appraiser: Diabetic Eye Exam Reviewed date:10/29/2024 04:30:34 PM Interpretation:undefined Performing Lab: Notes/Report: undefined Complete Blood Count Auto Di ff Reviewed date:02/18/2025 02:00:50 PM Interpretation: Performing Lab:[facility], [address] [place] [phone] Notes/Report: White Blood Count 6.8 4.8-10.8 X10*3/uL [...] NRBC Abs Auto 0.000 0.0-0.012 X10*3/uL Comprehensive [place]. Panel Fa st Reviewed date:02/18/2025 02:00:50 PM Interpretation: Performing Lab:[facility], [address] [place] [phone] Notes/Report: Sodium 142 135-145 mmol/L Potassium 4.4 [...] Panel Reviewed date:02/18/2025 02:00:50 PM Interpretation: Performing Lab:[facility], [address] [place] [phone] Notes/Report: Triglycerides 147 <150 mg/dL Desirable Triglyceride: [...] patients with liver disease. Urinalysis and Microscopic Reviewed date:06/13/2025 06:24:44 AM Interpretation: Performing Lab:[facility], [address] [place] [phone] Notes/Report: Color Urine Yellow Appearance Urine Clear PH 6.5 5.0-9.0 Glucose Urine UA Negative Negative mg/dL Urine Blood Negative Negative Specific Corinne - Urine 1.015 1.005-1.025 Urine Protein Negative Neg-Trace mg/dL Urine Ketones Negative Negative mg/dL Nitrite Urine Positive Negative Leukocyte Esterase Urine Moderate (2+) Negative RBC Urine 0-2 0-2 /HPF WBC Urine 21-50 0-5 /HPF Squamous Epithelial Cell Urine 0-2 0-2 /HPF Bacteria Urine 4+ None Seen Hyaline Casts Urine 0-2 0-2 /LPF Urinalysis Reviewed date:06/13/2025 06:24:44 AM Interpretation: Performing Lab:[facility], [address] [place] [phone] Notes/Report: Color Urine Yellow Appearance Urine Clear PH 6.5 5.0-9.0 Glucose Urine UA Negative Negative mg/dL Urine Blood Negative Negative Specific Corinne - Urine 1.015 1.005-1.025 Urine Protein Negative Neg-Trace mg/dL Urine Ketones Negative Negative mg/dL Nitrite Urine Positive Negative Leukocyte Esterase Urine Moderate (2+) Negative Reason For Referral Reason Evaluate and Treat ? Injections and/or Physical Therapy Diagnosis 1 Right sided sciatica (M54.31) Diagnosis 2 Back pain (M54.9) Referral Organization Christopher Porter III, MD Referring Provider First Name Christopher Referring Provider Last Name eGrman Referring Provider Speciality Internal edicine Referred Provider [facility] Referred Provider Specialty Physical Med [facility] General Notes D, Maria T 12/01/2024 09:28:03 AM > Referral and [...] Pulmonary Di seases General Notes Vangie Rosenberg MATTIE 03/05 10:08:14 AM > I called Dr Golden office [phone] spoke to Dori mixon patient appt on 03/24/2025 at 3:45pm . information called and mailed to patient . Referral Priority Routine Referral Appointment Date 03/24/2025 Reason Evaluate and Treat Right hip Pain Diagnosis 1 Right hip pain (M25. 551) Referral Organization Christopher Porter III, MD Referring Provider First Name Christopher Referring Provider Last Name Greman Referring Provider Speciality Internal M edicine Referred Provider [place], [facility] Referred Provider Specialty [facility] General Notes DMaria T 05/29/2025 03:14:01 PM > referral and progress note faxed.Nikolay Amber 07/14/2025 02:24:33 PM > Patient is stating she is not having issues with her right hip at this time and would like to close out the referral. Referral Priority Routine Medications Medication SIG (Take, [...] Orally twic e a day 11/24/2024 Active Ozempic (0.25 or 0.5 MG/DOSE) 2 MG/3ML 0.25mg once a week Subcutaneous take once a week for 30 days Active Ondansetron HCl 8 MG 1 tablet Orally one every 6 hours as needed for nausea for 7 days Active Omeprazole 20 MG Take 1 capsule by mo [facility] twice daily Active metFORMIN HCl 500 MG TAKE 1 TABLET BY MO UT ONCE DAILY WITH A MEAL Active Valsartan [...] Problem Status W/U Status Risk Notes Problem 6364095 Former smoker (Z87.891) Active confirmed She is highly motivated not to smoke. She has a plan for prevention of relapse and maintenance of abstinence in times of stress or illness. Problem 06677161 Hypothyroidism (E03.9) Active confirmed His thyroid function tests have been at their target. Comprehensive blood work with a fasting lipid profile and thyroid functions have been ordered Problem 92570023 Depression (F32.9) Active confirmed Her depression is stable and mild and no change in her regimen is necessary. She is discouraged that she is gaining weight and feels powerless to reverse the process. She wants to continue her antidepressant as she perceives a significant benefit, even if it makes it harder to lose weight. Problem 095103052 Lumbar radiculopathy (M54.16) Active confirmed She is beginning to improve and will continue on current medications. She will see the rehabilitation physician tomorrow. 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 She was no sign of disease recurrence or new primary today. Problem 050440267 Obesity (BMI 30-39.9) (E66.9) Active confirmed Is +5 pound s through diet. We reviewed her diet and her weight loss strategy and her nutrition. We made a plan to continue weight loss that her rate of one half of a pound per week. Problem 99857589 Other and unspecified hyperlipidemia (E78.5) Active confirmed Her lipids have been well controlled. Comprehensive blood work has been ordered prior to the next visit which will include a fasting lipid profile. Problem 74570698 Right sided sciatica (M54.31) Active confirmed She does not wish to have another injection. We will continue therapy this time with heat and rest and dexamethasone. 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 Problem 01831973 Cervical nerve root impingement (G54.2) Active confirmed This pain has resolved for the time being. I have advised her against heavy exertion. Problem 347005078 Panic attacks (F41.0) Active confirmed She has occasional panic attacks but they do not last long. They have improved substantially over previous years. Problem 243181469 Hyperplastic colon polyp (K63.5) Active confirmed She will undergo colonoscopy at regular intervals. Problem 272367836 Interstitial lung disease (J84.9) Active confirmed She recently saw pulmonary. A CT scan of the chest was done and reportedly negative. Pulmonary function test are pending. She is being treated by her visual specialist for interstitial lung disease. Problem 09224113 Left sided sciatica (M54.32) Active confirmed The sciatica has completely resolved and is no longer troubling her. Problem Type II diabetes mellitus without complication (942938579) Type 2 diabetes mellitus without complication, without long-term current use of insulin (E11.9) Active confirmed He appears t o be stable. Her medications were continued. No change in her regimen was needed. Problem Obstructive sleep apnea syndrome (10670067) INDER (obstructive sleep apnea) (G47.33) Active confirmed Problem 801797868 Osteopenia, unspecified location (M85.80) Active confirmed She will continue on calcium carbonate and vitamin D. She has stopped the letrozole. If she begins anastrozole. She will need frequent bone density determinations and possibly alendronate. Problem 05828225 Chronic cough (R05.3) Active confirmed She says [...] Date Provider Diagnosis Christopher Porter III, MD [address] [place] [address] [place] [address] 10/24/2024 Christopher Porter Lumbar radiculopathy M54.16 ; [...] and Obesity E66.9 Christopher Porter III, MD [address] [place] [address] [place] [address] 11/24/2024 Christopher Porter Lumbar radiculopathy M54.16 ; Right sided sciatica M54.31 ; Other and unspecified hyperlipidemia E78.5 ; Depression F32.9 ; Former smoker Z87.891 and Atypical ductal hyperplasia, breast N60.99 Christopher Porter III, MD [address] [place] [address] [place] [address] 11/27/2024 Christopher Porter Lumbar radiculopathy M54.16 ; Other and unspecified hyperlipidemia E78.5 ; Depression F32.9 ; Former smoker Z87.891 ; Panic attacks F41.0 ; Hypothyroidism E03.9 ; Cervical nerve root impingement G54.2 ; Type 2 diabetes mellitus without complication, without long-term current use of insulin E11.9 and Malignant neoplasm of upper-inner quadrant of right female breast C50.211 Christopher Porter III, MD [address] [place] [address] [place] [address] 12/03/2024 Christopher Porter Lumbar radiculopathy M54.16 ; Depression F32.9 ; Former smoker Z87.891 ; Hypothyroidism E03.9 ; Cervical nerve root impingement G54.2 ; Type 2 diabetes mellitus without complication, without long-term current use of insulin E11.9 and Obesity E66.9 Christopher Porter III, MD [address] [place] [address] [place] [address] 01/19/2025 Christopher Kamara and unspecifie d hyperlipidemia E78.5 ; Hypothyroidism E03.9 ; Right sided sciatica M54.31 ; Interstitial lung disease J84.9 ; Malignant neoplasm of upper-inner quadrant of right female breast C50.211 ; Obesity (BMI 30-39.9) E66.9 ; Osteopenia, unspecified location M85.80 ; Lumbar radiculopathy M54.16 and Former smoker Z87.891 Christopher Porter III, MD [address] [place] [address] [place] [address] 02/23/2025 Christopher Kamara and unspecifie d hyperlipidemia E78.5 ; Chronic cough R05.3 ; Former smoker Z87.891 ; Depression F32.9 ; Hypothyroidism E03.9 ; Atypical ductal hyperplasia, breast N60.99 ; Type 2 diabetes mellitus without complication, without long-term current use of insulin E11.9 ; Obesity E66.9 ; Lumbar radiculopathy M54.16 and Osteopenia, unspecified location M85.80 Christopher Porter III, MD [address] [place] [address] [place] [address] 05/27/2025 Christopher Kamara and unspecifie d hyperlipidemia E78.5 ; Type 2 diabetes mellitus without complication, without long-term current use of insulin E11.9 ; Hypothyroidism E03.9 ; Obesity (BMI 30-39.9) E66.9 ; Depression F32.9 ; Former smoker Z87.891 ; Cervical nerve root impingement G54.2 ; Lumbar radiculopathy M54.16 and Chronic cough R05.3 Christopher Porter III, MD [address] [place] [address] [place] [address] 08/13/2024 Christopher Porter III, MD [address] [place] [address] [place] [address] 08/13/2024 Christopher Porter III, MD [address] [place] [address] [place] [address] 03/04/2025 Christopher Porter III, MD [address] [place] [address] [place] [address] 06/01/2025 Christopher Porter UTI (urinary tract infection) N39.0 Christopher Porter III, MD [address] [place] [address] [place] [address] 06/03/2025 Christopher Porter III, MD [address] [place] [address] [place] [address] 06/04/2025 Christopher Porter III, MD [address] [place] [address] [place] [address] 06/17/2025 Christopher Porter Other and unspecifie d hyperlipidemia E78.5 Christopher Porter III, MD [address] [place] [address] [place] [address] 07/21/2025 Christopher Porter III, MD [address] [place] [address] [place] [address] 07/21/2025 Christopher Porter Assessments Encounter Date Diagnosis (ICD [...] UTI (urinary tract infection) (ICD-10 - N39.0) 06/17/2025 Other and unspecified hyperlipidemia (ICD-10 - E78.5) Her lipids have been well controlled. Comprehensive blood work has been ordered prior to the next visit which will include a fasting lipid profile. 10/24/2024 Other and unspecified hyperlipidemia (ICD-10 - [...] referral to the weight-loss clinic at [facility]. 02/23/2025 Atypical ductal hyperplasia, breast (ICD-10 [...] 05/22/2022 Stress Test 05/22/2022 US BREAST LEFT ([facility] [place]) 06/04/20 19 US BREAST LEFT ([facility] [place]) 02/01/20 17 US BREAST LEFT ([facility] [place]) 08/02/20 17 US BREAST LEFT ([facility] [place]) 08/02/20 17 US BREAST LEFT ([facility] [place]) 11/26/19 19 US BREAST RIGHT ([facility] [place]) 019 US BREAST RIGHT ([facility] [place]) 019 CBC WITH AUTO DIFF 10/24/2024 CBC WITH AUTO DIFF 05/28/2024 Lipid Panel 05/27/2025 Lipid Panel 10/24/2024 Lipid Panel 05/28/2024 Free T4 (Free Thyroxine) 02/23/2025 Free T4 (Free Thyroxine) 05/27/2025 Microalbumin, Random 05/28/2024 Microalbumin, Random 02/23/2025 MM tomosynthesis diagnostic BI Hemoglobin A1c 05/28/2024 Hemoglobin A1c 02/23/2025 Next Appt Details Provider Name:Christopher Porter , 09/01/2025 02:00:00 PM, [address] [place] [address] [address], [place], [address], Provider Name:Christopher Porter , 10/26/2025 02:00:00 PM, [address] [place] [address] [address], [place], [address], Insurance Providers Payer Name Payer Address Payer Phone Subscriber Number Group Number Insured Name Patient Relationship to Insured Coverage Start Date Coverage End Date [address] [facility] [place] [phone] [id number] Lizbeth MansiLaura Self - patient is the insured MEDICARE NGS [address] [place] [phone] [id number] Shan Lovee Self - patient is the insured Medical (General) History Medical History History ICD Code atypical hyperplasia right breast 2001 recurrent pyelonephritis depression anxiety Panic attacks klebsiella urosepsis hyperplastic colonic polyp 2010 [id number] stage IA er+pr+her- invasive ductal right breast cancer June 2021 hypothyroid bilateral ovarian cysts, hysterectomy in December 2019 diabetes hyperlipidemia Surgical History Surgery Date(Month/Year) injections in her back right breast lumpectomy 07/24 hysterectomy, oophorectomy, cyst, Dr. Saini ddad 12/2019 colonoscopy right breast biopsy 2001 Hospitalization History Reason Date(Month/Year) No history
== END 2025-07-22 15:00 | disposition home or self-care (01) ==
LOC: HO.HPS 14:21
PROVIDERS: PCP Internal Medicine Medical Oncology; Visit Provider Internal Medicine
DX: E66.9 Obesity, unspecified (principal); G47.33 Obstructive sleep apnea (adult) (pediatric); J84.9 Interstitial pulmonary disease, unspecified; R05.9 Cough, unspecified
CPT/HCPCS: 99213

== ENCOUNTER → 2025-07-22 14:20 | Outpatient (BNVA) | payer MEDICARE, SELFPAY | PROVIDERS: PCP Internal Medicine Medical Oncology; Visit Provider Internal Medicine | DX: G47.33 Obstructive sleep apnea (adult) (pediatric) (principal); J84.9 Interstitial pulmonary disease, unspecified; R05.9 Cough, unspecified; E66.9 Obesity, unspecified; Z99.89 Dependence on other enabling machines and devices | CPT/HCPCS: 99212 ==

== ENCOUNTER 2025-08-20 09:33 | Outpatient (REF) | payer MEDICARE, SELFPAY ==
[2025-08-20 10:00] LABS: MANUAL DIFF FLAG NO
[2025-08-20 10:23] LABS: Hematocrit 39.7 % (37.0-47.0); Hemoglobin 12.2 g/dl (12.0-16.0); Imm Gran Abs Auto 0.03 X10*3/uL (0.00-0.03); Imm Gran Pct Auto 0.4 % (0.0-0.4); Lymphocytes Absolute Auto 1.2 X10*3/uL (1.2-4.9); Mean Corpuscular HGB Conc 30.7 g/dl (31.0-35.0); Mean Corpuscular Hemoglobin 27.1 pg (27.0-33.0); Mean Corpuscular Volume 88.2 fL (80.0-98.0); NRBC Abs Auto 0.000 X10*3/uL (0.0-0.012); NRBC Pct Auto 0.0 /100WBC (0.0-0.2); Platelet Count 298 X10*3/uL (160-400); Red Blood Count 4.50 X10*6/uL (4.20-5.50); White Blood Count 7.2 X10*3/uL (4.8-10.8)
[2025-08-20 11:57] LABS: Alanine Aminotransferase 19 U/L (0-31); Albumin Level 4.5 g/dL (3.5-5.0); Alkaline Phosphatase 87 U/L (39-117); Anion Gap 13 (12-20); Aspartate Amino Transferase 26 U/L (5-31); Blood Urea Nitrogen 16 mg/dL (9-16); Calcium 9.9 mg/dL (8.4-10.2); Carbon Dioxide 25 mmol/L (22-29); Chloride 107 mmol/L (96-108); Cholesterol 96 mg/dL (<200); Estimated Glomerular Filt Rate 48; Free T4 (Free Thyroxine) 1.06 ng/dL (0.71-1.85); HDL Cholesterol 39 mg/dL (>40); Potassium 4.2 mmol/L (3.3-5.1); Sodium 141 mmol/L (135-145); Thyroid Stimulating Hormone 0.88 uIU/mL (0.32-4.0); Total Protein 7.3 g/dL (6.5-8.0); Triglycerides 113 mg/dL (<150)
== END 2025-08-20 09:34 | disposition home or self-care (01) ==
LOC: HO.LAB 09:33
PROVIDERS: PCP Internal Medicine Medical Oncology; Visit Provider Internal Medicine Medical Oncology
DX: E11.9 Type 2 diabetes mellitus without complications (principal); E03.9 Hypothyroidism, unspecified; E78.5 Hyperlipidemia, unspecified; E66.9 Obesity, unspecified
CPT/HCPCS: 36415; 80053; 80061; 84439; 84443; 85025